=== PATIENT | female | born 1935 | race Caucasian/White ===

== ENCOUNTER 2020-05-03 09:20 | Inpatient (IN) | payer MEDICARE, OTHER, SELFPAY ==
[2020-05-03] VITALS (61 sets, daily range): BP systolic 127–224; BP diastolic 47–115; PULSE 60–87; RESP 9–27; TEMP 36.4–36.6; O2SAT 94–100; BMI 30.7
--- NOTE | 2020-05-03 09:24 | ED_ITS ---
HPI - Overdose General: Chief Complaint: Overdose Stated Complaint: ACCIDENTAL OD Time Seen by Provider: 05/03/20 09:22 History of Present Illness: HPI Narrative: 84-year-old female brought in by EMS with concerns of overdose on clonidine. I think the patient took 15.1 mg tablets of clonidine. She had no intent of harming herself she says she took some instead mistakingly thinking that the tablets in the bottle were all of her regular morning medicines as set of her stock supply of clonidine. She took them around 730 this morning. She is awake, patient answers questions but is mildly confused. She cannot tell me specifically what happened this morning she needs redirection on several points when discussing her history. Seen patient blood pressure is stable. Review of Systems Const: Denies: fever(s), chills, body aches, change in appetite, fatigue or malaise ENMT: Denies: throat pain, ear or mastoid pain, nasal discharge or nasal congestion Card: Denies: chest pain, edema, dyspnea on exertion or orthopnea Resp: Denies: dyspnea, productive cough or non-productive cough GI: Denies: abdominal pain, nausea, vomiting, hematemesis, coffee ground emesis, diarrhea, constipation, bloating, hematochezia or melena : Denies: flank pain, difficulty voiding, dysuria, urinary frequency or urinary urgency Skin/Breast: Denies: rash or pruritus PFSH ED PFSH: Medical History CKD (chronic kidney disease) Hypertension Parkinson disease Social History Smoking and tobacco status: never smoked Physical Exam Const: COMMON NORMALS: no acute distress GENERAL APPEARANCE: cooperative and comfortable HENMT: COMMON NORMALS: normocephalic, atraumatic, hearing grossly normal bilaterally, external ears normal, EAC's normal, TM's normal bilaterally, Normal nasal mucous membranes and turbinates present, moist oral mucous membranes and oropharynx normal HEAD & SCALP: normocephalic and atraumatic NOSE: Normal nasal mucous membranes and turbinates present EXTERNAL EAR: Yes external ears normal EXTERNAL AUDITORY CANAL: EAC's normal TYMPANIC MEMBRANE: TM's normal bilaterally Eye: COMMON NORMALS: Equal, round and reactive pupils present, EOMs intact bilaterally, conjunctivae normal and no scleral icterus CONJUNCTIVA: Yes conjunctivae normal PUPIL: Yes Equal, round and reactive pupils present Neck/C-Spine: COMMON NORMALS: full ROM, no lymphadenopathy, supple and no JVD Lymph: LYMPHATIC: no lymphadenopathy noted and no lymphedema noted Resp: COMMON NORMALS: normal respiratory effort, No retractions, No use of accessory muscles and clear to auscultation bilaterally AUSCULTATION: clear to auscultation bilaterally Cardio: COMMON NORMALS: no JVD, regular rate, regular rhythm and No murmurs present (Cardio) RATE: regular rate RHYTHM: regular rhythm GI: COMMON NORMALS: Soft to palpation and No hepatosplenomegaly present AUSCULTATION: Yes normoactive bowel sounds PALPATION: Yes Soft to palpation, No Tenderness to palpation present (GI), No Guarding due to palpation present (GI) and Yes No hepatosplenomegaly present Extremity: COMMON NORMALS: normal to inspection, capillary refill normal, no clubbing, cyanosis or edema, no calf tenderness and no pedal edema Skin: COMMON NORMALS: no rashes or lesions noted GENERAL SKIN EXAM: no rashes or lesions noted Course Vital Signs: Vital signs: Vital Signs Temperature 98.4 F 05/07/20 22:00 Pulse Rate 99 05/08/20 06:00 Respiratory Rate 24 H 05/08/20 06:00 Blood Pressure 201/103 05/08/20 06:00 Pulse Oximetry 93 05/08/20 06:00 MDM - Overdose MDM Narrative: Medical decision making narrative: Admit the patient to the ICU for overdose of clonidine to monitor. Lab Data: Labs: Lab Results 05/03/20 05/03/20 05/03/20 Range/Units 10:27 10:27 10:27 WBC 7.0 (4.0-10.0) 10^3/ uL RBC 4.30 (4.1-5.3) 10^6/u L Hgb 12.5 (11.5-15.3) g/dL Hct 39.6 (37.0-47.0) % MCV 92.1 (81-99) fL MCH 29.1 (28.0-34.0) pg MCHC 31.6 (30.0-36.0) g/dL RDW 15.4 H (12.1-15.1) % Plt Count 249 (130-400) 10^3/c mm MPV 9.9 (7.4-10.4) fL Neut % (Auto) 58.0 % Lymph % (Auto) 25.3 % [place] % (Auto) 10.1 % Eos % (Auto) 5.4 % Baso % (Auto) 0.9 % Neut # (Auto) 4.09 (1.8-7.7) 10^3/u L Lymph # (Auto) 1.8 (0.8-4.8) 10^3/u L [place] # (Auto) 0.7 (0.2-0.9) 10^3/u L Eos # (Auto) 0.4 (0.0-0.8) 10^3/u L Baso # (Auto) 0.1 (0.0-0.1) 10^3/u L Nucleated RBC % (a uto) 0 % Nucleated RBCs # 0.0 /100WBC PT 12.60 (12.1-14.9) SECO NDS INR 0.92 (0.8-1.2) Sodium 135 L (136-145) mmol/L Potassium 5.6 H (3.5-5.1) mmol/L Chloride 107 (98-107) mmol/L Carbon Dioxide 18 L (22-29) mmol/L Anion Gap 15.6 (5-19) BUN 64 H (8-23) mg/dL Creatinine 4.5 H (0.5-0.9) mg/dL GFR Calculation Not Reportable Glucose 147 H (65-115) mg/dL Calculated Osmolal ity 282 L (285-295) mOsm/k g Calcium 8.6 (8.5-10.5) mg/dL Total Bilirubin 0.2 (0.15-1.2) mg/dL AST 13 (0-32) U/L ALT < 5 (0-33) U/L Alkaline Phosphata se 55 (35-105) IU/L Troponin T Baselin e (0-10) ng/L Troponin T [address] [place] (0-10) ng/L Delta Troponin T (0-10) ABS# Troponin T Hi Sens 6Hr (0-10) ng/L Troponin T Hi Sens 6Hr Delta (0-12) ng/L Total Protein 5.5 L (6.6-8.7) g/dL Albumin 3.1 L (3.5-5.2) g/dL Globulin 2.4 (1.3-4.6) g/dL TSH (0.27-4.20) uIU/ mL Urine Color (Yellow) Urine Appearance (CLEAR) Urine pH (5-7) Ur Specific Gravit y (1.005-1.030) Urine Protein (Negative) Urine Glucose (UA) (Normal) Urine Ketones (Negative) Urine Blood (Negative) Urine Nitrate (Negative) Urine Bilirubin (NEGATIVE) Urine Urobilinogen (Negative) mg/dL Ur Leukocyte Felipa ase (Negative) Urine RBC (0-2) /hpf Urine WBC (0-5) /hpf Ur Squamous Epith Cells (0-5) Amorphous Sediment Urine Bacteria (NONE) Ur Random Sodium mmol/L Ur Random Potassiu m mmol/L Ur Random Chloride mmol/L Urine Creatinine (28-217) mg/dL Salicylates < 0.3 L (3-10) mg/dL Urine Opiates Scre en (Negative) ng/mL Acetaminophen < 5.0 L (10-30) ug/mL Ur Barbiturates Sc reen (Negative) ng/mL Ur Phencyclidine S crn (Negative) ng/mL Ur Amphetamines Sc reen (Negative) ng/mL U Benzodiazepines Scrn (Negative) ng/mL Urine Cocaine Scre en (Negative) ng/mL U Marijuana (THC) Screen (Negative) ng/mL Ethyl Alcohol < 10 (0-10) mg/dL 05/03/20 05/03/20 05/03/20 Range/Units 10:27 10:48 10:48 WBC (4.0-10.0) 10^3/ uL RBC (4.1-5.3) 10^6/u L Hgb (11.5-15.3) g/dL Hct (37.0-47.0) % MCV (81-99) fL MCH (28.0-34.0) pg MCHC (30.0-36.0) g/dL RDW (12.1-15.1) % Plt Count (130-400) 10^3/c mm MPV (7.4-10.4) fL Neut % (Auto) % Lymph % (Auto) % [place] % (Auto) % Eos % (Auto) % Baso % (Auto) % Neut # (Auto) (1.8-7.7) 10^3/u L Lymph # (Auto) (0.8-4.8) 10^3/u L [place] # (Auto) (0.2-0.9) 10^3/u L Eos # (Auto) (0.0-0.8) 10^3/u L Baso # (Auto) (0.0-0.1) 10^3/u L Nucleated RBC % (a uto) % Nucleated RBCs # /100WBC PT (12.1-14.9) SECO NDS INR (0.8-1.2) Sodium (136-145) mmol/L Potassium (3.5-5.1) mmol/L Chloride (98-107) mmol/L Carbon Dioxide (22-29) mmol/L Anion Gap (5-19) BUN (8-23) mg/dL Creatinine (0.5-0.9) mg/dL GFR Calculation Glucose (65-115) mg/dL Calculated Osmolal ity (285-295) mOsm/k g Calcium (8.5-10.5) mg/dL Total Bilirubin (0.15-1.2) mg/dL AST (0-32) U/L ALT (0-33) U/L Alkaline Phosphata se (35-105) IU/L Troponin T Baselin e 51 H (0-10) ng/L Troponin T [address] [place] (0-10) ng/L Delta Troponin T (0-10) ABS# Troponin T Hi Sens 6Hr (0-10) ng/L Troponin T Hi Sens 6Hr Delta (0-12) ng/L Total Protein (6.6-8.7) g/dL Albumin (3.5-5.2) g/dL Globulin (1.3-4.6) g/dL TSH (0.27-4.20) uIU/ mL Urine Color Yellow (Yellow) Urine Appearance Clear (CLEAR) Urine pH 6.0 (5-7) Ur Specific Gravit y 1.015 (1.005-1.030) Urine Protein 3+ H (Negative) Urine Glucose (UA) Trace H (Normal) Urine Ketones Negative (Negative) Urine Blood Neg (Negative) Urine Nitrate Negative (Negative) Urine Bilirubin Neg (NEGATIVE) Urine Urobilinogen Norm (Negative) mg/dL Ur Leukocyte Felipa ase Negative (Negative) Urine RBC 0-4 H (0-2) /hpf Urine WBC 0-4 H (0-5) /hpf Ur Squamous Epith Cells 0-4 H (0-5) Amorphous Sediment Not Reportable Urine Bacteria Trace (NONE) Ur Random Sodium mmol/L Ur Random Potassiu m mmol/L Ur Random Chloride mmol/L Urine Creatinine (28-217) mg/dL Salicylates (3-10) mg/dL Urine Opiates Scre en Negative (Negative) ng/mL Acetaminophen (10-30) ug/mL Ur Barbiturates Sc reen Negative (Negative) ng/mL Ur Phencyclidine S crn Negative (Negative) ng/mL Ur Amphetamines Sc reen Negative (Negative) ng/mL U Benzodiazepines Scrn Negative (Negative) ng/mL Urine Cocaine Scre en Negative (Negative) ng/mL U Marijuana (THC) Screen Negative (Negative) ng/mL Ethyl Alcohol (0-10) mg/dL 05/03/20 05/03/20 05/03/20 Range/Units 10:48 12:45 17:05 WBC (4.0-10.0) 10^3/ uL RBC (4.1-5.3) 10^6/u L Hgb (11.5-15.3) g/dL Hct (37.0-47.0) % MCV (81-99) fL MCH (28.0-34.0) pg MCHC (30.0-36.0) g/dL RDW (12.1-15.1) % Plt Count (130-400) 10^3/c mm MPV (7.4-10.4) fL Neut % (Auto) % Lymph % (Auto) % [place] % (Auto) % Eos % (Auto) % Baso % (Auto) % Neut # (Auto) (1.8-7.7) 10^3/u L Lymph # (Auto) (0.8-4.8) 10^3/u L [place] # (Auto) (0.2-0.9) 10^3/u L Eos # (Auto) (0.0-0.8) 10^3/u L Baso # (Auto) (0.0-0.1) 10^3/u L Nucleated RBC % (a uto) % Nucleated RBCs # /100WBC PT (12.1-14.9) SECO NDS INR (0.8-1.2) Sodium (136-145) mmol/L Potassium (3.5-5.1) mmol/L Chloride (98-107) mmol/L Carbon Dioxide (22-29) mmol/L Anion Gap (5-19) BUN (8-23) mg/dL Creatinine (0.5-0.9) mg/dL GFR Calculation Glucose (65-115) mg/dL Calculated Osmolal ity (285-295) mOsm/k g Calcium (8.5-10.5) mg/dL Total Bilirubin (0.15-1.2) mg/dL AST (0-32) U/L ALT (0-33) U/L Alkaline Phosphata se (35-105) IU/L Troponin T Baselin e (0-10) ng/L Troponin T [address] [place] 47.98 H (0-10) ng/L Delta Troponin T -3.02 L (0-10) ABS# Troponin T Hi Sens 6Hr 46.27 H (0-10) ng/L Troponin T Hi Sens 6Hr Delta -4.73 L (0-12) ng/L Total Protein (6.6-8.7) g/dL Albumin (3.5-5.2) g/dL Globulin (1.3-4.6) g/dL TSH (0.27-4.20) uIU/ mL Urine Color (Yellow) Urine Appearance (CLEAR) Urine pH (5-7) Ur Specific Gravit y (1.005-1.030) Urine Protein (Negative) Urine Glucose (UA) (Normal) Urine Ketones (Negative) Urine Blood (Negative) Urine Nitrate (Negative) Urine Bilirubin (NEGATIVE) Urine Urobilinogen (Negative) mg/dL Ur Leukocyte Felipa ase (Negative) Urine RBC (0-2) /hpf Urine WBC (0-5) /hpf Ur Squamous Epith Cells (0-5) Amorphous Sediment Urine Bacteria (NONE) Ur Random Sodium 88 mmol/L Ur Random Potassiu m 21 mmol/L Ur Random Chloride 81 mmol/L Urine Creatinine 52 (28-217) mg/dL Salicylates (3-10) mg/dL Urine Opiates Scre en (Negative) ng/mL Acetaminophen (10-30) ug/mL Ur Barbiturates Sc reen (Negative) ng/mL Ur Phencyclidine S crn (Negative) ng/mL Ur Amphetamines Sc reen (Negative) ng/mL U Benzodiazepines Scrn (Negative) ng/mL Urine Cocaine Scre en (Negative) ng/mL U Marijuana (THC) Screen (Negative) ng/mL Ethyl Alcohol (0-10) mg/dL 05/03/20 05/04/20 05/04/20 Range/Units 17:05 04:07 04:07 WBC 8.7 (4.0-10.0) 10^3/ uL RBC 3.73 L (4.1-5.3) 10^6/u L Hgb 11.0 L (11.5-15.3) g/dL Hct 35.7 L (37.0-47.0) % MCV 95.7 (81-99) fL MCH 29.5 (28.0-34.0) pg MCHC 30.8 (30.0-36.0) g/dL RDW 15.5 H (12.1-15.1) % Plt Count 199 (130-400) 10^3/c mm MPV 9.8 (7.4-10.4) fL Neut % (Auto) 56.4 % Lymph % (Auto) 28.2 % [place] % (Auto) 10.6 % Eos % (Auto) 3.7 % Baso % (Auto) 0.8 % Neut # (Auto) 4.90 (1.8-7.7) 10^3/u L Lymph # (Auto) 2.5 (0.8-4.8) 10^3/u L [place] # (Auto) 0.9 (0.2-0.9) 10^3/u L Eos # (Auto) 0.3 (0.0-0.8) 10^3/u L Baso # (Auto) 0.1 (0.0-0.1) 10^3/u L Nucleated RBC % (a uto) 0 % Nucleated RBCs # 0.0 /100WBC PT (12.1-14.9) SECO NDS INR (0.8-1.2) Sodium 136 (136-145) mmol/L Potassium 4.5 5.0 (3.5-5.1) mmol/L Chloride 110 H (98-107) mmol/L Carbon Dioxide 13 L (22-29) mmol/L Anion Gap 18.0 (5-19) BUN 60 H (8-23) mg/dL Creatinine 4.6 H (0.5-0.9) mg/dL GFR Calculation Not Reportable Glucose 97 (65-115) mg/dL Calculated Osmolal ity 281 L (285-295) mOsm/k g Calcium 8.5 (8.5-10.5) mg/dL Total Bilirubin 0.3 (0.15-1.2) mg/dL AST 21 (0-32) U/L ALT < 5 (0-33) U/L Alkaline Phosphata se 54 (35-105) IU/L Troponin T Baselin e (0-10) ng/L Troponin T [address] [place] (0-10) ng/L Delta Troponin T (0-10) ABS# Troponin T Hi Sens 6Hr (0-10) ng/L Troponin T Hi Sens 6Hr Delta (0-12) ng/L Total Protein 4.9 L (6.6-8.7) g/dL Albumin 2.5 L (3.5-5.2) g/dL Globulin 2.4 (1.3-4.6) g/dL TSH 7.15 H (0.27-4.20) uIU/ mL Urine Color (Yellow) Urine Appearance (CLEAR) Urine pH (5-7) Ur Specific Gravit y (1.005-1.030) Urine Protein (Negative) Urine Glucose (UA) (Normal) Urine Ketones (Negative) Urine Blood (Negative) Urine Nitrate (Negative) Urine Bilirubin (NEGATIVE) Urine Urobilinogen (Negative) mg/dL Ur Leukocyte Felipa ase (Negative) Urine RBC (0-2) /hpf Urine WBC (0-5) /hpf Ur Squamous Epith Cells (0-5) Amorphous Sediment Urine Bacteria (NONE) Ur Random Sodium mmol/L Ur Random Potassiu m mmol/L Ur Random Chloride mmol/L Urine Creatinine (28-217) mg/dL Salicylates (3-10) mg/dL Urine Opiates Scre en (Negative) ng/mL Acetaminophen (10-30) ug/mL Ur Barbiturates Sc reen (Negative) ng/mL Ur Phencyclidine S crn (Negative) ng/mL Ur Amphetamines Sc reen (Negative) ng/mL U Benzodiazepines Scrn (Negative) ng/mL Urine Cocaine Scre en (Negative) ng/mL U Marijuana (THC) Screen (Negative) ng/mL Ethyl Alcohol (0-10) mg/dL Discharge Plan Discharge Patient Disposition: Admitted As Inpatient Admit Provider: Teodora Singleton Clinical Impression: Accidental overdose, CKD (chronic kidney disease), Parkinson disease, Hypertension, Anemia Condition: Stable Interventions: ED Discharge Assessment Last Done: 05/03/20 14:12 ED Charges Last Done: 05/03/20 14:12 Discharge Date/Time: 05/03/20 14:15 Coding Level of Care Code ED Stand Grinder for Alex Ramos
--- NOTE | 2020-05-03 09:57 | ECG_ITS ---
[facility] Test Date: 2020-05-03 Pat Name: RUBI CURRIE Department: Room: Gender: Female Managing Member: : 1935 Requested By: Alex Laurent Order Number: [id number] Moses MD: Maryann Rubi M.D. Measurements Intervals [place] Rate: 64 P: 139 WV: 265 QRS: 41 QRSD: 86 T: 81 QT: 395 QTc: 408 Interpretive Statements ELECTRONIC ATRIAL PACEMAKER ABNORMAL RHYTHM ECG No previous ECG available for comparison Electronically Signed On 05-03-2020 20:19:57 CDT by Maryann Rubi M.D. [email or web address] memorial community [id number]
[2020-05-03 10:35] LABS: Basophils # 0.1 10^3/uL (0.0-0.1); Basophils % 0.9 %; Eosinophils # 0.4 10^3/uL (0.0-0.8); Eosinophils % 5.4 %; Hematocrit 39.6 % (37.0-47.0); Hemoglobin 12.5 g/dL (11.5-15.3); Lymphocytes # 1.8 10^3/uL (0.8-4.8); Lymphocytes % 25.3 %; Mean Corpuscular HGB Conc 31.6 g/dL (30.0-36.0); Mean Corpuscular Hemoglobin 29.1 pg (28.0-34.0); Mean Corpuscular Volume 92.1 fL (81-99); Mean Platelet Volume 9.9 fL (7.4-10.4); Monocytes # 0.7 10^3/uL (0.2-0.9); Monocytes % 10.1 %; Neutrophils # 4.09 10^3/uL (1.8-7.7); Nucleated Red Blood Cells % 0 %; Platelet Count 249 10^3/cmm (130-400); Red Cell Distribution Width 15.4 % (12.1-15.1)
[2020-05-03 10:52] LABS: INR 0.92 (0.8-1.2)
[2020-05-03 10:58] LABS: Troponin(5th) Baseline 51 ng/L (0-10)
[2020-05-03 10:59] LABS: Add Urine Microscopic? YES; Bilirubin Urine Neg (NEGATIVE); Blood Urine Neg (Negative); Glucose Urine UA Trace (Normal); Ketones Urine Negative (Negative); Leukocyte Esterase Urine Negative (Negative); Nitrate Urine Negative (Negative); Protein Urine 3+ (Negative); Specific Gravity, Urine 1.015 (1.005-1.030); Urine Appearance Clear (CLEAR); Urine Color Yellow (Yellow); Urobilinogen Urine Norm (Negative)
[2020-05-03 10:59] LABS: Alanine Aminotransferase < 5 U/L (0-33); Albumin Level 3.1 g/dL (3.5-5.2); Alkaline Phosphatase 55 IU/L (35-105); Anion Gap 15.6 (5-19); Aspartate Amino Transferase 13 U/L (0-32); Blood Urea Nitrogen 64 mg/dL (8-23); Calcium 8.6 mg/dL (8.5-10.5); Carbon Dioxide 18 mmol/L (22-29); Chloride 107 mmol/L (98-107); Globulin 2.4 g/dL (1.3-4.6); Glucose 147 mg/dL (65-115); Osmolality Calculated 282 mOsm/kg (285-295); Potassium 5.6 mmol/L (3.5-5.1); Sodium 135 mmol/L (136-145); Total Bilirubin 0.2 mg/dL (0.15-1.2); Total Protein 5.5 g/dL (6.6-8.7)
[2020-05-03 11:00] LABS: Acetaminophen < 5.0 ug/mL (10-30); Alcohol Level < 10 mg/dL (0-10); Salicylate < 0.3 mg/dL (3-10)
[2020-05-03 11:08] LABS: Amphetamines Screen Urine Negative (Negative); Barbiturates Screen Urine Negative (Negative); Benzodiazepines Screen Urine Negative (Negative); Cocaine Screen Urine Negative (Negative); Opiate Screen Urine Negative (Negative); PCP Screen Urine Negative (Negative); THC Screen Urine Negative (Negative)
[2020-05-03 11:15] LABS: Add Urine Culture? No; Bacteria Urine TRACE; RBC Urine 0-4 /hpf (0-2); Squamous Epithelial Cell Urine 0-4 (0-5); WBC Urine 0-4 /hpf (0-5)
--- NOTE | 2020-05-03 11:20 | PC.NURSE ---
Poison control called at this time. Physician notified of the information obtained.
[2020-05-03] MEDS: calcium gluconate 0.1 gm/mL 10% SDV 10mL 1 GM IVP (11:56)
[2020-05-03] MEDS: sodium chloride 0.9% 1,000 ML 999 ML IV (11:56)
--- NOTE | 2020-05-03 11:59 | ECG_ITS ---
[facility] Test Date: 2020-05-03 Pat Name: Cindi Melissa Department: Room: Gender: Female Tip Out Worker: : 1935 Requested By: Alex Laurent Order Number: [id number] Moses MD: Maryann Rubi M.D. Measurements Intervals [place] Rate: 60 P: 137 DC: 254 QRS: 48 QRSD: 89 T: 92 QT: 411 QTc: 411 Interpretive Statements ELECTRONIC ATRIAL PACEMAKER ABNORMAL RHYTHM ECG Compared to ECG 05/03/2020 10:54:40 No significant changes Electronically Signed On 05-03-2020 20:26:40 CDT by Maryann Rubi M.D. [id number]
--- NOTE | 2020-05-03 12:11 | PC.NURSE ---
EKG done at 1207 and shown to ER doctor
[2020-05-03 13:16] LABS: Troponin 5 2HR 47.98 ng/L (0-10)
[2020-05-03 13:22] LABS: Troponin 5 2HR Delta -3.02 ABS# (0-10)
--- NOTE | 2020-05-03 15:15 | CT_ITS ---
WS: [id number] EXAM: CT head wo con* [id number] DATE OF EXAMINATION: 05/03/2020, 1626 hours COMPARISON: None. HISTORY: 84 years old with new onset of confusion. TECHNIQUE: Thin slice imaging obtained through the brain. Viewed in brain, subdural and bone window with reconst ructions. DLP: 818.[address] scans at [facility] use at least one of these dose optimization techniques: automat ed exposure control; mA and/or kV adjustment per patient size (includes targeted exams where dose is matched to clinical indication); or iterative reconstruction. FINDINGS: There are generalized changes of age-related atrophy. Plummer-white differentiation is normal. There are slight changes of decreased attenuation within the white matter felt to represent sequelae from synchronizer hima small vessel white matter microangiopathic change. 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 Old infarct in the left head of the caudate , left subinsular ribbon region. Slight basal ganglia calcifications. Cerebellar atrophy. Arterial ca lcified plaque changes. No findings of hemorrhage, hydrocephalus, mass, mass effect or abnormal extra -axial fluid collection is seen. Overall bone density is decreased. No acute skull abnormality is dem onstrated. Extracalvarial soft tissues are unremarkable. Slight chronic sinusitis changes in the ethm oid sinuses. Findings of prior bilateral cataract surgery. CT/CT head wo con* [id number] IMPRESSION: Atrophy and slight chronic white matter changes. No acute intracranial process. 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
--- NOTE | 2020-05-03 15:17 | P.HP_ITS ---
Providers/Chief Complaint Admitting Physician: Teodora Singleton MD Chief Complaint: ACCIDENTAL OD History of Present Illness Cnidi Melissa is a 84 year old female with PMH Parkinson's , HTN, lives alone, presented to ER today c/o increased weakness and subjective confusion. She states that usually she takes clonidine in addition to her BID amlodipine for BP control on a prn basis. Last night she states that she beleives she may have accidentally taken ~15 pills of clonidine, mistaking it to be her otherwise sorted pills (which she sorts daily in a similar looking container). Overnight she beelived she had some vivid dreams, hallucinations and this morning felt weak. She panicked when she realized she mayhave taken excess medication and presnted to ER. She is otherwise alert and awake, however veers off the conversation at hand often and needs to be redirected. I am uncertain if this is her baseline. Intermittently her words are slurred. She is able to correctly tell me her comorbidities, however does not recall name of all of her medications. No focal deficits otherwise. SBP >200 at this time. Review of Systems General: Reports: 10 or more systems reviewed and unremarkable except in HPI and below Const: Denies: fever(s), chills or body aches Eyes: Denies: change in vision, blurry vision or photophobia ENMT: Reports: hoarseness; Denies: throat pain, enlarged tonsils, odynophagia or nasal congestion Card: Denies: chest pain, palpitations, irregular heart rhythm, edema, swelling of feet/ankles, lightheadedness, pre-syncope, dyspnea on exertion or orthopnea Resp: Denies: dyspnea, productive cough, non-productive cough, wheezing, stridor, pain on inspiration, change in phlegm color, hemoptysis or chest conge stion GI: Denies: abdominal pain, nausea, vomiting, hematemesis, coffee ground emesis, dysphagia, heartburn, diarrhea, constipation, GI cramping, change in stool character, hematochezia or melena : Denies: flank pain, difficulty voiding, dysuria, urinary frequency, urinary urgency, urinary hesitancy or hematuria Musc: Denies: neck pain, back pain, extremity pain, joint swelling, joint warmth or deformity Neuro: Denies: headache(s), numbness in extremities, weakness in extremities, sensory changes, difficulty walking, frequent falls, dizziness, vertigo, behavioral changes, Slurred speech present or seizure-like activity Psych: Denies: anxiety, depression, suicidal ideation or homicidal ideation Endo: Denies: polyuria, polydipsia, tired all the time, cold intolerance or hot flashes Hao/Lymph: Denies: easy bruising or easy bleeding Medications/Allergies Home Medications Medication Instructions Recorded Confirmed Last Taken Type Fish Oil 1 cap PO DAILY 05/03/20 05/03/20 Unknown History Probiotic 1 cap PO DAILY 05/03/20 05/03/20 Unknown History acetaminophen [Tylenol Extra 500 mg PO TID 05/03/20 05/03/20 Unknown History Strength] amlodipine 5 mg PO BID 05/03/20 05/03/20 Unknown History aspirin [Aspir-81] See Rx Instructions .ROUTE .COMPLEX 05/03/20 05/03/20 Unknown History carbidopa-levodopa 1 tab PO TID 05/03/20 05/03/20 Unknown History citalopram 10 mg PO BEDTIME 05/03/20 05/03/20 Unknown History clonidine HCl 0.1 mg PO BID 05/03/20 05/03/20 Unknown History cranberry 500 mg PO DAILY 05/03/20 05/03/20 Unknown History ferrous sulfate [iron] 325 mg PO BID 05/03/20 05/03/20 Unknown History hydralazine 10 mg PO TID 05/03/20 05/03/20 Unknown History levothyroxine 150 mcg PO DAILY 05/03/20 05/03/20 Unknown History multivitamin [Multiple Vitamins] 1 tab PO DAILY 05/03/20 05/03/20 Unknown Histo ry omeprazole 40 mg PO DAILY 05/03/20 05/03/20 Unknown History oxybutynin chloride 5 mg PO BID 05/03/20 05/03/20 Unknown History quetiapine 25 mg PO BEDTIME PRN 05/03/20 05/03/20 Unknown History quetiapine 200 mg PO BEDTIME 05/03/20 05/03/20 Unknown History rasagiline 1 mg PO DAILY 05/03/20 05/03/20 Unknown History sennosides-docusate sodium See Rx Instructions .ROUTE .COMPLEX 05/03/20 05/03/20 Unknown History [Senna-S] Allergies Allergy/AdvReac Type Severity Reaction Status Date / Time promethazine [From Phenergan] Allergy Unknown Verified 05/03/20 09:29 Sulfa (Sulfonamide Allergy Unknown Verified 05/03/20 09:29 Antibiotics) PFSH Acute PFSH: Medical History Hypertension Parkinson disease Social History (Updated 05/03/20 @ 16:51 by Teodora Singleton MD) Smoking and tobacco status: never smoked Vitals/I&O/Wt Last Vital Signs Temp 97.8 F 05/03/20 14:50 Pulse 68 05/03/20 15:00 Resp 20 H 05/03/20 15:00 BP 204/88 05/03/20 15:00 Pulse Ox 98 05/03/20 15:00 Weight last 48 hrs Weight 86.183 kg Physical Exam Narrative: EXAM NARRATIVE: GEN: Awake, alert and oriented, no acute distress CVS: S1S2 N RS: CTA B/L Abd: Soft, nt/nd , bs+ BEAN DUMPER: no focal neuro deficits Data : 05/03/20 10:27 05/03/20 10:27 A&P Assessment and plan (1) CKD (chronic kidney disease): Status: Acute (2) Hyperkalemia: Status: Acute (3) Parkinson disease: Status: Acute (4) Hypertension: Status: Acute (5) Accidental overdose: Status: Acute Additional A&P Information Admit to ICU in observation # Accidental clonidine overdose no acute change son EKG, Sinus bardycardia at 60 HTN with SBP >200 at this time hallucinations and vivid dreams may be art of accidental overdose neuro status monitoring CT head to r/o acute CVA # hyperkaelmia insulin/dextrose, given ca gluconate in ER, recheck level at 5pm # CKD, unknown baseline, pt states this has been ongoing at least 6 years, follows with PMD, never recomemnded dialysis in the past. Hold off on HD for now , pt otherwise stable # HTN: hydralazine prn for now for SBP >[address] head to r/o acute CVA AND DVT ppx: heparin Attestations Medical Necessity Statement*: clonidine overdose, anticipate <2MN admission Coding Level of Care Code Acute Clinical Research Tech for Chg Fwd Diagnoses CKD (chronic kidney disease) N18.9 Hyperkalemia E87.5 Parkinson disease G20 Hypertension I10 Accidental overdose T50.901A
[2020-05-03] MEDS: hyDRALAzine 20 mg/mL INJ 1 mL 10 MG IVP (15:53)
[2020-05-03] MEDS: dextrose 50% syringe 50 mL IVP (16:05)
[2020-05-03] MEDS: insulin regular-human 10 UNIT in SYRINGE 1 EACH 999 UNIT IVP (16:05)
[2020-05-03 17:53] LABS: Troponin 5 6HR 46.27 ng/L (0-10)
[2020-05-03 18:01] LABS: Potassium 4.5 mmol/L (3.5-5.1); Thyroid Stimulating Hormone 7.15 uIU/mL (0.27-4.20)
[2020-05-03 18:03] LABS: Troponin 5 6HR Delta -4.73 ng/L (0-12)
[2020-05-03] MEDS: amlodipine 10 mg Tablet PO (18:27)
[2020-05-03] MEDS: heparin 5,000 unit/mL INJ 1 mL 5000 UNIT SUBCUT (18:30)
--- NOTE | 2020-05-03 18:45 | PC.NURSE ---
Pt hypertensive upon admission to ICU. Dr. Singleton aware, and placed orders. See MAR. BP still very high after hydralazine administration; attempted to reach Dr. Singleton via Voalte at 17:06. No response. Spoke with her via telephone; she stated she will enter orders. No orders received to treat hypertension after ~30 minutes, so Dr. Singleton was called once again. No answer; left voice message. Tammie MCCORMICK, charge nurse notified, who sent her a text. She then called back and gave instructions to give amlodipine 10mg PO now and if the pt is still hypertensive after 45 minutes, give the PO Imdur dose that is also ordered. There was a delay in retrieving the amlodipine from the [facility] due to it not appearing in the patient's medication profile and not showing up in the override feature. Pharmacy notified; they re-entered the order from their end. Amlodipine given at approximately 18:30. Updated oncoming nurseYamile, of physician's instructions for Imdur administration.
[2020-05-03] MEDS: isosorbide mononitrate ER 30 mg Tablet PO (20:00)
[2020-05-04] VITALS (61 sets, daily range): BP systolic 83–221; BP diastolic 37–97; PULSE 60–88; RESP 10–25; TEMP 36.7–37.1; O2SAT 90–98
[2020-05-04] MEDS: acetaminophen 325 mg Tablet 650 MG PO ×2 (01:24→13:10)
[2020-05-04 04:25] LABS: Basophils # 0.1 10^3/uL (0.0-0.1); Basophils % 0.8 %; Eosinophils # 0.3 10^3/uL (0.0-0.8); Eosinophils % 3.7 %; Hematocrit 35.7 % (37.0-47.0); Lymphocytes # 2.5 10^3/uL (0.8-4.8); Lymphocytes % 28.2 %; Mean Corpuscular HGB Conc 30.8 g/dL (30.0-36.0); Mean Corpuscular Hemoglobin 29.5 pg (28.0-34.0); Mean Corpuscular Volume 95.7 fL (81-99); Mean Platelet Volume 9.8 fL (7.4-10.4); Monocytes # 0.9 10^3/uL (0.2-0.9); Monocytes % 10.6 %; Neutrophils % 56.4 %; Nucleated Red Blood Cells % 0 %; Platelet Count 199 10^3/cmm (130-400); Red Blood Count 3.73 10^6/uL (4.1-5.3); Red Cell Distribution Width 15.5 % (12.1-15.1); White Blood Count 8.7 10^3/uL (4.0-10.0)
[2020-05-04 04:59] LABS: Alanine Aminotransferase < 5 U/L (0-33); Albumin Level 2.5 g/dL (3.5-5.2); Alkaline Phosphatase 54 IU/L (35-105); Aspartate Amino Transferase 21 U/L (0-32); Blood Urea Nitrogen 60 mg/dL (8-23); Calcium 8.5 mg/dL (8.5-10.5); Carbon Dioxide 13 mmol/L (22-29); Chloride 110 mmol/L (98-107); Globulin 2.4 g/dL (1.3-4.6); Glucose 97 mg/dL (65-115); Osmolality Calculated 281 mOsm/kg (285-295); Sodium 136 mmol/L (136-145); Total Bilirubin 0.3 mg/dL (0.15-1.2); Total Protein 4.9 g/dL (6.6-8.7)
[2020-05-04] MEDS: heparin 5,000 unit/mL INJ 1 mL 5000 UNIT SUBCUT ×2 (05:29→17:25)
[2020-05-04] MEDS: hyDRALAzine 20 mg/mL INJ 1 mL 10 MG IVP (06:28)
[2020-05-04] MEDS: ondansetron 2 mg/ML SDV 2 mL 4 MG IVP ×2 (07:32→17:32)
--- NOTE | 2020-05-04 08:06 | CT_ITS ---
WS: [id number] EXAM: CT OF THE ABDOMEN AND PELVIS WITHOUT CONTRAST DATE OF EXAMINATION: 05/04/2020, 1421 hours COMPARISON: None. HISTORY: 84 years old with accidental drug overdose. Creatinine of 4.6. History of chronic kidney disease. TECHNIQUE: Transaxial computed tomography images obtained through the abdomen and pelvis without utilization of contrast viewed in multiple windows with reconstructions. DLP: 1313.[address] scans at [facility] use at least one of these dose optimization techniques: automat ed exposure control; mA and/or kV adjustment per patient size (includes targeted exams where dose is matched to clinical indication); or iterative reconstruction. FINDINGS: There are minimal findings of infiltrate/atelectasis in both lung bases with small effusions. Most li ramya dependent atelectasis. Pacing wires end in the heart. Extensive mitral valve annular calcificati ons noted. Heart size is considered within normal limits. The aorta is normal in caliber. Without IV contrast evaluation of the lumen is considered inadequate. Liver attenuation is normal. Clips in the gallbladder fossa correlate with cholecystectomy changes. No biliary dilatation is noted. The spleen is normal in appearance. The pancreas is normal appearance. Adrenal glands are normal appearance. Both kidneys are normal in size and attenuation. There is a small hyperdense lesion dorsal superior l eft kidney most likely a tiny hemorrhagic cyst. Several lesions are also seen involving the right kid radhika. At least 2 of these are dense suggesting hemorrhagic cysts. Follow-up renal sonogram recommended to confirm no solid mass lesion. The largest is superiorly 2.5 cm in size. No obstructive uropathy. No ureteral stones. Small retrocardiac hiatal hernia. Stomach otherwise normal in appearance. Small bowel is normal in ca liber. Colon is normal in caliber. Slight thickening of the colonic wall is seen. Fairly nonspecific. Could be related to the decompressed state. No pericolonic inflammatory change. Please correlate for symptoms of colitis. There appears to be ingested dense material within an otherwise normal appendix . No intraperitoneal or retroperitoneal adenopathy or masses seen. Bladder is normally distended. Minute in size umbilical hernia. No groin hernia appear Uterus is atretic. No adnexal mass. Scattered degenerative changes are seen in the spine. Most prominent collapse of the disc space L5-S1 level. Overall bone density is decreased. CT/CT abdomen pelvis wo con [id number] IMPRESSION: Findings of small bilateral pleural effusions with bibasilar infiltrates most l ikely representing dependent atelectasis. Multiple lesions involving the kidneys most likely hemorrhagic cysts. Renal son ogram recommended to exclude a solid mass lesion. No obstructive uropathy. Slight prominence of the colonic wall presumably related to the decompressed st ate. Please correlate for clinical symptomatology to suggest colitis which is c onsidered unlikely unless the clinical symptoms of this entity. Normal appendix . Other nonemergent findings as described in the body of the report.
[2020-05-04] MEDS: amlodipine 10 mg Tablet PO (08:51)
[2020-05-04] MEDS: isosorbide mononitrate ER 30 mg Tablet PO (08:51)
--- NOTE | 2020-05-04 10:15 | P.PN_ITS ---
Subjective Subjective: Interval history: Patient hypotensive this morning. Blood pressure continuously above 1 90-200 systolic. Started on a Cardene drip. Also very nauseous this morning. Creatinine at 4.6. Per additional history obtained from the patient this morning, states she was admitted 1 week ago at [facility] in [place] at which time she was transfused 4 units of blood. She does not remember why she needed the blood transfusion. Reportedly creatinine was 2.0 at that time. Records have been requested from her primary Dr. Sheehan in [facility] and also from the hospital she was admitted at. She has previously not been interested in dialysis. Medications: Reviewed: Yes Vitals/I&O/Wt Last Vital Signs Temp 98.4 F 05/04/20 07:00 Pulse 66 05/04/20 10:00 Resp 20 H 05/04/20 10:00 BP 194/77 05/04/20 10:00 Pulse Ox 94 05/04/20 10:00 05/03/20 05/04/20 05/04/20 22:59 06:59 14:59 Output Total 1000 / 1000 650 / 1650 Balance -1000 / -1000 -650 / -1650 Weight last 48 hrs Weight 86.183 kg Physical Exam Narrative: EXAM NARRATIVE: GEN: Awake, alert and oriented, no acute distress CVS: S1S2 N RS: CTA B/L Abd: Soft, nt/nd , bs+ NANOTECHNOLOGY TECHNICIAN: no focal neuro deficits Data : 05/04/20 04:07 05/04/20 04:07 A&P Assessment and plan (1) Hyperkalemia: Status: Acute (2) CKD (chronic kidney disease): Status: Acute (3) Parkinson disease: Status: Acute (4) Hypertension: Status: Acute (5) Accidental overdose: Status: Acute (6) Hypertensive urgency: Status: Acute Additional A&P Information Change to inpatient admission # Accidental clonidine overdose, suspected by patient # hypertensive urgency HTN with SBP >200 at this time, overnight she had improved BP control after being given amlodipine and imdur, however this morning she is again at SBP >200. Also c/o increased nausea at this time with heaving. Not controlled with po imdur and hydralazine pushes Start nicardipine drip for BP control Overlap with 10mg po amlodipine, hydralazine changed to 25mg po TID hallucinations and vivid dreams may be part of accidental overdose, however pat shahid is not certain if she did take medications, now states she took something that was 15 pills but is unsure. CT head with chronic white matter changes. No acute intracranial process.Resum ASA neuro status monitoring SBP goal topday to be at ~150 # hyperkaelmia insulin/dextrose, given ca gluconate in ER, thia am level at 5.0 Likely related to underlying CKD # CKD, unknown baseline,today patient states that she was admitted one week ago at [facility] and received 4 units of transfusion, however does not know indication. States that her cr was probably 2.0 at that time. records requested from PMD and OSH. CT abd/pelvis to evalute for obstructive uropathy given acutely worsened cr urine output at 1.6L Noted bicarb at 13 today Incraesing lower extremity swelling,lasix 20mg iv x 1 today LE duplex, reports tenderness to palpation over RLE # hypothyroidism: elevated TSH at 7. FT4 and FT3 in am AND DVT ppx: heparin Attestations Medical Necessity Statement*: change to inpatient admission for hypertensive urgency, likely GERDA on CKD, records requested Coding Level of Care Code Acute Shrink Pit Operator for Chg Fwd Diagnoses Hyperkalemia E87.5 CKD (chronic kidney disease) N18.9 Parkinson disease G20 Hypertension I10 Accidental overdose T50.901A Hypertensive urgency I16.0
[2020-05-04] MEDS: nicardipine 20 MG/200 ML PREMIX 50 MG IV ×2 (10:16→14:05)
--- NOTE | 2020-05-04 10:29 | ECG_ITS ---
[facility] Test Date: 2020-05-04 Pat Name: Cindi Melissa Department: Room: [facility] Gender: Female Single End Sewer: : 1935 Requested By: Teodora Singleton Order Number: [id number] Moses MD: Isabel Arizmendi M.D. Measurements Intervals [place] Rate: 67 P: 66 VT: 170 QRS: 44 QRSD: 84 T: 71 QT: 414 QTc: 439 Interpretive Statements SINUS RHYTHM WITH SINUS ARRHYTHMIA Compared to ECG 05/03/2020 12:09:07 Atrial-paced complex(es) or rhythm no longer present Electronically Signed On 05-04-2020 23:07:21 CDT by Isabel Arizmendi M.D. [id number]
--- NOTE | 2020-05-04 10:31 | USCV_ITS ---
Cindi Melissa Age: 84 Gender: F : 1935 Exam Date: 05/04/2020 11:39 Ordering Phys: Teodora Singleton MD Technologist: Shai Moise [place] [facility] [place]: BED STASIS ? DVT HISTORY: Lower extremity swelling. PROCEDURES: The venous duplex Doppler examination of both lower extremities was performed in the standard fashion. The following venous structures were evaluated: common femoral vein, profunda vein, proximal portion of the greater saphenous vein, superficial femoral vein, and the popliteal vein. In addition, the posterior tibial and peroneal trunk were evaluated. FINDINGS: Normal 2-D Doppler and augmentation and compressibility throughout the lower extremity venous structures. Additional imaging through the proximal calf veins also reveals no thrombus. Limited evaluation of the greater saphenous vein is patent with no thrombus.. CONCLUSIONS No evidence of DVT in the above-mentioned identifiable veins. Dr Isabel Arizmendi MD [facility] (Electronically Signed) Final Date: 05 May 2020 17:12 S
[2020-05-04 11:13] LABS: Potassium, Radom Urine 21 mmol/L; Urine Creatinine 52 mg/dL (28-217); Urine Random Chloride 81 mmol/L; Urine Random Sodium 88 mmol/L
[2020-05-04] MEDS: FUROsemide 10 mg/mL SDV 2mL 20 MG IVP (13:11)
[2020-05-04] MEDS: hyDRALAzine 25 mg Tablet PO ×2 (14:43→20:59)
[2020-05-04] MEDS: carbidopa-levodopa 25-100mg Tablet 1 EACH PO ×2 (14:43→20:59)
[2020-05-04] MEDS: nicardipine 20 MG/200 ML PREMIX 125 MG IV (16:44)
[2020-05-04] MEDS: oxybutynin 5 mg Tablet PO (17:26)
[2020-05-04] MEDS: nicardipine 20 MG/200 ML PREMIX 100 MG IV ×3 (18:21→22:17)
--- NOTE | 2020-05-04 18:39 | PC.NURSE ---
Dr. Singleton notified at 07:30 of persistent hypertension despite recent hydralazine administration. See orders.
[2020-05-04] MEDS: citalopram 20 mg Tablet 10 MG PO (20:59)
[2020-05-04] MEDS: quetiapine 100 mg Tablet 200 MG PO (20:59)
[2020-05-05] VITALS (27 sets, daily range): BP systolic 90–172; BP diastolic 36–64; PULSE 60–89; RESP 13–21; TEMP 36.9; O2SAT 89–96
[2020-05-05 04:10] LABS: Basophils # 0.1 10^3/uL (0.0-0.1); Basophils % 0.8 %; Eosinophils # 0.2 10^3/uL (0.0-0.8); Eosinophils % 2.1 %; Hematocrit 36.3 % (37.0-47.0); Hemoglobin 11.1 g/dL (11.5-15.3); Lymphocytes # 2.8 10^3/uL (0.8-4.8); Lymphocytes % 29.9 %; Mean Corpuscular HGB Conc 30.6 g/dL (30.0-36.0); Mean Corpuscular Hemoglobin 29.3 pg (28.0-34.0); Mean Corpuscular Volume 95.8 fL (81-99); Mean Platelet Volume 10.3 fL (7.4-10.4); Monocytes # 1.2 10^3/uL (0.2-0.9); Monocytes % 13.5 %; Neutrophils # 4.92 10^3/uL (1.8-7.7); Neutrophils % 53.4 %; Nucleated Red Blood Cells % 0 %; Platelet Count 249 10^3/cmm (130-400); Red Blood Count 3.79 10^6/uL (4.1-5.3); Red Cell Distribution Width 15.8 % (12.1-15.1); White Blood Count 9.2 10^3/uL (4.0-10.0)
[2020-05-05] MEDS: heparin 5,000 unit/mL INJ 1 mL 5000 UNIT SUBCUT ×2 (04:34→17:30)
[2020-05-05 04:35] LABS: Alanine Aminotransferase < 5 U/L (0-33); Albumin Level 2.7 g/dL (3.5-5.2); Alkaline Phosphatase 57 IU/L (35-105); Anion Gap 17.7 (5-19); Aspartate Amino Transferase 24 U/L (0-32); Blood Urea Nitrogen 60 mg/dL (8-23); Calcium 8.1 mg/dL (8.5-10.5); Carbon Dioxide 14 mmol/L (22-29); Chloride 112 mmol/L (98-107); Globulin 2.5 g/dL (1.3-4.6); Glucose 99 mg/dL (65-115); Osmolality Calculated 287 mOsm/kg (285-295); Potassium 4.7 mmol/L (3.5-5.1); Sodium 139 mmol/L (136-145); Total Bilirubin 0.3 mg/dL (0.15-1.2); Total Protein 5.2 g/dL (6.6-8.7)
[2020-05-05 04:45] LABS: T3 Free 1.1 PG/ML (2.0-4.4)
[2020-05-05] MEDS: aspirin 81 mg EC Tablet PO (08:17)
[2020-05-05] MEDS: pantoprazole DR 40 mg Tablet PO (08:17)
[2020-05-05] MEDS: isosorbide mononitrate ER 30 mg Tablet PO (08:17)
[2020-05-05] MEDS: hyDRALAzine 25 mg Tablet PO ×3 (08:18→20:59)
[2020-05-05] MEDS: oxybutynin 5 mg Tablet PO ×2 (08:18→17:35)
[2020-05-05] MEDS: levothyroxine 150 mcg Tablet PO (08:18)
[2020-05-05] MEDS: amlodipine 10 mg Tablet PO (08:18)
[2020-05-05] MEDS: carbidopa-levodopa 25-100mg Tablet 1 EACH PO ×3 (08:18→20:59)
--- NOTE | 2020-05-05 11:48 | PM.CONSULT ---
Providers/Reason For Consult Consulting Physican/Specialty*: Cherise Valentine DO, telenephrology Reason for Consult*: CKD, hypertension, hyperkalemia Requesting Physcian: Teodora Singleton MD Attending Physician: Teodora Singleton MD History of Present Illness History of Present Illness Cindi Melissa is a 84 year old female presented to hospital for evaluation of altered mental status. She states she took 15 amlodipine tablets at once the night before by mistake. In past she has declined dialysis, but now would like to try it and see if she feels better. Review of Systems Const: Reports: fatigue Card: Denies: chest pain Resp: Reports: dyspnea GI: Denies: abdominal pain Neuro: Reports: other (tremor) Meds/Allergies Home Medications and Allergies Home Medications Medication Instructions Recorded Confirmed Last Taken Type Fish Oil 1 cap PO DAILY 05/03/20 05/03/20 Unknown History Probiotic 1 cap PO DAILY 05/03/20 05/03/20 Unknown History acetaminophen [Tylenol Extra 500 mg PO TID 05/03/20 05/03/20 Unknown History Strength] amlodipine 5 mg PO BID 05/03/20 05/03/20 Unknown History aspirin [Aspir-81] See Rx Instructions .ROUTE .COMPLEX 05/03/20 05/03/20 Unknown History carbidopa-levodopa 1 tab PO TID 05/03/20 05/03/20 Unknown History citalopram 10 mg PO BEDTIME 05/03/20 05/03/20 Unknown History clonidine HCl 0.1 mg PO BID 05/03/20 05/03/20 Unknown History cranberry 500 mg PO DAILY 05/03/20 05/03/20 Unknown History ferrous sulfate [iron] 325 mg PO BID 05/03/20 05/03/20 Unknown History hydralazine 10 mg PO TID 05/03/20 05/03/20 Unknown History levothyroxine 150 mcg PO DAILY 05/03/20 05/03/20 Unknown History multivitamin [Multiple Vitamins] 1 tab PO DAILY 05/03/20 05/03/20 Unknown History omeprazole 40 mg PO DAILY 05/03/20 05/03/20 Unknown History oxybutynin chloride 5 mg PO BID 05/03/20 05/03/20 Unknown History quetiapine 25 mg PO BEDTIME PRN 05/03/20 05/03/20 Unknown History quetiapine 200 mg PO BEDTIME 05/03/20 05/03/20 Unknown History rasagiline 1 mg PO DAILY 05/03/20 05/03/20 Unknown History sennosides-docusate sodium See Rx Instructions .ROUTE .COMPLEX 05/03/20 05/03/20 Unknown History [Senna-S] Allergies Allergy/AdvReac Type Severity Reaction Status Date / Time promethazine [From Phenergan] Allergy Unknown Verified 05/03/20 09:29 Sulfa (Sulfonamide Allergy Unknown Verified 05/03/20 09:29 Antibiotics) Current Medications Current Medications Generic Name Dose Route Start Last Admin Trade Name Freq PRN Reason Stop Dose Admin Acetaminophen 650 mg 05/03/20 16:32 05/04/20 13:10 Tylenol PO 650 mg Q6H PRN Administration Mild/Mod Pain Or Temp >/= 101 Amlodipine Besylate 10 mg 05/04/20 09:00 05/05/20 08:18 Norvasc PO 10 mg DAILY LAMONT Administration Aspirin 81 mg 05/05/20 09:00 05/05/20 08:17 Aspirin Ec PO 81 mg DAILY LAMONT Administration Carbidopa/Levodopa 1 each 05/04/20 15:00 05/05/20 08:18 Sinemet PO 1 each TID LAMONT Administration Citalopram Hydrobromide 10 mg 05/04/20 21:00 05/04/20 20:59 Celexa PO 10 mg BEDTIME LAMONT Administration Heparin Sodium (Beef Lung) 5,000 unit 05/03/20 16:45 05/05/20 04:34 Heparin SUBCUT 5,000 unit Q12H LAMONT Administration Hydralazine HCl 25 mg 05/04/20 15:00 05/05/20 08:18 Apresoline PO 25 mg TID LAMONT Administration Nicardipine/Sodium Chloride 20 mg in 200 mls @ 0 mls/hr 05/04/20 07:45 05/05/20 01:06 Cardene IV 0 mg/hr .Q0M LAMONT 0 mls/hr Titration Protocol Per Protocol Isosorbide Mononitrate 30 mg 05/03/20 18:00 05/05/20 08:17 Imdur PO 30 mg DAILY LAMONT Administration Levothyroxine Sodium 150 mcg 05/05/20 09:00 05/05/20 08:18 Synthroid PO 150 mcg DAILY LAMONT Administration Non-Formulary Medication 500 mg 05/05/20 09:00 05/05/20 08:20 Cranberry PO Not Given DAILY LAMONT Non-Formulary Medication 1 mg 05/05/20 09:00 05/05/20 08:20 Rasagiline PO Not Given DAILY LAMONT Ondansetron HCl 4 mg 05/04/20 07:28 05/04/20 17:32 Zofran IVP 4 mg Q6H PRN Administration NAUSEA AND VOMITING Oxybutynin Chloride 5 mg 05/04/20 18:00 05/05/20 08:18 Ditropan PO 5 mg BID LAMONT Administration Pantoprazole Sodium 40 mg 05/05/20 09:00 05/05/20 08:17 Protonix PO 40 mg DAILY LAMONT Administration Quetiapine Fumarate 200 mg 05/04/20 21:00 05/04/20 20:59 Seroquel PO 200 mg BEDTIME LAMONT Administration PFSH Acute PFSH: Medical History CKD (chronic kidney disease) Hypertension Parkinson disease Social History Smoking and tobacco status: never smoked Vitals/I&O/Wt Last Vital Signs Temp 98.4 F 05/04/20 07:00 Pulse 72 05/05/20 11:00 Resp 21 H 05/05/20 08:00 BP 137/51 05/05/20 11:00 Pulse Ox 94 05/05/20 11:00 05/04/20 05/05/20 05/05/20 22:59 06:59 14:59 Intake Total 988.126 / 1178.959 181.250 / 1360.209 300 / 300 Output Total 300 / 500 400 / 400 Balance 688.126 / 678.959 181.250 / 860.209 -100 / -100 Physical Exam Const: COMMON NORMALS: no acute distress GENERAL APPEARANCE: cooperative ORIENTATION/CONSCIOUSNESS: Yes awake Resp: COMMON NORMALS: normal respiratory effort and clear to auscultation bilaterally AUSCULTATION: clear to auscultation bilaterally Cardio: COMMON NORMALS: regular rate RATE: regular rate HEART SOUNDS: Murmur heart sound present Extremity: GENERAL: Yes edema Data Labs: Other Labs: urinalysis 3+ albumin, serum albumin 2.7, calcium 8.1 Other Data: Other data: CT ABD: Adrenal glands are normal appearance. Both kidneys are normal in size and attenuation. There is a small hyperdense lesion dorsal superior left kidney most likely a tiny hemorrhagic cyst. Several lesions are also seen involving the right kidney. At least 2 of these are dense suggesting hemorrhagic cysts. Follow-up renal sonogram recommended to confirm no solid mass lesion. The largest is superiorly 2.5 cm in size. No obstructive uropathy. No ureteral stones. A&P Additional A&P Information Impression: 1. Stage 5 CKD, possibly with uremic symptoms 2. Proteinuria, possibly nephrotic 3. Metabolic acidosis 4. Hyperkalemia, resolved 5. Hypertension Recommend: I discussed with Cindi potential benefits and risks of dialyisis, HD v PD, types of access. She would like to try hemodialysis. Consult surgery for permcath placement. Begin oral sodium bicarbonate. Begin protein supplement. Check labs including PTH, 26(OH)D, phos, Hepatitis serologies. Once dialysis started, add ARB. Coding Level of Care Code Acute Supervisor Spring Up for Alex Ramos
--- NOTE | 2020-05-05 12:52 | USCV_ITS ---
Cindi Melissa Age: 84 Gender: F : 1935 Exam Date: 05/05/2020 15:47 Ordering Phys: Teodora Singleton MD Technologist: Sera Rosas [place] [facility] [place]ication: HYPERTENSIVE crisis BP: 157 / 59 HR: 73 Rhythm: Sinus Technical Quality: Technically difficult study MEASUREMENTS (Male / Female) Normal Values 2D ECHO LV Diastolic Diameter PLAX 3.1 cm 4.2 - 5.9 / 3.9 - 5.3 cm LV Systolic Diameter PLAX 1.3 cm IVS Diastolic Thickness 1.1 cm 0.6 - 1.0 / 0.6 - 0.9 cm IVS Systolic Thickness 1.6 cm LVPW Diastolic Thickness 1.4 cm 0.6 - 1.0 / 0.6 - 0.9 cm LVPW Systolic Thickness 1.7 cm LV Ejection Fraction 2D Teich 88.4 % LV Ejection Fraction MOD 2C 79.6 % LV Ejection Fraction 2C AL 81.7 % LA Diameter 2.4 cm LA Width 3.8 cm LA Height 6.4 cm RA Width 3.9 cm RA Height 5.0 cm M-MODE Aortic Annulus Diameter 2.8 cm LA Ao Ratio MM 0.9 MV E Point Septal Separation 1.4 cm DOPPLER AV Peak Velocity 228.0 cm/s LVOT Peak Velocity 171.0 cm/s MV Peak Velocity 198.0 cm/s MV Area PHT 2.1 cm squared Mitral E to A Ratio 1.1 MV E' Velocity 9.0 cm/s Mitral E to MV E' Ratio 18.1 Mitral E to LV E' Lateral Ratio 20.2 Mitral E to LV E' Septal Ratio 16.4 TR Peak Velocity 332.0 cm/s TR Peak Gradient 44.2 mmHg Right Atrial Pressure 3.0 mmHg Pulmonary Artery Systolic Pressu 47.1 mmHg PV Peak Velocity 167.0 cm/s RV Acceleration Time 0.1 s FINDINGS Left Ventricle Normal left ventricular size. Because of limited visualization regional wall motion abnormalities cannot be assessed. Diastolic function is indeterminate Right Ventricle The right ventricle is normal in size and function. Right Atrium The right atrium is normal in size. Left Atrium The left atrium is normal in size. Mitral Valve Mild mitral annular calcification is noted. There is no mitral regurgitation. Aortic Valve Aortic sclerosis is noted. There is mild aortic stenosis with a mean gradient across the aortic valve of 10.8 mmHg. There is trace aortic regurgitation. Tricuspid Valve Structurally normal tricuspid valve without significant stenosis. There is trace TR. Pulmonic Valve Not well visualized Pericardium Normal pericardium without effusion. Aorta Normal ascending aorta dimension. CONCLUSIONS Technically limited study. LV systolic function is grossly normal. Diastolic function is indeterminate Mild aortic stenosis is noted. Freddie Marrero MD (Electronically Signed) Final Date: 05 May 2020 17:30 S
[2020-05-05 12:59] LABS: 25 Hydroxy Vitamin D 12 ng/mL (30-100)
--- NOTE | 2020-05-05 13:10 | PC.CHAP ---
Pastoral Care Encounter/Spiritual Assessment Type of Contact [] Declined petroleum refining firer visit [] Patient/Family/Request visit [] Outpatient visit [] Follow-up visit [] Physician referral [] Code/Alert [x] Routine visit [] Staff referral [] Actively dying [] Patient sleeping [] Family support [] [] Out of room [] Palliative care [] [x] Receiving care in room [] Pre-surgical visit [] Trauma [] Long length of stay [x] ICU visit [] Other: Relational/Emotional Strength [] Patient feels connected with others/family/visitors/staff [] Distress [] Loneliness/isolation [] Abandonment Spirituality of Patient [] Person of Annalise [] Attends Religious of their Annalise [] Believes in Prayer [] Reads Bible or Hinduism materials [] There are Spiritual issues to be addressed Manager Transit Interventions [] Prayer [] Active listening [] Non-anxious presence [] Spiritual/emotional support [] Crisis/trauma care [] Spiritual counseling [] Bereavement support [] Provided bereavement packet [] Provided Bible/devotional materials [] Provided toy/stuffed animal, coloring book to patient or family member [] Provided Communion [] Anointing/[place] [] Salvation [] Completed spiritual assessment [] Other: Impact on Illness or Injury [] Angry [] Fearful [] Anxious [] Often cries [] Exhaustion [] Unable to work [] Unable to attend presybeterian [] Unable to walk/stand [] Unable to read [] Unable to drive [] Unable to eat/drink [] Unable to sleep [] Unable to be with family [] Patient intubated [] Other: Summary Patient was receiving care from the nursing staff at the time of petroleum refining firer visit. Manager Transit referred patient for follow up visit with oncoming petroleum refining firer. Time spent with patient 3 minutes
--- NOTE | 2020-05-05 13:27 | P.CONIM_ITS ---
Providers/Reason For Consult Consulting Physican/Specialty*: Paco Middleton MD Reason for Consult*: Need for hemodialysis tunneled catheter Attending Physician: Teodora Singleton MD History of Present Illness History of Present Illness Chief Complaint: Kidney problem History of present illness: Ms Cindi Melissa is a 84 year old female entered the to the hospital with history of altered mental status as the patient does have a baseline of chronic kidney disease was further evaluated by nephrology service for dialysis and it has been discussed options with her by Dr. Chandler cap sewer for hemodialysis versus peritoneal dialysis and patient elected to proceed with the hemodialysis. Dr. Singleton did consult me for placement of tunneled hemodialysis catheter CT scan of the abdomen and pelvis FINDINGS: There are minimal findings of infiltrate/atelectasis in both lung bases with small effusions. Most likely dependent atelectasis. Pacing wires end in the heart. Extensive mitral valve annular calcifications noted. Heart size is considered within normal limits. The aorta is normal in caliber. Without IV contrast evaluation of the lumen is considered inadequate. Liver attenuation is normal. Clips in the gallbladder fossa correlate with cholecystectomy changes. No biliary dilatation is noted. The spleen is normal in appearance. The pancreas is normal appearance. Adrenal glands are normal appearance. Both kidneys are normal in size and attenuation. There is a small hyperdense lesion dorsal superior left kidney most likely a tiny hemorrhagic cyst. Several lesions are also seen involving the right kidney. At least 2 of these are dense suggesting hemorrhagic cysts. Follow-up renal sonogram recommended to confirm no solid mass lesion. The largest is superiorly 2.5 cm in size. No obstructive uropathy. No ureteral stones. Small retrocardiac hiatal hernia. Stomach otherwise normal in appearance. Small bowel is normal in caliber. Colon is normal in caliber. Slight thickening of the colonic wall is seen. Fairly nonspecific. Could be related to the decompressed state. No pericolonic inflammatory change. Please correlate for symptoms of colitis. There appears to be ingested dense material within an otherwise normal appendix. No intraperitoneal or retroperitoneal adenopathy or masses seen. Bladder is normally distended. Minute in size umbilical hernia. No groin hernia appear Uterus is atretic. No adnexal mass. Scattered degenerative changes are seen in the spine. Most prominent collapse of the disc space L5-S1 level. Overall bone density is decreased. CT/CT abdomen pelvis wo con [id number] IMPRESSION: Findings of small bilateral pleural effusions with bibasilar infiltrates most likely representing dependent atelectasis. Multiple lesions involving the kidneys most likely hemorrhagic cysts. Renal sonogram recommended to exclude a solid mass lesion. No obstructive uropathy. Slight prominence of the colonic wall presumably related to the decompressed state. Please correlate for clinical symptomatology to suggest colitis which is considered unlikely unless the clinical symptoms of this entity. Normal appendix. Other nonemergent findings as described in the body of the report. Review of Systems General: Reports: 10 or more systems reviewed and unremarkable except in HPI and below Meds/Allergies Home Medications and Allergies Home Medications Medication Instructions Recorded Confirmed Last Taken Type Fish Oil 1 cap PO DAILY 05/03/20 05/03/20 Unknown History Probiotic 1 cap PO DAILY 05/03/20 05/03/20 Unknown History acetaminophen [Tylenol Extra 500 mg PO TID 05/03/20 05/03/20 Unknown History Strength] amlodipine 5 mg PO BID 05/03/20 05/03/20 Unknown History aspirin [Aspir-81] See Rx Instructions .ROUTE .COMPLEX 05/03/20 05/03/20 Unknown History carbidopa-levodopa 1 tab PO TID 05/03/20 05/03/20 Unknown History citalopram 10 mg PO BEDTIME 05/03/20 05/03/20 Unknown History clonidine HCl 0.1 mg PO BID 05/03/20 05/03/20 Unknown History cranberry 500 mg PO DAILY 05/03/20 05/03/20 Unknown History ferrous sulfate [iron] 325 mg PO BID 05/03/20 05/03/20 Unknown History hydralazine 10 mg PO TID 05/03/20 05/03/20 Unknown History levothyroxine 150 mcg PO DAILY 05/03/20 05/03/20 Unknown History multivitamin [Multiple Vitamins] 1 tab PO DAILY 05/03/20 05/03/20 Unknown History omeprazole 40 mg PO DAILY 05/03/20 05/03/20 Unknown History oxybutynin chloride 5 mg PO BID 05/03/20 05/03/20 Unknown History quetiapine 25 mg PO BEDTIME PRN 05/03/20 05/03/20 Unknown History quetiapine 200 mg PO BEDTIME 08/19/20 08/19/20 Unknown History rasagiline 1 mg PO DAILY 05/03/20 05/03/20 Unknown History sennosides-docusate sodium See Rx Instructions .ROUTE .COMPLEX 05/03/20 05/03/20 Unknown History [Senna-S] Allergies Allergy/AdvReac Type Severity Reaction Status Date / Time promethazine [From Phenergan] Allergy Unknown Verified 05/05/20 14:45 Sulfa (Sulfonamide Allergy Unknown Verified 05/05/20 14:45 Antibiotics) Current Medications Current Medications Generic Name Dose Route Start Last Admin Trade Name Freq PRN Reason Stop Dose Admin Acetaminophen 650 mg 05/03/20 16:32 05/04/20 13:10 Tylenol PO 650 mg Q6H PRN Administration Mild/Mod Pain Or Temp >/= 101 Amlodipine Besylate 10 mg 05/04/20 09:00 05/05/20 08:18 Norvasc PO 10 mg DAILY LAMONT Administration Aspirin 81 mg 05/05/20 09:00 05/05/20 08:17 Aspirin Ec PO 81 mg DAILY LAMONT Administration Carbidopa/Levodopa 1 each 05/04/20 15:00 05/05/20 08:18 Sinemet PO 1 each TID LAMONT Administration Citalopram Hydrobromide 10 mg 05/04/20 21:00 05/04/20 20:59 Celexa PO 10 mg BEDTIME LAMONT Administration Heparin Sodium (Beef Lung) 5,000 unit 05/03/20 16:45 05/05/20 04:34 Heparin SUBCUT 5,000 unit Q12H LAMONT Administration Hydralazine HCl 25 mg 05/04/20 15:00 05/05/20 08:18 Apresoline PO 25 mg TID LAMONT Administration Nicardipine/Sodium Chloride 20 mg in 200 mls @ 0 mls/hr 05/04/20 07:45 05/05/20 01:06 Cardene IV 0 mg/hr .Q0M LAMONT 0 mls/hr Titration Protocol Per Protocol Isosorbide Mononitrate 30 mg 05/03/20 18:00 05/05/20 08:17 Imdur PO 30 mg DAILY LAMONT Administration Levothyroxine Sodium 150 mcg 05/05/20 09:00 05/05/20 08:18 Synthroid PO 150 mcg DAILY LAMONT Administration Non-Formulary Medication 500 mg 05/05/20 09:00 05/05/20 08:20 Cranberry PO Not Given DAILY LAMONT Non-Formulary Medication 1 mg 05/05/20 09:00 05/05/20 08:20 Rasagiline PO Not Given DAILY LAMONT Ondansetron HCl 4 mg 05/04/20 07:28 05/04/20 17:32 Zofran IVP 4 mg Q6H PRN Administration NAUSEA AND VOMITING Oxybutynin Chloride 5 mg 05/04/20 18:00 05/05/20 08:18 Ditropan PO 5 mg BID LAMONT Administration Pantoprazole Sodium 40 mg 05/05/20 09:00 05/05/20 08:17 Protonix PO 40 mg DAILY LAMONT Administration Quetiapine Fumarate 200 mg 05/04/20 21:00 05/04/20 20:59 Seroquel PO 200 mg BEDTIME LAMONT Administration PFSH Acute PFSH: Medical History CKD (chronic kidney disease) Hypertension Parkinson disease Social History Smoking and tobacco status: never smoked Vitals/I&O/Wt Last Vital Signs Temp 98.4 F 05/04/20 07:00 Pulse 64 05/05/20 13:00 Resp 21 H 05/05/20 08:00 BP 141/49 05/05/20 13:00 Pulse Ox 95 05/05/20 13:00 05/04/20 05/05/20 05/05/20 22:59 06:59 14:59 Intake Total 988.126 / 1178.959 181.250 / 1360.209 300 / 300 Output Total 300 / 500 400 / 400 Balance 688.126 / 678.959 181.250 / 860.209 -100 / -100 Physical Exam Narrative: EXAM NARRATIVE: Patient is conscious alert oriented X3 BMI 31 Head and neck examination PERRLA no masses no cervical lymphadenopathy no jaundice Cardiac examination audible S1-S2 no murmurs no gallops no arrhythmias Chest is clear bilateral,abscence of Rhonchi or wheezes,no surgical emphysema Left upper chest pacemaker in place Abdomen nontender nondistended soft no organomegaly guarding or rigidity/no signs of peritonitis A&P Assessment and plan (1) CKD (chronic kidney disease): Plan of care; After thorough history physical examination and reviewing the chart, I counseled the patient for a tunneled hemodialysis catheter placement tomorrow, indications, risks including pneumothorax and injury of major vascular structures, benefits,indications and alternatives were all discussed with the patient, patient understands and is interested to proceed after she did discuss with her family. Rationale was carefully and clearly discussed with the patient.Appropriate informed consent have been reviewed and signed. Informed consent per chart Status: Acute Consult Attestations Medical Necessity Statement: Per hospitalist service Time Spent in Patient Care: (>than 50% of time spent in counselling and/or direct pt care on unit) . Coding Level of Care Code Acute [facility] Professional for g Fwd Diagnoses CKD (chronic kidney disease) N18.9
[2020-05-05 14:22] LABS: Hepatitis B Surface AB 3.5 (0-8.5); Hepatitis B Surface Antigen Non-Reactive (Nonreactive)
[2020-05-05 14:46] LABS: Parathyroid Hormone 84.2 pg/mL (15-65)
[2020-05-05 14:47] LABS: Hepatitis B Core AB, Total Non-Reactive (Nonreactive); Hepatitis C Virus Antibody Non-Reactive (Nonreactive)
--- NOTE | 2020-05-05 14:48 | PM.PN ---
Subjective Subjective: Interval history: Off cardene drip, nausea improving, no acute overnight events, cr trended up to 5.5 Medications: Reviewed: Yes Vitals/I&O/Wt Last Vital Signs Temp 98.4 F 05/04/20 07:00 Pulse 64 05/05/20 13:00 Resp 21 H 05/05/20 08:00 BP 141/49 05/05/20 13:00 Pulse Ox 95 05/05/20 13:00 05/04/20 05/05/20 05/05/20 22:59 06:59 14:59 Intake Total 988.126 / 1178.959 181.250 / 1360.209 300 / 300 Output Total 300 / 500 700 / 700 Balance 688.126 / 678.959 181.250 / 860.209 -400 / -400 Physical Exam Narrative: EXAM NARRATIVE: GEN: Awake, alert and oriented, no acute distress CVS: S1S2 N RS: CTA B/L Abd: Soft, nt/nd , bs+ FACILITIES FLIGHT CHECK PILOT: no focal neuro deficits Data : 05/05/20 03:42 05/05/20 03:42 A&P Assessment and plan (1) Hyperkalemia: Status: Acute (2) CKD (chronic kidney disease): Status: Acute Qualifiers: Chronic kidney disease stage: stage 5, not on chronic dialysis Qualified Code(s): N18.5 - Chronic kidney disease, stage 5 (3) Parkinson disease: Status: Acute (4) Hypertension: Status: Acute Qualifiers: Hypertension type: essential hypertension Qualified Code(s): I10 - Essential (primary) hypertension (5) Accidental overdose: Status: Acute Qualifiers: Encounter type: initial encounter Qualified Code(s): T50.901A - Poisoning by unspecified drugs, medicaments and biological substances, accidental (unintentional), initial encounter (6) Hypertensive urgency: Status: Acute (7) Acute kidney injury superimposed on CKD: Status: Acute Additional A&P Information # hypertensive urgency HTN with SBP >220 at this time, improved with cardene drip,now titrated off Overlap with PO Amlodipine, amlodipine 10 mg daily, hydralazine 25 p.o. 3 times daily, Imdur 30 mg p.o. daily Bp controlled with SBP 160s now CT head with chronic white matter changes. No acute intracranial process.Resume ASA echocardiogram to ascertain baseline function # hyperkaelmia insulin/dextrose, given ca gluconate in ER,now resolved Likely related to underlying CKD # CKD, prior records reviewed from [facility], cr on 04/24 was at 4.4, appears to be recent baseline Worsened cr to 5.[address] abd/pelvis without obstructive uropathy, note made of multiple lesions involving the kidneys most likely hemorrhagic cysts Refused dialysis in the past, however this is more related to her social situation and her being overwhelemed by this decision. I had an extensive discussion with her and she is agreeable to starting dialysis at this time. She lives alone in [place] in [place], has no access to dialysis facilities nearby. She has been considering moving into an assisted living close to her son in [facility] for better medical facilities for a while now. Currently she has been visiting her sister in [place] when she fell ill and was brought into the ER. We will consult nephrology, given worsening creatinine, anasarca, hyperkalemia on admission, I suspect that she may need to initiate dialysis this current admission. Once she starts dialysis, upon discharge plan is to discharge her to a intermediate facility for rehab. I have discussed the above plan with her son. He is agreeable to proceed with dialysis as well and in fact has been encouraging his mother to consider it. While patient is at the halfway after being discharged this current admission, he will continue to work on getting her placed at an assisted living facility close to his home for the retirement. Nephrology consult Surgery consult for placement of tunneled catheter # hypothyroidism: elevated TSH at 7. reduce FT3, FT4 pending. 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
[2020-05-05] MEDS: sodium bicarbonate 650 mg Tablet PO ×2 (15:35→20:59)
[2020-05-05 16:43] LABS: Urine Creatinine 127 mg/dL (28-217)
[2020-05-05 19:03] LABS: Urine Protein Random 1552 mg/dL
[2020-05-05] MEDS: citalopram 20 mg Tablet 10 MG PO (20:58)
[2020-05-05] MEDS: quetiapine 100 mg Tablet 200 MG PO (21:00)
[2020-05-06] VITALS (62 sets, daily range): BP systolic 132–217; BP diastolic 45–119; PULSE 60–93; RESP 14–42; TEMP 36.2–37.3; O2SAT 90–99
--- NOTE | 2020-05-06 | SCC_ITS ---
Procedure Done: Placement of 16 Israeli 28 cm split Jey hemodialysis tunneled catheter through the right subclavian vein under fluoroscopic guidance with interpretation was done by me through the whole entire procedure. 21.8 seconds of fluoroscopic guidance, for a cumulative dose of 1.18 mGy, was provided to Dr. Middleton by the radiology department. C-arm images of the chest were saved for the patient's permanent record. HERIBERTO
[2020-05-06 04:04] LABS: Basophils # 0.1 10^3/uL (0.0-0.1); Eosinophils # 0.5 10^3/uL (0.0-0.8); Eosinophils % 5.6 %; Hematocrit 33.3 % (37.0-47.0); Hemoglobin 10.3 g/dL (11.5-15.3); Lymphocytes # 3.3 10^3/uL (0.8-4.8); Lymphocytes % 37.3 %; Mean Corpuscular HGB Conc 30.9 g/dL (30.0-36.0); Mean Corpuscular Hemoglobin 29.3 pg (28.0-34.0); Mean Corpuscular Volume 94.9 fL (81-99); Mean Platelet Volume 11.2 fL (7.4-10.4); Monocytes # 1.2 10^3/uL (0.2-0.9); Neutrophils # 3.65 10^3/uL (1.8-7.7); Neutrophils % 41.9 %; Nucleated Red Blood Cells % 0 %; Platelet Count 218 10^3/cmm (130-400); Red Blood Count 3.51 10^6/uL (4.1-5.3); White Blood Count 8.7 10^3/uL (4.0-10.0)
[2020-05-06] MEDS: heparin 5,000 unit/mL INJ 1 mL 5000 UNIT SUBCUT ×2 (05:19→17:35)
--- NOTE | 2020-05-06 07:21 | SC_ITS ---
NOTE: Report was unsigned for reason: Order was edited. Original Signature date and time was: 05/06/20 @938 WS: [id number] EXAM: C-arm Fluoroscopy [id number] DATE OF EXAMINATION: 05/06/2020, 0847 hours COMPARISON: None HISTORY: 85 years old with renal failure. Dialysis catheter placement FLUOROSCOPY TIME: 21.8 seconds. 2 spot images obtained. FINDINGS: Fluoroscopy provided to the clinical service for visualization during right subclavian dialysis catheter placement. Final spot images shows the dialysis catheter ending near the right atrium and distal SVC region with the patient in supine position. Please see operative report for further details. MTDD SC/C-arm Fluoroscopy [id number] IMPRESSION: Fluoroscopy provided to the General surgery service for visualization during di alysis catheter placement. Dedicated post procedure imaging recommended.
--- NOTE | 2020-05-06 07:44 | PC.NURSE ---
Attempted to do pre timeout checklist. Would not allow me to complete only pre-checklist. Procedure verified with patient with full name, date of , and procedure. Anesthesia at bedside obtaining consent with patient.
[2020-05-06] MEDS: sodium chloride 0.9% (100 ml) 100 ML 25 ML (07:49)
--- NOTE | 2020-05-06 07:50 | ANES.PREANE2 ---
Pre-Anesthetic Assessment Pre-Anesthetic Assessment: Height/Weight: Height 1.68 m Weight 86.183 kg Temp Pulse Resp BP Pulse Ox 97.8 F 84 19 H 167/63 95 05/06/20 07:00 05/06/20 07:37 05/06/20 07:37 05/06/20 07:37 05/06/20 07:37 Preop Diagnosis: Chronic kidney disease Proposed Procedure: Operation Date: 05/06/20 08:20 Proposed Procedures p Dialysis Catheter Insertion(Not Applicable) - Paco Middleton MD Was Beta Patricio taken within 24 hours: N/A Social: Social History: No alcohol and No tobacco Exam: Pre-Anes Outpt Exam: alert, oriented x 3, clear to auscultation bilaterally and regular rate & rhythm Additional Exam Findings (including area of procedure): Clear but reduced breath sounds, +murmur Airway: Submandibular: WNL Cervical ROM: WNL MP: 2 Dentition: False Pulmonary: Pulmonary: COPD CV/HEM: CV/HEM: Anemia, HTN and Murmur Comments: Pacemaker : : Chronic renal failure Hepatic: Hepatic: None reported GI: GI: GERD Metabolic: Metabolic: None reported Musc/skel: Musc/skel: None reported Neuropsych: Comments: Parkinson's Anesthetic Plan: ASA status: 3 Anesthesia: MAC Risk of > 500 ml blood loss (7ml/kg in children): No Meds/Allergies Current Medications: Current Medications Generic Name Dose Route Start Last Admin Trade Name Freq PRN Reason Stop Dose Admin Acetaminophen 650 mg 05/03/20 16:32 05/04/20 13:10 Tylenol PO 650 mg Q6H PRN Administration Mild/Mod Pain Or Temp >/= 101 Amlodipine Besylat e 10 mg 05/04/20 09:00 05/05/20 08:18 Norvasc PO 10 mg DAILY LAMONT Administration Aspirin 81 mg 05/05/20 09:00 05/05/20 08:17 Aspirin Ec PO 81 mg DAILY LAMONT Administration Carbidopa/Levodopa 1 each 05/04/20 15:00 05/05/20 20:59 Sinemet PO 1 each TID LAMONT Administration Citalopram Hydrobr omide 10 mg 05/04/20 21:00 05/05/20 20:58 Celexa PO 10 mg BEDTIME LAMONT Administration Heparin Sodium (Be ef Lung) 5,000 unit 05/03/20 16:45 05/06/20 05:19 Heparin SUBCUT 5,000 unit Q12H LAMONT Administration Hydralazine HCl 25 mg 05/04/20 15:00 05/05/20 20:59 Apresoline PO 25 mg TID LAMONT Administration Nicardipine/Sodium Chloride 20 mg in 200 mls @ 0 mls/hr 05/04/20 07:45 05/05/20 01:06 Cardene IV 0 mg/hr .Q0M LAMONT 0 mls/hr Titration Protocol Per Protocol Isosorbide Mononit rate 30 mg 05/03/20 18:00 05/05/20 08:17 Imdur PO 30 mg DAILY LAMONT Administration Levothyroxine Sodi um 150 mcg 05/05/20 09:00 05/05/20 08:18 Synthroid PO 150 mcg DAILY LAMONT Administration Non-Formulary Medi cation 500 mg 05/05/20 09:00 05/05/20 08:20 Cranberry PO Not Given DAILY LAMONT Non-Formulary Medi cation 1 mg 05/05/20 09:00 05/05/20 08:20 Rasagiline PO Not Given DAILY LAMONT Ondansetron HCl 4 mg 05/04/20 07:28 05/04/20 17:32 Zofran IVP 4 mg Q6H PRN Administration NAUSEA AND VOMITI NG Oxybutynin Chlorid e 5 mg 05/04/20 18:00 05/05/20 17:35 Ditropan PO 5 mg BID LAMONT Administration Pantoprazole Sodiu m 40 mg 05/05/20 09:00 05/05/20 08:17 Protonix PO 40 mg DAILY LAMONT Administration Quetiapine Fumarat e 200 mg 05/04/20 21:00 05/05/20 21:00 Seroquel PO 200 mg BEDTIME LAMONT Administration Sodium Bicarbonate 650 mg 05/05/20 15:00 05/05/20 20:59 Sodium Bicarbona te PO 650 mg TID LAMONT Administration PFSH Anesthesia PFSH: Medical History CKD (chronic kidney disease) Hypertension Parkinson disease Social History Smoking and tobacco status: never smoked Data Anesthesia CBC & Chem 7: 05/06/20 03:26 05/05/20 03:42 Other Labs: Laboratory Results - last 48 hr 05/03/20 05/05/20 05/05/20 10:48 03:42 03:42 WBC 9.2 RBC 3.79 L Hgb 11.1 L Hct 36.3 L MCV 95.8 MCH 29.3 MCHC 30.6 RDW 15.8 H Plt Count 249 MPV 10.3 Neut % (Auto) 53.4 Lymph % (Auto) 29.9 [place] % (Auto) 13.5 Eos % (Auto) 2.1 Baso % (Auto) 0.8 Neut # (Auto) 4.92 Lymph # (Auto) 2.8 [place] # (Auto) 1.2 H Eos # (Auto) 0.2 Baso # (Auto) 0.1 Nucleated RBC % (auto) 0 Nucleated RBCs # 0.0 Sodium Potassium Chloride Carbon Dioxide Anion Gap BUN Creatinine GFR Calculation Glucose Calculated Osmolality Calcium Total Bilirubin AST ALT Alkaline Phosphatase Total Protein Albumin Globulin 25-OH Vitamin D Total Free T3 1.1 L PTH Intact Calcium (PTH Intact) U Random Total Protein Ur Random Sodium 88 Ur Random Potassium 21 Ur Random Chloride 81 Urine Creatinine 52 Hep Bs Antigen Hep Bs Antibody Hep B Core Total Ab Hepatitis C Antibody 05/05/20 05/05/20 05/05/20 03:42 03:42 13:30 WBC RBC Hgb Hct MCV MCH MCHC RDW Plt Count MPV Neut % (Auto) Lymph % (Auto) [place] % (Auto) Eos % (Auto) Baso % (Auto) Neut # (Auto) Lymph # (Auto) [place] # (Auto) Eos # (Auto) Baso # (Auto) Nucleated RBC % (auto) Nucleated RBCs # Sodium 139 Potassium 4.7 Chloride 112 H Carbon Dioxide 14 L Anion Gap 17.7 BUN 60 H Creatinine 5.5 H GFR Calculation Not Reportable Glucose 99 Calculated Osmolality 287 Calcium 8.1 L Total Bilirubin 0.3 AST 24 ALT < 5 Alkaline Phosphatase 57 Total Protein 5.2 L Albumin 2.7 L Globulin 2.5 25-OH Vitamin D Total 12 L Free T3 PTH Intact 84.2 H Calcium (PTH Intact) 8.0 L U Random Total Protein Ur Random Sodium Ur Random Potassium Ur Random Chloride Urine Creatinine Hep Bs Antigen Non-reactive Hep Bs Antibody 3.5 Hep B Core Total Ab Non-reactive Hepatitis C Antibody Non-reactive 05/05/20 05/06/20 15:15 03:26 WBC 8.7 RBC 3.51 L Hgb 10.3 L Hct 33.3 L MCV 94.9 MCH 29.3 MCHC 30.9 RDW 16.0 H Plt Count 218 MPV 11.2 H Neut % (Auto) 41.9 Lymph % (Auto) 37.3 [place] % (Auto) 14.0 Eos % (Auto) 5.6 Baso % (Auto) 1.0 Neut # (Auto) 3.65 Lymph # (Auto) 3.3 [place] # (Auto) 1.2 H Eos # (Auto) 0.5 Baso # (Auto) 0.1 Nucleated RBC % (auto) 0 Nucleated RBCs # 0.0 Sodium Potassium Chloride Carbon Dioxide Anion Gap BUN Creatinine GFR Calculation Glucose Calculated Osmolality Calcium Total Bilirubin AST ALT Alkaline Phosphatase Total Protein Albumin Globulin 25-OH Vitamin D Total Free T3 PTH Intact Calcium (PTH Intact) U Random Total Protein 1552 Ur Random Sodium Ur Random Potassium Ur Random Chloride Urine Creatinine 127 Hep Bs Antigen Hep Bs Antibody Hep B Core Total Ab Hepatitis C Antibody Cardiac Studies: No Data to Display
--- NOTE | 2020-05-06 08:04 | PC.NURSE ---
Pt transported off unit for HD catheter placement. Pt is alert and oriented. Consent obtained and signed. Fluids at [facility]. VSS. Will continue to monitor the pt when she returns from surgery.
[2020-05-06 08:25] LABS: T4 Total 3.7 mcg/dL (5.1-11.9)
[2020-05-06] MEDS: heparin, porcine 1,000 unit/mL INJ 10 mL 10000 UNIT IRRIGATION (08:38)
[2020-05-06] MEDS: lidocaine 2% INJ 20 mL INJECTION (08:38)
--- NOTE | 2020-05-06 09:06 | P.OP_ITS ---
Operative Report Date of procedure: May 06, 2020 Pre-op Diagnosis: Chronic kidney disease Post-op diagnosis: same Procedure Done: Placement of 16 Portuguese 28 cm split Jey hemodialysis tunneled catheter through the right subclavian vein under fluoroscopic guidance with interpretation was done by me through the whole entire procedure. Implants: Placement of 16 Portuguese 28 cm split Jey hemodialysis tunneled catheter through the right subclavian vein Surgeon: Paco Middleton Development Officer: cable splicing technician Emmett Circulating nurse Roxane Anesthesia: MAC (Burt Shen and Dr. Andrew) Estimated blood loss (mL): 15 Condition: stable Disposition: ICU Brief History: This is a pleasant 85 years old female patient with history of chronic kidney disease requiring hemodialysis catheter Plan of care; After thorough history physical examination and reviewing the chart, I counseled the patient for temporary tunneled hemodialysis cath placement, indications, risks including pneumothorax and injury of major vascular structures, benefits,indications and alternatives were all discussed with the patient, patient understands and is interested to proceed. Rationale was carefully and clearly discussed with the patient.Appropriate informed consent have been reviewed and signed. Procedure: Patient was identified in the ICU and taken to the operative room and placed in supine position ,patient was already intubated in the ICU,both arms were tucked,Time-out was done verifying the patient's name/date of /planned procedure and destination after the procedure, all were in agreement.SCDs confirmed to be functioning, patient was already on therapeutic antibiotics administered per protocol, and beta cherelle protocol was confirmed, appropriate positioning of the patient was done by me. Medications were reviewed to assess for anticoagulant usage. Risks and benefits and prevention of central line associated blood stream infection (CLABSI) were discussed with the patient/CPOA, and a consent was obtained. Monitors were in place and monitored throughout the procedure. All necessary supplies were available prior to start. Hand hygiene was completed prior to starting. Maximum barrier technique was utilized including a sterile gown, sterile gloves with a hat and mask. Site was was prepped with [chlorhexidine] and a full body drape was placed. 5 mL of 2% lidocaine was injected into the skin with a 25 gauge needle. Prep& drape was done under the usual sterile technique of upper chest right and left as well as the neck both sides, lidocaine 2% was injected at the site of the stick, started by right subclavian stick that retrieved venous blood was obtained from the first stick, a guidewire was then threaded and under the g uidance of fluoroscopy position was confirmed to be in the IVC, there was no PVC changes, at that point the guidewire was secured to the drapes with a hemostat and the needle was taken out, attention was then deviated towards creation of an insert for the HD catheter at the right upper chest were lidocaine 2% was injected using an 15 blade knife skin incision was created dissection using a hemostat to create an entrance and for the HD catheter to be inserted were it was connected to a tunneler, and the tunneler was used to accommodate the catheter of the HD catheter to be delivered through the incision first created at the site of the stick, a small pierre was created with 11 blade knife to allow delivery of the cathetr, at that point under fluoroscopy,serial dilators were done that come in the in the KIT, followed by that a dilator with the sheath introduced onto the guidewire ,the dilator and the wire were retrieved and the catheter of the port was introduced via the sheath where it was peeled off and the catheter maintained to be in the proximal SVC/azygos vein as I did pull on the catheter proximal and introduced a guidewire 1 more time and reintroduced the catheter towards the designated position as being premarked. The entire procedure was done under fluoroscopic guidance by my personal interpretation and also discussing the case with interventional radiologist Dr. Bermeo. The whole procedure was done under fluoroscopy , the position maintained to be in the rt atrium that was confirmed with fluoroscopy, and the fluoroscopy interpretation was done by me throughout the entire procedure. The stick site was closed by 3-0 Vicryl deep subdermal interrupted sutures, followed surgical glue was used followed by dry dressing was applied 3/0 nylon was used to secure the hemodialysis catheter onto the anterior chest wall Patient tolerated the procedure well was taken to the recovery area Count was correct at the end of the procedure I was present for the whole entire procedure Position of the catheter was checked with a postoperative chest x-ray and it was in good position without evidence of pneumothorax
--- NOTE | 2020-05-06 09:16 | XR_ITS ---
WS: [id number] EXAM: AP CHEST: PORTABLE UPRIGHT DATE OF EXAM: 05/06/2020, 0922 hours COMPARISON: Intraoperative spot images from the same date. HISTORY: Patient is 85 years old with follow-up dialysis catheter placement. FINDINGS: The cardiac silhouette is normal in size. The mediastinal contours show a double lead left subclav pat pacer in place. There are findings of a right subclavian dialysis catheter ending in the proximal to SVC region. Slight calcified plaque in the aorta. The pulmonary vascularity is normal. Chronic lung changes are demonstrated. Coarse markings suggesting some degree of fibrosis. No area of consol idation. There is no effusion or pneumothorax. XR/XR chest 1V portable [id number] IMPRESSION: Right subclavian dialysis catheter ends in the SVC region. No pneumothorax. Chr onic lung changes. No acute pulmonary disease.
--- NOTE | 2020-05-06 09:28 | PC.NURSE ---
Pt transported back from surgery. VVS. Pt drowsy but alert and oriented. Will resume care of the patient at this time.
--- NOTE | 2020-05-06 09:58 | PM.PACU ---
PACU note PACU note: VSS, good pain control. Post-Anesthesia Exam: somnolent, arousable Disposition: back to floor
--- NOTE | 2020-05-06 10:25 | P.PN_ITS ---
Subjective Subjective: Interval history: Patient underwent placement of reforming cath this morning her left subclavian. Tolerated the procedures well. Backslash ACL after the procedure and currently doing well. CMP is pending from this morning.Started on Lasix p.o. daily and bicarb yesterday by renal. Appreciate recommendations. Blood pressure ranging between 1 30-1 7 0 systolic Medications: Reviewed: Yes Vitals/I&O/Wt Last Vital Signs Temp 97.2 F L 05/06/20 09:30 Pulse 62 05/06/20 10:00 Resp 21 H 05/06/20 10:00 BP 176/73 05/06/20 10:00 Pulse Ox 95 05/06/20 10:00 05/05/20 05/06/20 05/06/20 22:59 06:59 14:59 Intake Total 300 / 600 97.083 / 97.083 Output Total 250 / 950 Balance 50 / -350 97.083 / 97.083 Physical Exam Narrative: EXAM NARRATIVE: GEN: Awake, alert and oriented, no acute distress CVS: S1S2 N CHEST: left subclavian line this am, no bleeding or cellulitic surrounding changes RS: CTA B/L Abd: Soft, nt/nd , bs+ VERMIN EXTERMINATOR: no focal neuro deficits Data : 05/06/20 03:26 05/05/20 03:42 A&P Assessment and plan (1) Hyperkalemia: Status: Acute (2) CKD (chronic kidney disease): Status: Acute Qualifiers: Chronic kidney disease stage: stage 5, not on chronic dialysis Qualified Code(s): N18.5 - Chronic kidney disease, stage 5 (3) Parkinson disease: Status: Acute (4) Hypertension: Status: Acute Qualifiers: Hypertension type: essential hypertension Qualified Code(s): I10 - Essential (primary) hypertension (5) Accidental overdose: Status: Acute Qualifiers: Encounter type: initial encounter Qualified Code(s): T50.901A - Poisoning by unspecified drugs, medicaments and biological substances, accidental (unintentional), initial encounter (6) Hypertensive urgency: Status: Acute (7) Acute kidney injury superimposed on CKD: Status: Acute Additional A&P Information # Hypertensive urgency HTN with SBP >220 at this time, improved with cardene drip,now titrated off Continue amlodipine 10 mg daily, hydralazine 25 p.o. 3 times daily, Imdur 30 mg p.o. daily, hydralazine prn added fr SBP >170 BP better controlled now CT head with chronic white matter changes. No acute intracranial process.Resume ASA Echocardiogram LV systolic function is grossly normal. Diastolic function is indeterminate. Mild aortic stenosis is noted. 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 After counselling and discussion and carefully discussing pros/cons, reversibility of permacath if needed, she has agreed to proceed with HD after discussion with her family. Nephrology consult appreciated. Permacath placed today. Likely to start HD over the weekend, wishes to hold off today as its her birthday. worsening creatinine, anasarca, hyperkalemia, intermittent confusion likely related to uremia in part. Discharge plan is to discharge her to a [facility] for rehab. I have discussed the above plan with her son. [facility], he will continue to work on getting her placed at an assisted living facility close to his home for the long wall mining machine tender. # Hypothyroidism: Elevated TSH at 7. reduced FT3, FT4 , increase levothyroxine 150 to 175 mcg daily # Accidental clonidine overdose, suspected by patient, no overt signs of clonidine toxocity, resolved as an acute issue now # venous duplex without DVT AND DVT ppx: heparin Attestations Medical Necessity Statement*: initiate dialysis this admission, s/p permacath placement today Coding Level of Care Code Acute Safety Engineer Pressure Vessels for Sarahg Fwsukhjinder Diagnoses Hyperkalemia E87.5 CKD (chronic kidney disease) N18.5 Chronic kidney disease stage: stage 5, not on chronic dialysis Parkinson disease G20 Hypertension I10 Hypertension type: essential hypertension Accidental overdose T50.901A Encounter type: initial encounter Hypertensive urgency I16.0 Acute kidney injury superimposed on CKD N17.9; N18.9
[2020-05-06 10:36] LABS: Alanine Aminotransferase < 5 U/L (0-33); Albumin Level 3.2 g/dL (3.5-5.2); Alkaline Phosphatase 64 IU/L (35-105); Anion Gap 15.3 (5-19); Aspartate Amino Transferase 17 U/L (0-32); Blood Urea Nitrogen 58 mg/dL (8-23); Calcium 8.5 mg/dL (8.5-10.5); Carbon Dioxide 17 mmol/L (22-29); Chloride 109 mmol/L (98-107); Globulin 2.5 g/dL (1.3-4.6); Glucose 136 mg/dL (65-115); Osmolality Calculated 283 mOsm/kg (285-295); Potassium 5.3 mmol/L (3.5-5.1); Sodium 136 mmol/L (136-145); Total Bilirubin 0.2 mg/dL (0.15-1.2); Total Protein 5.7 g/dL (6.6-8.7)
[2020-05-06] MEDS: hyDRALAzine 20 mg/mL INJ 1 mL 10 MG IVP ×2 (10:49→18:07)
[2020-05-06] MEDS: acetaminophen 325 mg Tablet 650 MG PO (10:49)
[2020-05-06] MEDS: ondansetron 2 mg/ML SDV 2 mL 4 MG IVP ×2 (12:11→17:38)
[2020-05-06] MEDS: sodium bicarbonate 650 mg Tablet PO ×2 (14:10→21:22)
[2020-05-06] MEDS: carbidopa-levodopa 25-100mg Tablet 1 EACH PO ×2 (14:10→21:22)
[2020-05-06] MEDS: hyDRALAzine 25 mg Tablet PO (14:10)
--- NOTE | 2020-05-06 17:23 | PM.PN ---
Subjective Subjective: Interval history: I am seeing her in follow up for her renal failure. Had dialysis catheter placed this morning. She is nauseated, feels weak & tired Medications: Reviewed: Yes Vitals/I&O/Wt Last Vital Signs Temp 99.2 F 05/06/20 16:00 Pulse 70 05/06/20 16:32 Resp 21 H 05/06/20 16:32 BP 183/60 05/06/20 16:15 Pulse Ox 95 05/06/20 16:32 05/06/20 05/06/20 05/06/20 06:59 14:59 22:59 Intake Total 257.083 / 257.083 Output Total 150 / 170 Balance 237.083 / 237.083 -150 / 87.083 Physical Exam Const: COMMON NORMALS: no acute distress, patient oriented x3 and alert GENERAL APPEARANCE: cooperative Resp: AUSCULTATION: crackles Cardio: COMMON NORMALS: S1 normal heart sound present and S2 normal heart sound present HEART SOUNDS: S1 normal heart sound present and S2 normal heart sound present OTHER: Dialysis cath present GI: AUSCULTATION: Yes normoactive bowel sounds Extremity: GENERAL: Yes edema Neuro: COMMON NORMALS: patient oriented x3 SENSORIUM/ORIENTATION: Yes alert Skin: COMMON NORMALS: no rashes or lesions noted GENERAL SKIN EXAM: no rashes or lesions noted Data : 05/06/20 03:26 05/06/20 10:11 A&P Assessment and plan (1) ESRD (end stage renal disease): Will start hemodialysis tommorrow as she does not want to do it today as its her birthday today. Status: Acute (2) Anemia: Hb within goal Status: Acute (3) Metabolic acidosis: Will correct with dialysis Status: Acute (4) Hypertension: Monitor BP closely Status: Acute Qualifiers: Hypertension type: essential hypertension Qualified Code(s): I10 - Essential (primary) hypertension (5) Hyperkalemia: Will correct with dialysis Status: Acute Attestations Medical Necessity Statement*: Renal failure Coding Level of Care Code Acute Auto Design Checker for g Fwd Diagnoses ESRD (end stage renal disease) N18.6 Anemia D64.9 Metabolic acidosis E87.2 Hypertension I10 Hypertension type: essential hypertension Hyperkalemia E87.5
[2020-05-06] MEDS: oxybutynin 5 mg Tablet PO (17:35)
[2020-05-06] MEDS: hyDRALAzine 50 mg Tablet PO ×2 (17:35→21:22)
[2020-05-06] MEDS: HYDROmorphone 1 mg/mL INJ 1 mL 2 MG IVP (19:29)
[2020-05-06] MEDS: hyDRALAzine 20 mg/mL INJ 1 mL 5 MG IVP (19:29)
[2020-05-06] MEDS: quetiapine 100 mg Tablet 200 MG PO (21:22)
[2020-05-06] MEDS: citalopram 20 mg Tablet 10 MG PO (21:22)
[2020-05-07] VITALS (45 sets, daily range): BP systolic 128–217; BP diastolic 36–143; PULSE 66–106; RESP 14–31; TEMP 36.9–37.5; O2SAT 89–99
[2020-05-07] MEDS: HYDROmorphone 1 mg/mL INJ 1 mL IVP ×2 (02:59→19:41)
[2020-05-07 03:32] LABS: Basophils # 0.1 10^3/uL (0.0-0.1); Basophils % 0.5 %; Eosinophils # 0.3 10^3/uL (0.0-0.8); Eosinophils % 2.7 %; Hematocrit 35.1 % (37.0-47.0); Hemoglobin 11.1 g/dL (11.5-15.3); Lymphocytes # 2.4 10^3/uL (0.8-4.8); Lymphocytes % 25.6 %; Mean Corpuscular HGB Conc 31.6 g/dL (30.0-36.0); Mean Corpuscular Hemoglobin 29.9 pg (28.0-34.0); Mean Corpuscular Volume 94.6 fL (81-99); Mean Platelet Volume 10.5 fL (7.4-10.4); Monocytes # 1.3 10^3/uL (0.2-0.9); Monocytes % 14.5 %; Neutrophils # 5.22 10^3/uL (1.8-7.7); Neutrophils % 56.3 %; Nucleated Red Blood Cells % 0 %; Platelet Count 241 10^3/cmm (130-400); Red Blood Count 3.71 10^6/uL (4.1-5.3); Red Cell Distribution Width 15.9 % (12.1-15.1); White Blood Count 9.3 10^3/uL (4.0-10.0)
[2020-05-07 03:59] LABS: Alanine Aminotransferase < 5 U/L (0-33); Albumin Level 2.8 g/dL (3.5-5.2); Alkaline Phosphatase 62 IU/L (35-105); Anion Gap 15.9 (5-19); Aspartate Amino Transferase 16 U/L (0-32); Blood Urea Nitrogen 60 mg/dL (8-23); Calcium 8.6 mg/dL (8.5-10.5); Carbon Dioxide 17 mmol/L (22-29); Chloride 113 mmol/L (98-107); Globulin 2.5 g/dL (1.3-4.6); Glucose 108 mg/dL (65-115); Osmolality Calculated 291 mOsm/kg (285-295); Potassium 4.9 mmol/L (3.5-5.1); Sodium 141 mmol/L (136-145); Total Bilirubin 0.2 mg/dL (0.15-1.2); Total Protein 5.3 g/dL (6.6-8.7)
[2020-05-07] MEDS: heparin 5,000 unit/mL INJ 1 mL 5000 UNIT SUBCUT ×2 (04:03→16:39)
[2020-05-07] MEDS: hyDRALAzine 20 mg/mL INJ 1 mL 10 MG IVP ×2 (04:03→17:36)
[2020-05-07] MEDS: pantoprazole DR 40 mg Tablet PO (08:51)
[2020-05-07] MEDS: amlodipine 10 mg Tablet PO (08:51)
[2020-05-07] MEDS: FUROsemide 40 mg Tablet PO (08:51)
[2020-05-07] MEDS: sodium bicarbonate 650 mg Tablet PO ×3 (08:52→20:37)
[2020-05-07] MEDS: aspirin 81 mg EC Tablet PO (08:52)
[2020-05-07] MEDS: carbidopa-levodopa 25-100mg Tablet 1 EACH PO ×3 (08:52→20:38)
[2020-05-07] MEDS: cholecalciferol (vitamin D3) 1,000 unit Tablet 1000 UNIT PO (08:52)
[2020-05-07] MEDS: hyDRALAzine 50 mg Tablet PO ×4 (08:52→20:38)
[2020-05-07] MEDS: isosorbide mononitrate ER 30 mg Tablet PO (08:52)
[2020-05-07] MEDS: levothyroxine 25 mcg Tablet PO (08:52)
[2020-05-07] MEDS: oxybutynin 5 mg Tablet PO ×2 (08:52→17:17)
[2020-05-07] MEDS: levothyroxine 150 mcg Tablet PO (08:52)
--- NOTE | 2020-05-07 09:44 | P.PN_ITS ---
Subjective Subjective: Interval history: Patient overall feels well and no acute events overnight status post right subclavian vein temporary tunneled hemodialysis catheter placement yesterday by me. Chest x-ray done yesterday after procedure showed; FINDINGS: The cardiac silhouette is normal in size. The mediastinal contours show a double lead left subclavian pacer in place. There are findings of a right subclavian dialysis catheter ending in the proximal to SVC region. Slight calcified plaque in the aorta. The pulmonary vascularity is normal. Chronic lung changes are demonstrated. Coarse markings suggesting some degree of fibrosis. No area of consolidation. There is no effusion or pneumothorax. XR/XR chest 1V portable [id number] IMPRESSION: Right subclavian dialysis catheter ends in the SVC region. No pneumothorax. Chronic lung changes. No acute pulmonary disease. Vitals/I&O/Wt Last Vital Signs Temp 98.7 F 05/07/20 08:00 Pulse 76 05/07/20 08:30 Resp 22 H 05/07/20 08:30 BP 194/51 05/07/20 08:30 Pulse Ox 98 05/07/20 08:30 05/06/20 05/07/20 05/07/20 22:59 06:59 14:59 Intake Total 112.917 / 370.000 610 / 610 Output Total 350 / 370 500 / 870 50 / 50 Balance -237.083 / 0 -500 / -500.000 560 / 560 Physical Exam Narrative: EXAM NARRATIVE: Patient is conscious alert oriented X3 BMI 31 Head and neck examination PERRLA no masses no cervical lymphadenopathy no jaundice Right upper chest hemodialysis catheter in place without complication Extremities no cyanosis no clubbing no edema Data : 05/07/20 03:25 05/07/20 03:25 A&P Assessment and plan (1) Acute kidney injury superimposed on CKD: Hemodialysis per nephrology service Continue hemodialysis catheter care Assurance and education All questions have been answered and all concerns have been addressed to patient's satisfaction. Status: Acute Attestations Medical Necessity Statement*: Per hospitalist service Time Spent in Patient Care: (>than 50% of time spent in counselling and/or direct pt care on unit) . Coding Level of Care Code Acute Manager Process Improvement for Alex Ramos Diagnoses Acute kidney injury superimposed on CKD N17.9; N18.9
[2020-05-07 11:14] LABS: Hepatitis B Surface AB 3.5 (0-8.5); Hepatitis B Surface Antigen Non-Reactive (Nonreactive); Hepatitis C Virus Antibody Non-Reactive (Nonreactive)
--- NOTE | 2020-05-07 11:46 | PM.PN ---
Subjective Subjective: Interval history: No acute overnight events. Started dialysis this morning. Patient seen in the ICU while on dialysis. Tolerating this well. Creatinine up to 5.7 BUN 60. Potassium at 4.9 Medications: Reviewed: Yes Vitals/I&O/Wt Last Vital Signs Temp 98.7 F 05/07/20 08:00 Pulse 83 05/07/20 10:30 Resp 16 05/07/20 10:30 BP 198/81 05/07/20 10:30 Pulse Ox 94 05/07/20 10:30 05/06/20 05/07/20 05/07/20 22:59 06:59 14:59 Intake Total 112.917 / 370.000 610 / 610 Output Total 350 / 370 500 / 870 50 / 50 Balance -237.083 / 0 -500 / -500.000 560 / 560 Physical Exam Narrative: EXAM NARRATIVE: GEN: Awake, alert and oriented, no acute distress CVS: S1S2 N RS: CTA B/L Abd: Soft, nt/nd , bs+ BRUSH SANDER: no focal neuro deficits ext: 1+ pitting edema B/L Data : 05/07/20 03:25 05/07/20 03:25 A&P Assessment and plan (1) Hyperkalemia: Status: Acute (2) CKD (chronic kidney disease): Status: Acute Qualifiers: Chronic kidney disease stage: stage 5, not on chronic dialysis Qualified Code(s): N18.5 - Chronic kidney disease, stage 5 (3) Parkinson disease: Status: Acute (4) Hypertension: Status: Acute Qualifiers: Hypertension type: essential hypertension Qualified Code(s): I10 - Essential (primary) hypertension (5) Accidental overdose: Status: Acute Qualifiers: Encounter type: initial encounter Qualified Code(s): T50.901A - Poisoning by unspecified drugs, medicaments and biological substances, accidental (unintentional), initial encounter (6) Hypertensive urgency: Status: Acute (7) Acute kidney injury superimposed on CKD: Status: Acute Additional A&P Information # Hypertensive urgency Remains off cardene drip Continue amlodipine 10 mg daily, hydralazine incrased to 50 QID, Imdur 30 mg p.o. daily BP better controlled now, starting HD now, hold off on adding new meds this morning CT head with chronic white matter changes. No acute intracranial process.Continue ASA Echocardiogram LV systolic function is grossly normal. Diastolic function is indeterminate. Mild aortic stenosis is noted. 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 After counselling and discussion and carefully discussing pros/cons, reversibility of permacath if needed, she has agreed to proceed with HD after discussion with her family. Nephrology consult appreciated.Worsening creatinine, anasarca, hyperkalemia, intermittent confusion likely related to uremia in part. Discharge plan is to discharge her to a retirement facility for rehab. I have discussed the above plan with her son. While patient is at the care home after being discharged this current admission, he will continue to work on getting her placed at an assisted living facility close to his home for the terminal carman. # Hypothyroidism: Elevated TSH at 7. reduced FT3, FT4 , increased levothyroxine 150 to 175 mcg daily # Accidental clonidine overdose, suspected by patient, no overt signs of clonidine toxocity, resolved as an acute issue now # venous duplex without DVT AND DVT ppx: heparin Dispo: care home Attestations Medical Necessity Statement*: starting Hemodialysis today Coding Level of Care Code Acute Physical Optics Teacher for Alex Ramos Diagnoses Hyperkalemia E87.5 CKD (chronic kidney disease) N18.5 Chronic kidney disease stage: stage 5, not on chronic dialysis Parkinson disease G20 Hypertension I10 Hypertension type: essential hypertension Accidental overdose T50.901A Encounter type: initial encounter Hypertensive urgency I16.0 Acute kidney injury superimposed on CKD N17.9; N18.9
--- NOTE | 2020-05-07 15:58 | PM.PN ---
Subjective Subjective: Interval history: I am seeing her in follow up for her renal failure. She was initiated on dialysis today, tolerated first treatment well. No chest pain or shortness of breath Medications: Reviewed: Yes Vitals/I&O/Wt Last Vital Signs Temp 99.5 F 05/07/20 12:00 Pulse 90 05/07/20 15:00 Resp 18 05/07/20 15:00 BP 169/86 05/07/20 15:00 Pulse Ox 95 05/07/20 15:00 05/07/20 05/07/20 05/07/20 06:59 14:59 22:59 Intake Total 970 / 970 Output Total 500 / 870 200 / 200 Balance -500 / -500.000 770 / 770 Physical Exam Const: COMMON NORMALS: no acute distress, patient oriented x3 and alert GENERAL APPEARANCE: cooperative ORIENTATION/CONSCIOUSNESS: Yes awake Resp: AUSCULTATION: crackles Cardio: COMMON NORMALS: S1 normal heart sound present and S2 normal heart sound present HEART SOUNDS: S1 normal heart sound present and S2 normal heart sound present OTHER: Dialysis catheter present GI: AUSCULTATION: Yes normoactive bowel sounds Extremity: GENERAL: Yes edema Neuro: COMMON NORMALS: patient oriented x3 SENSORIUM/ORIENTATION: Yes alert Skin: COMMON NORMALS: no rashes or lesions noted GENERAL SKIN EXAM: no rashes or lesions noted Data : 05/07/20 03:25 05/07/20 03:25 A&P Assessment and plan (1) ESRD (end stage renal disease): We did hemodialysis today for 2hrs, tolerated it well. Will plan dialysis again on friday, 2.5hrs, 2k, 2.5 Ca bath Status: Acute (2) Hyperkalemia: Will correct with dialysis Status: Acute (3) Hypertension: Expect it to improve as we remove fluid with dialysis Status: Acute Qualifiers: Hypertension type: essential hypertension Qualified Code(s): I10 - Essential (primary) hypertension (4) Anemia: Hb within goal Status: Acute (5) Metabolic acidosis: Will correct with dialysis Status: Acute Attestations Medical Necessity Statement*: Renal failure requiring dialysis Coding Level of Care Code Acute Paver Layer for [facility] Fwd Diagnoses ESRD (end stage renal disease) N18.6 Hyperkalemia E87.5 Hypertension I10 Hypertension type: essential hypertension Anemia D64.9 Metabolic acidosis E87.2
[2020-05-07] MEDS: ondansetron 2 mg/ML SDV 2 mL 4 MG IVP (19:46)
[2020-05-07] MEDS: citalopram 20 mg Tablet 10 MG PO (20:38)
[2020-05-07] MEDS: quetiapine 100 mg Tablet 200 MG PO (20:38)
[2020-05-08] VITALS (32 sets, daily range): BP systolic 121–216; BP diastolic 50–118; PULSE 83–105; RESP 12–29; TEMP 36.7–37.2; O2SAT 90–97
[2020-05-08] MEDS: HYDROmorphone 1 mg/mL INJ 1 mL IVP ×2 (01:16→10:17)
[2020-05-08] MEDS: ondansetron 2 mg/ML SDV 2 mL 4 MG IVP ×5 (01:16→20:07)
[2020-05-08] MEDS: fluticasone nasal spray 16gm Btl 1 SPRAY NASAL (03:52)
[2020-05-08] MEDS: heparin 5,000 unit/mL INJ 1 mL 5000 UNIT SUBCUT ×2 (04:37→16:10)
[2020-05-08] MEDS: hyDRALAzine 20 mg/mL INJ 1 mL 10 MG IVP ×2 (05:40→09:14)
[2020-05-08] MEDS: amlodipine 10 mg Tablet PO (08:09)
[2020-05-08] MEDS: hyDRALAzine 50 mg Tablet PO ×4 (08:09→20:07)
[2020-05-08] MEDS: sodium bicarbonate 650 mg Tablet PO ×2 (08:09→14:23)
[2020-05-08] MEDS: levothyroxine 25 mcg Tablet PO (08:10)
[2020-05-08] MEDS: carbidopa-levodopa 25-100mg Tablet 1 EACH PO ×3 (08:10→20:07)
[2020-05-08] MEDS: oxybutynin 5 mg Tablet PO ×2 (08:10→17:10)
[2020-05-08] MEDS: isosorbide mononitrate ER 30 mg Tablet PO (08:10)
[2020-05-08] MEDS: FUROsemide 40 mg Tablet PO (08:10)
[2020-05-08] MEDS: aspirin 81 mg EC Tablet PO (08:10)
[2020-05-08] MEDS: cholecalciferol (vitamin D3) 1,000 unit Tablet 1000 UNIT PO (08:10)
[2020-05-08] MEDS: levothyroxine 150 mcg Tablet PO (08:10)
[2020-05-08] MEDS: pantoprazole DR 40 mg Tablet PO (08:10)
[2020-05-08 08:37] LABS: Basophils # 0.1 10^3/uL (0.0-0.1); Basophils % 0.7 %; Eosinophils # 0.5 10^3/uL (0.0-0.8); Eosinophils % 3.8 %; Hematocrit 40.3 % (37.0-47.0); Hemoglobin 12.8 g/dL (11.5-15.3); Lymphocytes # 2.5 10^3/uL (0.8-4.8); Lymphocytes % 19.3 %; Mean Corpuscular HGB Conc 31.8 g/dL (30.0-36.0); Mean Corpuscular Hemoglobin 29.2 pg (28.0-34.0); Monocytes # 1.3 10^3/uL (0.2-0.9); Monocytes % 10.3 %; Neutrophils # 8.34 10^3/uL (1.8-7.7); Neutrophils % 65.4 %; Nucleated Red Blood Cells % 0 %; Platelet Count 264 10^3/cmm (130-400); Red Blood Count 4.38 10^6/uL (4.1-5.3); Red Cell Distribution Width 15.5 % (12.1-15.1); White Blood Count 12.8 10^3/uL (4.0-10.0)
[2020-05-08 08:52] LABS: Alanine Aminotransferase < 5 U/L (0-33); Albumin Level 3.2 g/dL (3.5-5.2); Alkaline Phosphatase 76 IU/L (35-105); Anion Gap 16.4 (5-19); Aspartate Amino Transferase 19 U/L (0-32); Blood Urea Nitrogen 38 mg/dL (8-23); Calcium 8.7 mg/dL (8.5-10.5); Carbon Dioxide 24 mmol/L (22-29); Chloride 102 mmol/L (98-107); Glucose 169 mg/dL (65-115); Magnesium 1.6 mg/dL (1.7-2.3); Osmolality Calculated 287 mOsm/kg (285-295); Phosphorus 3.8 mg/dL (2.5-4.5); Potassium 4.4 mmol/L (3.5-5.1); Sodium 138 mmol/L (136-145); Total Bilirubin 0.3 mg/dL (0.15-1.2); Total Protein 6.2 g/dL (6.6-8.7)
--- NOTE | 2020-05-08 09:07 | PC.NURSE ---
Report called and given to CSU. Jair, pt's son and POA, has been called and notified of her transfer to room 112. Pt to be transported to dialysis and then CSU.
--- NOTE | 2020-05-08 10:15 | PC.NURSE ---
Received call from dialysis nurse stating patient is nauseated and has a headache with abd pain. Pulled zofran, dilaudid and tylenol from [facility] and delivered to dialysis nurse. Dialysis nurse administered dilaudid to patient in my presence.
[2020-05-08] MEDS: acetaminophen 325 mg Tablet 650 MG PO (10:16)
--- NOTE | 2020-05-08 11:25 | PM.PN ---
Subjective Subjective: Interval history: This morning patient was examined in the ICU, she is sitting up in a chair, enjoying breakfast, she states that her blood pressure was high overnight, the nurses were concerned, but overall she is doing better, she does feel weak and fatigued, has been ambulating with physical therapy, no chest pain, no shortness of breath, no headache, no blurry vision Medications: Reviewed: Yes Vitals/I&O/Wt Last Vital Signs Temp 99 F 05/08/20 08:00 Pulse 97 05/08/20 09:00 Resp 24 H 05/08/20 10:17 BP 204/72 05/08/20 09:00 Pulse Ox 93 05/08/20 09:00 05/07/20 05/08/20 05/08/20 22:59 06:59 14:59 Intake Total 120 / 1090 200 / 1290 600 / 600 Output Total 400 / 600 450 / 1050 300 / 300 Balance -280 / 490 -250 / 240 300 / 300 Physical Exam Narrative: EXAM NARRATIVE: Right permacath in place, with dressing on top, clean and dry Const: COMMON NORMALS: no acute distress and patient oriented x3 HENMT: COMMON NORMALS: normocephalic HEAD & SCALP: normocephalic Neck/C-Spine: COMMON NORMALS: no JVD Resp: COMMON NORMALS: normal respiratory effort, No retractions, No use of accessory muscles and clear to auscultation bilaterally AUSCULTATION: clear to auscultation bilaterally Cardio: COMMON NORMALS: no JVD, regular rate, regular rhythm, S1 normal heart sound present and S2 normal heart sound present RATE: regular rate RHYTHM: regular rhythm HEART SOUNDS: S1 normal heart sound present and S2 normal heart sound present GI: COMMON NORMALS: Normal to inspection, nondistended, normoactive bowel sounds present, Soft to palpation, non-tender, No hepatosplenomegaly present, no masses and no bruits PALPATION: Yes Soft to palpation and Yes No hepatosplenomegaly present Extremity: COMMON NORMALS: capillary refill normal, no clubbing, cyanosis or edema, no calf tenderness and no pedal edema Neuro: COMMON NORMALS: patient oriented x3 Psych: COMMON NORMALS: mental status grossly normal Data : 05/08/20 08:03 05/08/20 08:03 A&P Assessment and plan (1) Hyperkalemia: Status: Acute (2) CKD (chronic kidney disease): Status: Acute (3) Parkinson disease: Status: Acute (4) Hypertension: Status: Acute (5) Accidental overdose: Status: Acute (6) Hypertensive urgency: Status: Acute (7) Acute kidney injury superimposed on CKD: Status: Acute Additional A&P Information # Hypertensive urgency Remains off cardene drip Did have hypertensive episodes overnight, dose of hydralazine increased, plan to move to [facility] this morning, just in case patient requires a drip for hypertensive urgency Continue amlodipine 10 mg daily, hydralazine incrased to 50 QID, Imdur 30 mg p.o. daily BP better controlled now, status post hemodialysis yesterday, will get another round today, hold off on adding new meds this morning will monitor CT head with chronic white matter changes. No acute intracranial process.Continue ASA Echocardiogram LV systolic function is grossly normal. Diastolic function is indeterminate. Mild aortic stenosis is noted. 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 After counselling and discussion and carefully discussing pros/cons, reversibility of permacath if needed, she has agreed to proceed with HD after discussion with her family. Nephrology consult appreciated.Worsening creatinine, anasarca, hyperkalemia, intermittent confusion likely related to uremia in part. Discharge plan is to discharge her to a retirement facility for rehab. I have discussed the above plan with her son. While patient is at the intermediate after being discharged this current admission, he will continue to work on getting her placed at an assisted living facility close to his home for the calibrator barometers. # Hypothyroidism: Elevated TSH at 7. reduced FT3, FT4 , increased levothyroxine 150 to 175 mcg daily # Accidental clonidine overdose, suspected by patient, no overt signs of clonidine toxocity, resolved as an acute issue now # venous duplex without DVT AND DVT ppx: heparin Dispo: intermediate Likely discharge in the next 24 hours Attestations Medical Necessity Statement*: Patient requires hospitalization, for hypertensive urgency, requiring dialysis for worsening kidney function Coding Level of Care Code Acute Dry Wall Nailer for Chg Fwd Diagnoses Hyperkalemia E87.5 CKD (chronic kidney disease) N18.9 Parkinson disease G20 Hypertension I10 Accidental overdose T50.901A Hypertensive urgency I16.0 Acute kidney injury superimposed on CKD N17.9; N18.9
--- NOTE | 2020-05-08 12:45 | PC.NURSE ---
Patient arrived from dialysis. Patient is awake and oriented to person, place and current situation.
--- NOTE | 2020-05-08 14:53 | P.PN_ITS ---
Subjective Subjective: Interval history: Second dialysis session today. Reports pain around catheter and nausea during treatment. Symptoms are not present at this time. Medications: Reviewed: Yes Vitals/I&O/Wt Last Vital Signs Temp 99 F 05/08/20 08:00 Pulse 105 H 05/08/20 13:00 Resp 18 05/08/20 13:00 BP 152/75 05/08/20 13:00 Pulse Ox 93 05/08/20 13:00 05/07/20 05/08/20 05/08/20 22:59 06:59 14:59 Intake Total 120 / 1090 200 / 1290 800 / 800 Output Total 400 / 600 450 / 1050 300 / 300 Balance -280 / 490 -250 / 240 500 / 500 Physical Exam 2 Const: COMMON NORMALS: no acute distress GENERAL APPEARANCE: cooperative and comfortable HENMT: COMMON NORMALS: normocephalic HEAD & SCALP: normocephalic Neck/C-Spine: OTHER: tunneled right IJ dialysis catheter - clear dressing, no drainage, minimally tender when RN touches Resp: COMMON NORMALS: normal respiratory effort and clear to auscultation bilaterally AUSCULTATION: clear to auscultation bilaterally Cardio: COMMON NORMALS: regular rate and regular rhythm RATE: regular rate RHYTHM: regular rhythm Extremity: GENERAL: Yes edema Data : 05/08/20 08:03 05/08/20 08:03 Other data: CXR 05/06 IMPRESSION: Right subclavian dialysis catheter ends in the SVC region. No pneumothorax. Chronic lung changes. No acute pulmonary disease. A&P Additional A&P Information (1) ESRD (end stage renal disease):next hemodialysis Friday05/10/2020 (2) Metabolic acidosis: resolved, discontinue sodium bicarbonate (3) Hypertension: BP was elevated earlier, but did not tolerate fluid removal at dialysis today. Will increase furosemide. I favor changing hydralazine to ARB (4) Hyperkalemia: resolved Awaiting NH placement. Attestations Medical Necessity Statement*: per primary service Coding Level of Care Code Acute Hand Bindery Assembly Worker for Alex Ramos
--- NOTE | 2020-05-08 17:38 | PC.NURSE ---
patient got up to use the restroom upon returning to bed she reports some mild nausea, reports she want to try to eat. However after trying to eat began dry heaving. PRN shubhamfran given patient now resting in bed with company at bedside.
[2020-05-08] MEDS: cloNIDine 0.1 mg Tablet PO (18:16)
--- NOTE | 2020-05-08 18:20 | PC.NURSE ---
spoke with Dr Paul with concerns of patient elevated bp and patient reports of increased swelling in upper extremities and feeling that her ABD is mor swollen Orders placed for PRN medications with instructions as well as instructions to continue to monitor swelling.
--- NOTE | 2020-05-08 19:39 | PC.NURSE ---
PATIENT COMPLAINS OF NAUSEA. DR. CAMPOS GAVE ORDER TO CHANGE PRN ZOFRAN FROM Q6 HR TO Q4 HR.
[2020-05-08] MEDS: quetiapine 100 mg Tablet 200 MG PO (20:07)
[2020-05-08] MEDS: citalopram 20 mg Tablet 10 MG PO (20:07)
--- NOTE | 2020-05-09 00:30 | PC.NURSE ---
Patient is currently resting with eyes closed. Will monitor.
[2020-05-09] MEDS: heparin 5,000 unit/mL INJ 1 mL 5000 UNIT SUBCUT (03:45)
[2020-05-09 03:50] VITALS: BP 177/96; PULSE 89; RESP 16; TEMP 36.9; O2SAT 91
[2020-05-09] MEDS: hyDRALAzine 20 mg/mL INJ 1 mL 10 MG IVP (03:54)
--- NOTE | 2020-05-09 03:59 | PC.NURSE ---
During my neuro assessment at 1908, patient was able to answer correctly to person, place, time, and situation. My neuro assessment at 2230, patient was able to answer to person and time, but not place or situation. My neuro assessment at 0345, patient was able to answer correctly to person, place, time, and situation. Will continue to monitor.
--- NOTE | 2020-05-09 04:20 | PC.NURSE ---
Patient's blood pressure was 177/96 at 0352. PRN Hydralazine given per order at 0354. Blood pressure at 0416 was 154/75. Will monitor.
[2020-05-09 04:22] VITALS: BP 154/75; PULSE 86
[2020-05-09] MEDS: fluticasone nasal spray 16gm Btl 1 SPRAY NASAL (06:05)
[2020-05-09 07:08] LABS: Basophils # 0.1 10^3/uL (0.0-0.1); Basophils % 0.9 %; Eosinophils # 0.6 10^3/uL (0.0-0.8); Eosinophils % 4.8 %; Hematocrit 38.2 % (37.0-47.0); Lymphocytes # 2.9 10^3/uL (0.8-4.8); Lymphocytes % 25.2 %; Mean Corpuscular HGB Conc 31.4 g/dL (30.0-36.0); Mean Corpuscular Volume 92.3 fL (81-99); Mean Platelet Volume 10.6 fL (7.4-10.4); Monocytes # 1.3 10^3/uL (0.2-0.9); Monocytes % 11.3 %; Neutrophils # 6.52 10^3/uL (1.8-7.7); Neutrophils % 57.3 %; Nucleated Red Blood Cells % 0 %; Platelet Count 254 10^3/cmm (130-400); Red Blood Count 4.14 10^6/uL (4.1-5.3); Red Cell Distribution Width 15.4 % (12.1-15.1); White Blood Count 11.4 10^3/uL (4.0-10.0)
[2020-05-09 07:27] VITALS: BP 157/79; PULSE 104; RESP 18; TEMP 37.2; O2SAT 93
[2020-05-09 07:27] LABS: Alanine Aminotransferase < 5 U/L (0-33); Albumin Level 2.8 g/dL (3.5-5.2); Alkaline Phosphatase 71 IU/L (35-105); Anion Gap 15.5 (5-19); Aspartate Amino Transferase 16 U/L (0-32); Blood Urea Nitrogen 26 mg/dL (8-23); Calcium 8.8 mg/dL (8.5-10.5); Carbon Dioxide 27 mmol/L (22-29); Chloride 101 mmol/L (98-107); Globulin 2.8 g/dL (1.3-4.6); Glucose 126 mg/dL (65-115); Magnesium 1.6 mg/dL (1.7-2.3); Osmolality Calculated 286 mOsm/kg (285-295); Phosphorus 3.8 mg/dL (2.5-4.5); Potassium 4.5 mmol/L (3.5-5.1); Sodium 139 mmol/L (136-145); Total Bilirubin 0.3 mg/dL (0.15-1.2); Total Protein 5.6 g/dL (6.6-8.7)
[2020-05-09] MEDS: carbidopa-levodopa 25-100mg Tablet 1 EACH PO (08:10)
[2020-05-09] MEDS: amlodipine 10 mg Tablet PO (08:10)
[2020-05-09] MEDS: FUROsemide 40 mg Tablet 80 MG PO (08:10)
[2020-05-09] MEDS: aspirin 81 mg EC Tablet PO (08:10)
[2020-05-09] MEDS: levothyroxine 25 mcg Tablet PO (08:11)
[2020-05-09] MEDS: levothyroxine 150 mcg Tablet PO (08:11)
[2020-05-09] MEDS: isosorbide mononitrate ER 30 mg Tablet PO (08:12)
[2020-05-09] MEDS: cloNIDine 0.1 mg Tablet PO (08:12)
[2020-05-09] MEDS: multivitamin therapeutic Tablet 1 TAB PO (08:12)
[2020-05-09] MEDS: oxybutynin 5 mg Tablet PO (08:12)
[2020-05-09] MEDS: hyDRALAzine 50 mg Tablet PO ×2 (08:12→12:58)
[2020-05-09] MEDS: pantoprazole DR 40 mg Tablet PO (08:12)
[2020-05-09] MEDS: cholecalciferol (vitamin D3) 1,000 unit Tablet 1000 UNIT PO (09:00)
--- NOTE | 2020-05-09 10:35 | P.DS_ITS ---
Discharge Providers Date of Admission: 05/04/20 07:44 Date of Discharge: May 09, 2020 Attending Provider at Admission: Teodora Singleton MD Attending Provider at Discharge: Young Paul MD Diagnoses at Discharge Discharge Diagnosis (1) Hyperkalemia: Status: Acute (2) CKD (chronic kidney disease): Status: Acute (3) Parkinson disease: Status: Acute (4) Hypertension: Status: Acute (5) Accidental overdose: Status: Acute (6) Hypertensive urgency: Status: Acute (7) Acute kidney injury superimposed on CKD: Status: Acute Reason for Visit Reason for Visit: ACCIDENTAL OD Hospital Course Discharge Summary: This is a 85-year-old female with a past medical history of Parkinson's disease, hypertension, end-stage renal disease, who lives alone in [place], who presents [facility] due to concerns for accidental overdose of clonidine, and hypertensive urgency. On admission, patient was found to have systolic blood pressure greater than 200, hyperkalemia, worsening renal function, was admitted to the intensive care unit. 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 On discharge she will go home on Norvasc 10 mg daily, clonidine 0.1 twice daily, hydralazine 50 4 times daily, chlorthalidone 25 mg daily, Imdur 30 mg daily, Lasix 40 mg twice daily. half-way was advised to monitor blood pressures carefully, as patient does tend to have hypertensive episodes in the evenings. For patient's CKD, she has a history of end-stage renal disease, she has been delaying dialysis, however given her worsening kidney function, creatinine up to 5.5, and her hyperkalemia patient agreed for permacath placement and dialysis. Patient received 2 cycles of inpatient dialysis, she tolerated this well; patient will be discharged with dialysis days Friday, follow with Dr. Orozco in 2 weeks. For her hypothyroidism, her levothyroxine dose was increased 275 mcg once daily. For concerns for accidental clonidine overdose, no overt signs of clonidine toxicity Her hyperkalemia resolved with insulin/dextrose, calcium gluconate, dialysis. Patient will be discharged to [facility] for short-term rehab, Physical Exam Narrative: EXAM NARRATIVE: Right permacath, dressing on top, clean and dry Const: COMMON NORMALS: no acute distress and patient oriented x3 HENMT: COMMON NORMALS: normocephalic HEAD & SCALP: normocephalic Neck/C-Spine: COMMON NORMALS: no JVD Resp: COMMON NORMALS: normal respiratory effort, No retractions, No use of accessory muscles and clear to auscultation bilaterally AUSCULTATION: clear to auscultation bilaterally Cardio: COMMON NORMALS: no JVD, regular rate, regular rhythm, S1 normal heart sound present and S2 normal heart sound present RATE: regular rate RHYTHM: regular rhythm HEART SOUNDS: S1 normal heart sound present and S2 normal heart sound present GI: COMMON NORMALS: Normal to inspection, nondistended, normoactive bowel sounds present, Soft to palpation, non-tender, No hepatosplenomegaly present, no masses and no bruits PALPATION: Yes Soft to palpation and Yes No hepatosplenomegaly present Extremity: COMMON NORMALS: capillary refill normal, no clubbing, cyanosis or edema, no calf tenderness and no pedal edema Neuro: COMMON NORMALS: patient oriented x3 Psych: COMMON NORMALS: mental status grossly normal Discharge Data Data Completed and Pending: Completed Studies During Hospitalization Category Date Time Status CT abdomen pelvis wo con [id number] Rout ine Cat Scan 05/04/20 08:[address] head wo con* 7 0450 Stat Cat Scan 05/03/20 15:15 Completed XR chest 1V donta ble [id number] Urgent Exams 05/06/20 09:16 Completed CV echo complete* [id number] Routine Ultrasound 05/05/20 12:52 [place] [id number] Routin e Ultrasound 05/04/20 10:31 Completed Pending at discharge Category Date Time Status Complete Blood Co unt w/Auto AM LABS Lab 05/10/20 04:00 Ordered Complete Blood Co unt w/Auto AM LABS Lab 05/11/20 04:00 Ordered Comprehensive Met abolic Panel AM LA BS Lab 05/10/20 04:00 Ordered Comprehensive Met abolic Panel AM LA BS Lab 05/11/20 04:00 Ordered Magnesium AM LABS Lab 05/10/20 04:00 Ordered Magnesium AM LABS Lab 05/11/20 04:00 Ordered Phosphorus AM LAB S Lab 05/10/20 04:00 Ordered Phosphorus AM LAB S Lab 05/11/20 04:00 Ordered Labs from last 24 hours 05/09/20 05/09/20 05/09/20 06:53 06:53 05:15 WBC 11.4 H Corrected WBC RBC 4.14 Hgb 12.0 Hct 38.2 MCV 92.3 MCH 29.0 MCHC 31.4 RDW 15.4 H Plt Count 254 MPV 10.6 H Gran % Neut % (Auto) 57.3 Lymph % (Auto) 25.2 Forest % (Auto) 11.3 Eos % (Auto) 4.8 Baso % (Auto) 0.9 Neut # (Auto) 6.52 Lymph # (Auto) 2.9 Forest # (Auto) 1.3 H Eos # (Auto) 0.6 Baso # (Auto) 0.1 Absolute Gran (aut o) Nucleated RBC % (a uto) 0 Nucleated RBCs # 0.0 Sodium 139 Cancelled Potassium 4.5 Cancelled Chloride 101 Cancelled Carbon Dioxide 27 Cancelled Anion Gap 15.5 Cancelled BUN 26 H Cancelled Creatinine 3.8 H Cancelled GFR Calculation Not Reportable Cancelled Glucose 126 H Cancelled Calculated Osmolal ity 286 Cancelled Calcium 8.8 Cancelled Phosphorus 3.8 Cancelled Magnesium 1.6 L Cancelled Total Bilirubin 0.3 Cancelled AST 16 Cancelled ALT < 5 Cancelled Alkaline Phosphata se 71 Cancelled Total Protein 5.6 L Cancelled Albumin 2.8 L Cancelled Globulin 2.8 Cancelled 05/09/20 05:15 WBC Cancelled Corrected WBC Cancelled RBC Cancelled Hgb Cancelled Hct Cancelled MCV Cancelled MCH Cancelled MCHC Cancelled RDW Cancelled Plt Count Cancelled MPV Cancelled Gran % Cancelled Neut % (Auto) Cancelled Lymph % (Auto) Cancelled Forest % (Auto) Cancelled Eos % (Auto) Cancelled Baso % (Auto) Cancelled Neut # (Auto) Cancelled Lymph # (Auto) Cancelled Forest # (Auto) Cancelled Eos # (Auto) Cancelled Baso # (Auto) Cancelled Absolute Gran (aut o) Cancelled Nucleated RBC % (a uto) Cancelled Nucleated RBCs # Cancelled Sodium Potassium Chloride Carbon Dioxide Anion Gap BUN Creatinine GFR Calculation Glucose Calculated Osmolal ity Calcium Phosphorus Magnesium Total Bilirubin AST ALT Alkaline Phosphata se Total Protein Albumin Globulin Vitals: Last Vital Signs Temp 99.0 F 05/09/20 07:27 Pulse 104 H 05/09/20 07:27 Resp 18 05/09/20 07:27 BP 157/79 05/09/20 07:27 Pulse Ox 93 05/09/20 07:27 Discharge Plan Discharge Patient Disposition: Xfer SNF Condition: Stable Prescriptions: New clonidine HCl 0.1 mg Tablet 0.1 mg PO BID 30 Days Qty: 60 RF: 0 amlodipine 10 mg Tablet 10 mg PO DAILY 30 Days Qty: 30 RF: 0 cholecalciferol (vitamin D3) 25 mcg (1,000 unit) Tablet 1,000 unit PO DAILY 30 Days Qty: 30 RF: 0 chlorthalidone 25 mg Tablet 25 mg PO DAILY 30 Days Qty: 30 RF: 0 fluticasone propionate 50 mcg/actuation [place],Suspension 1 spray nasal DAILY PRN (Reason: congestion) Qty: 16 RF: 0 isosorbide mononitrate 30 mg Tablet Extended Release 24 Hr 30 mg PO DAILY 30 Days Qty: 30 RF: 0 hydralazine 50 mg Tablet 50 mg PO QID 30 Days Qty: 120 RF: 0 furosemide 40 mg Tablet 80 mg PO DAILY@0800 30 Days Qty: 30 RF: 0 Continued multivitamin [Multiple Vitamins] Tablet 1 tab PO DAILY RF: 0 citalopram 10 mg tablet 10 mg PO BEDTIME RF: 0 Senna-S 8.6-50 mg Tablet See Rx Instructions .ROUTE .COMPLEX RF: 0 quetiapine 200 mg tablet 200 mg PO BEDTIME RF: 0 omeprazole 40 mg capsule,delayed release(DR/EC) 40 mg PO DAILY RF: 0 aspirin [Aspir-81] 81 mg Tablet,Delayed Release (Dr/Ec) See Rx Instructions .ROUTE .COMPLEX RF: 0 acetaminophen [Tylenol Extra Strength] 500 mg Tablet 500 mg PO TID RF: 0 ferrous sulfate [iron] 325 mg (65 mg iron) Tablet 325 mg PO BID RF: 0 carbidopa-levodopa 25-100 mg tablet 1 tab PO TID RF: 0 oxybutynin chloride 5 mg tablet 5 mg PO BID RF: 0 cranberry 500 mg Capsule 500 mg PO DAILY RF: 0 rasagiline 1 mg tablet 1 mg PO DAILY RF: 0 Fish Oil 1 cap PO DAILY RF: 0 Probiotic 1 cap PO DAILY RF: 0 Changed levothyroxine 150 mcg tablet 175 mcg PO DAILY Qty: 0 RF: 0 Discontinued quetiapine 25 mg tablet 25 mg PO BEDTIME PRN (Reason: unknown) RF: 0 hydralazine 10 mg tablet 10 mg PO TID RF: 0 clonidine HCl 0.1 mg tablet 0.1 mg PO BID RF: 0 amlodipine 5 mg tablet 5 mg PO BID RF: 0 Discharge Orders: Discharge Order (Routine); Ordered 05/09/20 Ordered By: Young Paul Other Ambulatory Orders: Complete Blood Count w/Auto (Routine) Timeframe: 1 Week Location: Determined by Patient Ordered By: Young Paul Comprehensive Metabolic Panel (Routine) Timeframe: 1 Week Facility: [facility] - Location: Lab - Main Lab Ordered By: Young Paul Magnesium (Routine) Timeframe: 1 Week Facility: [facility] - Location: Lab - Main Lab Ordered By: Young Paul Phosphorus (Routine) Timeframe: 1 Week Facility: [facility] - Location: Lab - Main Lab Ordered By: Young Paul Referrals: Jose Orozco MD [Referring] - 2 weeks Discharge Diet: Cardiac Discharge Activity: Resume usual activity Patient Instructions: Hemodialysis (DC), Dialysis Diet (GEN), End-Stage Kidney Disease (GEN) Activity Restrictions/Additional Instructions: -Monitor blood pressures, for hypertensive episodes please titrate blood pressure medications Discharge Attestations Time Spent in Discharge Care*: less than 30 min Quality Metrics Clinical Quality Measures During this hospital stay, did patient experience: None Coding Level of Care Code Acute Cork Slabs Sawyer for Chg Fwd Diagnoses Hyperkalemia E87.5 CKD (chronic kidney disease) N18.9 Parkinson disease G20 Hypertension I10 Accidental overdose T50.901A Hypertensive urgency I16.0 Acute kidney injury superimposed on CKD N17.9; N18.9
[2020-05-09 10:58] VITALS: BP 144/70; PULSE 87; RESP 18; TEMP 36.6; O2SAT 93
[2020-05-09] MEDS: chlorthalidone 25 mg Tablet PO (11:03)
--- NOTE | 2020-05-09 11:07 | PC.CHAP ---
Pastoral Care Encounter/Spiritual Assessment Type of Contact [] Declined nuclear medicine physician visit [] Patient/Family/Request visit [] Outpatient visit [] Follow-up visit [] Physician referral [] Code/Alert [x] Routine visit [] Staff referral [] Actively dying [] Patient sleeping [] Family support [] [] Out of room [] Palliative care [] [x] Receiving care in room [] Pre-surgical visit [] Trauma [] Long length of stay [] ICU visit [] Other: Relational/Emotional Strength [x] Patient feels connected with others/family/visitors/staff [] Distress [] Loneliness/isolation [] Abandonment Spirituality of Patient [x] Person of Nanalise [] Attends [employer] of their Annalise [x] Believes in Prayer [] Reads Bible or Jew materials [] There are Spiritual issues to be addressed Rock Loader Interventions [x] Prayer [x] Active listening [x] Non-anxious presence [x] Spiritual/emotional support [] Crisis/trauma care [x] Spiritual counseling [] Bereavement support [] Provided bereavement packet [] Provided Bible/devotional materials [] Provided toy/stuffed animal, coloring book to patient or family member [] Provided Communion [] Anointing/[place] [] Salvation [x] Completed spiritual assessment [] Other: Impact on Illness or Injury [] Angry [] Fearful [] Anxious [] Often cries [] Exhaustion [] Unable to work [] Unable to attend taoist [] Unable to walk/stand [] Unable to read [] Unable to drive [] Unable to eat/drink [] Unable to sleep [] Unable to be with family [] Patient intubated [] Other: Summary Accidental OD took wrong meds, has a good attitude, feels good, going [place] [facility] for rehab and the back home Time spent with patient 10 mins
--- NOTE | 2020-05-09 12:06 | PC.SOCIAL ---
IMM Updated Updated pt on Pg 2 IMM. Provided pt a copy. No questions voiced. Signed, dated, & timed copy in chart.
--- NOTE | 2020-05-09 12:59 | PC.NURSE ---
[facility] set up by [facility]. Family to see patient upon discharge.
[2020-05-09 13:47] VITALS: BP 144/70; PULSE 87; RESP 18; TEMP 36.6; O2SAT 93
--- NOTE | 2020-05-09 14:01 | PC.NURSE ---
Patient discharged to SNF and left CSU 1345 via w/c to ED exit and SNF provided transportation. Patient's IV removed and tolerated well. All personal belongings and discharge instructions sent with patient and provided to SNF, patient verbalized understandings of discharge instructions.
== END 2020-05-09 13:48 | disposition skilled nursing facility (03) | DRG 917 ==
LOC: ER 12:55 → ICU 14:13 → CSU 05-08 09:35
PROVIDERS: Family Medicine; Internal Medicine; Surgery; Admitting Provider Student in an Organized Health Care Education/Training Program; Visit Provider Family Medicine
PROC: 0JH63XZ Insertion of Tunneled Vascular Access Device into Chest Subcutaneous Tissue and Fascia, Percutaneous Approach (ICD-10-PCS; principal; 2020-05-06 08:00)
DX: T46.5X1A Poisoning by other antihypertensive drugs, accidental (unintentional), initial encounter (principal); N18.6 End stage renal disease; I12.0 Hypertensive chronic kidney disease with stage 5 chronic kidney disease or end stage renal disease; N17.9 Acute kidney failure, unspecified; E87.2 Acidosis; G20 Parkinson's disease; E87.5 Hyperkalemia; I16.0 Hypertensive urgency; E03.9 Hypothyroidism, unspecified; K42.9 Umbilical hernia without obstruction or gangrene; D63.1 Anemia in chronic kidney disease; Z79.82 Long term (current) use of aspirin
CPT/HCPCS: 12345; 36415; 70450; 71045; 74176; 76000; 77001; 80053; 80306; 80307; 81001; 82306; 82310; 82436; 82570; 83735; 83970; 84100; 84132; 84133; 84156; 84300; 84436; 84443; 84481; 84484; 85025; 85610; 86705; 86706; 86803; 87340; 90935; 93005; 93306; 93970; 96372; 96375; 97110; 97162; 97530; 99283; C1750; G0378; J0360; J0610; J0690; J1170; J1644; J1815; J1940; J2405; J2704; J3010; J7030; Q3014

== ENCOUNTER 2020-05-18 15:47 | Observation (INO) | payer MEDICARE, BC, OTHER, SELFPAY ==
[2020-05-18 16:32] VITALS: BP 130/65; PULSE 92; RESP 16; TEMP 37.1; O2SAT 97; BMI 29.8
--- NOTE | 2020-05-18 16:44 | XR_ITS ---
WS: [id number] Acute abdomen series, portable upright chest and abdomen, portable supine chest and abdomen. 05/18/2020 Clinical Data: constipation Comparison: None. Findings: In the chest there are no nodules, masses or effusions. The heart is normal. The pulmonary vascularity is not increased. There is a dialysis catheter entering from the right subclavian vein an d ending in the superior vena cava. There is a 2-lead pacemaker with the generator in the left axilla . There are small calcifications in the soft tissues overlying the next of the right and left scapula . There is bilateral apical pleural calcification. No free air is seen beneath the diaphragms. No abnormal intra-abdominal masses are seen. There are cl ips in the right upper quadrant from a cholecystectomy. There are coarse calcifications to the right of the L4 and L5 vertebral bodies which may represent mesenteric calcifications. There is a large dinorah unt of fecal material throughout the colon. No obstruction is seen. No bowel dilatation is present. XR/XR acute abdomen series [id number] Impression: 1. Negative for acute cardiopulmonary disease. 2. Large amount of fecal material throughout the colon.
--- NOTE | 2020-05-18 18:04 | ED_ITS ---
HPI - General Adult General: Chief complaint: General Medical Stated complaint: constipation *13 days, Needs port replaced Time Seen by Provider: 05/18/20 17:34 History of Present Illness: HPI narrative: This patient is an 85-year-old female who presents today for 2 complaints. One is that she has a dialysis port in her right chest which is nonfunctioning. She was post have dialysis yesterday but could not get it because the port was not working. She was sent to here for the port to be replaced. Dr. Middleton put the port in a couple of weeks ago. She was in the hospital with renal failure and started on dialysis at that time. Her second complaint is that she has been constipated for 13 days. She feels like she is impacted. She has been having abdominal cramping. She has not been vomiting. She has tried various laxatives but no enema. She is a resident in [place] currently. She also is having some difficulty urinating. She is noticed decreased urine output since the start of dialysis. She says that in the past several days though she feels like she has to go and has difficulty going. Location: abdomen Associated symptoms: Deny chest pain, dyspnea, headache(s), malaise, nausea, rash or vomiting Review of Systems General: Reports: 10 or more systems reviewed and unremarkable except in HPI and below Const: Denies: fever(s), chills, fatigue or malaise Eyes: Denies: change in vision ENMT: Denies: odynophagia Card: Denies: chest pain or swelling of feet/ankles Resp: Denies: dyspnea, productive cough or non-productive cough GI: Reports: abdominal pain and constipation; Denies: nausea or vomiting : Reports: urinary frequency and urinary hesitancy; Denies: flank pain or difficulty voiding Musc: Denies: neck pain or back pain Skin/Breast: Denies: rash Neuro: Denies: headache(s), numbness in extremities or weakness in extremities Hao/Lymph: Denies: easy bruising or easy bleeding PFS ED PFSH: Medical History (Updated 05/18/20 @ 21:44 by Mary Grace Hernandez MD) CKD (chronic kidney disease) ESRD (end stage renal disease) History of cardiac arrhythmia Hypertension Parkinson disease Surgical History (Updated 05/18/20 @ 21:33 by Abdirahman Perez MD) History of pacemaker Social History Smoking and tobacco status: light tobacco smoker Alcohol intake: never Substance/Drug Use: never Physical Exam Const: COMMON NORMALS: no acute distress, patient oriented x3, no limitations and alert GENERAL APPEARANCE: cooperative and comfortable HENMT: HEAD & SCALP: normal to inspection FACE & SINUS: normal facial exam Eye: GENERAL EYE: appearance normal, both eyes and all related structures Neck/C-Spine: COMMON NORMALS: supple, no meningeal signs and no JVD Chest: COMMONS NORMALS: normal inspection of the chest (Port in the right upper chest with no sign of local infection) Resp: COMMON NORMALS: normal respiratory effort, No use of accessory muscles and clear to auscultation bilaterally AUSCULTATION: clear to auscultation bilaterally Cardio: COMMON NORMALS: no JVD, regular rate, regular rhythm and No murmurs present (Cardio) RATE: regular rate RHYTHM: regular rhythm GI: INSPECTION: Yes normal to inspection AUSCULTATION: Yes normoactive bowel sounds PALPATION: Yes Firmness to palpation present (GI) and Yes Tenderness to palpation present (GI) (Diffusely) Back/Pelvis: COMMON NORMALS: thoracic and lumbar spine normal to inspection Extremity: COMMON NORMALS: normal to inspection Neuro: COMMON NORMALS: patient oriented x3, moves all extremities, no focal motor deficits and no sensory deficits noted SENSORIUM/ORIENTATION: Yes alert MENINGEAL SIGNS: Yes no meningeal signs Psych: COMMON NORMALS: mental status grossly normal, cooperative and normal affect Skin: COMMON NORMALS: no rashes or lesions noted and turgor normal GENERAL SKIN EXAM: no rashes or lesions noted and turgor normal Course ED course: Patient with abdominal pain, constipation and a markedly elevated white count. CT was done but did not show any infectious process in the abdomen. Her pain also resolved while she was in the ED. She has been on dialysis for about 2 weeks. She missed dialysis yesterday due to a nonfunctioning catheter. She will be admitted as an observation patient overnight with plan for new access to be placed tomorrow and then dialysis. Discussed with Dr. Perez and Dr. Nails. Vital Signs: Vital signs: Vital Signs Temperature 98.1 F 05/18/20 22:07 Pulse Rate 87 05/18/20 22:07 Respiratory Rate 20 H 05/18/20 22:07 Blood Pressure 172/70 05/18/20 22:07 Pulse Oximetry 94 05/18/20 22:07 [facility] - General Adult Lab Data: Labs: Lab Results 05/18/20 05/18/20 05/18/20 Range/Units 17:47 17:47 18:26 WBC Cancelled 18.5 H Corrected WBC Cancelled RBC Cancelled 3.59 L Hgb Cancelled 10.7 L Hct Cancelled 34.7 L MCV Cancelled 96.7 MCH Cancelled 29.8 MCHC Cancelled 30.8 RDW Cancelled 15.5 H Plt Count Cancelled 246 MPV Cancelled 10.4 Gran % Cancelled Neut % (Auto) Cancelled 66.6 Lymph % (Auto) Cancelled 16.8 [place] % (Auto) Cancelled 13.2 Eos % (Auto) Cancelled 2.4 Baso % (Auto) Cancelled 0.6 Neut # (Auto) Cancelled 12.30 H Lymph # (Auto) Cancelled 3.1 [place] # (Auto) Cancelled 2.4 H Eos # (Auto) Cancelled 0.5 Baso # (Auto) Cancelled 0.1 Absolute Gran (aut o) Cancelled Nucleated RBC % (a uto) Cancelled 0 Nucleated RBCs # Cancelled 0.0 Sodium 134 L (136-145) mmol/L Potassium 4.8 (3.5-5.1) mmol/L Chloride 97 L (98-107) mmol/L Carbon Dioxide 21 L (22-29) mmol/L Anion Gap 20.8 H (5-19) BUN 50 H (8-23) mg/dL Creatinine 5.5 H (0.5-0.9) mg/dL GFR Calculation Not Reportable Glucose 133 H (65-115) mg/dL Calculated Osmolal ity 278 L (285-295) mOsm/k g Calcium 8.6 (8.5-10.5) mg/dL Total Bilirubin 0.2 (0.15-1.2) mg/dL AST 17 (0-32) U/L ALT < 5 (0-33) U/L Alkaline Phosphata se 84 (35-105) IU/L Total Protein 6.4 L (6.6-8.7) g/dL Albumin 3.1 L (3.5-5.2) g/dL Globulin 3.3 (1.3-4.6) g/dL Urine Color (Yellow) Urine Appearance (CLEAR) Urine pH (5-7) Ur Specific Gravit y (1.005-1.030) Urine Protein (Negative) Urine Glucose (UA) (Normal) Urine Ketones (Negative) Urine Blood (Negative) Urine Nitrate (Negative) Urine Bilirubin (NEGATIVE) Urine Urobilinogen (Negative) mg/dL Ur Leukocyte Felipa ase (Negative) Urine RBC (0-2) /hpf Urine WBC (0-5) /hpf Ur Squamous Epith Cells (0-5) Amorphous Sediment Urine Bacteria (NONE) 05/18/20 Range/Units 20:45 WBC Corrected WBC RBC Hgb Hct MCV MCH MCHC RDW Plt Count MPV Gran % Neut % (Auto) Lymph % (Auto) [place] % (Auto) Eos % (Auto) Baso % (Auto) Neut # (Auto) Lymph # (Auto) [place] # (Auto) Eos # (Auto) Baso # (Auto) Absolute Gran (aut o) Nucleated RBC % (a uto) Nucleated RBCs # Sodium (136-145) mmol/L Potassium (3.5-5.1) mmol/L Chloride (98-107) mmol/L Carbon Dioxide (22-29) mmol/L Anion Gap (5-19) BUN (8-23) mg/dL Creatinine (0.5-0.9) mg/dL GFR Calculation Glucose (65-115) mg/dL Calculated Osmolal ity (285-295) mOsm/k g Calcium (8.5-10.5) mg/dL Total Bilirubin (0.15-1.2) mg/dL AST (0-32) U/L ALT (0-33) U/L Alkaline Phosphata se (35-105) IU/L Total Protein (6.6-8.7) g/dL Albumin (3.5-5.2) g/dL Globulin (1.3-4.6) g/dL Urine Color Yellow (Yellow) Urine Appearance Cloudy (CLEAR) Urine pH 6 (5-7) Ur Specific Gravit y 1.015 (1.005-1.030) Urine Protein 3+ H (Negative) Urine Glucose (UA) Norm (Normal) Urine Ketones Negative (Negative) Urine Blood 3+ H (Negative) Urine Nitrate Negative (Negative) Urine Bilirubin Neg (NEGATIVE) Urine Urobilinogen Norm (Negative) mg/dL Ur Leukocyte Felipa ase 2+ H (Negative) Urine RBC 15-25 H (0-2) /hpf Urine WBC 0-4 H (0-5) /hpf Ur Squamous Epith Cells 0-4 H (0-5) Amorphous Sediment Not Reportable Urine Bacteria 2+ H (NONE) Discharge Plan Discharge Patient Disposition: Placed in Observation Admit Provider: Abdirahman Perez Clinical Impression: ESRD (end stage renal disease), Obstipation Abdominal pain Qualifiers: Abdominal location: generalized Qualified Code(s): R10.84 - Generalized abdominal pain Condition: Stable Discharge Date/Time: 05/18/20 22:05 Coding Level of Care Code ED Technical Publications Manager for Sarahg Fwd Exam Comprehensive
[2020-05-18 18:13] LABS: Alanine Aminotransferase < 5 U/L (0-33); Albumin Level 3.1 g/dL (3.5-5.2); Alkaline Phosphatase 84 IU/L (35-105); Blood Urea Nitrogen 50 mg/dL (8-23); Calcium 8.6 mg/dL (8.5-10.5); Carbon Dioxide 21 mmol/L (22-29); Chloride 97 mmol/L (98-107); Globulin 3.3 g/dL (1.3-4.6); Glucose 133 mg/dL (65-115); Osmolality Calculated 278 mOsm/kg (285-295); Sodium 134 mmol/L (136-145); Total Bilirubin 0.2 mg/dL (0.15-1.2); Total Protein 6.4 g/dL (6.6-8.7)
[2020-05-18 18:19] LABS: Anion Gap 20.8 (5-19); Aspartate Amino Transferase 17 U/L (0-32)
[2020-05-18 18:20] LABS: Potassium 4.8 mmol/L (3.5-5.1)
[2020-05-18 18:33] LABS: Basophils # 0.1 10^3/uL (0.0-0.1); Basophils % 0.6 %; Eosinophils # 0.5 10^3/uL (0.0-0.8); Eosinophils % 2.4 %; Hematocrit 34.7 % (37.0-47.0); Hemoglobin 10.7 g/dL (11.5-15.3); Lymphocytes # 3.1 10^3/uL (0.8-4.8); Lymphocytes % 16.8 %; Mean Corpuscular HGB Conc 30.8 g/dL (30.0-36.0); Mean Corpuscular Hemoglobin 29.8 pg (28.0-34.0); Mean Corpuscular Volume 96.7 fL (81-99); Mean Platelet Volume 10.4 fL (7.4-10.4); Monocytes # 2.4 10^3/uL (0.2-0.9); Monocytes % 13.2 %; Neutrophils % 66.6 %; Nucleated Red Blood Cells % 0 %; Platelet Count 246 10^3/cmm (130-400); Red Blood Count 3.59 10^6/uL (4.1-5.3); Red Cell Distribution Width 15.5 % (12.1-15.1); White Blood Count 18.5 10^3/uL (4.0-10.0)
--- NOTE | 2020-05-18 18:44 | CTR_ITS ---
PROCEDURE INFORMATION: Exam: CT Abdomen And Pelvis Without Contrast Exam date and time: 05/18/2020 7:04 PM Age: 85 years old Clinical indication: Bloating and constipation; Abdominal pain; Prior surgery; Surgery type: Gb; Additional info: Abd pain, elevated wbc TECHNIQUE: Imaging protocol: Computed tomography of the abdomen and pelvis without contrast. Radiation optimization: All CT scans at this facility use at least one of these dose optimization techniques: automated exposure control; mA and/or kV adjustment per patient size (includes targeted exams where dose is matched to clinical indication); or iterative reconstruction. COMPARISON: CT abdomen pelvis con [id number] 05/04/2020 2:19 PM RADIATION DOSE METRICS: Total DLP (mGy-cm): 1097.48 FINDINGS: Lungs: Limited assessment lung bases without visible evidence of active cardiopulmonary process. Liver: Unremarkable. No mass. Gallbladder and bile ducts: Status post cholecystectomy. Pancreas: Unremarkable for age. No ductal dilation. Spleen: Normal. No splenomegaly. Adrenals: Normal. No mass. Kidneys and ureters: Stable simple bilateral renal cortical cysts. No follow-up recommended. No hydronephrosis or perinephric fluid bilaterally. No visible nephrolithiasis. Stomach and bowel: Very heavy fecal residue consistent with marked constipation/obstipation. Nonobstructive bowel pattern. No evidence for diverticulitis or diverticulosis coli. No visible adynamic or reactive ileus. Small hiatal hernia. Appendix: The appendix is visualized and appears noninflamed. Tiny appendicolith. Again no evidence for appendicitis. Intraperitoneal space: No visible free intraperitoneal ascites. Vasculature: The abdominal aorta is nonaneurysmal. Moderately advanced arterial sclerotic disease. Lymph nodes: No visible active mesenteric or retroperitoneal lymphadenopathy. Calcified mesenteric lymph nodes most likely secondary to antecedent granulomatous disease. Bladder: Bladder unremarkable. Reproductive: Unremarkable as visualized. Bones/joints: No visible active or acute osseous abnormality. Advanced degenerative disc disease L5/S1. Soft tissues: Heavy body habitus. CT/CT abdomen con [id number] IMPRESSION: 1. Currently no visible evidence of acute abdominal or pelvic pathologic process. 2. Constipation/obstipation. Radiation Dose CTDIVOL = (mGy): DLP = 1097.48 (mGy-cm)
--- NOTE | 2020-05-18 21:08 | PM.HP ---
Providers/Chief Complaint Chief Complaint: said they would call over History of Present Illness Cindi Melissa is a 85 year old female recently hospitalized May 03 through the who presents today with history of some abdominal pain, and a nonfunctioning dialysis catheter right chest. She was to see the surgeon today, this afternoon for consideration for placement. Patient cannot relate exactly what happened but she was directed to the emergency department. She states she has not been able to have a bowel movement in the last 7 days, despite multiple medications given by mouth. She states she has crampy abdominal pain occurring intermittently. She denies any fevers. She states she is still is able to urinate some despite having kidney failure. She typically will have dialysis on Friday and Friday. She was not able to have dialysis Friday as port was not functioning. No history of COVID, exposure to COVID, cough. No vomiting. No blood in stool or black or tarry stool. Upset currently that she cannot watch [employer] play in the [place] open as [employer] is not available in the ER channels. Review of Systems General: Reports: 10 or more systems reviewed and unremarkable except in HPI and below Const: Denies: fever(s) Eyes: Denies: change in vision ENMT: Denies: throat pain Card: Denies: chest pain Resp: Denies: dyspnea GI: Reports: abdominal pain : Denies: flank pain Musc: Denies: neck pain Skin/Breast: Denies: rash Neuro: Denies: headache(s) Psych: Denies: anxiety Endo: Reports: other (Decreased urination); Denies: polyuria Hao/Lymph: Denies: easy bruising All/Imm: Denies: urticaria Medications/Allergies Home Medications Medication Instructions Recorded Confirmed Last Taken Type Fish Oil 1 cap PO BEDTIME 05/03/20 05/18/20 05/17/20 History Probiotic 1 cap PO DAILY 05/03/20 05/18/20 05/18/20 History acetaminophen [Tylenol Extra 500 mg PO TID 05/03/20 05/18/20 05/18/20 History Strength] aspirin 81 mg PO DAILY 05/03/20 05/18/20 05/18/20 History carbidopa-levodopa 1 tab PO TID 05/03/20 05/18/20 05/18/20 History citalopram 10 mg PO BEDTIME 05/03/20 05/18/20 05/17/20 History cranberry 500 mg PO DAILY 05/03/20 05/18/20 05/18/20 History ferrous sulfate [iron] 325 mg PO BID 05/03/20 05/18/20 05/18/20 History multivitamin [Multiple Vitamins] 1 tab PO DAILY 05/03/20 05/18/20 05/18/20 History omeprazole 40 mg PO DAILY 05/03/20 05/18/20 05/18/20 History oxybutynin chloride 5 mg PO BID 05/03/20 05/18/20 05/18/20 History rasagiline 1 mg PO DAILY 05/03/20 05/18/20 05/17/20 History sennosides-docusate sodium See Rx Instructions .ROUTE 05/03/20 05/18/20 Unknown History [Senna-S] .COMPLEX PRN amlodipine 10 mg PO DAILY 30 Days #30 tab 05/09/20 05/18/20 05/18/20 Rx chlorthalidone 25 mg PO DAILY 30 Days #30 tab 05/09/20 05/18/20 05/18/20 Rx cholecalciferol (vitamin D3) 1,000 unit PO DAILY 30 Days #30 tab 05/09/20 05/18/20 05/18/20 Rx clonidine HCl 0.1 mg PO BID 30 Days #60 tab 05/09/20 05/18/20 05/18/20 Rx hydralazine 50 mg PO QID 30 Days #120 tab 05/09/20 05/18/20 05/18/20 Rx isosorbide mononitrate 30 mg PO DAILY 30 Days #30 tab 05/09/20 05/18/20 05/18/20 Rx levothyroxine 175 mcg PO DAILY #0 tab 05/09/20 05/18/20 05/18/20 Rx bisacodyl [Dulcolax (bisacodyl)] 5 mg PO DAILY 05/18/20 05/18/20 05/18/20 History bisacodyl [Dulcolax (bisacodyl)] 10 mg [place] DAILY PRN 05/18/20 05/18/20 05/16/20 History fluticasone propionate [Flonase 1 spray NASAL BEDTIME 05/18/20 05/18/2005/17/20 History Allergy Relief] furosemide 80 mg PO BID 05/18/20 05/18/20 05/18/20 History melatonin 10 mg PO BEDTIME 05/18/20 05/18/20 05/17/20 History nicotine 1 patch TRANSDERMAL DAILY 05/18/20 05/18/20 05/18/20 History ondansetron HCl [Zofran] 8 mg PO Q8H PRN 05/18/20 05/18/20 Unknown History polyethylene glycol 3350 [Miralax] 17 g PO DAILY 05/18/20 05/18/20 05/18/20 History quetiapine 25 mg PO BEDTIME PRN 05/18/20 05/18/20 05/17/20 History sodium phosphates [Fleet Enema] 118 ml [place] DAILY PRN 05/18/20 05/18/20 Unknown History Allergies Allergy/AdvReac Type Severity Reaction Status Date / Time promethazine [From Phenergan] Allergy Unknown Verified 05/05/20 14:45 Sulfa (Sulfonamide Allergy Unknown Verified 05/05/20 14:45 Antibiotics) PFSH Acute PFSH: Medical History (Updated 05/18/20 @ 21:35 by Abdirahman Perez MD) CKD (chronic kidney disease) ESRD (end stage renal disease) History of cardiac arrhythmia Hypertension Parkinson disease Surgical History (Updated 05/18/20 @ 21:33 by Abdirahman Perez MD) History of pacemaker Social History Smoking and tobacco status: light tobacco smoker Alcohol intake: never Substance/Drug Use: never Supplemental PFSH Information: No significant pertinent family history. Surgical history includes history of dialysis catheter placement right chest Vitals/I&O/Wt Last Vital Signs Temp 98.8 F 05/18/20 16:32 Pulse 92 05/18/20 16:32 Resp 16 05/18/20 16:32 BP 130/65 05/18/20 16:32 Pulse Ox 97 05/18/20 16:32 Weight last 48 hrs Weight 83.915 kg Physical Exam Narrative: EXAM NARRATIVE: General exam is an elderly white female, no apparent distress HEENT: Pupils equally round. Oropharynx clear. Neck is supple no lymphadenopathy or thyromegaly Cardiovascular regular rate and rhythm with a 2/6 systolic murmur. Dialysis catheter noted right chest. Pacemaker left chest Lungs clear no wheezing or crackles Abdomen slight tenderness, infraumbilical bilateral. Positive bowel sounds. No rebound. No obvious organomegaly was deferred Extremities 1+ edema bilaterally, cap refill brisk, no cyanosis or clubbing. Skin no rash Neuro no focal deficits Data : 05/18/20 18:26 05/18/20 17:47 Micro: Microbiology 05/18/20 19:39 Blood Culture - Preliminary Blood SPECIMEN COLLECTED 05/18/20 19:37 Blood Culture - Preliminary Blood SPECIMEN COLLECTED Other data: Urinalysis with 15-25 reds 2+ leukocytes 2+ bacteria 0-4 whites LFTs normal Chest x-ray dialysis catheter right chest, pacemaker left chest dual-chamber. No acute infiltrate. This is by my read. CT abdomen negative with the exception of obstipation. Pelvis not obtained. A&P Assessment and plan (1) ESRD (end stage renal disease): Currently on hemodialysis Friday Has nonfunctioning dialysis catheter right chest. Missed dialysis on Friday. We will consult surgery for dialysis catheter, consideration of dialysis tomorrow Nephrology consultation No need for acute dialysis tonight. Status: Acute (2) Anemia: Monitor. No evidence of active blood loss Status: Acute (3) Abdominal pain: Secondary to constipation Continue bowel regimen Enema ordered Status: Acute (4) UTI (urinary tract infection): Urine culture Initiate Rocephin Status: Acute (5) Leukocytosis: Likely secondary to UTI Status: Acute Additional A&P Information History of pacemaker placement Hypertension, continue home medications Hypothyroidism. Continue home medications History of Parkinson's disease GERD, continue proton pump inhibitor Multiple other medical problems as outlined in past medical history. Allow natural . Discussed with patient As procedure anticipated only SCDs for DVT prophylaxis currently. Attestations Medical Necessity Statement*: Will need less than 2 midnight stay for evaluation and treatment of nonfunctioning dialysis catheter, constipation Time Spent in Patient Care: Greater than 35 minutes Coding Level of Care Code Acute Finisher Card Tender for Chg Fwd Diagnoses ESRD (end stage renal disease) N18.6 Anemia D64.9 Abdominal pain R10.9 UTI (urinary tract infection) N39.0 Leukocytosis D72.829
[2020-05-18 21:21] LABS: Add Urine Culture? Yes; Add Urine Microscopic? YES; Bacteria Urine 2+; Bilirubin Urine Neg (NEGATIVE); Blood Urine 3+ (Negative); Glucose Urine UA Norm (Normal); Ketones Urine Negative (Negative); Leukocyte Esterase Urine 2+ (Negative); Nitrate Urine Negative (Negative); Protein Urine 3+ (Negative); RBC Urine 15-25 /hpf (0-2); Specific Gravity, Urine 1.015 (1.005-1.030); Squamous Epithelial Cell Urine 0-4 (0-5); Urine Appearance Cloudy (CLEAR); Urine Color Yellow (Yellow); Urobilinogen Urine Norm (Negative); WBC Urine 0-4 /hpf (0-5); pH Urine 6 (5-7)
[2020-05-18 22:00] VITALS: BP 135/74; PULSE 82; RESP 18; O2SAT 98
--- NOTE | 2020-05-18 22:05 | PM.CONSULT ---
Providers/Reason For Consult Consulting Physican/Specialty*: amelie hernandez md/ telenephrology Reason for Consult*: ESRD care Attending Physician: Abdirahman Perez MD History of Present Illness History of Present Illness Cindi Melissa is a 85 year old female recent start on HD approx 05/06/20. has been feeling better since then. her dialysis catheter clotted and she has not had dialysis since then. her surgeon sent her to ER. she states she feels okay. no n/v/f/c/bautista/d/sob Review of Systems General: Reports: 10 or more systems reviewed and unremarkable except in HPI and below Narrative: c/o constipation. she states she is feeling better w/ dialysis. no n/v/f/c/bautista/sob/d. states her BP has improved w/ hd Meds/Allergies Home Medications and Allergies Home Medications Medication Instructions Recorded Confirmed Last Taken Type Fish Oil 1 cap PO BEDTIME 05/03/20 05/18/20 05/17/20 History Probiotic 1 cap PO DAILY 05/03/20 05/18/20 05/18/20 History acetaminophen [Tylenol Extra 500 mg PO TID 05/03/20 05/18/20 05/18/20 History Strength] aspirin 81 mg PO DAILY 05/03/20 05/18/20 05/18/20 History carbidopa-levodopa 1 tab PO TID 05/03/20 05/18/20 05/18/20 History citalopram 10 mg PO BEDTIME 05/03/20 05/18/20 05/17/20 History cranberry 500 mg PO DAILY 05/03/20 05/18/20 05/18/20 History ferrous sulfate [iron] 325 mg PO BID 05/03/20 05/18/20 05/18/20 History multivitamin [Multiple Vitamins] 1 tab PO DAILY 05/03/20 05/18/20 05/18/20 History omeprazole 40 mg PO DAILY 05/03/20 05/18/20 05/18/20 History oxybutynin chloride 5 mg PO BID 05/03/20 05/18/20 05/18/20 History rasagiline 1 mg PO DAILY 05/03/20 05/18/20 05/17/20 History sennosides-docusate sodium See Rx Instructions .ROUTE 05/03/20 05/18/20 Unknown History [Senna-S] .COMPLEX PRN amlodipine 10 mg PO DAILY 30 Days #30 tab 05/09/20 05/18/20 05/18/20 Rx chlorthalidone 25 mg PO DAILY 30 Days #30 tab 05/09/20 05/18/20 05/18/20 Rx cholecalciferol (vitamin D3) 1,000 unit PO DAILY 30 Days #30 tab 05/09/20 05/18/20 05/18/20 Rx clonidine HCl 0.1 mg PO BID 30 Days #60 tab 05/09/20 05/18/20 05/18/20 Rx hydralazine 50 mg PO QID 30 Days #120 tab 05/09/20 05/18/20 05/18/20 Rx isosorbide mononitrate 30 mg PO DAILY 30 Days #30 tab 05/09/20 05/18/20 05/18/20 Rx levothyroxine 175 mcg PO DAILY #0 tab 05/09/20 05/18/20 05/18/20 Rx bisacodyl [Dulcolax (bisacodyl)] 5 mg PO DAILY 05/18/20 05/18/20 05/18/20 History bisacodyl [Dulcolax (bisacodyl)] 10 mg [place] DAILY PRN 05/18/20 05/18/20 05/16/20 History fluticasone propionate [Flonase 1 spray NASAL BEDTIME 05/18/20 05/18/20 05/17/20 History Allergy Relief] furosemide 80 mg PO BID 05/18/20 05/18/20 05/18/20 History melatonin 10 mg PO BEDTIME 05/18/20 05/18/20 05/17/20 History nicotine 1 patch TRANSDERMAL DAILY 05/18/20 05/18/20 05/18/20 History ondansetron HCl [Zofran] 8 mg PO Q8H PRN 05/18/20 05/18/20 Unknown History polyethylene glycol 3350 [Miralax] 17 g PO DAILY 05/18/20 05/18/20 05/18/20 History quetiapine 25 mg PO BEDTIME PRN 05/18/20 05/18/20 05/17/20 History sodium phosphates [Fleet Enema] 118 ml [place] DAILY PRN 05/18/20 05/18/20 Unknown History Allergies Allergy/AdvReac Type Severity Reaction Status Date / Time promethazine [From Phenergan] Allergy Unknown Verified 05/05/20 14:45 Sulfa (Sulfonamide Allergy Unknown Verified 05/05/20 14:45 Antibiotics) PFSH Acute PFSH: Medical History (Updated 05/18/20 @ 21:44 by Mary Grace Hernandez MD) CKD (chronic kidney disease) ESRD (end stage renal disease) History of cardiac arrhythmia Hypertension Parkinson disease Surgical History (Updated 05/18/20 @ 21:33 by Abdirahman Perez MD) History of pacemaker Social History Smoking and tobacco status: light tobacco smoker Alcohol intake: never Substance/Drug Use: never Vitals/I&O/Wt Last Vital Signs Temp 98.8 F 05/18/20 16:32 Pulse 82 05/18/20 22:00 Resp 18 05/18/20 22:00 BP 135/74 05/18/20 22:00 Pulse Ox 98 05/18/20 22:00 Weight last 48 hrs Weight 83.915 kg Physical Exam Narrative: EXAM NARRATIVE: comfortable, nard vss heent- nc/at, eomi, anicteric neck supple rt ant chest wall permacth lungs clear heart reg, no rub abd soft, nt, nd, +BS ext no edema neuro- a,a, o x 3 Data Micro: Micro: Microbiology 05/18/20 19:39 Blood Culture - Pr eliminary Blood SPECIMEN [facility] 05/18/20 19:37 Blood Culture - Pr eliminary Blood SPECIMEN [facility] A&P Additional A&P Information 85 yr old female w/ ESRD and non-functioning permacath 1. please call surgeon in am for access- she is known to DR. Middleton 2. ESRD- hd in am when access is placed 3. leukocytosis- monitor for infection q uti- but no significant leukocytosis in urine 4.anemia- monitor iron studies 5. hyponatremia- from esrd- monitor w/ hd. ensure tsh is normal Consult Attestations Medical Necessity Statement: esrd and urvashi=eds dialysis access Time Spent in Patient Care: Greater than 35 minutes Coding Level of Care Code Acute Underground [employer] Section Foreman for Chg Rachel
[2020-05-18 22:07] VITALS: BP 172/70; PULSE 87; RESP 20; TEMP 36.7; O2SAT 94
[2020-05-19] VITALS (11 sets, daily range): BP systolic 126–204; BP diastolic 60–110; PULSE 85–100; RESP 16–20; TEMP 36.3–37.2; O2SAT 92–96
--- NOTE | 2020-05-19 | SCC_ITS ---
Procedure Done: Exchange of tunneled 16 [place] 27 cm AshSplit hemodialysis catheter Fluoroscopic guidance and interpretation for placement of catheter in the superior vena cava atrial junction 59.2 seconds of fluoroscopic guidance, for a cumulative dose of 5.50 mGy, was provided to Dr. Nails by the radiology department. C-arm images of the chest were saved for the patient's permanent record. [facility]
--- NOTE | 2020-05-19 01:27 | PC.NURSE ---
Patient stated I need a Flonase for stuffed up nose. Patient's nurse been notified.
[2020-05-19] MEDS: cefTRIAXone 1,000 MG in sodium chloride 0.9% (plus) 50 ML 100 MG IV ×2 (01:49→23:31)
[2020-05-19] MEDS: fluticasone nasal spray 16gm Btl 1 SPRAY NASAL ×2 (01:54→23:27)
[2020-05-19 04:43] LABS: SARS Covid-2 Antigen Negative (Negative)
--- NOTE | 2020-05-19 05:42 | PC.NURSE ---
Patient's blood pressure elevated this morning 192/60 checked with manual cuff. Patient states didn't got her blood pressure medicine last night. That is why it is high. Patient's nurse been notified.
[2020-05-19 05:53] LABS: Basophils # 0.1 10^3/uL (0.0-0.1); Basophils % 0.7 %; Eosinophils # 0.6 10^3/uL (0.0-0.8); Eosinophils % 3.7 %; Hemoglobin 11.2 g/dL (11.5-15.3); Lymphocytes # 2.8 10^3/uL (0.8-4.8); Lymphocytes % 19.1 %; Mean Corpuscular Hemoglobin 29.2 pg (28.0-34.0); Mean Corpuscular Volume 91.4 fL (81-99); Mean Platelet Volume 10.5 fL (7.4-10.4); Monocytes # 1.6 10^3/uL (0.2-0.9); Monocytes % 10.6 %; Neutrophils # 9.66 10^3/uL (1.8-7.7); Neutrophils % 65.2 %; Nucleated Red Blood Cells % 0 %; Platelet Count 241 10^3/cmm (130-400); Red Blood Count 3.83 10^6/uL (4.1-5.3); Red Cell Distribution Width 15.1 % (12.1-15.1); White Blood Count 14.8 10^3/uL (4.0-10.0)
[2020-05-19 06:09] LABS: Alanine Aminotransferase < 5 U/L (0-33); Albumin Level 3.3 g/dL (3.5-5.2); Alkaline Phosphatase 84 IU/L (35-105); Anion Gap 20.9 (5-19); Aspartate Amino Transferase 15 U/L (0-32); Blood Urea Nitrogen 54 mg/dL (8-23); Carbon Dioxide 21 mmol/L (22-29); Chloride 101 mmol/L (98-107); Globulin 2.2 g/dL (1.3-4.6); Glucose 128 mg/dL (65-115); Osmolality Calculated 286 mOsm/kg (285-295); Potassium 4.9 mmol/L (3.5-5.1); Sodium 138 mmol/L (136-145); Total Bilirubin 0.3 mg/dL (0.15-1.2); Total Protein 5.5 g/dL (6.6-8.7)
--- NOTE | 2020-05-19 06:38 | PM.HP ---
Providers/Chief Complaint Admitting Physician: Abdirahman Perez MD Chief Complaint: dr said they would call over History of Present Illness Cindi Melissa is a 85 year old female who had undergone placement of a 16 Bulgarian 27 cm AshSplit hemodialysis tunneled catheter by Dr. Middleton on May 06, 2020. Patient has been receiving hemodialysis but is now no longer functioning. She was sent to the ER yesterday for nonfunctioning hemodialysis catheter by the dialysis clinic. Patient denies any significant pain, fevers chills or drainage from that site. Review of Systems General: Reports: 10 or more systems reviewed and unremarkable except in HPI and below Medications/Allergies Home Medications Medication Instructions Recorded Confirmed Last Taken Type Fish Oil 1 cap PO BEDTIME 05/03/20 05/18/20 05/17/20 History Probiotic 1 cap PO DAILY 05/03/20 05/18/20 05/18/20 History acetaminophen [Tylenol Extra 500 mg PO TID 05/03/20 05/18/20 05/18/20 History Strength] aspirin 81 mg PO DAILY 05/03/20 05/18/20 05/18/20 History carbidopa-levodopa 1 tab PO TID 05/03/20 05/18/20 05/18/20 History citalopram 10 mg PO BEDTIME 05/03/20 05/18/20 05/17/20 History cranberry 500 mg PO DAILY 05/03/20 05/18/20 05/18/20 History ferrous sulfate [iron] 325 mg PO BID 05/03/20 05/18/20 05/18/20 History multivitamin [Multiple Vitamins] 1 tab PO DAILY 05/03/20 05/18/20 05/18/20 History omeprazole 40 mg PO DAILY 05/03/20 05/18/20 05/18/20 History oxybutynin chloride 5 mg PO BID 05/03/20 05/18/20 05/18/20 History rasagiline 1 mg PO DAILY 05/03/20 05/18/20 05/17/20 History sennosides-docusate sodium See Rx Instructions .ROUTE 05/03/20 05/18/20 Unknown History [Senna-S] .COMPLEX PRN amlodipine 10 mg PO DAILY 30 Days #30 tab 05/09/20 05/18/20 05/18/20 Rx chlorthalidone 25 mg PO DAILY 30 Days #30 tab 05/09/20 05/18/20 05/18/20 Rx cholecalciferol (vitamin D3) 1,000 unit PO DAILY 30 Days #30 tab 05/09/20 05/18/20 05/18/20 Rx clonidine HCl 0.1 mg PO BID 30 Days #60 tab 05/09/20 05/18/20 05/18/20 Rx hydralazine 50 mg PO QID 30 Days #120 tab 05/09/20 05/18/20 05/18/20 Rx isosorbide mononitrate 30 mg PO DAILY 30 Days #30 tab 05/09/20 05/18/20 05/18/20 Rx levothyroxine 175 mcg PO DAILY #0 tab 05/09/20 05/18/20 05/18/20 Rx bisacodyl [Dulcolax (bisacodyl)] 5 mg PO DAILY 05/18/20 05/18/20 05/18/20 History bisacodyl [Dulcolax (bisacodyl)] 10 mg DE DAILY PRN 05/18/20 05/18/20 05/16/20 History fluticasone propionate [Flonase 1 spray NASAL BEDTIME 05/18/20 05/18/20 05/17/20 History Allergy Relief] furosemide 80 mg PO BID 05/18/20 05/18/20 05/18/20 History melatonin 10 mg PO BEDTIME 05/18/20 05/18/20 05/17/20 History nicotine 1 patch TRANSDERMAL DAILY 05/18/20 05/18/20 05/18/20 History ondansetron HCl [Zofran] 8 mg PO Q8H PRN 05/18/20 05/18/20 Unknown History polyethylene glycol 3350 [Miralax] 17 g PO DAILY 05/18/20 05/18/20 05/18/20 History quetiapine 25 mg PO BEDTIME PRN 05/18/20 05/18/20 05/17/20 History sodium phosphates [Fleet Enema] 118 ml DE DAILY PRN 05/18/20 05/18/20 Unknown History Allergies Allergy/AdvReac Type Severity Reaction Status Date / Time promethazine [From Phenergan] Allergy Unknown Verified 05/05/20 14:45 Sulfa (Sulfonamide Allergy Unknown Verified 05/05/20 14:45 Antibiotics) PFSH Acute PFSH: Medical History CKD (chronic kidney disease) ESRD (end stage renal disease) History of cardiac arrhythmia Hypertension Parkinson disease Surgical History History of pacemaker Social History Smoking and tobacco status: light tobacco smoker Alcohol intake: never Substance/Drug Use: never Vitals/I&O/Wt Last Vital Signs Temp 98.7 F 05/19/20 04:00 Pulse 94 05/19/20 04:00 Resp 20 H 05/19/20 04:00 BP 192/60 05/19/20 04:00 Pulse Ox 94 05/19/20 04:00 05/18/20 05/18/20 05/19/20 14:59 22:59 06:59 Output Total 420 / 420 Balance -420 / -420 Weight last 48 hrs Weight 185 lb Physical Exam Narrative: EXAM NARRATIVE: HEENT: Normocephalic Eye: Sclera /conjunctiva normal Respiratory and chest: Bilateral clear breath sounds on auscultation, tunneled right subclavian hemodialysis catheter in place Cardiovascular: Normal S1 and S2 heart sounds Abdomen: Soft to palpation Neurological: Oriented to place person and time Skin: Intact, no lesions appreciated on gross exam Data : 05/19/20 05:24 05/19/20 05:24 Micro: Microbiology 05/18/20 19:39 Blood Culture - Preliminary Blood SPECIMEN COLLECTED 05/18/20 19:37 Blood Culture - Preliminary Blood SPECIMEN COLLECTED A&P Assessment and plan (1) Hemodialysis catheter malfunction: 84-year-old female with chronic kidney disease currently on dialysis who has a nonfunctioning hemodialysis catheter. We will therefore exchange the tunneled hemodialysis catheter in the right subclavian vein under MAC today Procedure, risks, benefits and alternatives have been discussed with the patient who wishes to proceed with surgery. Status: Acute Attestations Medical Necessity Statement*: Nonfunctioning hemodialysis catheter Coding Level of Care Code Acute Senior Quality Control Inspector for Chg Fwd Diagnoses Hemodialysis catheter malfunction T82.41XA
--- NOTE | 2020-05-19 06:40 | P.ANESASSM_ITS ---
Pre-Anesthetic Assessment Pre-Anesthetic Assessment: Height/Weight: Height 1.68 m Weight 83.915 kg Temp Pulse Resp BP Pulse Ox 98.7 F 94 20 H 192/60 94 05/19/20 04:00 05/19/20 04:00 05/19/20 04:00 05/19/20 04:00 05/19/20 04:00 Preop Diagnosis: Chronic kidney disease Proposed Procedure: Operation Date: 05/19/20 07:00 Proposed Procedures p Dialysis Catheter Insertion(Not Applicable) - Reinaldo Nails MD Familial anesthetic complications: None Was Beta Patricio taken within 24 hours: N/A Last intake: Intake NPO since morning (to the best of patient's recall) Last Liquid Date 04/17/20 Last Liquid Time 23:59 Last Solid Date 04/17/20 Social: Social History: Tobacco and No alcohol Exam: Pre-Anes Outpt Exam: alert, oriented x 3, clear to auscultation bilaterally and regular rate & rhythm Airway: Cervical ROM: WNL MP: 3 Dentition: False Pulmonary: Pulmonary: Asthma CV/HEM: CV/HEM: HTN and Murmur Comments: I have couple of leaky valves and a pacemaker - ? for bradycardia : : Chronic renal Insufficiency GI: GI: GERD Comments: Patient hasn't had bowel movement in 2 weeks, episode of vomiting a few days ago. 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, but my head tilted right) Comments: parkinsons Anesthetic Plan: ASA status: 4 Anesthesia: General Risk of > 500 ml blood loss (7ml/kg in children): No Meds/Allergies Current Medications: Current Medications Generic Name Dose Route Start Last Admin Trade Name Freq PRN Reason Stop Dose Admin Fluticasone Propio annetta 1 spray 05/19/20 01:33 05/19/20 01:54 Flonase NASAL 05/25/20 23:59 1 spray BEDTIME [facility] Administration Ceftriaxone Sodium 1,000 mg/ 50 mls @ 100 mls/ hr 05/18/20 23:45 05/19/20 01:49 Sodium Chloride IV 100 mls/hr Q24H [facility] Administration Protocol PFS Anesthesia PFSH: Medical History (Updated 05/19/20 @ 06:45 by Reinaldo Nails MD) CKD (chronic kidney disease) ESRD (end stage renal disease) History of cardiac arrhythmia Hypertension Parkinson disease Surgical History (Updated 05/19/20 @ 06:44 by Reinaldo Nails MD) History of pacemaker S/P hemodialysis catheter insertion (~04/2020) Social History Smoking and tobacco status: light tobacco smoker Alcohol intake: never Substance/Drug Use: never Supplemental [facility] Information: No significant pertinent family history. Surgical history includes history of dialysis catheter placement right chest Data Anesthesia CBC & Chem 7: 05/19/20 05:24 05/19/20 05:24 Other Labs: Laboratory Results - last 48 hr 05/18/20 05/18/20 05/18/20 17:47 17:47 18:26 WBC Cancelled 18.5 H Corrected WBC Cancelled RBC Cancelled 3.59 L Hgb Cancelled 10.7 L Hct Cancelled 34.7 L MCV Cancelled 96.7 MCH Cancelled 29.8 MCHC Cancelled 30.8 RDW Cancelled 15.5 H Plt Count Cancelled 246 MPV Cancelled 10.4 Gran % Cancelled Neut % (Auto) Cancelled 66.6 Lymph % (Auto) Cancelled 16.8 [place] % (Auto) Cancelled 13.2 Eos % (Auto) Cancelled 2.4 Baso % (Auto) Cancelled 0.6 Neut # (Auto) Cancelled 12.30 H Lymph # (Auto) Cancelled 3.1 [place] # (Auto) Cancelled 2.4 H Eos # (Auto) Cancelled 0.5 Baso # (Auto) Cancelled 0.1 Absolute Gran (auto) Cancelled Nucleated RBC % (auto) Cancelled 0 Nucleated RBCs # Cancelled 0.0 Sodium 134 L Potassium 4.8 Chloride 97 L Carbon Dioxide 21 L Anion Gap 20.8 H BUN 50 H Creatinine 5.5 H GFR Calculation Not Reportable Glucose 133 H Calculated Osmolality 278 L Calcium 8.6 Total Bilirubin 0.2 AST 17 ALT < 5 Alkaline Phosphatase 84 Total Protein 6.4 L Albumin 3.1 L Globulin 3.3 Urine Color Urine Appearance Urine pH Ur Specific [place] Urine Protein Urine Glucose (UA) Urine Ketones Urine Blood Urine Nitrate Urine Bilirubin Urine Urobilinogen Ur Leukocyte Esterase Urine RBC Urine WBC Ur Squamous Epith Cells Amorphous Sediment Urine Bacteria SARS-CoV-2 Ag (Rapid) 05/18/20 05/19/20 05/19/20 20:45 03:35 05:24 WBC 14.8 H Corrected WBC RBC 3.83 L Hgb 11.2 L Hct 35.0 L MCV 91.4 D MCH 29.2 MCHC 32.0 RDW 15.1 Plt Count 241 MPV 10.5 H Gran % Neut % (Auto) 65.2 Lymph % (Auto) 19.1 [place] % (Auto) 10.6 Eos % (Auto) 3.7 Baso % (Auto) 0.7 Neut # (Auto) 9.66 H Lymph # (Auto) 2.8 [place] # (Auto) 1.6 H Eos # (Auto) 0.6 Baso # (Auto) 0.1 Absolute Gran (auto) Nucleated RBC % (auto) 0 Nucleated RBCs # 0.0 Sodium Potassium Chloride Carbon Dioxide Anion Gap BUN Creatinine GFR Calculation Glucose Calculated Osmolality Calcium Total Bilirubin AST ALT Alkaline Phosphatase Total Protein Albumin Globulin Urine Color Yellow Urine Appearance Cloudy Urine pH 6 Ur Specific [place] 1.015 Urine Protein 3+ H Urine Glucose (UA) Norm Urine Ketones Negative Urine Blood 3+ H Urine Nitrate Negative Urine Bilirubin Neg Urine Urobilinogen Norm Ur Leukocyte Esterase 2+ H Urine RBC 15-25 H Urine WBC 0-4 H Ur Squamous Epith Cells 0-4 H Amorphous Sediment Not Reportable Urine Bacteria 2+ H SARS-CoV-2 Ag (Rapid) Negative 05/19/20 05:24 WBC Corrected WBC RBC Hgb Hct MCV MCH MCHC RDW Plt Count MPV Gran % Neut % (Auto) Lymph % (Auto) [place] % (Auto) Eos % (Auto) Baso % (Auto) Neut # (Auto) Lymph # (Auto) [place] # (Auto) Eos # (Auto) Baso # (Auto) Absolute Gran (auto) Nucleated RBC % (auto) Nucleated RBCs # Sodium 138 Potassium 4.9 Chloride 101 Carbon Dioxide 21 L Anion Gap 20.9 H BUN 54 H Creatinine 5.9 H* GFR Calculation Not Reportable Glucose 128 H Calculated Osmolality 286 Calcium 9.0 Total Bilirubin 0.3 AST 15 ALT < 5 Alkaline Phosphatase 84 Total Protein 5.5 L Albumin 3.3 L Globulin 2.2 Urine Color Urine Appearance Urine pH Ur Specific [place] Urine Protein Urine Glucose (UA) Urine Ketones Urine Blood Urine Nitrate Urine Bilirubin Urine Urobilinogen Ur Leukocyte Esterase Urine RBC Urine WBC Ur Squamous Epith Cells Amorphous Sediment Urine Bacteria SARS-CoV-2 Ag (Rapid) Micro: Microbiology 05/18/20 19:39 Blood Culture - Preliminary Blood SPECIMEN COLLECTED 05/18/20 19:37 Blood Culture - Preliminary Blood SPECIMEN COLLECTED Cardiac Studies: No Data to Display
[2020-05-19] MEDS: sodium chloride 0.9% 1,000 ML 30 ML IV (06:59)
--- NOTE | 2020-05-19 07:15 | PC.NURSE ---
Report from Arlin MCCORMICK. Patient is in surgery at this time.
--- NOTE | 2020-05-19 07:33 | SC_ITS ---
WS: [id number] C-ARM RADIOGRAPHS CHEST; 2 IMAGES HISTORY: dialysis cath COMPARISON: None available. Intraoperative imaging during dialysis catheter placement. SC/C-arm FL for CVA [id number] IMPRESSION: Intraoperative imaging during dialysis catheter placement.
[2020-05-19] MEDS: lidocaine 1% INJ 20 mL SUBCUT (07:35)
[2020-05-19] MEDS: heparin, porcine 1,000 unit/mL INJ 10 mL 10000 UNIT HE (07:35)
--- NOTE | 2020-05-19 07:56 | PM.OP ---
Operative Report Date of procedure: May 19, 2020 Pre-op Diagnosis: Chronic kidney disease, nonfunctioning hemodialysis catheter Post-op Diagnosis: Catheter tip in the right subclavian vein Procedure Done: Exchange of tunneled 16 Telugu 27 cm AshSplit hemodialysis catheter Fluoroscopic guidance and interpretation for placement of catheter in the superior vena cava atrial junction Pathology: none sent Surgeon: Reinaldo Nails Anesthesia: MAC Condition: stable Disposition: PACU Procedure: The patient was taken to the operating room and placed under MAC and the right chest was prepped and draped in a sterile manner. Fluoroscopy showed that the existing catheter was in the right subclavian vein. Previously placed incision on the right chest was opened with 11 blade, the catheter was dissected free from the surrounding subcutaneous tissue, clamped with hemostats and cut. The proximal portion of the catheter was then removed. A 16 Telugu 27 cm AshSplit hemodialysis catheter was selected and passed subcutaneously through the previously created skin incisions. A guidewire was passed through the catheter and the distal portion of the catheter was removed. Serial dilators were passed over the guidewire and the dilator sheath was then finally passed over the guidewire and the inner dilator with the guidewire was removed. The distal portion of the new AshSplit catheter was introduced as the peel-away sheath was removed. Fluoroscopy confirmed good position of the catheter without any kinking. Both ports withdrew blood and flushed easily. 5 cc of 1: 10,000 of heparin was flushed between both ports. The skin incision was closed using 4-0 Monocryl suture and Dermabond. The catheter was sutured to the skin using 3-0 Prolene suture. Patient was transferred to recovery room in stable condition.
--- NOTE | 2020-05-19 08:05 | ANE.PACU2 ---
Inpatient post-anesthesia follow up: Airway intact: Yes Vital signs: Temperature 97.9 F Pulse Rate [Left R adial] 92 Pulse Rate 93 Respiratory Rate 16 Blood Pressure [Le ft Arm] 130/65 Blood Pressure 181/89 Pulse Oximetry 94 Oxygen Delivery Me thod Nasal Cannula Oxygen Flow Rate 2 Fraction of Inspir ed Oxygen Hydration adequate: Yes Nausea and vomiting: No Pain level: 1 Mental status: Baseline
--- NOTE | 2020-05-19 08:23 | P.PN_ITS ---
Subjective Subjective: Interval history: feels well. s/p or for ashcath- exchange Medications: Reviewed: Yes Medication Review Details: Current Medications Acetaminophen (Tylenol) 650 mg PO Q6H PRN PRN Reason: Mild/Mod Pain Or Temp >/= 101 Albuterol Sulfate (Albuterol) 2.5 mg INHALATION ONCE PRN PRN Reason: WHEEZING Amlodipine Besylate (Norvasc) 10 mg PO DAILY [facility] Aspirin (Aspirin Ec) 81 mg PO DAILY [facility] Carbidopa/Levodopa (Sinemet) 1 each PO TID [facility] Citalopram Hydrobromide (Celexa) 10 mg PO BEDTIME [facility] Clonidine HCl (Catapres) 0.1 mg PO BID [facility] Dexamethasone (Decadron) 4 mg IVP Q5M PRN PRN Reason: Nausea unrelieved by Reglan Stop: 05/20/20 07:55 Famotidine (Pepcid Inj) 20 mg IVP ONCE PRN PRN Reason: HEARTBURN Fentanyl (Sublimaze) 50 mcg IVP Q10M PRN PRN Reason: Preop Pain Fentanyl (Sublimaze) 100 mcg IVP ONCE PRN PRN Reason: Per anesthesia for block Fentanyl (Sublimaze) 50 mcg IVP Q5M PRN PRN Reason: Pain level 6-10 PACU Phase I Stop: 05/20/20 07:55 Fluticasone Propionate (Flonase) 1 spray NASAL BEDTIME [facility] Stop: 05/25/20 23:59 Last Admin: 05/19/20 01:54 Dose: 1 spray Documented by: Furosemide (Lasix) 80 mg PO BID [facility] Hydralazine HCl (Apresoline) 50 mg PO QID [facility] Hydromorphone HCl (Dilaudid Inj) 0.25 mg IVP Q10M PRN PRN Reason: Pain level 4-6 PACU Phase I Stop: 05/20/20 07:55 Hydromorphone HCl (Dilaudid Inj) 0.5 mg IVP Q10M PRN PRN Reason: Pain level 7-10 PACU Phase I Stop: 05/20/20 07:55 Ceftriaxone Sodium 1,000 mg/ (Sodium Chloride) 50 mls @ 100 mls/hr IV Q24H [facility]; Protocol Last Admin: 05/19/20 01:49 Dose: 100 mls/hr Documented by: Sodium Chloride (Sodium Chloride 0.9%) 1,000 mls @ 30 mls/hr IV .Q24H [facility] Stop: 05/20/20 06:59 Last Admin: 05/19/20 06:59 Dose: 30 mls/hr Documented by: Sodium Chloride (Sodium Chloride 0.9%) 500 mls @ 999 mls/hr IV .Q31M PRN PRN Reason: HYPOTENSION Ipratropium [place] (Atrovent Neb) 0.5 mg INHALATION ONCE PRN PRN Reason: WHEEZING Isosorbide Mononitrate (Imdur) 30 mg PO DAILY [facility] Levothyroxine Sodium (Synthroid) 150 mcg PO DAILY [facility] Levothyroxine Sodium (Synthroid) 25 mcg PO DAILY [facility] Lidocaine HCl (Lidocaine 2% Viscous) 1 ml TOPICAL PRN PRN PRN Reason: Anesthetic prior to IV start Lidocaine HCl (Lidocaine 1%) 0.1 ml INTRADERMA PRN PRN PRN Reason: anesthetic prior to IV start Stop: 05/20/20 06:46 Meperidine HCl (Demerol) 12.5 mg IVP Q5M PRN PRN Reason: Shivering PACU Phase I Stop: 05/20/20 07:55 Metoclopramide HCl (Reglan) 10 mg IVP ONCE PRN PRN Reason: N/V if zofran ineffective Metoclopramide HCl (Reglan) 10 mg IVP Q5M PRN PRN Reason: Nausea unrelieved by Zofran Stop: 05/20/20 07:55 Midazolam HCl (Versed) 2 mg IVP Q5M PRN PRN Reason: Preop Anxiety Midazolam HCl (Versed) 5 mg IVP ONCE PRN PRN Reason: Per anesthesia for block Morphine Sulfate (Morphine) 2 mg IVP Q2M PRN PRN Reason: Pain level 6-10 PACU Phase I Stop: 05/20/20 07:55 Morphine Sulfate (Morphine) 0 mg IVP Q5M PRN PRN Reason: Breakthrough Pain PACU PhaseII Morphine Sulfate (Morphine) 2 mg IVP Q5M PRN PRN Reason: Pain level 2-5 PACU Phase I Stop: 05/20/20 07:55 Ondansetron HCl (Zofran) 4 mg IVP Q6H PRN PRN Reason: vomiting, or N/V if npo Ondansetron HCl (Zofran) 4 mg IVP Q5M PRN PRN Reason: NAUSEA AND VOMITING Ondansetron HCl (Zofran) 4 mg IVP Q5M PRN PRN Reason: Nausea PACU Phase I Stop: 05/20/20 07:55 Ondansetron HCl (Zofran) 4 mg IVP Q15M PRN PRN Reason: Nausea/Vomiting PACU PHASE II Pantoprazole Sodium (Protonix) 40 mg PO DAILY [facility] Polyethylene Glycol (Miralax) 17 gm PO DAILY [facility] Scopolamine (Transderm-Scop) 1 patch TRANSDERMA ONCE PRN PRN Reason: Nausea/ Vomiting Prophylaxis Vitals/I&O/Wt Last Vital Signs Temp 97.9 F 05/19/20 08:04 Pulse 93 05/19/20 08:04 Resp 16 05/19/20 08:04 BP 181/89 05/19/20 08:04 Pulse Ox 94 05/19/20 08:04 05/18/20 05/19/20 05/19/20 22:59 06:59 14:59 Intake Total 0 / 0 Output Total 420 / 420 10 Balance -420 / -420 -10 / -10 Weight last 48 hrs Weight 83.915 kg Physical Exam Narrative: EXAM NARRATIVE: comfortable, nard vss heent- nc/at, eomi, anicteric neck supple rt ant chest wall ashcath catheter lungs clear heart reg, no rub abd soft, nt, nd, +BS ext 1+ edema neuro- a,a, o x 3 Data : 05/19/20 05:24 05/19/20 05:24 Micro: Microbiology 05/18/20 19:39 Blood Culture - Preliminary Blood SPECIMEN COLLECTED 05/18/20 19:37 Blood Culture - Preliminary Blood SPECIMEN COLLECTED A&P Additional A&P Information 85 yr old female w/ ESRD and non-functioning permacath 1. s/p new ashcath by 2. ESRD- hd now- 3.5 hrs, 2k, remove 2.5 l as tolerated 3. leukocytosis- monitor for infection q uti- but no significant leukocytosis in urine -repet wbc down to 14 4.anemia- monitor iron studies 5. hypomgnesemia- monitor normal phos Attestations Medical Necessity Statement*: for hd now- further plans as per hospitalist Time Spent in Patient Care: 16 - 35 minutes Coding Level of Care Code Acute Coal Mill Operator for Alex Ramos
[2020-05-19 09:10] LABS: Hepatitis B Surface AB 3.5 (0-8.5); Hepatitis C Virus Antibody Non-Reactive (Nonreactive)
[2020-05-19] MEDS: amlodipine 10 mg Tablet PO (10:45)
[2020-05-19] MEDS: cloNIDine 0.1 mg Tablet PO ×2 (10:45→23:27)
[2020-05-19] MEDS: isosorbide mononitrate ER 30 mg Tablet PO (10:46)
[2020-05-19] MEDS: hyDRALAzine 50 mg Tablet 25 MG PO ×3 (10:46→23:30)
[2020-05-19] MEDS: carbidopa-levodopa 25-100mg Tablet 1 EACH PO ×3 (10:47→23:30)
--- NOTE | 2020-05-19 12:38 | PC.NURSE ---
Patient arrived from Dialysis at this time. Patient ambulated from cot to bed. Patient A&Ox3. Respirations even and non-labored on room air. Patient is sitting on the side of the bed eating her lunch.
--- NOTE | 2020-05-19 13:55 | PC.RESP ---
SMOKING CESSATION INFORMATION SENT TO PATIENT.
--- NOTE | 2020-05-19 14:05 | PC.CHAP ---
Pastoral Care Encounter/Spiritual Assessment Type of Contact [] Declined astrophysics professor visit [] Patient/Family/Request visit [] Outpatient visit [] Follow-up visit [] Physician referral [] Code/Alert [] Routine visit [] Staff referral [] Actively dying [] Patient sleeping [] Family support [] [x] Out of room [] Palliative care [] [] Receiving care in room [] Pre-surgical visit [] Trauma [] Long length of stay [] ICU visit [] Other: Relational/Emotional Strength [] Patient feels connected with others/family/visitors/staff [] Distress [] Loneliness/isolation [] Abandonment Spirituality of Patient [] Person of Annalise [] Attends Holiness of their Annalise [] Believes in Prayer [] Reads Bible or Taoist materials [] There are Spiritual issues to be addressed Veterinary Livestock Inspector Interventions [] Prayer [] Active listening [] Non-anxious presence [] Spiritual/emotional support [] Crisis/trauma care [] Spiritual counseling [] Bereavement support [] Provided bereavement packet [] Provided Bible/devotional materials [] Provided toy/stuffed animal, coloring book to patient or family member [] Provided Communion [] Anointing/[place] [] Salvation [] Completed spiritual assessment [] Other: Impact on Illness or Injury [] Angry [] Fearful [] Anxious [] Often cries [] Exhaustion [] Unable to work [] Unable to attend religion [] Unable to walk/stand [] Unable to read [] Unable to drive [] Unable to eat/drink [] Unable to sleep [] Unable to be with family [] Patient intubated [] Other: Summary Nursing staff indicated the patient was at dialysis at the time of the astrophysics professor visit. Veterinary Livestock Inspector referred the patient to the on-coming astrophysics professor for a follow -up visit. Patient visit was attempted by Veterinary Livestock Inspector Yahir Leos. Time spent with patient 3 minutes
--- NOTE | 2020-05-19 15:48 | PC.NURSE ---
Patient states, I had a bowel movement after lunch it was the first time in two weeks. Dr. Herbert notified.
--- NOTE | 2020-05-19 16:12 | PM.PN ---
Subjective Subjective: Interval history: Chart reviewed, taken to the OR earlier today for hemodialysis catheter exchange and had a dialysis thereafter. Reports feeling better following dialysis. Noted to be quite hypertensive overnight, blood pressure improved following HD. Continues to report abdominal discomfort and distention, so far has had 2 small bowel movements, enema given in the ER, will repeat this. Medications: Reviewed: Yes Medication Review Details: Active Medications Generic Name Dose Route Start Last Admin Trade Name Freq PRN Reason Stop Dose Admin Acetaminophen 650 mg 05/18/20 23:16 Tylenol PO Q6H PRN Mild/Mod Pain Or Temp >/= 101 Amlodipine Besylat e 10 mg 05/19/20 09:00 05/19/20 10:45 Norvasc PO 10 mg DAILY LAMONT Administration Aspirin 81 mg 05/19/20 09:00 05/19/20 10:47 Aspirin Ec PO Not Given DAILY LAMONT Carbidopa/Levodopa 1 each 05/19/20 09:00 05/19/20 10:47 Sinemet PO 1 each TID LAMONT Administration Citalopram Hydrobr omide 10 mg 05/19/20 21:00 Celexa PO BEDTIME LAMONT Clonidine HCl 0.1 mg 05/19/20 09:00 05/19/20 10:45 Catapres PO 0.1 mg BID LAMONT Administration Dexamethasone 4 mg 05/19/20 07:55 Decadron IVP 05/20/20 07:55 Q5M PRN Nausea unrelieved by Reglan Fluticasone Propio annetta 1 spray 05/19/20 01:33 05/19/20 01:54 Flonase NASAL 05/25/20 23:59 1 spray BEDTIME LAMONT Administration Furosemide 80 mg 05/19/20 09:00 05/19/20 15:03 Lasix PO Not Given BID LAMONT Hydralazine HCl 25 mg 05/19/20 09:00 05/19/20 10:46 Apresoline PO 25 mg TID LAMONT Administration Ceftriaxone Sodium 1,000 mg/ 50 mls @ 100 mls/ hr 05/18/20 23:45 05/19/20 01:49 Sodium Chloride IV 100 mls/hr Q24H LAMONT Administration Protocol Isosorbide Mononit rate 30 mg 05/19/20 09:00 05/19/20 10:46 Imdur PO 30 mg DAILY LAMONT Administration Levothyroxine Sodi um 150 mcg 05/19/20 09:00 05/19/20 10:38 Synthroid PO Not Given DAILY LAMONT Levothyroxine Sodi um 25 mcg 05/19/20 09:00 05/19/20 10:48 Synthroid PO Not Given DAILY LAMONT Metoclopramide HCl 10 mg 05/19/20 07:55 Reglan IVP 05/20/20 07:55 Q5M PRN Nausea unrelieved by Zofran Ondansetron HCl 4 mg 05/18/20 23:16 Zofran IVP Q6H PRN vomiting, or N/V if npo Pantoprazole Sodiu m 40 mg 05/19/20 09:00 05/19/20 12:45 Protonix PO Not Given DAILY [facility] Polyethylene Glyco l 17 gm 05/19/20 09:00 05/19/20 10:37 Miralax PO Not Given DAILY [facility] promethazine [From Phenergan] Allergy (Verified 05/05/20 14:45) Unknown Sulfa (Sulfonamide Antibiotics) Allergy (Verified 05/05/20 14:45) Unknown Vitals/I&O/Wt Last Vital Signs Temp 98.7 F 05/19/20 14:00 Pulse 85 05/19/20 14:00 Resp 16 05/19/20 14:00 BP 132/78 05/19/20 14:00 Pulse Ox 96 05/19/20 14:00 05/19/20 05/19/20 05/19/20 06:59 14:59 22:59 Intake Total 0 / 0 Output Total 420 / 420 10 / 10 Balance -420 / -420 -10 / -10 Weight last 48 hrs Weight 83.915 kg Physical Exam Const: COMMON NORMALS: no acute distress, patient oriented x3 and alert GENERAL APPEARANCE: cooperative and comfortable ORIENTATION/CONSCIOUSNESS: Yes awake OTHER: -Looks younger than stated age HENMT: COMMON NORMALS: normocephalic, atraumatic, hearing grossly normal bilaterally and moist oral mucous membranes HEAD & SCALP: normocephalic and atraumatic Eye: COMMON NORMALS: Equal, round and reactive pupils present, EOMs intact bilaterally and conjunctivae normal CONJUNCTIVA: Yes conjunctivae normal PUPIL: Yes Equal, round and reactive pupils present Neck/C-Spine: COMMON NORMALS: full ROM GENERAL: Yes normal visual inspection and Yes trachea midline Chest: CHEST: Yes Vascular access present Resp: COMMON NORMALS: normal respiratory effort, No retractions, No use of accessory muscles and clear to auscultation bilaterally EFFORT & INSPECTION: Yes able to speak in complete sentences, Yes symmetric chest movement and No tachypneic AUSCULTATION: clear to auscultation bilaterally Cardio: COMMON NORMALS: regular rate, regular rhythm, S1 normal heart sound present, S2 normal heart sound present and No murmurs present (Cardio) RATE: regular rate RHYTHM: regular rhythm HEART SOUNDS: S1 normal heart sound present and S2 normal heart sound present GI: COMMON NORMALS: Soft to palpation and non-tender INSPECTION: Yes abdominal distension PALPATION: Yes Soft to palpation, Yes Tenderness to palpation present (GI) (Generalized), No Guarding due to palpation present (GI) and No Rigid due to palpation Extremity: COMMON NORMALS: normal to inspection, full ROM and no clubbing, cyanosis or edema; negative for no pedal edema Neuro: COMMON NORMALS: patient oriented x3, moves all extremities, no focal motor deficits and no sensory deficits noted SENSORIUM/ORIENTATION: Yes alert Psych: COMMON NORMALS: mental status grossly normal, Normal thought process present, cooperative, normal affect and speech normal SPEECH: Yes normal speech THOUGHT PROCESS: Normal thought process present Skin: COMMON NORMALS: no rashes or lesions noted, no jaundice, no petechiae and no mottling GENERAL SKIN EXAM: no rashes or lesions noted Data : 05/19/20 05:24 05/19/20 05:24 Micro: Microbiology 05/18/20 19:39 Blood Culture - Preliminary Blood SPECIMEN COLLECTED 05/18/20 19:37 Blood Culture - Preliminary Blood SPECIMEN COLLECTED A&P Assessment and plan (1) Hemodialysis catheter malfunction: -Found to have non-functional tunneled dialysis catheter, missed dialysis on Friday for this reason. -OR today, s/p exchange of HD catheter by Dr. Nails, consult appreciated -dialysis earlier today, Nephrology consult appreciated -resume prior M,W, schedule -does have some urine output at baseline -repeat labs in AM -previously quite hypertensive, now normotensive; continue to monitor vital signs Status: Acute Qualifiers: Encounter type: initial encounter Qualified Code(s): T82.41XA - Breakdown (mechanical) of vascular dialysis catheter, initial encounter (2) Obstipation: -has had 2 small BMs so far, had enema given in ED, repeat now -noted fecal retention on imaging -bowel regimen -symptomatic: abdominal pain, distention Status: Acute (3) UTI (urinary tract infection): -UA indicative of infection -f/u urine cx -continue Ceftriaxone -noted decreasing leukocytosis, continue to trend WBC Status: Acute Qualifiers: Urinary tract infection type: acute cystitis Hematuria presence: without hematuria Qualified Code(s): N30.00 - Acute cystitis without hematuria (4) ESRD (end stage renal disease): -recently started on HD Status: Chronic (5) Parkinson disease: -continue meds Status: Chronic (6) Hypertension: -BP improved after HD, continue to monitor vital signs -continue antihypertensives Status: Acute Qualifiers: Hypertension type: essential hypertension Qualified Code(s): I10 - Essential (primary) hypertension Additional A&P Information -Advanced age though quite independent -Hypothyroidism: on levothyroxine -Anemia of chronic disease; baseline Hg is around 11 -screened for COVID-19; negative -fall precautions -GI ppx with PPI -DVT ppx with SCDs, AC held for procedure -Dispo: return to [facility] -Code status: DNR/DNI Attestations Medical Necessity Statement*: Patient requires hospitalization for continued management of obstipation given continued abdominal distention and pain, status post dialysis catheter exchange. Time Spent in Patient Care: 16 - 35 minutes (>than 50% of time spent in counselling and/or direct pt care on unit). Coding Level of Care Code Acute Principal Statistical Scientist for Chg Fwd Diagnoses Hemodialysis catheter malfunction T82.41XA Encounter type: initial encounter Obstipation K59.00 UTI (urinary tract infection) N30.00 Urinary tract infection type: acute cystitis Hematuria presence: without hematuria ESRD (end stage renal disease) N18.6 Parkinson disease G20 Hypertension I10 Hypertension type: essential hypertension
--- NOTE | 2020-05-19 16:30 | PC.NURSE ---
Patient's sister is at bedside at this time. Informed patient that the doctor would like me to give her a Milk and Molasses enema at this time to help her have more bowel movements before she leaves back to the senior living. Patient states, I have had two bowel movements already. I think I will just wait and see if I can keep going on my own and if I can't I will have the senior living give me one. Patient is A&Ox3. Respirations even and non-labored on room air.
[2020-05-19] MEDS: sennosides-docusate Tablet 2 TAB PO (18:34)
[2020-05-19] MEDS: FUROsemide 40 mg Tablet 80 MG PO (18:34)
--- NOTE | 2020-05-19 19:00 | PC.NURSE ---
Report to Arlin MCCORMICK at this time.
[2020-05-19] MEDS: ondansetron 2 mg/ML SDV 2 mL 4 MG IVP (23:08)
[2020-05-19] MEDS: citalopram 20 mg Tablet 10 MG PO (23:27)
[2020-05-20] VITALS: BP 131/72; PULSE 99; RESP 17; TEMP 36.8; O2SAT 91
[2020-05-20 04:00] VITALS: BP 144/80; PULSE 114; RESP 19; TEMP 36.7; O2SAT 95
[2020-05-20 05:39] LABS: Basophils # 0.1 10^3/uL (0.0-0.1); Basophils % 0.5 %; Eosinophils # 0.1 10^3/uL (0.0-0.8); Eosinophils % 0.5 %; Hematocrit 34.6 % (37.0-47.0); Lymphocytes # 1.6 10^3/uL (0.8-4.8); Lymphocytes % 12.9 %; Mean Corpuscular HGB Conc 31.8 g/dL (30.0-36.0); Mean Corpuscular Hemoglobin 29.5 pg (28.0-34.0); Mean Corpuscular Volume 92.8 fL (81-99); Mean Platelet Volume 10.4 fL (7.4-10.4); Monocytes # 1.3 10^3/uL (0.2-0.9); Neutrophils # 9.51 10^3/uL (1.8-7.7); Neutrophils % 75.4 %; Nucleated Red Blood Cells % 0 %; Platelet Count 261 10^3/cmm (130-400); Red Blood Count 3.73 10^6/uL (4.1-5.3); White Blood Count 12.6 10^3/uL (4.0-10.0)
[2020-05-20 05:57] LABS: Anion Gap 14.9 (5-19); Blood Urea Nitrogen 28 mg/dL (8-23); Calcium 8.8 mg/dL (8.5-10.5); Carbon Dioxide 27 mmol/L (22-29); Chloride 96 mmol/L (98-107); Glucose 145 mg/dL (65-115); Osmolality Calculated 278 mOsm/kg (285-295); Potassium 3.9 mmol/L (3.5-5.1); Sodium 134 mmol/L (136-145)
[2020-05-20 07:00] VITALS: BP 133/81; PULSE 100; RESP 18; TEMP 36.2; O2SAT 92
[2020-05-20 08:00] VITALS: BP 133/81; PULSE 100; RESP 18; TEMP 36.2; O2SAT 92
[2020-05-20] MEDS: FUROsemide 40 mg Tablet 80 MG PO (09:39)
[2020-05-20] MEDS: aspirin 81 mg EC Tablet PO (09:39)
[2020-05-20] MEDS: hyDRALAzine 50 mg Tablet 25 MG PO (09:39)
[2020-05-20] MEDS: isosorbide mononitrate ER 30 mg Tablet PO (09:40)
[2020-05-20] MEDS: sennosides-docusate Tablet 2 TAB PO (09:40)
[2020-05-20] MEDS: pantoprazole DR 40 mg Tablet PO (09:41)
[2020-05-20] MEDS: levothyroxine 150 mcg Tablet PO (09:41)
[2020-05-20] MEDS: levothyroxine 25 mcg Tablet PO (09:42)
[2020-05-20] MEDS: cloNIDine 0.1 mg Tablet PO (09:42)
[2020-05-20] MEDS: amlodipine 10 mg Tablet PO (09:43)
[2020-05-20] MEDS: carbidopa-levodopa 25-100mg Tablet 1 EACH PO (09:43)
[2020-05-20 11:33] VITALS: BP 142/76; PULSE 64; RESP 20; TEMP 36.4; O2SAT 96
--- NOTE | 2020-05-20 12:05 | PM.DCS ---
Discharge Providers Date of Admission: 05/18/20 21:08 Date of Discharge: May 20, 2020 Attending Provider at Admission: Abdirahman Perez MD Attending Provider at Discharge: Justine Herbert MD Consults: Nephrology, Surgery Primary Care Provider: Dr. Montgomery Diagnoses at Discharge Discharge Diagnosis (1) Hemodialysis catheter malfunction: Status: Acute Problem details: -Found to have non-functional tunneled dialysis catheter, missed dialysis on Friday for this reason. -s/p exchange of HD catheter by Dr. Nails, consult appreciated -dialysis earlier today, Nephrology consult appreciated -resume prior M,W,F schedule -does have some urine output at baseline -repeat labs in AM -previously quite hypertensive, now normotensive; continue to monitor vital signs Qualifiers: Encounter type: initial encounter Qualified Code(s): T82.41XA - Breakdown (mechanical) of vascular dialysis catheter, initial encounter (2) Obstipation: Status: Resolved Problem details: -has had multiple BMs with escalation of bowel regimen -noted fecal retention on imaging (3) UTI (urinary tract infection): Status: Acute Problem details: -UA indicative of infection -urine cx: contaminants -on Ceftriaxone; d/c on cefuroxime -noted decreasing leukocytosis Qualifiers: Hematuria presence: without hematuria Urinary tract infection type: acute cystitis Qualified Code(s): N30.00 - Acute cystitis without hematuria (4) ESRD (end stage renal disease): Status: Chronic Problem details: -recently started on HD (5) Parkinson disease: Status: Chronic Problem details: -continue meds (6) Hypertension: Status: Acute Problem details: -BP improved after HD, continue to monitor vital signs -continue antihypertensives Qualifiers: Hypertension type: essential hypertension Qualified Code(s): I10 - Essential (primary) hypertension Other Information Additional DC diagnoses/information: -Advanced age though quite independent -Hypothyroidism: on levothyroxine -Anemia of chronic disease; baseline Hg is around 11 -screened for COVID-19; negative Reason for Visit Reason for Visit: said they would call over Hospital Course Hospital Course: Patient was admitted to the medical surgical floor after which had a nonfunctioning dialysis catheter was replaced by Dr. Nails in the OR and she had dialysis thereafter which he tolerated well. Noted improvement in renal function today. She was noted to be quite hypertensive but blood pressure has improved since dialysis and resumption of her oral antihypertensive regimen. She was noted to have a urinalysis indicative of infection though urine culture has grown contaminants. While here she has been covered with ceftriaxone and will be discharged on continued cephalosporin treatment to complete her course. She was noted to have some leukocytosis which has improved. Has consistently been afebrile and on room air. She was noted to have fecal retention on imaging and symptomatically had abdominal distention and discomfort. She has had enemas and bowel regimen with noted multiple bowel movements particularly overnight and symptomatic improvement thereafter. She will be discharged back to [facility] to continue her therapy and is to resume her previous dialysis schedule of Friday, Friday, Friday. She will need to continue to follow-up with her primary care provider per SNF. Plan is for her to live with her sister once she is discharged from [facility]. Discharge Summary: -Patient to follow-up with primary care provider per SNF -Patient to continue scheduled dialysis on Friday, Friday, Friday Physical Exam Const: COMMON NORMALS: no acute distress, patient oriented x3 and alert GENERAL APPEARANCE: cooperative and comfortable ORIENTATION/CONSCIOUSNESS: Yes awake OTHER: -Looks younger than stated age HENMT: COMMON NORMALS: normocephalic, atraumatic, hearing grossly normal bilaterally and moist oral mucous membranes HEAD & SCALP: normocephalic and atraumatic Eye: COMMON NORMALS: Equal, round and reactive pupils present, EOMs intact bilaterally and conjunctivae normal CONJUNCTIVA: Yes conjunctivae normal PUPIL: Yes Equal, round and reactive pupils present Neck/C-Spine: COMMON NORMALS: full ROM GENERAL: Yes normal visual inspection and Yes trachea midline Chest: CHEST: Yes Vascular access present Resp: COMMON NORMALS: normal respiratory effort, No retractions, No use of accessory muscles and clear to auscultation bilaterally EFFORT & INSPECTION: Yes able to speak in complete sentences, Yes symmetric chest movement and No tachypneic AUSCULTATION: clear to auscultation bilaterally Cardio: COMMON NORMALS: regular rate, regular rhythm, S1 normal heart sound present, S2 normal heart sound present and No murmurs present (Cardio) RATE: regular rate RHYTHM: regular rhythm HEART SOUNDS: S1 normal heart sound present and S2 normal heart sound present GI: COMMON NORMALS: Soft to palpation and non-tender INSPECTION: Yes abdominal distension PALPATION: Yes Soft to palpation, Yes Tenderness to palpation present (GI) (Generalized), No Guarding due to palpation present (GI) and No Rigid due to palpation Extremity: COMMON NORMALS: normal to inspection, full ROM and no clubbing, cyanosis or edema; negative for no pedal edema Neuro: COMMON NORMALS: patient oriented x3, moves all extremities, no focal motor deficits and no sensory deficits noted SENSORIUM/ORIENTATION: Yes alert Psych: COMMON NORMALS: mental status grossly normal, Normal thought process present, cooperative, normal affect and speech normal SPEECH: Yes normal speech THOUGHT PROCESS: Normal thought process present Skin: COMMON NORMALS: no rashes or lesions noted, no jaundice, no petechiae and no mottling GENERAL SKIN EXAM: no rashes or lesions noted Discharge Data Data Completed and Pending: Completed Studies During Hospitalization Category Date Time Status CT abdomen wo con 19861 Urgent Cat Scan 05/18/20 18:44 Completed XR acute abdomen series [id number] Urgen t Exams 05/18/20 16:44 Completed Pending at discharge Category Date Time Status Blood Culture Sta t Lab 05/18/20 19:39 Results Miscellaneous Diana t Routine Lab 05/18/20 17:47 Received Urine Culture Rou loren Lab 05/18/20 23:16 Ordered Urine Culture Sta t Lab 05/18/20 20:45 Results Labs from last 24 hours 05/20/20 05/20/20 05/18/20 05:12 05:12 17:47 WBC 12.6 H RBC 3.73 L Hgb 11.0 L Hct 34.6 L MCV 92.8 MCH 29.5 MCHC 31.8 RDW 15.0 Plt Count 261 MPV 10.4 Neut % (Auto) 75.4 Lymph % (Auto) 12.9 Tucker % (Auto) 10.0 Eos % (Auto) 0.5 Baso % (Auto) 0.5 Neut # (Auto) 9.51 H Lymph # (Auto) 1.6 Tucker # (Auto) 1.3 H Eos # (Auto) 0.1 Baso # (Auto) 0.1 Nucleated RBC % (a uto) 0 Nucleated RBCs # 0.0 Sodium 134 L Potassium 3.9 Chloride 96 L Carbon Dioxide 27 Anion Gap 14.9 BUN 28 H Creatinine 4.1 H GFR Calculation Not Reportable Glucose 145 H Calculated Osmolal ity 278 L Calcium 8.8 Hep Bs Antigen Misc Test Referenc e Pending 05/18/20 17:47 WBC RBC Hgb Hct MCV MCH MCHC RDW Plt Count MPV Neut % (Auto) Lymph % (Auto) Tucker % (Auto) Eos % (Auto) Baso % (Auto) Neut # (Auto) Lymph # (Auto) Tucker # (Auto) Eos # (Auto) Baso # (Auto) Nucleated RBC % (a uto) Nucleated RBCs # Sodium Potassium Chloride Carbon Dioxide Anion Gap BUN Creatinine GFR Calculation Glucose Calculated Osmolal ity Calcium Hep Bs Antigen Misc Test Referenc e Vitals: Last Vital Signs Temp 97.6 F 05/20/20 11:33 Pulse 64 05/20/20 11:33 Resp 20 H 05/20/20 11:33 BP 142/76 05/20/20 11:33 Pulse Ox 96 05/20/20 11:33 Discharge Plan Discharge Patient Disposition: Xfer [facility] Condition: Stable Prescriptions: New cefuroxime axetil 250 mg tablet 250 mg PO BID 10 Days Qty: 20 RF: 0 Continued multivitamin [Multiple Vitamins] Tablet 1 tab PO DAILY RF: 0 citalopram 10 mg tablet 10 mg PO BEDTIME RF: 0 sennosides-docusate sodium [Senna-S] 8.6-50 mg Tablet See Rx Instructions .ROUTE .COMPLEX PRN (Reason: Constipation) RF: 0 omeprazole 40 mg capsule,delayed release(DR/EC) 40 mg PO DAILY RF: 0 aspirin 81 mg Tablet,Delayed Release (Dr/Ec) 81 mg PO DAILY RF: 0 acetaminophen [Tylenol Extra Strength] 500 mg Tablet 500 mg PO TID RF: 0 ferrous sulfate [iron] 325 mg (65 mg iron) Tablet 325 mg PO BID RF: 0 carbidopa-levodopa 25-100 mg tablet 1 tab PO TID RF: 0 oxybutynin chloride 5 mg tablet 5 mg PO BID RF: 0 cranberry 500 mg Capsule 500 mg PO DAILY RF: 0 rasagiline 1 mg tablet 1 mg PO DAILY RF: 0 Fish Oil 1 cap PO BEDTIME RF: 0 Probiotic 1 cap PO DAILY RF: 0 clonidine HCl 0.1 mg Tablet 0.1 mg PO BID 30 Days Qty: 60 RF: 0 amlodipine 10 mg Tablet 10 mg PO DAILY 30 Days Qty: 30 RF: 0 cholecalciferol (vitamin D3) 25 mcg (1,000 unit) Tablet 1,000 unit PO DAILY 30 Days Qty: 30 RF: 0 isosorbide mononitrate 30 mg Tablet Extended Release 24 Hr 30 mg PO DAILY 30 Days Qty: 30 RF: 0 hydralazine 50 mg Tablet 50 mg PO QID 30 Days Qty: 120 RF: 0 levothyroxine 150 mcg tablet 175 mcg PO DAILY Qty: 0 RF: 0 chlorthalidone 25 mg Tablet 25 mg PO DAILY 30 Days Qty: 30 RF: 0 quetiapine 25 mg tablet 25 mg PO BEDTIME PRN (Reason: Sleep) RF: 0 nicotine 14 mg/24 hr Patch 24 Hour 1 patch TRANSDERMAL DAILY RF: 0 Zofran 8 mg Tablet 8 mg PO Q8H PRN (Reason: N/V) RF: 0 Dulcolax (bisacodyl) 10 mg Suppository 10 mg [place] DAILY PRN (Reason: Constipation) RF: 0 Dulcolax (bisacodyl) 5 mg Tablet,Delayed Release (Dr/Ec) 5 mg PO DAILY RF: 0 Miralax 17 gram/dose Powder 17 g PO DAILY RF: 0 melatonin 10 mg Tablet 10 mg PO BEDTIME RF: 0 furosemide 40 mg tablet 80 mg PO BID RF: 0 Flonase Allergy Relief 50 mcg/actuation spray,suspension 1 spray nasal BEDTIME RF: 0 Fleet Enema 19-7 gram/118 mL Enema 118 ml [place] DAILY PRN (Reason: Constipation) RF: 0 Discharge Orders: Discharge Order (Routine); Ordered 05/20/20 Ordered By: Justine Herbert Referrals: [facility] [Outside] Ziggy Montgomery DO [Physician] - 4-7 days (Post hospital discharge follow up) Discharge Diet: As Directed Discharge Activity: Increase activity as tolerated Activity Restrictions/Additional Instructions: -Please advance diet as tolerated. -Continue supplemental oxygen support as needed to maintain saturation at or above 92% -Please continue dialysis on Friday, Friday, Friday Discharge Attestations Time Spent in Discharge Care*: less than 30 min Specific Discharge Activities: Specific discharge activities: educating patient, discussing with protective services case worker/social workers/dc planners, documenting/other paperwork and evaluating patient/reviewing data Status at Discharge: Cognitive status at discharge: cognitively intact, Behavioral status at discharge: cooperative, Overall status at discharge: patient is progressing back to baseline Quality Metrics Clinical Quality Measures During this hospital stay, did patient experience: None Coding Level of Care Code Acute [employer] Solutions Consultant for Chg Fwd Exam Comprehensive Diagnoses Hemodialysis catheter malfunction T82.41XA Encounter type: initial encounter Obstipation K59.00 UTI (urinary tract infection) N30.00 Hematuria presence: without hematuria Urinary tract infection type: acute cystitis ESRD (end stage renal disease) N18.6 Parkinson disease G20 Hypertension I10 Hypertension type: essential hypertension
[2020-05-20 12:17] VITALS: BP 142/76; PULSE 64; RESP 20; TEMP 36.4; O2SAT 96
--- NOTE | 2020-05-20 13:03 | PC.NURSE ---
Report called to Tiffanie MCCORMICK at [facility] at this time.
--- NOTE | 2020-05-20 13:05 | PC.NURSE ---
Patient's son was called at this time and notified that his mother would return to [facility] today.
== END 2020-05-20 14:51 | disposition skilled nursing facility (03) ==
LOC: ER 17:34 → MEDSURG 21:39
PROVIDERS: Emergency Medicine; Internal Medicine Nephrology; Physician Assistant; Surgery; Admitting Provider Internal Medicine; Visit Provider Family Medicine
DX: T82.41XA Breakdown (mechanical) of vascular dialysis catheter, initial encounter (principal); I12.0 Hypertensive chronic kidney disease with stage 5 chronic kidney disease or end stage renal disease; N18.6 End stage renal disease; K59.00 Constipation, unspecified; I10 Essential (primary) hypertension; G20 Parkinson's disease; Z95.0 Presence of cardiac pacemaker; F17.200 Nicotine dependence, unspecified, uncomplicated; Z99.2 Dependence on renal dialysis; Z88.2 Allergy status to sulfonamides; D64.9 Anemia, unspecified; E03.9 Hypothyroidism, unspecified; K21.9 Gastro-esophageal reflux disease without esophagitis; N39.0 Urinary tract infection, site not specified; D72.829 Elevated white blood cell count, unspecified; E87.1 Hypo-osmolality and hyponatremia; Y83.8 Other surgical procedures as the cause of abnormal reaction of the patient, or of later complication, without mention of misadventure at the time of the procedure; J45.909 Unspecified asthma, uncomplicated
CPT/HCPCS: 36581; 12345; 36415; 74022; 74150; 77001; 80048; 80053; 81001; 85025; 86706; 86803; 87040; 87086; 87340; 87426; 96365; 96375; 99281; 99285; G0378; J0696; J1644; J2250; J2405; J2704; J3010; J3490; J7030; Q3014

== ENCOUNTER 2020-10-22 19:14 | Emergency (ER) | payer MEDICARE, BC, SELFPAY ==
[2020-10-22 19:31] VITALS: BP 154/62; PULSE 107; RESP 14; TEMP 36.6; O2SAT 98
[2020-10-22 19:54] VITALS: PULSE 106
[2020-10-22 19:58] VITALS: BP 155/70; PULSE 107; RESP 18; O2SAT 97
--- NOTE | 2020-10-22 20:10 | ED_ITS ---
HPI - Extremity Problem General: Chief complaint: Extremity Problem,Nontraumatic Stated complaint: swelling in left arm Time Seen by Provider: 10/22/20 19:39 Source: patient Mode of arrival: ambulatory Limitations: no limitations History of Present Illness: HPI Narrative: 85-year-old female patient presents to the emergency department with left upper extremity problem. She reports AV graft dialysis port placed on October 17, [address] Zhang at [facility] in [place]. She reports tonight, noticed swelling to the dorsal side of the hand with bluish discoloration of her fingernails. She reports attempted to wash her hand to ensure was not nothing she had came in contact with to cause discoloration. She denies fever chills, denies left arm pain. She reports Tessio to the lower right chest wall dialysis currently used for dialysis. She reports keeping her left upper extremity elevated as recommended. Denies trauma or injury to the extremity. MD Complaint: extremity swelling Onset (ago): hour(s) (2-3) Location: left and upper extremity Associated symptoms: Reports no associated symptoms; Deny chest pain, fever(s) or rash Review of Systems General: Reports: 10 or more systems reviewed and unremarkable except in HPI and below Const: Denies: fever(s), chills or diaphoresis Eyes: Denies: blurry vision or eye redness ENMT: Denies: throat pain, dental pain or disequilibrium Card: Denies: chest pain, palpitations or irregular heart rhythm Resp: Denies: dyspnea, productive cough, non-productive cough or wheezing GI: Denies: abdominal pain, nausea or vomiting : Denies: difficulty voiding or dysuria Musc: Reports: extremity swelling; Denies: neck pain or back pain Skin/Breast: Reports: erythema and skin tenderness; Denies: rash or pruritus Neuro: Denies: headache(s), weakness in extremities or behavioral changes Hao/Lymph: Denies: easy bruising PFSH ED PFSH: Medical History Anemia Benign essential HTN CKD (chronic kidney disease) Dyslipidemia (high LDL; low HDL) ESRD (end stage renal disease) -recently started on HD History of cardiac arrhythmia Hypertension -BP improved after HD, continue to monitor vital signs -continue antihypertensives Parkinson disease -continue meds Type 2 diabetes mellitus Surgical History History of pacemaker History of permanent cardiac pacemaker placement S/P hemodialysis catheter insertion (~04/2020) Family History Father CAD (coronary artery disease) Sister Cancer Anesthesia complication CAD (coronary artery disease) Dementia Diabetes Mother Stroke Brother CAD (coronary artery disease) Cancer Diabetes Lung disease Family/Other Suicide Denies family history of Clotting disorder Chronic kidney disease (CKD) Bleeding disorder Social History Smoking and tobacco status: current every day smoker Alcohol intake: never Physical Exam Const: COMMON NORMALS: no acute distress, patient oriented x3, healthy appearing and alert GENERAL APPEARANCE: cooperative, comfortable and well hydrated HENMT: COMMON NORMALS: normocephalic, Normal external nose present and moist oral mucous membranes HEAD & SCALP: normocephalic NOSE: Normal external nose present Eye: COMMON NORMALS: Equal, round and reactive pupils present and EOMs intact bilaterally GENERAL EYE: appearance normal, both eyes and all related structures PUPIL: Yes Equal, round and reactive pupils present Neck/C-Spine: COMMON NORMALS: full ROM and no lymphadenopathy GENERAL: Yes normal visual inspection and Yes trachea midline CERVICAL SPINE: Yes cervical ROM normal Lymph: LYMPHATIC: no lymphadenopathy noted Chest: COMMONS NORMALS: normal inspection of the chest Resp: COMMON NORMALS: normal respiratory effort and clear to auscultation bilaterally AUSCULTATION: clear to auscultation bilaterally Cardio: COMMON NORMALS: regular rhythm, S1 normal heart sound present and S2 normal heart sound present RHYTHM: regular rhythm HEART SOUNDS: S1 normal heart sound present and S2 normal heart sound present PERIPHERAL PULSES: radial pulses present positive right 2+ and positive left 1+ and diminished GI: COMMON NORMALS: Soft to palpation and non-tender INSPECTION: Yes normal to inspection PALPATION: Yes Soft to palpation : COMMON NORMALS: Yes no CVA tenderness BLADDER/KIDNEY EXAM: Yes no CVA tenderness Back/Pelvis: COMMON NORMALS: no CVA tenderness and thoracic and lumbar spine normal to inspection Extremity: COMMON NORMALS: normal to inspection, full ROM, capillary refill normal and no pedal edema GENERAL: Yes normal exam except as noted LEFT UPPER EXTREMITY: Yes hand & digits (dorsal swelling, full ROM of the left hand/digits of the left hand) Neuro: COMMON NORMALS: patient oriented x3 and no focal motor deficits SENSORIUM/ORIENTATION: Yes alert Psych: COMMON NORMALS: mental status grossly normal, Normal thought process present and cooperative ACTIVITY/MOTOR BEHAVIOR: Yes appropriate eye contact THOUGHT PROCESS: Normal thought process present Skin: COMMON NORMALS: no rashes or lesions noted, turgor normal, no petechiae and no mottling GENERAL SKIN EXAM: no rashes or lesions noted and turgor normal RASHES: no rashes WOUNDS: Yes surgical site (Lt upper arm, medial , sutures intact) Details: drainage (none), margins Details: well approximated, well defined and with surrounding erythema and no odor and Yes fistulous tract (AV graft site with ) drainage other (none), margins well approximated, well defined and with surrounding erythema and other (normal pulsation by auscultation, left medial arm distal to incision) NAILS: discolored (slight darkening, cap refill < 3 sec) Course Reevaluation(s): Reevaluation #1: Dr Medina, ED physician at [facility] - accepted transfer for Dr Garcia, vascular surgeon for evaluation -I discussed my clinical findings and concern of decreased pulse appreciated to the left upper extremity, radial side. Discussed arterial Doppler did indicate good blood flow to the right hand, advised inability to fully evaluate AV graft via ultrasound, did discussed my concern of increased e rythema and girth to the graft site. I discussed as long as patient keeps her hand elevated, swelling reduces and discoloration of the nails improved. Cap refill remains less than 3 seconds distally. Time: 21:20 Vital Signs: Vital signs: Vital Signs Temperature 97.9 F 10/22/20 19:31 Pulse Rate 89 10/22/20 21:44 Respiratory Rate 17 10/22/20 21:44 Blood Pressure 172/65 10/22/20 21:44 Pulse Oximetry 97 10/22/20 21:44 MDM - Extremity (Nontraumatic) MDM Narrative: Medical decision making narrative: Pleasant 85-year-old female patient presents to the emergency department with left upper extremity concern. Recent AV graft placement by Dr. Herr at [facility] for hemodialysis treatment due to renal failure. She presents with onset of left upper extremity swelling and discoloration of the left hand, reports increased pain and swelling to the surgical site. Hemoglobin 9.3 which is down from 11.0, creatinine remains at baseline. White blood count did not reveal leukocytosis. Arterial ultrasound completed with good blood flow to the left hand despite decreased radial pulse upon exam and dusky discoloration to the nailbeds. [facility] vascular surgery was contacted with concern and advised to transfer patient to the emergency department for evaluation. I discussed my findings with the emergency room physician, Dr. Medina. Serology labs were not discussed. I then received phone call from Dr. Garcia, vascular surgeon with clinical findings discussed along with serology and ultrasound findings. Rowan key was medicated with Tylenol for pain here in the ED, she did declined stronger medication. Left upper extremity remained elevated to help with swelling, improvement of discoloration was noted. Lab Data: Labs: Lab Results 10/22/20 10/22/20 Range/Units 20:22 20:22 WBC 10.9 H (4.0-10.0) 10^3/ uL RBC 2.82 L (4.1-5.3) 10^6/u L Hgb 9.3 L (11.5-15.3) g/dL Hct 28.5 L (37.0-47.0) % MCV 101.1 H (81-99) fL MCH 33.0 (28.0-34.0) pg MCHC 32.6 (30.0-36.0) g/dL RDW 14.7 (12.1-15.1) % Plt Count 271 (130-400) 10^3/c mm MPV 9.7 (7.4-10.4) fL Neut % (Auto) 66.4 % Lymph % (Auto) 19.5 % Gilchrist % (Auto) 11.1 % Eos % (Auto) 1.8 % Baso % (Auto) 0.6 % Neut # (Auto) 7.22 (1.8-7.7) 10^3/u L Lymph # (Auto) 2.1 (0.8-4.8) 10^3/u L Gilchrist # (Auto) 1.2 H (0.2-0.9) 10^3/u L Eos # (Auto) 0.2 (0.0-0.8) 10^3/u L Baso # (Auto) 0.1 (0.0-0.1) 10^3/u L Nucleated RBC % (a uto) 0 % Nucleated RBCs # 0.0 /100WBC Sodium 135 L (136-145) mmol/L Potassium 3.9 (3.5-5.1) mmol/L Chloride 94 L (98-107) mmol/L Carbon Dioxide 28 (22-29) mmol/L Anion Gap 16.9 (5-19) BUN 46 H (8-23) mg/dL Creatinine 5.5 H (0.5-0.9) mg/dL GFR Calculation Not Reportable Glucose 145 H (65-115) mg/dL Calculated Osmolal ity 294 (285-295) mOsm/k g Calcium 10.6 H (8.5-10.5) mg/dL Total Bilirubin 0.4 (0.15-1.2) mg/dL AST 14 (0-32) U/L ALT < 5 (0-33) U/L Alkaline Phosphata se 64 (35-105) IU/L Total Protein 7.4 (6.6-8.7) g/dL Albumin 4.3 (3.5-5.2) g/dL Globulin 3.1 (1.3-4.6) g/dL Imaging Data^: US Vascular: Radiologist's impression: [address] [address] Ultrasound Report Signed Patient: Cindi Melissa AUnantonino #: [id number] : 5Acct#:[id number] Age/Sex: 85 / FADM Date: 10/22/20 Loc: ERRoom/Bed: Attending Dr: Ordering Provider/Ordering MD: Caroline Stanley Date of Service: 10/22/20 Procedure(s): CV arterial duplex [facility] [address] Accession Number(s): [id number] Report Number: [id number] PROCEDURE INFORMATION: Exam: US Duplex Left Upper Extremity Arteries Exam date and time: 10/22/2020 8:43 PM Age: 85 years old Clinical indication: Pain; Arm, lower; Left; Prior surgery; Surgery date: 3-7 days post-operative; Surgery type: Dialysis graft; Additional info: Pulse decreased left radial, S/P av fistula placement. dialysis graft placed October 17, 2020. TECHNIQUE: Imaging protocol: Left Real-time ultrasound scan of the arteries of the left upper extremity with 2-D jenkins scale, color Doppler flow and spectral waveform analysis. COMPARISON: No relevant prior studies available. FINDINGS: Left subclavian artery: No occlusion or significant stenosis. Normal waveform. Left axillary artery: No occlusion or significant stenosis. Normal waveform. Left brachial artery: No occlusion or significant stenosis. Normal waveform. Left radial artery: Patent left radial artery with 64.1 cm/s velocity. Left ulnar artery: Patent left ulnar artery with 42.7 cm/s velocity. Soft tissues: Swelling and redness near the incision. Other findings: The patient would not allow imaging near the fistula site. Abnormally high velocity arterial flow in the arm proximal to the radial and ulnar arteries, consistent with patent AV fistula. US/[place] [address] IMPRESSION: 1. The patient would not allow imaging near the fistula site. 2. Swelling and redness near the incision. 3. Abnormally high velocity arterial flow in the arm proximal to the radial and ulnar arteries, consistent with patent AV fistula. 4. Patent left radial artery with 64.1 cm/s velocity. 5. Patent left ulnar artery with 42.7 cm/s velocity. Dictated By:Serge Lindsay MD Signed By:Serge Lindsay MDSigned Date/Time:10/22/202126 DD/ 24 Discharge Plan Discharge Patient Disposition: Transfer to ED Clinical Impression: Renal dialysis device, implant, or graft complication Qualifiers: Encounter type: initial encounter Qualified Code(s): T82.9XXA - Unspecified complication of cardiac and vascular prosthetic device, implant and graft, initial encounter Condition: Stable Prescriptions: No Action hydralazine 50 mg tablet 50 mg PO TID RF: 0 amlodipine 10 mg tablet 10 mg PO DAILY RF: 0 clonidine HCl 0.1 mg tablet 0.1 mg PO BID RF: 0 chlorthalidone 25 mg tablet 25 mg PO DAILY RF: 0 isosorbide mononitrate 30 mg tablet extended release 24 hr 30 mg PO DAILY RF: 0 docusate sodium [Colace] 100 mg capsule 100 mg PO DAILY RF: 0 garlic 500 mg capsule 500 mg PO DAILY RF: 0 ascorbate calcium (vitamin C) 500 mg tablet 1,000 mg PO DAILY RF: 0 mecobalamin (vitamin B12) 1,000 mcg tablet,chewable 1,000 mcg PO DAILY RF: 0 multivitamin [Multiple Vitamins] Tablet 1 tab PO DAILY RF: 0 citalopram 10 mg tablet 10 mg PO BEDTIME RF: 0 sennosides-docusate sodium [Senna-S] 8.6-50 mg Tablet See Rx Instructions .ROUTE .COMPLEX PRN (Reason: Constipation) RF: 0 omeprazole 40 mg capsule,delayed release(DR/EC) 40 mg PO DAILY RF: 0 aspirin 81 mg Tablet,Delayed Release (Dr/Ec) 81 mg PO DAILY RF: 0 acetaminophen [Tylenol Extra Strength] 500 mg Tablet 500 mg PO TID RF: 0 ferrous sulfate [iron] 325 mg (65 mg iron) Tablet 325 mg PO BID RF: 0 carbidopa-levodopa 25-100 mg tablet 1 tab PO TID RF: 0 oxybutynin chloride 5 mg tablet 5 mg PO BID RF: 0 cranberry 500 mg Capsule 500 mg PO DAILY RF: 0 rasagiline 1 mg tablet 1 mg PO DAILY RF: 0 Fish Oil 1 cap PO BEDTIME RF: 0 Probiotic 1 cap PO DAILY RF: 0 levothyroxine 150 mcg tablet 175 mcg PO DAILY Qty: 0 RF: 0 nicotine 14 mg/24 hr Patch 24 Hour 1 patch TRANSDERMAL DAILY RF: 0 Zofran 8 mg Tablet 8 mg PO Q8H PRN (Reason: N/V) RF: 0 Dulcolax (bisacodyl) 10 mg Suppository 10 mg ND DAILY PRN (Reason: Constipation) RF: 0 Dulcolax (bisacodyl) 5 mg Tablet,Delayed Release (Dr/Ec) 5 mg PO DAILY RF: 0 Miralax 17 gram/dose Powder 17 g PO DAILY RF: 0 melatonin 10 mg Tablet 10 mg PO BEDTIME RF: 0 Flonase Allergy Relief 50 mcg/actuation spray,suspension 1 spray nasal BEDTIME RF: 0 Fleet Enema 19-7 gram/118 mL Enema 118 ml ND DAILY PRN (Reason: Constipation) RF: 0 quetiapine 25 mg tablet 200 mg PO BEDTIME PRN (Reason: Sleep) RF: 0 furosemide 40 mg tablet 80 mg PO DAILY RF: 0 Referrals: Cindy Chavarria PA [Primary Care Provider] - Coding Level of Care Code ED Graphite Pan Drier Tender for Chg Fwd Exam Comprehensive
[2020-10-22 20:29] LABS: Basophils # 0.1 10^3/uL (0.0-0.1); Basophils % 0.6 %; Eosinophils # 0.2 10^3/uL (0.0-0.8); Eosinophils % 1.8 %; Hematocrit 28.5 % (37.0-47.0); Hemoglobin 9.3 g/dL (11.5-15.3); Lymphocytes # 2.1 10^3/uL (0.8-4.8); Lymphocytes % 19.5 %; Mean Corpuscular HGB Conc 32.6 g/dL (30.0-36.0); Mean Corpuscular Volume 101.1 fL (81-99); Mean Platelet Volume 9.7 fL (7.4-10.4); Monocytes # 1.2 10^3/uL (0.2-0.9); Monocytes % 11.1 %; Neutrophils # 7.22 10^3/uL (1.8-7.7); Neutrophils % 66.4 %; Nucleated Red Blood Cells % 0 %; Platelet Count 271 10^3/cmm (130-400); Red Blood Count 2.82 10^6/uL (4.1-5.3); Red Cell Distribution Width 14.7 % (12.1-15.1); White Blood Count 10.9 10^3/uL (4.0-10.0)
--- NOTE | 2020-10-22 20:41 | USR_ITS ---
PROCEDURE INFORMATION: Exam: US Duplex Left Upper Extremity Arteries Exam date and time: 10/22/2020 8:43 PM Age: 85 years old Clinical indication: Pain; Arm, lower; Left; Prior surgery; Surgery date: 3-7 days post-operative; Surgery type: Dialysis graft; Additional info: Pulse decreased left radial, S/P av fistula placement. dialysis graft placed October 17, 2020. TECHNIQUE: Imaging protocol: Left Real-time ultrasound scan of the arteries of the left upper extremity with 2-D jenkins scale, color Doppler flow and spectral waveform analysis. COMPARISON: No relevant prior studies available. FINDINGS: Left subclavian artery: No occlusion or significant stenosis. Normal waveform. Left axillary artery: No occlusion or significant stenosis. Normal waveform. Left brachial artery: No occlusion or significant stenosis. Normal waveform. Left radial artery: Patent left radial artery with 64.1 cm/s velocity. Left ulnar artery: Patent left ulnar artery with 42.7 cm/s velocity. Soft tissues: Swelling and redness near the incision. Other findings: The patient would not allow imaging near the fistula site. Abnormally high velocity arterial flow in the arm proximal to the radial and ulnar arteries, consistent with patent AV fistula. US/[place] [id number] IMPRESSION: 1. The patient would not allow imaging near the fistula site. 2. Swelling and redness near the incision. 3. Abnormally high velocity arterial flow in the arm proximal to the radial and ulnar arteries, consistent with patent AV fistula. 4. Patent left radial artery with 64.1 cm/s velocity. 5. Patent left ulnar artery with 42.7 cm/s velocity.
[2020-10-22 20:45] LABS: Alanine Aminotransferase < 5 U/L (0-33); Albumin Level 4.3 g/dL (3.5-5.2); Alkaline Phosphatase 64 IU/L (35-105); Anion Gap 16.9 (5-19); Aspartate Amino Transferase 14 U/L (0-32); Blood Urea Nitrogen 46 mg/dL (8-23); Calcium 10.6 mg/dL (8.5-10.5); Carbon Dioxide 28 mmol/L (22-29); Chloride 94 mmol/L (98-107); Globulin 3.1 g/dL (1.3-4.6); Glucose 145 mg/dL (65-115); Osmolality Calculated 294 mOsm/kg (285-295); Potassium 3.9 mmol/L (3.5-5.1); Sodium 135 mmol/L (136-145); Total Bilirubin 0.4 mg/dL (0.15-1.2); Total Protein 7.4 g/dL (6.6-8.7)
--- NOTE | 2020-10-22 20:49 | PC.NURSE ---
ultrasound in room
[2020-10-22 21:10] VITALS: BP 156/57; PULSE 92; RESP 17; O2SAT 96
[2020-10-22 21:44] VITALS: BP 172/65; PULSE 89; RESP 17; O2SAT 97
[2020-10-22] MEDS: acetaminophen 500 mg Tablet 1000 MG PO (22:17)
== END 2020-10-22 22:15 ==
PROVIDERS: Emergency Provider Nurse Practitioner Family; PCP Physician Assistant
DX: T82.9XXA Unspecified complication of cardiac and vascular prosthetic device, implant and graft, initial encounter (principal); Z79.82 Long term (current) use of aspirin; E78.5 Hyperlipidemia, unspecified; I12.0 Hypertensive chronic kidney disease with stage 5 chronic kidney disease or end stage renal disease; E11.22 Type 2 diabetes mellitus with diabetic chronic kidney disease; N18.6 End stage renal disease; Z99.2 Dependence on renal dialysis; G20 Parkinson's disease; Z95.0 Presence of cardiac pacemaker; F17.210 Nicotine dependence, cigarettes, uncomplicated; M79.602 Pain in left arm
CPT/HCPCS: 12345; 80053; 85025; 93931; 99283

== ENCOUNTER 2021-05-10 10:48 | Outpatient (RCR) | payer MEDICARE, BC, SELFPAY | END 2021-05-15 23:59 | disposition home or self-care (01) | LOC: SPT 10:48 | PROVIDERS: PCP Physician Assistant; Visit Provider Physician Assistant | DX: M54.9 Dorsalgia, unspecified (principal) | CPT/HCPCS: 97110; 97161 ==

== ENCOUNTER 2021-05-16 06:00 | Outpatient (RCR) | payer MEDICARE, BC, SELFPAY | END 2021-06-14 23:59 | disposition home or self-care (01) | LOC: SPT 06:00 | PROVIDERS: PCP Physician Assistant; Visit Provider Physician Assistant | DX: M54.9 Dorsalgia, unspecified (principal) | CPT/HCPCS: 97110 ==

== ENCOUNTER 2021-06-29 15:50 | Outpatient (RCR) | payer MEDICARE, BC, SELFPAY | END 2021-07-15 23:59 | disposition home or self-care (01) | LOC: SPT 15:50 | PROVIDERS: PCP Physician Assistant; Visit Provider Physician Assistant | DX: M54.6 Pain in thoracic spine (principal) | CPT/HCPCS: 97110 ==

== ENCOUNTER 2021-11-02 17:52 | Emergency (ER) | payer MEDICARE, BC, SELFPAY ==
[2021-11-02 17:54] VITALS: BP 222/77; PULSE 90; RESP 18; TEMP 36.6; O2SAT 95; BMI 29.3
--- NOTE | 2021-11-02 17:55 | XRR_ITS ---
PROCEDURE INFORMATION: Exam: XR Left Knee Exam date and time: 11/02/2021 5:55 PM Age: 86 years old Clinical indication: Pain; Knee; Bilateral; Additional info: Knee pain TECHNIQUE: Imaging protocol: XR Left knee. Views: 1 or 2 views. COMPARISON: No relevant prior studies available. FINDINGS: Bones/joints: There is diffuse osseous demineralization. The alignment of the joints is anatomic. The joint spaces are maintained. There is no evidence of acute fracture. There is a moderate joint effusion. Soft tissues: No radiopaque foreign body. XR/XR knee LT 1-2V [id number] IMPRESSION: 1. Left knee moderate joint effusion. 2. Diffuse osseous demineralization. 3. No acute fracture.
--- NOTE | 2021-11-02 17:55 | XRR_ITS ---
PROCEDURE INFORMATION: Exam: XR Right Knee Exam date and time: 11/02/2021 5:55 PM Age: 86 years old Clinical indication: Pain; Knee; Bilateral; Additional info: Knee pain TECHNIQUE: Imaging protocol: XR Right knee. Views: 1 or 2 views. COMPARISON: No relevant prior studies available. FINDINGS: Bones/joints: Diffuse osseous demineralization. The alignment of the joints is anatomic. The joint spaces are maintained. There is no evidence of acute fracture. There is no evidence of a joint effusion. Soft tissues: No radiopaque foreign body. There is an enthesophyte on the upper pole of the patella. XR/XR knee RT 1-2V 38005 IMPRESSION: 1. Diffuse osseous demineralization. 2. No acute fracture. 3. Enthesophyte at the upper pole of the patella.
--- NOTE | 2021-11-02 18:00 | W.ED.GENADLT ---
HPI - General Adult General: Chief complaint: Fall Stated complaint: FALL/ KNEE PAIN Time Seen by Provider: 11/02/21 17:56 History of Present Illness: Patient is an 86-year-old female on DM, ESD on dialysis Friday/Friday/Friday, anemia, hyperlipidemia, CAD on aspirin presented to the emergency room after an episode of fall. Patient tells me that this was a mechanical fall when she was walking on concrete and tripped and fell. Patient has no associated chest pain, shortness breath, palpitation, lightheadedness, nausea/vomiting, diarrhea, melena menses. Patient fell onto her bilateral knees and left forearm and elbow. Patient also hit her head. Patient denies any LOC. Patient has been unable to get up and had to be assisted. EMS was called patient was transferred to the emergency room after the fall. Onset:5 hrs ago Duration:once Location:streets Severity:moderate Associated symptoms: Reports rash (+frontal bruises); Deny chest pain, dyspnea, nausea, palpitations or vomiting Review of Systems Const: Denies: fever(s) or chills Eyes: Denies: change in vision ENMT: Denies: mouth pain Card: Denies: chest pain or palpitations Resp: Denies: dyspnea or non-productive cough GI: Denies: abdominal pain, nausea, vomiting or diarrhea : Denies: dysuria Musc: Reports: extremity pain (+b/l knee pain, +L elbow pain, +L forearm pain) Skin/Breast: Reports: rash (+frontal bruises) Neuro: Denies: weakness in extremities Psych: Reports: other (Normal mood) Hao/Lymph: Denies: easy bruising [facility] ED PFSH: Medical History (Updated 11/02/21 @ 20:19 by Laine Valadez MD) Acute dyspnea Anemia Benign essential HTN CKD (chronic kidney disease) Dyslipidemia (high LDL; low HDL) ESRD (end stage renal disease) -recently started on HD History of cardiac arrhythmia Hypertension -BP improved after HD, continue to monitor vital signs -continue antihypertensives Parkinson disease -continue meds Type 2 diabetes mellitus Surgical History History of colonoscopy with polypectomy History of pacemaker History of permanent cardiac pacemaker placement History of tonsillectomy and adenoidectomy Hx laparoscopic cholecystectomy S/P hemodialysis catheter insertion (~04/2020) Removed on 12/04/2020 Status post left breast lumpectomy Status post right breast lumpectomy Family History Father CAD (coronary artery disease) Sister Cancer Anesthesia complication CAD (coronary artery disease) Dementia Diabetes Mother Stroke Brother CAD (coronary artery disease) Cancer Diabetes Lung disease Family/Other Suicide Denies family history of Clotting disorder Chronic kidney disease (CKD) Bleeding disorder Social History Smoking and tobacco status: current every day smoker Alcohol intake: never Physical Exam Const: COMMON NORMALS: alert HENMT: COMMON NORMALS: atraumatic HEAD & SCALP: atraumatic MOUTH: moist mucous membranes not abnormal Eye: COMMON NORMALS: EOMs intact bilaterally and conjunctivae normal CONJUNCTIVA: Yes conjunctivae normal Neck/C-Spine: COMMON NORMALS: full ROM and supple Resp: COMMON NORMALS: normal respiratory effort and clear to auscultation bilaterally AUSCULTATION: clear to auscultation bilaterally Cardio: COMMON NORMALS: regular rate RATE: regular rate GI: COMMON NORMALS: Soft to palpation and non-tender PALPATION: Yes Soft to palpation Extremity: COMMON NORMALS: full ROM NARRATIVE EXTREMITY EXAM: + Moderate tenderness to palpation over the left elbow, left midshaft forearm, neurovascular exam intact in the left upper extremity, bilateral knee tenderness to palpation. Neuro: SENSORIUM/ORIENTATION: Yes alert MOTOR EXAM: No Abnormal motor strength present and Other motor observations present (no focal motor deficits) Psych: COMMON NORMALS: speech normal SPEECH: Yes normal speech MOOD & AFFECT: Yes euthymic mood Skin: OTHER: + Frontal facial bruise Course Vital Signs: Vital signs: Vital Signs Temperature 98.4 F 11/02/21 22:11 Pulse Rate 87 11/02/21 22:11 Respiratory Rate 20 H 11/02/21 22:11 Blood Pressure 184/82 11/02/21 22:11 Pulse Oximetry 91 11/02/21 22:11 [facility] - General Adult Medical Decision Making 86-year-old female with history of CAD, ESRD, diabetes, anemia presents emergency with an episode of mechanical fall. On exam, patient has mild bruises over the forehead. Patient has tenderness palpation of the left elbow, left forearm and bilateral knee. Range of motion of the left elbow bilateral knee intact. Neurovascular exam of the left upper extremity intact. Imaging studies showed no acute injuries fractures. She is encouraged to follow-up with primary care provider in 1 week for repeat x-ray should she have any further symptoms of pain as this can still be a fracture. L knee effusion noted likely traumatic. Observed in the emergency room, patient was found to have satting at 9190% on room air. X-ray chest not show any signs of focal findings. Patient required 2 L of oxygen at baseline. Patient will be going home with oxygen. Because patient has new oxygen requirement with no respiratory complaints, I will give patient close follow-up with primary care provider for further evaluation. At present time, do not suspect a PE given the fact the story is more consistent iwth a had a mechanical fall. Unclear the source of new oxygen requirement. I have given patient follow up with our piano case maker to be seen by a PCP for new oxygen requirement. Patient aware of a call from our piano case maker to schedule for appointment(s) and verbalizes understanding of the importance of following up. I have given patient strict return precaution for any drops in the pulse ox to less than 88% while on oxygen. Rx: Tylenol, lidocaine patch, and menthol PRN pain, oxygen to go home with Disposition: Discharge. Patient counseled regarding diagnostic impression, treatment plan. Patient given ED strict return precautions to return for continuation, worsening, or development of new symptoms. Instructed to f/u w/ PCP regarding symptoms today. Patient verbalized understanding. Lab Data Radiology Impressions Knee X-Ray 11/02/21 17:55 IMPRESSION: 1. Diffuse osseous demineralization. 2. No acute fracture. 3. Enthesophyte at the upper pole of the patella. Elbow X-Ray 11/02/21 17:59 IMPRESSION: 1. Left elbow diffuse osseous demineralization. 2. No acute fracture. Forearm X-Ray 11/02/21 17:59 IMPRESSION: 1. No acute fracture or dislocation. 2. Diffuse osseous demineralization, more prominent at the wrist. This may be due to scarcity of surrounding soft tissues at the level of the wrist; however, early rheumatoid arthritis may present a similar picture. Head CT 11/02/21 17:59 IMPRESSION: 1. Age-appropriate involutional changes of the brain. 2. Moderate cerebral small-vessel disease. 3. No acute intracranial abnormality. No significant interval change from the comparison examination. 4. Left sphenoid sinus disease as above. Chest X-Ray 11/02/21 20:04 IMPRESSION: 1. Mild pulmonary hyperinflation suggesting COPD. 2. Pleural calcification at the lung apices that may be sequela of remote infection such as granulomatous disease. 3. No acute findings. Imaging Data Other Imaging: Radiologist's impression: [facility] [address] [place] [address] CT Scan Report Signed Patient: Cindi Melissa Unit #: [id number] : 1935 Age/Sex: 86 / F ADM Date: 11/02/21 Loc: ER Room/Bed: Attending Dr: Ordering Provider/Ordering MD: Laine Valadez MD Date of Service: 11/02/21 Procedure(s): CT head wo con* [id number] Accession Number(s): [id number] Report Number: [id number] PROCEDURE INFORMATION: Exam: CT Head Without Contrast Exam date and time: 11/02/2021 5:59 PM Age: 86 years old Clinical indication: Injury or trauma; Fall; Blunt trauma (contusions or hematomas); Without loss of consciousness TECHNIQUE: Imaging protocol: Computed tomography of the head without contrast. Radiation optimization: All CT scans at this facility use at least one of these dose optimization techniques: automated exposure control; mA and/or kV adjustment per patient size (includes targeted exams where dose is matched to clinical indication); or iterative reconstruction. COMPARISON: CT head wo con* [id number] 05/03/2020 4:24 PM RADIATION DOSE METRICS: Total DLP (mGy-cm): 808.24 FINDINGS: Brain: There are moderate confluent periventricular hypodensities consistent with chronic microischemic changes of white matter. There is no evidence of acute intracranial hemorrhage or mass effect on the ventricular system. There are no extra-axial fluid collections or midline shift. The posterior fossa shows mild cerebellar atrophy. Cerebral ventricles: There are prominent sulci and mild ventriculomegaly. Paranasal sinuses: There is an air-fluid level in the left sphenoid sinus. Mastoid air cells: The visualized mastoid air cells are well aerated. Vasculature: There is atherosclerotic calcification of intracranial internal carotid and vertebral arteries. Bones/joints: There is hyperostosis frontalis interna. Soft tissues: Unremarkable. CT/CT head wo con* [id number] IMPRESSION: 1. Age-appropriate involutional changes of the brain. 2. Moderate cerebral small-vessel disease. 3. No acute intracranial abnormality.? No significant interval change from the comparison examination. 4. Left sphenoid sinus disease as above. ? Dictated By: Quincy Loya MD Signed By: Quincy Loya MD Signed Date/Time: 11/02/211920 DD/ [address] [address] XRay Report Signed Patient: Cindi Melissa Unit #: [id number] : 1935 Age/Sex: 86 / F ADM Date: 11/02/21 Loc: ER Room/Bed: Attending Dr: Ordering Provider/Ordering MD: Laine Valadez MD Date of Service: 11/02/21 Procedure(s): XR forearm LT 2V 39565 Accession Number(s): [id number] Report Number: [id number] The PROCEDURE INFORMATION: Exam: XR Left Forearm Exam date and time: 11/02/2021 5:59 PM Age: 86 years old Clinical indication: Pain; Lower or forearm; Left TECHNIQUE: Imaging protocol: XR Left forearm. Views: 2 views. COMPARISON: CR (UP EX, ) 11/02/2021 6:15 PM FINDINGS: Bones/joints: The left radius and ulna maintain anatomic alignment at the wrist and elbow joints. No acute fracture is identified. There are no blastic or osseous destructive lesions. There is diffuse osseous demineralization, most prominent at the wrist. Soft tissues: There are no radiopaque foreign bodies. XR/XR forearm LT 2V 81221 IMPRESSION: 1. No acute fracture or dislocation. 2. Diffuse osseous demineralization, more prominent at the wrist. This may be due to scarcity of surrounding soft tissues at the level of the wrist; however, early rheumatoid arthritis may present a similar picture. ? Dictated By: Quincy Loya MD Signed By: Quincy Loya MD Signed Date/Time: 11/02/211945 DD/ [address] [place] [address] XRay Report Signed Patient: Cindi Melissa Unit #: [id number] : 1935 Age/Sex: 86 / F ADM Date: 11/02/21 Loc: ER Room/Bed: Attending Dr: Ordering Provider/Ordering MD: Laine Valadez MD Date of Service: 11/02/21 Procedure(s): XR elbow LT 2V 38527 Accession Number(s): [id number] Report Number: [id number] PROCEDURE INFORMATION: Exam: XR Left Elbow Exam date and time: 11/02/2021 5:59 PM Age: 86 years old Clinical indication: Pain; Elbow; Left TECHNIQUE: Imaging protocol: XR Left elbow. Views: 1 or 2 views. COMPARISON: No relevant prior studies available. FINDINGS: Bones/joints: The alignment of the joints is anatomic and the joint spaces are maintained. There is diffuse osseous demineralization. There is no evidence of acute fracture. There are no abnormal fat pads to suggest a joint effusion. Soft tissues: No soft tissue swelling is identified. There are surgical clips in the soft tissues of the antecubital fossa. XR/XR elbow LT 2V 90445 IMPRESSION: 1. Left elbow diffuse osseous demineralization. 2. No acute fracture. ? Dictated By: Quincy Loya MD Signed By: Quincy Loya MD Signed Date/Time: 11/02/211935 DD/ [address] [place] [id number] XRay Report Signed Patient: Cindi Melissa Unit #: [id number] : 1935 Age/Sex: 86 / F ADM Date: 11/02/21 Loc: ER Room/Bed: Attending Dr: Ordering Provider/Ordering MD: Laine Valadez MD Date of Service: 11/02/21 Procedure(s): XR knee RT 1-2V 00900 Accession Number(s): [id number] Report Number: [id number] PROCEDURE INFORMATION: Exam: XR Right Knee Exam date and time: 11/02/2021 5:55 PM Age: 86 years old Clinical indication: Pain; Knee; Bilateral; Additional info: Knee pain TECHNIQUE: Imaging protocol: XR Right knee. Views: 1 or 2 views. COMPARISON: No relevant prior studies available. FINDINGS: Bones/joints: Diffuse osseous demineralization. The alignment of the joints is anatomic. The joint spaces are maintained. There is no evidence of acute fracture. There is no evidence of a joint effusion. Soft tissues: No radiopaque foreign body. There is an enthesophyte on the upper pole of the patella. XR/XR knee RT 1-2V 13671 IMPRESSION: 1. Diffuse osseous demineralization. 2. No acute fracture. 3. Enthesophyte at the upper pole of the patella. ? Dictated By: Quincy Loya MD Signed By: Quincy Loya MD Signed Date/Time: 11/02/211929 DD/ [address] [address] XRay Report Signed Patient: Cindi Melissa Unit #: [id number] : 1935 Age/Sex: 86 / F ADM Date: 11/02/21 Loc: ER Room/Bed: Attending Dr: Ordering Provider/Ordering MD: Laine Valadez MD Date of Service: 11/02/21 Procedure(s): XR knee LT -2V 26141 Accession Number(s): [id number] Report Number: [id number] PROCEDURE INFORMATION: Exam: XR Left Knee Exam date and time: 11/02/2021 5:55 PM Age: 86 years old Clinical indication: Pain; Knee; Bilateral; Additional info: Knee pain TECHNIQUE: Imaging protocol: XR Left knee. Views: 1 or 2 views. COMPARISON: No relevant prior studies available. FINDINGS: Bones/joints: There is diffuse osseous demineralization. The alignment of the joints is anatomic. The joint spaces are maintained. There is no evidence of acute fracture. There is a moderate joint effusion. Soft tissues: No radiopaque foreign body. XR/XR knee LT 1-2V 98033 IMPRESSION: 1. Left knee moderate joint effusion. 2. Diffuse osseous demineralization. 3. No acute fracture. ? Dictated By: Quincy Loya MD Signed By: Quincy Loya MD Signed Date/Time: 11/02/211924 DD/ 54 Discharge Plan Discharge Patient Disposition: Home Clinical Impression: Fall, Elbow pain, Bilateral knee pain, Arm pain Condition: Stable Prescriptions: New lidocaine 5 % adhesive patch,medicated 1 patch topical DAILY PRN (Reason: pain) 30 Days Qty: 30 0RF Rx Instructions: leave on most painful area for up to 12 hrs aloe vera Gel 1 applic topical DAILY PRN (Reason: pain) 10 Days Qty: 170 0RF Biofreeze (menthol) 5 % gel 1 ea topical BID PRN (Reason: pain) 10 Days Qty: 1 0RF No Action hydralazine 50 mg tablet 50 mg PO TID 0RF amlodipine 10 mg tablet 10 mg PO DAILY 0RF clonidine HCl 0.1 mg tablet 0.1 mg PO BID 0RF chlorthalidone 25 mg tablet 25 mg PO DAILY 0RF isosorbide mononitrate 30 mg tablet extended release 24 hr 30 mg PO DAILY 0RF garlic 500 mg capsule 500 mg PO DAILY 0RF ascorbate calcium (vitamin C) 500 mg tablet 1,000 mg PO DAILY 0RF docusate sodium 250 mg capsule 250 mg PO DAILY 0RF calcium acetate 667 mg tablet 667 mg PO TID 0RF sevelamer carbonate [Renvela] 800 mg tablet 800 mg PO TID 0RF Rx Instructions: must administer with a meal/food cholecalciferol (vitamin D3) [Dialyvite Vitamin D] 125 mcg (5,000 unit) capsule 125 mcg PO DAILY 0RF mecobalamin (vitamin B12) 1,000 mcg tablet,chewable 500 mcg PO DAILY 0RF cetirizine 10 mg tablet 10 mg PO DAILY PRN0RF citalopram 10 mg tablet 10 mg PO BEDTIME 0RF Rx Instructions: PT UNABLE TO VERIFY MEDICATIONS. GOING BY MAR SENT FROM [facility]. omeprazole 40 mg capsule,delayed release(DR/EC) 40 mg PO DAILY 0RF Rx Instructions: PT UNABLE TO VERIFY MEDICATIONS. GOING BY MAR SENT FROM [facility]. aspirin 81 mg Tablet,Delayed Release (Dr/Ec) 81 mg PO DAILY 0RF Rx Instructions: PT UNABLE TO VERIFY MEDICATIONS. GOING BY NOV SENT FROM [facility]. acetaminophen [Tylenol Extra Strength] 500 mg Tablet 500 mg PO TID 0RF Rx Instructions: PT UNABLE TO VERIFY MEDICATIONS. GOING BY MAR SENT FROM [facility]. ferrous sulfate [iron] 325 mg (65 mg iron) Tablet 325 mg PO BID 0RF Rx Instructions: PT UNABLE TO VERIFY MEDICATIONS. GOING BY NOV SENT FROM [facility]. carbidopa-levodopa 25-100 mg tablet 1 tab PO TID 0RF Rx Instructions: PT UNABLE TO VERIFY MEDICATIONS. GOING BY NOV SENT FROM [facility]. cranberry 500 mg Capsule 500 mg PO DAILY 0RF Rx Instructions: PT UNABLE TO VERIFY MEDICATIONS. GOING BY NOV SENT FROM [facility]. rasagiline 1 mg tablet 1 mg PO DAILY 0RF Rx Instructions: PT UNABLE TO VERIFY MEDICATIONS. GOING BY NOV SENT FROM [facility]. Fish Oil 1 cap PO BEDTIME 0RF Rx Instructions: PT UNABLE TO VERIFY MEDICATIONS. GOING BY NOV SENT FROM [facility]. Probiotic 1 cap PO DAILY 0RF Rx Instructions: PT UNABLE TO VERIFY MEDICATIONS. GOING BY NOV SENT FROM [facility]. levothyroxine 150 mcg tablet 175 mcg PO DAILY Qty: 0 0RF Rx Instructions: PT UNABLE TO VERIFY MEDICATIONS. GOING BY NOV SENT FROM [facility]. oxybutynin chloride 5 mg tablet 5 mg PO DAILY 0RF Dulcolax (bisacodyl) 10 mg Suppository 10 mg [place] DAILY PRN (Reason: Constipation) 0RF Rx Instructions: PT UNABLE TO VERIFY MEDICATIONS. GOING BY NOV SENT FROM [facility]. Dulcolax (bisacodyl) 5 mg Tablet,Delayed Release (Dr/Ec) 5 mg PO DAILY 0RF Rx Instructions: PT UNABLE TO VERIFY MEDICATIONS. GOING BY NOV SENT FROM [facility]. melatonin 10 mg Tablet 10 mg PO BEDTIME 0RF Rx Instructions: PT UNABLE TO VERIFY MEDICATIONS. GOING BY NOV SENT FROM [facility]. Flonase Allergy Relief 50 mcg/actuation spray,suspension 1 spray nasal BEDTIME 0RF Rx Instructions: PT UNABLE TO VERIFY MEDICATIONS. GOING BY NOV SENT FROM [facility]. quetiapine 25 mg tablet 200 mg PO BEDTIME PRN (Reason: Sleep) 0RF Rx Instructions: PT UNABLE TO VERIFY MEDICATIONS. GOING BY NOV SENT FROM [facility]. furosemide 40 mg tablet 80 mg PO DAILY 0RF Discharge Orders: Discharge ED (Routine); Ordered 11/02/21 Ordered By: Laine Valadez Other Ambulatory Orders: DME: Oxygen (Order) Location: None Selected Ordered By: Laine Valadez Referrals: Cindy Chavarria PA [Primary Care Provider] - Discharge Diet: Advance as tolerated Discharge Activity: Increase activity as tolerated Patient Instructions: Concussion (ED), Knee Pain (ED), Arm Pain (ED) Activity Restrictions/Additional Instructions: Come back to the emergency room have any more pain, if any fever or chills, difficulty ranging the arm or leg, or any new or concerning complaints. Our piano case maker will have you follow-up with your primary care provider in the next few days for new oxygen requirement. You would be expected to have a phone call with our piano case maker who will put you on the schedule. You can expect a call from us in the next 2-3 days. Please return the emergency room if your pulse ox reads less than 88% on 2 Liters of oxygen at home. Coding Level of Care Code ED Still Cleaner for Alex Fwd Exam Comprehensive
--- NOTE | 2021-11-02 18:29 | PC.NURSE ---
patient transported to ct via stretcher with no issues.
[2021-11-02] MEDS: acetaminophen 500 mg Tablet PO (18:53)
[2021-11-02 19:58] VITALS: BP 170/65; PULSE 91; RESP 18; TEMP 36.9; O2SAT 95
--- NOTE | 2021-11-02 20:04 | XRR_ITS ---
PROCEDURE INFORMATION: Exam: XR Chest Exam date and time: 11/02/2021 8:04 PM Age: 86 years old Clinical indication: Dyspnea TECHNIQUE: Imaging protocol: XR of the chest. Views: 1 view. COMPARISON: CR XR chest 1V portable [id number] 05/06/2020 9:21 AM FINDINGS: Tubes, catheters and devices: A left pacemaker device is present and its leads are in stable position. The previously seen right tunneled hemodialysis catheter has been removed. Lungs: There is no evidence of focal pulmonary consolidation. Pleural spaces: The bilateral apical pleural calcification, stable. No pneumothorax or pleural effusion. Heart/Mediastinum: Normal in size. Bones/joints: No acute fracture is identified. XR/XR chest 1V portable [id number] IMPRESSION: 1. Mild pulmonary hyperinflation suggesting COPD. 2. Pleural calcification at the lung apices that may be sequela of remote infection such as granulomatous disease. 3. No acute findings.
--- NOTE | 2021-11-02 20:21 | PC.NURSE ---
1999- patient found to have spo2 88-89% on ROom air. patient placed on 2 l NC. Provider notified.
[2021-11-02 20:27] VITALS: O2SAT 93; O2SAT 95
--- NOTE | 2021-11-02 21:22 | PC.NURSE ---
Home oxygen at bedside .
[2021-11-02 22:10] VITALS: BP 184/82; PULSE 87; RESP 20; TEMP 36.9; O2SAT 91
[2021-11-02 22:11] VITALS: BP 184/82; PULSE 87; RESP 20; TEMP 36.9; O2SAT 91
--- NOTE | 2021-11-05 14:39 | DCPLANNER ---
clinical safety manager had message to speak with patient about getting established with a primary care physician. clinical safety manager spoke with patient, she stated that she has an appointment scheduled with her primary care physician.
== END 2021-11-02 22:13 | disposition home or self-care (01) ==
PROVIDERS: Emergency Provider Emergency Medicine; PCP Physician Assistant
DX: M25.562 Pain in left knee (principal); M25.561 Pain in right knee; M25.522 Pain in left elbow; M79.632 Pain in left forearm; Z79.82 Long term (current) use of aspirin; E78.5 Hyperlipidemia, unspecified; I12.0 Hypertensive chronic kidney disease with stage 5 chronic kidney disease or end stage renal disease; E11.22 Type 2 diabetes mellitus with diabetic chronic kidney disease; N18.6 End stage renal disease; G20 Parkinson's disease; Z95.0 Presence of cardiac pacemaker; F17.210 Nicotine dependence, cigarettes, uncomplicated; I25.10 Atherosclerotic heart disease of native coronary artery without angina pectoris; Z99.2 Dependence on renal dialysis; W01.0XXA Fall on same level from slipping, tripping and stumbling without subsequent striking against object, initial encounter
CPT/HCPCS: 70450; 71045; 73070; 73090; 73560; 99283

== ENCOUNTER 2021-11-11 15:52 | Observation (INO) | payer MEDICARE, BC, SELFPAY ==
[2021-11-11 16:03] VITALS: BP 216/86; PULSE 89; RESP 18; TEMP 36.4; O2SAT 94; BMI 30.4
--- NOTE | 2021-11-11 16:12 | XRR_ITS ---
PROCEDURE INFORMATION: Exam: XR Left Knee Exam date and time: 11/11/2021 4:12 PM Age: 86 years old Clinical indication: Pain; Knee; Left; Additional info: L patella pain, pa/lat with sunrise view TECHNIQUE: Imaging protocol: XR Left knee. Views: 4 or more views. COMPARISON: CR (LOW EXM, ) 11/02/2021 6:06 PM FINDINGS: Bones/joints: There is generalized osteopenia seen. No acute bony abnormalities are noted. There is tricompartmental narrowing noted of the knee consistent with osteoarthritis. Soft tissues: Unremarkable XR/XR knee LT 4V [id number] IMPRESSION: 1. No acute bony abnormality. 2. Osteopenia and osteoarthritis.
--- NOTE | 2021-11-11 16:14 | CTR_ITS ---
PROCEDURE INFORMATION: Exam: CT Head Without Contrast Exam date and time: 11/11/2021 4:14 PM Age: 86 years old Clinical indication: Injury or trauma; Blunt trauma (contusions or hematomas); Consciousness not specified; Patient HX: C/O LOWRY after fall 2 days ago; Additional info: Headache; Anterior head injury 2 days ago, dialysis patient TECHNIQUE: Imaging protocol: Computed tomography of the head without contrast. Radiation optimization: All CT scans at this facility use at least one of these dose optimization techniques: automated exposure control; mA and/or kV adjustment per patient size (includes targeted exams where dose is matched to clinical indication); or iterative reconstruction. COMPARISON: CT head wo con* [id number] 11/02/2021 6:31 PM RADIATION DOSE METRICS: Total DLP (mGy-cm): 950.69 FINDINGS: Brain: Normal. No hemorrhage. Unremarkable white matter. No mass effect. Cerebral ventricles: No ventriculomegaly. Paranasal sinuses: Visualized sinuses are unremarkable. No fluid levels. Mastoid air cells: Visualized mastoid air cells are well aerated. Bones/joints: Unremarkable. No acute fracture. Soft tissues: Unremarkable. CT/CT head wo con* [id number] IMPRESSION: No acute intracranial abnormality.
--- NOTE | 2021-11-11 16:14 | XRR_ITS ---
PROCEDURE INFORMATION: Exam: XR Abdomen Exam date and time: 11/11/2021 4:14 PM Age: 86 years old Clinical indication: Nausea and vomiting; Additional info: N/v, port TECHNIQUE: Imaging protocol: XR of the abdomen. Views: Frontal supine view of the abdomen. 1 View. COMPARISON: CT abdomen [facility] [id number] 05/18/2020 7:21 PM FINDINGS: Gastrointestinal tract: Normal. No bowel dilation. Metallic surgical clips right upper quadrant consistent with cholecystectomy. Vasculature: There are phleboliths seen in the central pelvis Bones/joints: Unremarkable. XR/XR abdomen 1V* [id number] IMPRESSION: 1. No acute findings. 2. Status post cholecystectomy.
--- NOTE | 2021-11-11 16:17 | ED_ITS ---
Documented by User: Luis Oneal MD 11/11/21 18:09 HPI - Nausea/Vomiting/Diarrhea General: Chief complaint: Nausea/Vomiting/Diarrhea Stated complaint: WEAKNESS; NAUSEA Time Seen by Provider: 11/11/21 16:00 Source: patient and EMS Mode of arrival: EMS Limitations: no limitations History of Present Illness: Patient with complaints of onset of nausea vomiting, headache this morning. She states she missed her scheduled dialysis on Friday due to the weather. She states she tripped and fell outside her home on the concrete on Friday and struck her left anterior knee and forehead on concrete. She denies any loss conscious. She denies any neurological changes. She denies any change in vision or speech. She states she felt a little warm earlier. Denies any specific fever. She states she is still produces urine. She still smokes. Possible history includes coronary disease, type 2 diabetes mellitus, hypertension, hypercholesterolemia, chronic renal failure on hemodialysis, pulmonary hypertension, aortic valve regurgitation. Patient states that her nausea has resolved since getting oral Zofran by paramedics. She is allergic to Phenergan, doxycycline, sulfa, statins. Past surgical history includes AV fistula, pacemaker, cholecystectomy, heart cath in 2018 showing 40% stenosis of the right coronary artery. MD elicited complaint: nausea, vomiting and other (Anterior headache, left knee pain) Associated nausea: Yes Severity: moderate Relieving factors: other (Zofran) Associated symtoms: Reports malaise and nausea; Denies altered mental status, anxiety, bloating, change in vision, chest pain, cough, diaphoresis, dizziness, dysuria, fevers/chills, myalgias, palpitations, rash, short of breath, syncope or weakness Review of Systems Const: Reports: malaise; Denies: fever(s), chills, body aches or diaphoresis Eyes: Denies: change in vision or blurry vision ENMT: Denies: throat pain Card: Denies: chest pain, palpitations, edema, lightheadedness or syncope Resp: Denies: dyspnea, productive cough, non-productive cough or wheezing GI: Reports: nausea and vomiting; Denies: abdominal pain, diarrhea or bloating : Denies: flank pain or dysuria Musc: Reports: joint pain; Denies: neck pain or back pain Skin/Breast: Reports: other (Healing abrasion to mid upper forehead.); Denies: rash or pruritus Neuro: Denies: dizziness Psych: Denies: anxiety Hao/Lymph: Denies: enlarged lymph nodes PFSH ED PFSH: Medical History Acute dyspnea Anemia Benign essential HTN CKD (chronic kidney disease) Dyslipidemia (high LDL; low HDL) ESRD (end stage renal disease) -recently started on HD History of cardiac arrhythmia Hypertension -BP improved after HD, continue to monitor vital signs -continue antihypertensives Parkinson disease -continue meds Type 2 diabetes mellitus Surgical History History of colonoscopy with polypectomy History of pacemaker History of permanent cardiac pacemaker placement History of tonsillectomy and adenoidectomy Hx laparoscopic cholecystectomy S/P hemodialysis catheter insertion (~04/2020) Removed on 12/04/2020 Status post left breast lumpectomy Status post right breast lumpectomy Family History Father CAD (coronary artery disease) Sister Cancer Anesthesia complication CAD (coronary artery disease) Dementia Diabetes Mother Stroke Brother CAD (coronary artery disease) Cancer Diabetes Lung disease Family/Other Suicide Denies family history of Clotting disorder Chronic kidney disease (CKD) Bleeding disorder Social History Smoking and tobacco status: current every day smoker Alcohol intake: never Physical Exam Const: COMMON NORMALS: no acute distress, patient oriented x3, no limitations and well nourished EXAM LIMITATIONS: no altered mental status GENERAL APPEARANCE: cooperative HENMT: COMMON NORMALS: normocephalic HEAD & SCALP: normocephalic FACE & SINUS: normal facial exam OTHER: Normal except healing abrasion to mid upper forehead. No step-off. No soft tissue swelling. Eye: COMMON NORMALS: EOMs intact bilaterally Neck/C-Spine: COMMON NORMALS: full ROM, no lymphadenopathy, supple and no meningeal signs GENERAL: Yes normal visual inspection Lymph: LYMPHATIC: no lymphadenopathy noted Chest: COMMONS NORMALS: normal inspection of the chest and normal palpation of entire chest wall CHEST: No Ecchymosis present and No rash Resp: COMMON NORMALS: normal respiratory effort, No retractions and clear to auscultation bilaterally EFFORT & INSPECTION: No respiratory distress AUSCULTATION: clear to auscultation bilaterally Cardio: COMMON NORMALS: regular rate, regular rhythm and Peripheral pulses 2+ throughout JUGULAR VENOUS DISTENTION: no JVD RATE: regular rate RHYTHM: regular rhythm PERIPHERAL PULSES: Peripheral pulses 2+ throughout GI: COMMON NORMALS: Normal to inspection, nondistended, normoactive bowel sounds present and non-tender : COMMON NORMALS: Yes no CVA tenderness BLADDER/KIDNEY EXAM: Yes no CVA tenderness Back/Pelvis: COMMON NORMALS: no CVA tenderness Extremity: COMMON NORMALS: full ROM and capillary refill normal OTHER: Moderate pain to the left patella. Normal range of motion of left knee and left lower extremity. Remainder of extremity exam is normal. No pain to the right knee. No pain to either hip. Patient has AV fistula to left upper arm. Neuro: COMMON NORMALS: patient oriented x3, CN's II-XII intact bilaterally, no focal motor deficits and no sensory deficits noted MENINGEAL SIGNS: Yes no meningeal signs Psych: COMMON NORMALS: mental status grossly normal and Normal thought process present THOUGHT PROCESS: Normal thought process present Skin: COMMON NORMALS: no rashes or lesions noted GENERAL SKIN EXAM: no rashes or lesions noted OTHER: Patient has a very superficial healing abrasion to the mid upper forehead. No hematoma or step-off fracture. Course Vital Signs: Vital signs: Vital Signs Temperature 97.6 F 11/11/21 16:03 Pulse Rate 89 11/11/21 16:03 Respiratory Rate 18 11/11/21 16:03 Blood Pressure 202/84 11/11/21 18:45 Pulse Oximetry 94 11/11/21 18:45 MDM - Nausea/Vomiting/Diarrhea Medical Decision Making Fall with recent head injury 2 days ago. Hypertension. Nausea vomiting. Chronic renal failure with missed dialysis yesterday. Potassium is 5.9 today. Will give insulin, bicarb, IV glucose to help lower potassium. Lab Data I reviewed the patient's lab results. : 11/11/21 16:30 11/11/21 16:30 Radiology Impressions Knee X-Ray 11/11/21 16:12 IMPRESSION: 1. No acute bony abnormality. 2. Osteopenia and osteoarthritis. Abdomen X-Ray 11/11/21 16:14 IMPRESSION: 1. No acute findings. 2. Status post cholecystectomy. Head CT 11/11/21 16:14 IMPRESSION: No acute intracranial abnormality. Cervical Spine CT 11/11/21 16:32 IMPRESSION: No acute findings. Laboratory Results WBC 12.5 10^3/uL (4.0-10.0) H 11/11/21 16:30 RBC 3.69 10^6/uL (4.1-5.3) L 11/11/21 16:30 Hgb 12.2 g/dL (11.5-15.3) 11/11/21 16:30 Hct 36.8 % (37.0-47.0) L 11/11/21 16:30 MCV 99.7 fl (81-99) H 11/11/21 16:30 MCH 33.1 pg (28.0-34.0) 11/11/21 16:30 MCHC 33.2 g/dL (30.0-36.0) 11/11/21 16:30 RDW 14.6 % (12.1-15.1) 11/11/21 16:30 Plt Count 344 10^3/cmm (130-400) 11/11/21 16:30 MPV 9.5 fL (7.4-10.4) 11/11/21 16:30 Neut % (Auto) 78.1 % 11/11/21 16:30 Lymph % (Auto) 10.7 % 11/11/21 16:30 Howell % (Auto) 10.0 % 11/11/21 16:30 Eos % (Auto) 0.3 % 11/11/21 16:30 Baso % (Auto) 0.4 % 11/11/21 16:30 Neut # (Auto) 9.74 10^3/uL (1.8-7.7) H 11/11/21 16:30 Lymph # (Auto) 1.3 10^3/uL (0.8-4.8) 11/11/21 16:30 Howell # (Auto) 1.3 10^3/uL (0.2-0.9) H 11/11/21 16:30 Eos # (Auto) 0.0 10^3/uL (0.0-0.8) 11/11/21 16:30 Baso # (Auto) 0.1 10^3/uL (0.0-0.1) 11/11/21 16:30 Nucleated RBC % (auto) 0 % 11/11/21 16:30 Nucleated RBCs # 0.0 /100WBC 11/11/21 16:30 Sodium 138 mmol/L (136-145) 11/11/21 16:30 Potassium 5.9 mmol/L (3.5-5.1) H 11/11/21 16:30 Chloride 100 mmol/L (98-107) 11/11/21 16:30 Carbon Dioxide 21 mmol/L (22-29) L 11/11/21 16:30 Anion Gap 22.9 (5-19) H 11/11/21 16:30 BUN 71 mg/dL (8-23) H 11/11/21 16:30 Creatinine 7.2 mg/dL (0.5-0.9) H* 11/11/21 16:30 GFR Calculation Not Reportable 11/11/21 16:30 Glucose 160 mg/dL (65-115) H 11/11/21 16:30 POC Glucose 138 mg/dL (70-110) H 11/11/21 17:17 Calculated Osmolality 310 mOsm/kg (285-295) H 11/11/21 16:30 Calcium 10.2 mg/dL (8.5-10.5) 11/11/21 16:30 Total Bilirubin 0.7 mg/dL (0.15-1.2) 11/11/21 16:30 AST 37 U/L (0-32) H 11/11/21 16:30 ALT < 5 U/L (0-33) 11/11/21 16:30 Alkaline Phosphatase 84 IU/L (35-105) 11/11/21 16:30 Total Protein 7.2 g/dL (6.6-8.7) 11/11/21 16:30 Albumin 4.5 g/dL (3.5-5.2) 11/11/21 16:30 Globulin 2.7 g/dL (1.3-4.6) 11/11/21 16:30 SARS-CoV-2 Ag (Rapid) Negative (Negative) 11/11/21 17:11 Imaging Data KUB: I personally reviewed and interpreted this imaging study as follows: My impression: Surgical clips in the right upper quadrant consistent previous cholecystectomy. No obstruction seen. No air-fluid level seen. Patient has round calcifications in her suprapubic area possibly consistent with calcified uterine fibroids Radiologist's impression: PROCEDURE INFORMATION: Exam: XR Abdomen Exam date and time: 11/11/2021 4:14 PM Age: 86 years old Clinical indication: Nausea and vomiting; Additional info: N/v, port TECHNIQUE: Imaging protocol: XR of the abdomen. Views: Frontal supine view of the abdomen. 1 View. COMPARISON: CT abdomen wo con [id number] 05/18/2020 7:21 PM FINDINGS: Gastrointestinal tract: Normal. No bowel dilation. Metallic surgical clips right upper quadrant consistent with cholecystectomy. Vasculature: There are phleboliths seen in the central pelvis Bones/joints: Unremarkable. XR/XR abdomen 1V* [id number] IMPRESSION: 1. No acute findings. 2. Status post cholecystectomy. ? Dictated By: Paulino Martinez Signed By: Paulino Martinez Signed Date/Time: 11/11/21 1706 Xray Ortho: I personally reviewed and interpreted this imaging study as follows: My impression: Mild osteoarthritic changes. Nothing acute. No fracture seen. Patella appears normal Radiologist's impression: PROCEDURE INFORMATION: Exam: XR Left Knee Exam date and time: 11/11/2021 4:12 PM Age: 86 years old Clinical indication: Pain; Knee; Left; Additional info: L patella pain, pa/lat with sunrise view TECHNIQUE: Imaging protocol: XR Left knee. Views: 4 or more views. COMPARISON: CR (LOW EXM, ) 11/02/2021 6:06 PM FINDINGS: Bones/joints: There is generalized osteopenia seen. No acute bony abnormalities are noted. There is tricompartmental narrowing noted of the knee consistent with osteoarthritis. Soft tissues: Unremarkable XR/XR knee LT 4V [id number] IMPRESSION: 1. No acute bony abnormality. 2. Osteopenia and osteoarthritis. ? Dictated By: Paulino Martinez Signed By: Paulino Martinez Signed Date/Time: 11/11/211711 CT Head: Radiologist's impression: PROCEDURE INFORMATION: Exam: CT Head Without Contrast Exam date and time: 11/11/2021 4:14 PM Age: 86 years old Clinical indication: Injury or trauma; Blunt trauma (contusions or hematomas); Consciousness not specified; Patient HX: C/O LOWRY after fall 2 days ago; Additional info: Headache; Anterior head injury 2 days ago, dialysis patient TECHNIQUE: Imaging protocol: Computed tomography of the head without contrast. Radiation optimization: All CT scans at this facility use at least one of these dose optimization techniques: automated exposure control; mA and/or kV adjustment per patient size (includes targeted exams where dose is matched to clinical indication); or iterative reconstruction. COMPARISON: CT head wo con* [id number] 11/02/2021 6:31 PM RADIATION DOSE METRICS: Total DLP (mGy-cm): 950.69 FINDINGS: Brain: Normal. No hemorrhage. Unremarkable white matter. No mass effect. Cerebral ventricles: No ventriculomegaly. Paranasal sinuses: Visualized sinuses are unremarkable. No fluid levels. Mastoid air cells: Visualized mastoid air cells are well aerated. Bones/joints: Unremarkable. No acute fracture. Soft tissues: Unremarkable. CT/CT head wo con* [id number] IMPRESSION: No acute intracranial abnormality. ? Dictated By: Paulino Martinez Signed By: Paulino Martinez Signed Date/Time: 11/11/[address]: Radiologist's impression: PROCEDURE INFORMATION: Exam: CT Cervical Spine Without Contrast Exam date and time: 11/11/2021 4:32 PM Age: 86 years old Clinical indication: Injury or trauma; Blunt trauma; Patient HX: C/O neck pain after fall 2 days ago; Additional info: Pain; Injury; Dialysis patient, upper forehead contusion, headache, hypertension TECHNIQUE: Imaging protocol: Computed tomography images of the cervical spine without contrast. Radiation optimization: All CT scans at this facility use at least one of these dose optimization techniques: automated exposure control; mA and/or kV adjustment per patient size (includes targeted exams where dose is matched to clinical indication); or iterative reconstruction. COMPARISON: CT head wo con* [id number] 11/11/2021 5:07 PM RADIATION DOSE METRICS: Total DLP (mGy-cm): 587.12 FINDINGS: Bones/joints: No acute fracture. Normal alignment.? There is moderate osteoarthritis. Discs/Spinal canal/Neural foramina: No significant disc protrusion. No severe spinal canal stenosis. No significant neural foraminal narrowing. Lungs: Lung apices are normal. Soft tissues: Unremarkable. CT/CT cervical spin wo con* [id number] IMPRESSION: No acute findings. ? Dictated By: Paulino Martinez Signed By: Paulino Martinez Signed Date/Time: 11/11/21 1723 EKG Data EKG 1: I personally reviewed and interpreted this EKG as follows: EKG interpretation date: 11/11/21 EKG interpretation time: 17:30 Prior EKG tracings: not available for review Interpretation: EKG shows normal sinus rhythm with heart rate 89. LVH. Normal ST segment. Normal MN interval, normal QT interval, normal QRS except for LVH, normal P wave, normal T wave. Other Data 1800: Care was transitioned to Dr. Goetz at shift change Critical Care Time Critical Care Time: Critical Care Time: Yes Total Critical Care Time: 45 Attestation: IV medications. See orders. Hyperkalemia. Discharge Plan Discharge Patient Disposition: Placed in Observation Clinical Impression: ESRD (end stage renal disease) on dialysis, Hypertensive urgency, Hyperkalemia, diminished renal excretion Nausea & vomiting Qualifiers: Vomiting type: unspecified Qualified Code(s): R11.2 - Nausea with vomiting, unspecified Type 2 diabetes mellitus Qualifiers: Diabetes mellitus fdc insulin use: without studio operations engineer in charge use Diabetes mellitus complication status: with hyperglycemia Qualified Code(s): E11.65 - Type 2 diabetes mellitus with hyperglycemia Closed head injury Qualifiers: Encounter type: initial encounter Qualified Code(s): S09.90XA - Unspecified inj ury of head, initial encounter Forehead contusion Qualifiers: Encounter type: initial encounter Qualified Code(s): S00.83XA - Contusion of other part of head, initial encounter Contusion of knee, left Qualifiers: Encounter type: initial encounter Qualified Code(s): S80.02XA - Contusion of left knee, initial encounter Coding Level of Care Code ED Gang Knife Fish Chopper for Chg Fwd Exam Comprehensive Documented by User: Benito Goetz DO 11/11/21 19:38 HPI - Nausea/Vomiting/Diarrhea General: Chief complaint: Nausea/Vomiting/Diarrhea Stated complaint: WEAKNESS; NAUSEA Time Seen by Provider: 11/11/21 16:00 [facility] PFSH: Medical History Acute dyspnea Anemia Benign essential HTN CKD (chronic kidney disease) Dyslipidemia (high LDL; low HDL) ESRD (end stage renal disease) -recently started on HD History of cardiac arrhythmia Hypertension -BP improved after HD, continue to monitor vital signs -continue antihypertensives Parkinson disease -continue meds Type 2 diabetes mellitus Surgical History History of colonoscopy with polypectomy History of pacemaker History of permanent cardiac pacemaker placement History of tonsillectomy and adenoidectomy Hx laparoscopic cholecystectomy S/P hemodialysis catheter insertion (~04/2020) Removed on 12/04/2020 Status post left breast lumpectomy Status post right breast lumpectomy Family History Father CAD (coronary artery disease) Sister Cancer Anesthesia complication CAD (coronary artery disease) Dementia Diabetes Mother Stroke Brother CAD (coronary artery disease) Cancer Diabetes Lung disease Family/Other Suicide Denies family history of Clotting disorder Chronic kidney disease (CKD) Bleeding disorder Social History Smoking and tobacco status: current every day smoker Alcohol intake: never Course Vital Signs: Vital signs: Vital Signs Temperature 97.6 F 11/11/21 16:03 Pulse Rate 89 11/11/21 16:03 Respiratory Rate 18 11/11/21 16:03 Blood Pressure 202/84 11/11/21 18:45 Pulse Oximetry 94 11/11/21 18:45 MDM - Nausea/Vomiting/Diarrhea Medical Decision Making Fall with recent head injury 2 days ago. Hypertension. Nausea vomiting. Ch ronic renal failure with missed dialysis yesterday. Potassium is 5.9 today. Will give insulin, bicarb, IV glucose to help lower potassium. Blood pressure improved with hydralazine, but has had some rebound hypertension, had to be given again. Patient is confused over baseline. She lives at home with a sister, and drives herself to dialysis. She has ice still in her driveway, and cannot get to her car. She has not had dialysis since Friday. She does not believe she can make it to dialysis tomorrow as an outpatient. She will be observed, have dialysis in the morning, hopefully discharge thereafter. Lab Data : 11/11/21 16:30 11/11/21 16:30 Radiology Impressions Knee X-Ray 11/11/21 16:12 IMPRESSION: 1. No acute bony abnormality. 2. Osteopenia and osteoarthritis. Abdomen X-Ray 11/11/21 16:14 IMPRESSION: 1. No acute findings. 2. Status post cholecystectomy. Head CT 11/11/21 16:14 IMPRESSION: No acute intracranial abnormality. Cervical Spine CT 11/11/21 16:32 IMPRESSION: No acute findings. Laboratory Results WBC 12.5 10^3/uL (4.0-10.0) H 11/11/21 16:30 RBC 3.69 10^6/uL (4.1-5.3) L 11/11/21 16:30 Hgb 12.2 g/dL (11.5-15.3) 11/11/21 16:30 Hct 36.8 % (37.0-47.0) L 11/11/21 16:30 MCV 99.7 fl (81-99) H 11/11/21 16:30 MCH 33.1 pg (28.0-34.0) 11/11/21 16:30 MCHC 33.2 g/dL (30.0-36.0) 11/11/21 16:30 RDW 14.6 % (12.1-15.1) 11/11/21 16:30 Plt Count 344 10^3/cmm (130-400) 11/11/21 16:30 MPV 9.5 fL (7.4-10.4) 11/11/21 16:30 Neut % (Auto) 78.1 % 11/11/21 16: Lymph % (Auto) 10.7 % 11/11/21 16:30 Howell % (Auto) 10.0 % 11/11/21 16:30 Eos % (Auto) 0.3 % 11/11/21 16:30 Baso % (Auto) 0.4 % 11/11/21 16:30 Neut # (Auto) 9.74 10^3/uL (1.8-7.7) H 11/11/21 16:30 Lymph # (Auto) 1.3 10^3/uL (0.8-4.8) 11/11/21 16:30 Howell # (Auto) 1.3 10^3/uL (0.2-0.9) H 11/11/21 16:30 Eos # (Auto) 0.0 10^3/uL (0.0-0.8) 11/11/21 16:30 Baso # (Auto) 0.1 10^3/uL (0.0-0.1) 11/11/21 16:30 Nucleated RBC % (auto) 0 % 11/11/21 16:30 Nucleated RBCs # 0.0 /100WBC 11/11/21 16:30 Sodium 138 mmol/L (136-145) 11/11/21 16:30 Potassium 5.9 mmol/L (3.5-5.1) H 11/11/21 16:30 Chloride 100 mmol/L (98-107) 11/11/21 16:30 Carbon Dioxide 21 mmol/L (22-29) L 11/11/21 16:30 Anion Gap 22.9 (5-19) H 11/11/21 16:30 BUN 71 mg/dL (8-23) H 11/11/21 16:30 Creatinine 7.2 mg/dL (0.5-0.9) H* 11/11/21 16:30 GFR Calculation Not Reportable 11/11/21 16:30 Glucose 160 mg/dL (65-115) H 11/11/21 16:30 POC Glucose 138 mg/dL (70-110) H 11/11/21 17:17 Calculated Osmolality 310 mOsm/kg (285-295) H 11/11/21 16:30 Calcium 10.2 mg/dL (8.5-10.5) 11/11/21 16:30 Total Bilirubin 0.7 mg/dL (0.15-1.2) 11/11/21 16:30 AST 37 U/L (0-32) H 11/11/21 16:30 ALT < 5 U/L (0-33) 11/11/21 16:30 Alkaline Phosphatase 84 IU/L (35-105) 11/11/21 16:30 Total Protein 7.2 g/dL (6.6-8.7) 11/11/21 16:30 Albumin 4.5 g/dL (3.5-5.2) 11/11/21 16:30 Globulin 2.7 g/dL (1.3-4.6) 11/11/21 16:30 SARS-CoV-2 Ag (Rapid) Negative (Negative) 11/11/21 17:11 Discharge Plan Discharge Patient Disposition: Placed in Observation Clinical Impression: ESRD (end stage renal disease) on dialysis, Hypertensive urgency, Hyperkalemia, diminished renal excretion Nausea & vomiting Qualifiers: Vomiting type: unspecified Qualified Code(s): R11.2 - Nausea with vomiting, unspecified Type 2 diabetes mellitus Qualifiers: Diabetes mellitus fdc insulin use: without fdc use Diabetes mellitus complication status: with hyperglycemia Qualified Code(s): E11.65 - Type 2 diabetes mellitus with hyperglycemia Closed head injury Qualifiers: Encounter type: initial encounter Qualified Code(s): S09.90XA - Unspecified injury of head, initial encounter Forehead contusion Qualifiers: Encounter type: initial encounter Qualified Code(s): S00.83XA - Contusion of other part of head, initial encounter Contusion of knee, left Qualifiers: Encounter type: initial encounter Qualified Code(s): S80.02XA - Contusion of left knee, initial encounter Coding Level of Care Code ED Gang Knife Fish Chopper for Alex Fwsukhjinder Exam Comprehensive
--- NOTE | 2021-11-11 16:32 | CTR_ITS ---
PROCEDURE INFORMATION: Exam: CT Cervical Spine Without Contrast Exam date and time: 11/11/2021 4:32 PM Age: 86 years old Clinical indication: Injury or trauma; Blunt trauma; Patient HX: C/O neck pain after fall 2 days ago; Additional info: Pain; Injury; Dialysis patient, upper forehead contusion, headache, hypertension TECHNIQUE: Imaging protocol: Computed tomography images of the cervical spine without contrast. Radiation optimization: All CT scans at this facility use at least one of these dose optimization techniques: automated exposure control; mA and/or kV adjustment per patient size (includes targeted exams where dose is matched to clinical indication); or iterative reconstruction. COMPARISON: CT head wo con* [id number] 11/11/2021 5:07 PM RADIATION DOSE METRICS: Total DLP (mGy-cm): 587.12 FINDINGS: Bones/joints: No acute fracture. Normal alignment. There is moderate osteoarthritis. Discs/Spinal canal/Neural foramina: No significant disc protrusion. No severe spinal canal stenosis. No significant neural foraminal narrowing. Lungs: Lung apices are normal. Soft tissues: Unremarkable. CT/CT cervical spin wo con* [id number] IMPRESSION: No acute findings.
[2021-11-11] MEDS: hyDRALAzine 20 mg/mL INJ 1 mL 10 MG IVP ×2 (16:38→18:42)
[2021-11-11 16:42] LABS: Basophils # 0.1 10^3/uL (0.0-0.1); Basophils % 0.4 %; Eosinophils % 0.3 %; Hematocrit 36.8 % (37.0-47.0); Hemoglobin 12.2 g/dL (11.5-15.3); Lymphocytes # 1.3 10^3/uL (0.8-4.8); Lymphocytes % 10.7 %; Mean Corpuscular HGB Conc 33.2 g/dL (30.0-36.0); Mean Corpuscular Hemoglobin 33.1 pg (28.0-34.0); Mean Corpuscular Volume 99.7 fl (81-99); Mean Platelet Volume 9.5 fL (7.4-10.4); Monocytes # 1.3 10^3/uL (0.2-0.9); Neutrophils # 9.74 10^3/uL (1.8-7.7); Neutrophils % 78.1 %; Nucleated Red Blood Cells % 0 %; Platelet Count 344 10^3/cmm (130-400); Red Blood Count 3.69 10^6/uL (4.1-5.3); Red Cell Distribution Width 14.6 % (12.1-15.1); White Blood Count 12.5 10^3/uL (4.0-10.0)
[2021-11-11 17:07] LABS: Alanine Aminotransferase < 5 U/L (0-33); Albumin Level 4.5 g/dL (3.5-5.2); Alkaline Phosphatase 84 IU/L (35-105); Anion Gap 22.9 (5-19); Aspartate Amino Transferase 37 U/L (0-32); Blood Urea Nitrogen 71 mg/dL (8-23); Calcium 10.2 mg/dL (8.5-10.5); Carbon Dioxide 21 mmol/L (22-29); Chloride 100 mmol/L (98-107); Globulin 2.7 g/dL (1.3-4.6); Glucose 160 mg/dL (65-115); Osmolality Calculated 310 mOsm/kg (285-295); Potassium 5.9 mmol/L (3.5-5.1); Sodium 138 mmol/L (136-145); Total Bilirubin 0.7 mg/dL (0.15-1.2); Total Protein 7.2 g/dL (6.6-8.7)
[2021-11-11 17:21] LABS: Glucose Point of Care 138 mg/dL (70-110)
[2021-11-11 17:48] LABS: SARS Covid-2 Antigen Negative (Negative)
[2021-11-11] MEDS: insulin regular-human 100 units/1 mL 4 UNIT IVP (18:24)
[2021-11-11] MEDS: sodium bicarbonate 8.4% 1 mEq/mL 50mL Syr 50 MEQ IVP (18:24)
[2021-11-11] MEDS: dextrose 50% syringe 50 mL IVP (18:24)
[2021-11-11 18:45] VITALS: BP 202/84; O2SAT 94
--- NOTE | 2021-11-11 19:40 | PC.NURSE ---
1900 late entry report received patient on stretcher with even equal respirations. family called for update on patient. notified of admission.
[2021-11-11 20:40] VITALS: BMI 30.2
[2021-11-11 21:39] VITALS: BP 185/70; PULSE 104; RESP 17; TEMP 37.4; O2SAT 91
[2021-11-11 21:40] VITALS: PULSE 107
[2021-11-11 23:03] LABS: Add Urine Microscopic? YES; Bilirubin Urine Neg (Negative); Blood Urine Neg (Negative); Glucose Urine UA Norm (Normal); Ketones Urine Negative (Negative); Leukocyte Esterase Urine Negative (Negative); Nitrate Urine Negative (Negative); Protein Urine 3+ (Negative); Urine Appearance Clear (CLEAR); Urine Color Yellow (Yellow); Urobilinogen Urine Norm (Negative); pH Urine 6 (5-7)
[2021-11-11 23:05] LABS: Bacteria Urine 2+ /hpf; Mucus Urine 1+ /hpf; RBC Urine 0-4 /hpf (0-2); WBC Urine 15-25 /hpf (0-5)
[2021-11-11 23:06] LABS: Add Urine Culture? No; Hyaline Casts Urine 0-4 /lpf
[2021-11-11] MEDS: heparin 5,000 unit/mL INJ 1 mL 5000 UNIT SUBCUT (23:37)
[2021-11-12] VITALS (8 sets, daily range): BP systolic 169–193; BP diastolic 70–86; PULSE 93–104; RESP 16–17; TEMP 36.4–37.4; O2SAT 90
--- NOTE | 2021-11-12 00:48 | P.HP_ITS ---
Providers/Chief Complaint Admitting Physician: Ta Cardenas Primary Care Provider: Cindy Chavarria Chief Complaint: WEAKNESS; NAUSEA History of Present Illness Cindi Melissa is a 86 year old female with past medical history of ESRD on HD who presented to hospital after she missed her HD. She is on a //Sat schedule. Missed sat due to weather. Patient noted nausea and just overall feeling weak with poor po intake. Admitted to Hospital for HD in am. Nephrology consulted in ER. Review of Systems General: Reports: 10 or more systems reviewed and unremarkable except in HPI and below Medications/Allergies Home Medications Medication Instructions Recorded Confirmed Last Taken Type Lactobacillus acidophilus and 1 cap PO DAILY #0 05/03/20 11/11/21 11/11/21 History rhamnosus 15 billion cell capsule (Probiotic) acetaminophen 500 mg tablet 500 mg PO TID PRN 05/03/20 11/11/21 05/18/20 History (Tylenol Extra Strength) aspirin 81 mg tablet,delayed 81 mg PO DAILY 05/03/20 11/11/21 11/11/21 History release carbidopa 25 mg-levodopa 100 mg 1 tab PO TID 05/03/20 11/11/21 11/11/21 History tablet citalopram 10 mg tablet 10 mg PO BEDTIME 05/03/20 11/11/21 11/10/21 History cranberry 500 mg capsule 500 mg PO DAILY 05/03/20 11/11/21 11/11/21 History omega 3-vca-ljl-fish oil 1,200 mg 1 cap PO BEDTIME #0 05/03/20 11/11/21 11/10/21 History (144 mg-216 mg) capsule (Fish Oil) omeprazole 40 mg capsule,delayed 40 mg PO DAILY 05/03/20 11/11/21 11/11/21 History release rasagiline 1 mg tablet 1 mg PO DAILY 05/03/20 11/11/21 11/11/21 History levothyroxine 150 mcg tablet 175 mcg PO DAILY #0 tab 05/09/20 11/11/21 11/11/21 Rx fluticasone propionate 50 1 spray NASAL DAILY PRN 05/18/20 11/11/21 05/17/20 History mcg/actuation nasal spray,suspension (Flonase Allergy Relief) melatonin 10 mg tablet 10 mg PO BEDTIME 05/18/20 11/11/21 11/10/21 History amlodipine 10 mg tablet 10 mg PO DAILY 09/28/20 11/11/21 11/11/21 History ascorbate calcium (vitamin C) 500 1,000 mg PO DAILY tab 09/28/20 11/11/21 11/11/21 History mg tablet chlorthalidone 25 mg tablet 25 mg PO DAILY 09/28/20 11/11/21 11/11/21 History clonidine HCl 0.1 mg tablet 0.1 mg PO BID 09/28/20 11/11/21 11/11/21 History furosemide 40 mg tablet 40 mg PO BID tab 09/28/20 11/11/21 11/11/21 History garlic 500 mg capsule 500 mg PO DAILY 09/28/20 11/11/21 11/11/21 History hydralazine 50 mg tablet 75 mg PO TID 09/28/20 11/11/21 11/11/21 History isosorbide mononitrate 30 mg 30 mg PO BID 09/28/20 11/11/21 11/11/21 History tablet,extended release 24 hr quetiapine 25 mg tablet 200 mg PO BEDTIME PRN tab 09/28/20 11/11/21 Unknown History oxybutynin chloride 5 mg tablet 5 mg PO DAILY tab 12/14/20 11/11/21 11/11/21 History calcium acetate 667 mg tablet 667 mg PO TID 06/21/21 11/11/21 11/11/21 History cetirizine 10 mg tablet 10 mg PO DAILY PRN 06/21/21 11/11/21 Unknown History docusate sodium 250 mg capsule 250 mg PO DAILY 06/21/21 11/11/21 11/11/21 History mecobalamin (vitamin B12) 1,000 500 mcg PO DAILY tab 06/21/21 11/11/21 11/11/21 History mcg chewable tablet sevelamer carbonate 800 mg tablet 800 mg PO TID 06/21/21 11/11/21 11/11/21 History (Renvela) lidocaine 5 % topical patch 1 patch TOPICAL DAILY PRN 30 Days 11/02/21 11/11/21 Unknown Rx #30 ea menthol 5 % topical gel (Biofreeze 1 ea TOPICAL BID PRN 10 Days #1 11/02/21 11/11/21 Unknown Rx (menthol)) tube ondansetron HCl 4 mg tablet 4 mg PO Q6H PRN #10 tab 11/11/21 Unknown Rx (Zofran) vitamin B complex-vitamin C 100 1 tab PO DAILY 11/11/21 11/11/21 11/11/21 History mg-folic acid 1 mg tablet (Dialyvite) Allergies Allergy/AdvReac Type Severity Reaction Status Date / Time doxycycline Allergy diarrhea Verified 06/21/21 09:06 promethazine [From Phenergan] Allergy Unknown Verified 06/21/21 09:06 Sulfa (Sulfonamide Allergy Unknown Verified 06/21/21 09:06 Antibiotics) Ghlyfpp-YNT-EqB Reductase AdvReac Severe myopathy Verified 06/21/21 09:06 Inhibitor [Lkrnyml-Xgd-Ugp Reductase Inhibitor] PFSH Acute PFSH: Medical History Acute dyspnea Anemia Benign essential HTN CKD (chronic kidney disease) Dyslipidemia (high LDL; low HDL) ESRD (end stage renal disease) -recently started on HD History of cardiac arrhythmia Hypertension -BP improved after HD, continue to monitor vital signs -continue antihypertensives Parkinson disease -continue meds Type 2 diabetes mellitus Surgical History History of colonoscopy with polypectomy History of pacemaker History of permanent cardiac pacemaker placement History of tonsillectomy and adenoidectomy Hx laparoscopic cholecystectomy S/P hemodialysis catheter insertion (~04/2020) Removed on 12/04/2020 Status post left breast lumpectomy Status post right breast lumpectomy Family History Father CAD (coronary artery disease) Sister Cancer Anesthesia complication CAD (coronary artery disease) Dementia Diabetes Mother Stroke Brother CAD (coronary artery disease) Cancer Diabetes Lung disease Family/Other Suicide Denies family history of Clotting disorder Chronic kidney disease (CKD) Bleeding disorder Social History Smoking and tobacco status: current every day smoker Alcohol intake: never Vitals/I&O/Wt Last Vital Signs Temp 99.4 F 11/12/21 00:00 Pulse 97 02/28/22 03:13 Resp 17 11/12/21 00:00 BP 180/74 11/12/21 00:00 Pulse Ox 90 11/12/21 00:00 11/11/21 11/11/21 11/12/21 14:59 22:59 06:59 Output Total 70 / 70 Balance -70 / -70 Weight last 48 hrs Weight 77.564 kg Weight 77.564 kg Weight 78.018 kg Physical Exam Const: COMMON NORMALS: no acute distress GENERAL APPEARANCE: cooperative and comfortable HENMT: COMMON NORMALS: normocephalic Eye: COMMON NORMALS: Equal, round and reactive pupils present Neck/C-Spine: COMMON NORMALS: supple Chest: COMMONS NORMALS: normal inspection of the chest and normal palpation of entire chest wall Resp: COMMON NORMALS: normal respiratory effort and No retractions Cardio: COMMON NORMALS: no JVD, regular rate, S1 normal heart sound present and S2 normal heart sound present GI: COMMON NORMALS: Normal to inspection, nondistended, normoactive bowel sounds present, Soft to palpation and non-tender Psych: COMMON NORMALS: cooperative Data : 11/11/21 16:30 11/11/21 16:30 A&P Assessment and plan (1) ESRD (end stage renal disease) on dialysis: Nephrology consult Will need HD in am Status: Acute Plan Additional Medical Problems Coronary artery disease Diabetes Mellitus Hypertension Dyslipidemia Pulmonary HTN SSS s/p PPM DVT prophylaxis * Verify home meds and resume in am Attestations Medical Necessity Statement*: Anticipate < 2 midnight stay in hospital for eval and treatment Time Spent in Patient Care: Greater than 35 minutes (>than 50% of time spent in counselling and/or direct pt care on unit) . Coding Level of Care Code Acute Associate Product Manager for Chg Fwd Diagnoses ESRD (end stage renal disease) on dialysis N18.6; Z99.2
[2021-11-12] MEDS: hyDRALAzine 20 mg/mL INJ 1 mL 10 MG IVP (05:22)
[2021-11-12 05:27] LABS: Basophils # 0.1 10^3/uL (0.0-0.1); Basophils % 0.5 %; Eosinophils # 0.2 10^3/uL (0.0-0.8); Eosinophils % 1.6 %; Hematocrit 33.8 % (37.0-47.0); Hemoglobin 11.2 g/dL (11.5-15.3); Lymphocytes # 1.9 10^3/uL (0.8-4.8); Lymphocytes % 15.5 %; Mean Corpuscular HGB Conc 33.1 g/dL (30.0-36.0); Mean Corpuscular Hemoglobin 33.1 pg (28.0-34.0); Mean Platelet Volume 10.3 fL (7.4-10.4); Monocytes # 1.5 10^3/uL (0.2-0.9); Monocytes % 12.4 %; Neutrophils # 8.37 10^3/uL (1.8-7.7); Neutrophils % 69.6 %; Nucleated Red Blood Cells % 0 %; Platelet Count 296 10^3/cmm (130-400); Red Blood Count 3.38 10^6/uL (4.1-5.3); Red Cell Distribution Width 15.1 % (12.1-15.1)
[2021-11-12 06:05] LABS: Alanine Aminotransferase < 5 U/L (0-33); Albumin Level 3.8 g/dL (3.5-5.2); Alkaline Phosphatase 69 IU/L (35-105); Blood Urea Nitrogen 78 mg/dL (8-23); Carbon Dioxide 17 mmol/L (22-29); Chloride 104 mmol/L (98-107); Globulin 2.3 g/dL (1.3-4.6); Glucose 129 mg/dL (65-115); Osmolality Calculated 315 mOsm/kg (285-295); Sodium 140 mmol/L (136-145); Total Bilirubin 0.5 mg/dL (0.15-1.2); Total Protein 6.1 g/dL (6.6-8.7)
[2021-11-12 06:13] LABS: Slide Review Slide Review Perform
[2021-11-12 06:26] LABS: Anion Gap 24.5 (5-19); Aspartate Amino Transferase 33 U/L (0-32); Potassium 5.5 mmol/L (3.5-5.1)
[2021-11-12 06:35] LABS: Glucose Point of Care 132 mg/dL (70-110)
[2021-11-12] MEDS: hyDRALAzine 50 mg Tablet 75 MG PO (09:38)
[2021-11-12] MEDS: amlodipine 10 mg Tablet PO (09:38)
[2021-11-12] MEDS: levothyroxine 175 mcg Tablet PO (09:38)
[2021-11-12] MEDS: carbidopa-levodopa 25-100mg Tablet 1 EACH PO (09:38)
[2021-11-12] MEDS: cloNIDine 0.1 mg Tablet PO (09:39)
[2021-11-12] MEDS: isosorbide mononitrate ER 30 mg Tablet PO (09:39)
[2021-11-12] MEDS: aspirin 81 mg EC Tablet PO (09:39)
--- NOTE | 2021-11-12 11:04 | PM.CONSULT ---
Providers/Reason For Consult Consulting Physician/Specialty*: Nephro Reason for Consult*: ESRD mgmt Attending Physician: Darius Henderson Primary Care Provider: Cindy Chavarria History of Present Illness History of Present Illness Ms. Melissa presented to the hospital with weakness, nausea, feeling generally unwell. She is did miss her dialysis, secondary to very poor weather and could not get to dialysis unit. She is now seen and examined on hemodialysis today, currently tolerating the treatment well with no discernible side effects. Hemodynamics reviewed, dialysis parameters reviewed. Review of Systems Narrative: ROS - 12 point review of systems completed per HPI and subjective assessment, this includes Constitutional: Weakness, fatigue Respiratory: No SOB on exertion, comfortable at rest CardioVasc: No chest pain, palpitations Gastrointestinal: Nausea, no vomiting Neurological: No seizures, no AMS Derm: No new rashes, lesions or wounds Immunological: No seasonal and no food allergies Medications/Allergies Home Medications Medication Instructions Recorded Confirmed Last Taken Type Lactobacillus acidophilus and 1 cap PO DAILY #0 05/03/20 11/11/21 11/11/21 History rhamnosus 15 billion cell capsule (Probiotic) acetaminophen 500 mg tablet 500 mg PO TID PRN 05/03/20 11/11/21 05/18/20 History (Tylenol Extra Strength) aspirin 81 mg tablet,delayed 81 mg PO DAILY 05/03/20 11/11/21 11/11/21 History release carbidopa 25 mg-levodopa 100 mg 1 tab PO TID 05/03/20 11/11/21 11/11/21 History tablet citalopram 10 mg tablet 10 mg PO BEDTIME 05/03/20 11/11/21 11/10/21 History cranberry 500 mg capsule 500 mg PO DAILY 05/03/20 11/11/21 11/11/21 History omega 4-rcv-sap-fish oil 1,200 mg 1 cap PO BEDTIME #0 05/03/20 11/11/21 11/10/21 History (144 mg-216 mg) capsule (Fish Oil) omeprazole 40 mg capsule,delayed 40 mg PO DAILY 05/03/20 11/11/21 11/11/21 History release rasagiline 1 mg tablet 1 mg PO DAILY 05/03/20 11/11/21 11/11/21 History levothyroxine 150 mcg tablet 175 mcg PO DAILY #0 tab 05/09/20 11/11/21 11/11/21 Rx fluticasone propionate 50 1 spray NASAL DAILY PRN 05/18/20 11/11/21 05/17/20 History mcg/actuation nasal spray,suspension (Flonase Allergy Relief) melatonin 10 mg tablet 10 mg PO BEDTIME 05/18/20 11/11/21 11/10/21 History amlodipine 10 mg tablet 10 mg PO DAILY 09/28/20 11/11/21 11/11/21 History ascorbate calcium (vitamin C) 500 1,000 mg PO DAILY tab 09/28/20 11/11/21 11/11/21 History mg tablet chlorthalidone 25 mg tablet 25 mg PO DAILY 09/28/20 11/11/21 11/11/21 History clonidine HCl 0.1 mg tablet 0.1 mg PO BID 09/28/20 11/11/21 11/11/21 History furosemide 40 mg tablet 40 mg PO BID tab 09/28/20 11/11/21 11/11/21 History garlic 500 mg capsule 500 mg PO DAILY 09/28/20 11/11/21 11/11/21 History hydralazine 50 mg tablet 75 mg PO TID 09/28/20 11/11/21 11/11/21 History isosorbide mononitrate 30 mg 30 mg PO BID 09/28/20 11/11/21 11/11/21 History tablet,extended release 24 hr quetiapine 25 mg tablet 200 mg PO BEDTIME PRN tab 09/28/20 11/11/21 Unknown History oxybutynin chloride 5 mg tablet 5 mg PO DAILY tab 12/14/20 11/11/21 11/11/21 History calcium acetate 667 mg tablet 667 mg PO TID 06/21/21 11/11/21 11/11/21 History cetirizine 10 mg tablet 10 mg PO DAILY PRN 06/21/21 11/11/21 Unknown History docusate sodium 250 mg capsule 250 mg PO DAILY 06/21/21 11/11/21 11/11/21 History mecobalamin (vitamin B12) 1,000 500 mcg PO DAILY tab 06/21/21 11/11/21 11/11/21 History mcg chewable tablet sevelamer carbonate 800 mg tablet 800 mg PO TID 06/21/21 11/11/21 11/11/21 History (Renvela) lidocaine 5 % topical patch 1 patch TOPICAL DAILY PRN 30 Days 11/02/21 11/11/21 Unknown Rx #30 ea menthol 5 % topical gel (Biofreeze 1 ea TOPICAL BID PRN 10 Days #1 11/02/21 11/11/21 Unknown Rx (menthol)) tube ondansetron HCl 4 mg tablet 4 mg PO Q6H PRN #10 tab 11/11/21 Unknown Rx (Zofran) vitamin B complex-vitamin C 100 1 tab PO DAILY 11/11/21 11/11/21 11/11/21 History mg-folic acid 1 mg tablet (Dialyvite) Allergies Allergy/AdvReac Type Severity Reaction Status Date / Time doxycycline Allergy diarrhea Verified 06/21/21 09:06 promethazine [From Phenergan] Allergy Unknown Verified 06/21/21 09:06 Sulfa (Sulfonamide Allergy Unknown Verified 06/21/21 09:06 Antibiotics) Qcypzlt-[id number]-XiU Reductase AdvReac Severe myopathy Verified 06/21/21 09:06 Inhibitor [Vblcogg-Wxy-Jap Reductase Inhibitor] Current Medications Generic Name Dose Route Start Last Admin Trade Name Freq PRN Reason Stop Dose Admin Amlodipine Besylate 10 mg 11/12/21 09:00 11/12/21 09:38 Amlodipine 10 Mg Tablet PO 10 mg DAILY [facility] Administration Aspirin 81 mg 11/12/21 09:00 11/12/21 09:39 Aspirin 81 Mg Ec Tablet PO 81 mg DAILY [facility] Administration Carbidopa/Levodopa 1 each 11/12/21 09:00 11/12/21 09:38 Carbidopa-Levodopa 25-100mg Tablet PO 1 each TID [facility] Administration Clonidine HCl 0.1 mg 11/12/21 09:00 11/12/21 09:39 Clonidine 0.1 Mg Tablet PO 0.1 mg BID [facility] Administration Heparin Sodium (Porcine) 5,000 unit 11/11/21 23:15 11/11/21 23:37 Heparin 5,000 Unit/Ml Inj 1 Ml SUBCUT 5,000 unit Q12H [facility] Administration Hydralazine HCl 75 mg 11/12/21 09:00 11/12/21 09:38 Hydralazine 50 Mg Tablet PO 75 mg TID [facility] Administration Isosorbide Mononitrate 30 mg 11/12/21 09:00 11/12/21 09:39 Isosorbide Mononitrate Er 30 Mg Tablet PO 30 mg BID [facility] Administration Levothyroxine Sodium 175 mcg 11/12/21 09:00 11/12/21 09:38 Levothyroxine 175 Mcg Tablet PO 175 mcg DAILY [facility] Administration Sevelamer Carbonate 800 mg 11/12/21 09:00 11/12/21 09:46 Sevelamer 800 Mg Tablet PO Not Given TID [facility] PFSH Acute PFSH: Medical History Acute dyspnea Anemia Benign essential HTN CKD (chronic kidney disease) Dyslipidemia (high LDL; low HDL) ESRD (end stage renal disease) -recently started on HD History of cardiac arrhythmia Hypertension -BP improved after HD, continue to monitor vital signs -continue antihypertensives Parkinson disease -continue meds Type 2 diabetes mellitus Surgical History History of colonoscopy with polypectomy History of pacemaker History of permanent cardiac pacemaker placement History of tonsillectomy and adenoidectomy Hx laparoscopic cholecystectomy S/P hemodialysis catheter insertion (~04/2020) Removed on 12/04/2020 Status post left breast lumpectomy Status post right breast lumpectomy Family History Father CAD (coronary artery disease) Sister Cancer Anesthesia complication CAD (coronary artery disease) Dementia Diabetes Mother Stroke Brother CAD (coronary artery disease) Cancer Diabetes Lung disease Family/Other Suicide Denies family history of Clotting disorder Chronic kidney disease (CKD) Bleeding disorder Social History Smoking and tobacco status: current every day smoker Alcohol intake: never Vitals/I&O/Wt Last Vital Signs Temp 97.5 F L 11/12/21 08:00 Pulse 104 H 11/12/21 08:00 Resp 16 11/12/21 08:00 BP 187/86 11/12/21 09:39 Pulse Ox 90 11/12/21 04:00 11/11/21 11/12/21 11/12/21 22:59 06:59 14:59 Output Total 70 / 70 200 / 270 Balance -70 / -70 -200 / -270 Weight last 48 hrs Weight 77.564 kg Weight 77.564 kg Weight 78.018 kg Physical Exam Narrative: Constitutional: Awake, comfortable HEENT: Wet mucosa, no jvp, non icteric Lungs: Bilaterally clear without discernible wheeze, rales in all lung zones CVS: S1 S2, no murmurs Abdo: Soft, BS ok Ext 4: Minimal edema, peripheral perfusion with no cyanosis Neurological: Grossly non-focal Data : 11/12/21 04:39 11/12/21 04:39 A&P Assessment and plan (1) ESRD (end stage renal disease) on dialysis: Status: Acute Plan 1. ESRD Dialysis today, plan to do dialysis again tomorrow if she remains in the hospital, however, I anticipate that she will be discharged with plans for dialysis as an outpatient in her clinic. 2. Chemistry Minor noncritical aberration reflective of not having dialysis, this should correct with dialysis. 3. Hemodynamics Remains stable on dialysis 4. Chronic ESRD issues To be managed as an outpatient as part of standard monthly management. 5. Disposition Okay for discharge after dialysis today from my own perspective Talat Staples MD Nephrology [phone] Patient seen and examined via telemedicine, with the assistance of the bedside RN > 25 min spent in evaluation and mgmt of patient Consult Attestations Medical Necessity Statement: Eval for ESRD Coding Level of Care Code Acute Warehouse Sorter for g Fwd Diagnoses ESRD (end stage renal disease) on dialysis N18.6; Z99.2
--- NOTE | 2021-11-12 12:05 | PC.CHAP ---
Pastoral Care Encounter/Spiritual Assessment Type of Contact [] Declined leaf blender visit [] Patient/Family/Request visit [] Outpatient visit [] Follow-up visit [] Physician referral [] Code/Alert [x] Routine visit [] Staff referral [] Actively dying [] Patient sleeping [] Family support [] [x] Out of room [] Palliative care [] [] Receiving care in room [] Pre-surgical visit [] Trauma [] Long length of stay [] ICU visit [] Other: Relational/Emotional Strength [] Patient feels connected with others/family/visitors/staff [] Distress [] Loneliness/isolation [] Abandonment Spirituality of Patient [] Person of Annalise [] Attends Episcopalian of their Annalise [] Believes in Prayer [] Reads Bible or Orthodox materials [] There are Spiritual issues to be addressed Bath Tester Interventions [] Prayer [] Active listening [] Non-anxious presence [] Spiritual/emotional support [] Crisis/trauma care [] Spiritual counseling [] Bereavement support [] Provided bereavement packet [] Provided Bible/devotional materials [] Provided toy/stuffed animal, coloring book to patient or family member [] Provided Communion [] Anointing/[place] [] Salvation [] Completed spiritual assessment [] Other: Impact on Illness or Injury [] Angry [] Fearful [] Anxious [] Often cries [] Exhaustion [] Unable to work [] Unable to attend cheondoism [] Unable to walk/stand [] Unable to read [] Unable to drive [] Unable to eat/drink [] Unable to sleep [] Unable to be with family [] Patient intubated [] Other: Summary Time spent with patient
--- NOTE | 2021-11-12 12:47 | P.DS_ITS ---
Discharge Providers Date of Admission: 11/11/21 19:39 Date of Discharge: November 12, 2021 Attending Provider at Admission: Ta Cardenas Attending Provider at Discharge: Darius Henderson Primary Care Provider: Cindy Chavarria Diagnoses at Discharge Discharge Diagnosis (1) ESRD (end stage renal disease) on dialysis: Status: Acute Reason for Visit Reason for Visit: WEAKNESS; NAUSEA Hospital Course Hospital Course Pleasant 86-year-old lady to administer hemodialysis on Friday due to weather conditions was admitted due to malaise, nausea, vomiting, had also sustained a fall to her knee and hit her forehead outside her home. Images and assessment in ER did not reveal any acute fractures on knee x-ray, CT C-spine, CT head Abdominal x-ray without acute findings. On presentation with noted hyperkalemia, potassium 5.5, metabolic acidosis, bicarb 17 anion gap 24.5, creatinine 7.2, BUN 78. Undergoing hemodialysis today and is asked to resume outpatient hemodialysis. Blood pressures noted elevated on presentation, as high as 216/86. Suspected related to her malaise, doing better currently 169/70. Contaminated UA noted on presentation. Asked for repeat sample. Physical Exam Const: COMMON NORMALS: no acute distress, patient oriented x3 and alert GENERAL APPEARANCE: cooperative NUTRITIONAL APPEARANCE: overweight ORIENTATION/CONSCIOUSNESS: Yes awake HENMT: COMMON NORMALS: oropharynx normal Neck/C-Spine: COMMON NORMALS: no JVD Resp: COMMON NORMALS: normal respiratory effort and clear to auscultation bilaterally AUSCULTATION: clear to auscultation bilaterally Cardio: COMMON NORMALS: no JVD, regular rhythm, S1 normal heart sound present, S2 normal heart sound present and No murmurs present (Cardio) RHYTHM: regular rhythm HEART SOUNDS: S1 normal heart sound present and S2 normal heart sound present GI: COMMON NORMALS: Normal to inspection, nondistended, normoactive bowel sounds present, Soft to palpation and non-tender PALPATION: Yes Soft to palpation Extremity: COMMON NORMALS: no joint enlargement and no pedal edema Neuro: COMMON NORMALS: patient oriented x3 and moves all extremities SENSORIUM/ORIENTATION: Yes alert Skin: COMMON NORMALS: no rashes or lesions noted GENERAL SKIN EXAM: no rashes or lesions noted Discharge Data Studies Completed and Pending Completed Studies During Hospitalization Category Date Time Status CT cervical spin wo con* [id number] Urgent Cat Scan 11/11/21 16:[address] head wo con* [id number] Urgent Cat Scan 11/11/21 16:14 Completed XR abdomen 1V* [id number] Urgent Exams 11/11/21 16:14 Completed XR knee LT 4V [id number] Urgent Exams 11/11/21 16:12 Completed Pending at discharge Category Date Time Status UA w/Reflex to Microscope [Urinalysis] Routine Lab 11/12/21 12:45 Uncollected Radiology Impressions Knee X-Ray 11/11/21 16:12 IMPRESSION: 1. No acute bony abnormality. 2. Osteopenia and osteoarthritis. Abdomen X-Ray 11/11/21 16:14 IMPRESSION: 1. No acute findings. 2. Status post cholecystectomy. Head CT 11/11/21 16:14 IMPRESSION: No acute intracranial abnormality. Cervical Spine CT 11/11/21 16:32 IMPRESSION: No acute findings. Laboratory Results WBC 12.0 10^3/uL (4.0-10.0) H 11/12/21 04:39 RBC 3.38 10^6/uL (4.1-5.3) L 11/12/21 04:39 Hgb 11.2 g/dL (11.5-15.3) L 11/12/21 04:39 Hct 33.8 % (37.0-47.0) L 11/12/21 04:39 MCV 100.0 fl (81-99) H 11/12/21 04:39 MCH 33.1 pg (28.0-34.0) 11/12/21 04:39 MCHC 33.1 g/dL (30.0-36.0) 11/12/21 04:39 RDW 15.1 % (12.1-15.1) 11/12/21 04:39 Plt Count 296 10^3/cmm (130-400) 11/12/21 04:39 MPV 10.3 fL (7.4-10.4) 11/12/21 04:39 Neut % (Auto) 69.6 % 11/12/21 04:39 Lymph % (Auto) 15.5 % 11/12/21 04:39 [place] % (Auto) 12.4 % 11/12/21 04:39 Eos % (Auto) 1.6 % 11/12/21 04:39 Baso % (Auto) 0.5 % 11/12/21 04:39 Neut # (Auto) 8.37 10^3/uL (1.8-7.7) H 11/12/21 04:39 Lymph # (Auto) 1.9 10^3/uL (0.8-4.8) 11/12/21 04:39 [place] # (Auto) 1.5 10^3/uL (0.2-0.9) H 11/12/21 04:39 Eos # (Auto) 0.2 10^3/uL (0.0-0.8) 11/12/21 04:39 Baso # (Auto) 0.1 10^3/uL (0.0-0.1) 11/12/21 04:39 Nucleated RBC % (auto) 0 % 11/12/21 04:39 Nucleated RBCs # 0.0 /100WBC 11/12/21 04:39 Sodium 140 mmol/L (136-145) 11/12/21 04:39 Potassium 5.5 mmol/L (3.5-5.1) H 11/12/21 04:39 Chloride 104 mmol/L (98-107) 11/12/21 04:39 Carbon Dioxide 17 mmol/L (22-29) L 11/12/21 04:39 Anion Gap 24.5 (5-19) H 11/12/21 04:39 BUN 78 mg/dL (8-23) H 11/12/21 04:39 Creatinine 7.2 mg/dL (0.5-0.9) H* 11/12/21 04:39 GFR Calculation Not Reportable 11/12/21 04:39 Glucose 129 mg/dL (65-115) H 11/12/21 04:39 POC Glucose 132 mg/dL (70-110) H 11/12/21 06:32 Calculated Osmolality 315 mOsm/kg (285-295) H 11/12/21 04:39 Calcium 10.0 mg/dL (8.5-10.5) 11/12/21 04:39 Total Bilirubin 0.5 mg/dL (0.15-1.2) 11/12/21 04:39 AST 33 U/L (0-32) H 11/12/21 04:39 ALT < 5 U/L (0-33) 11/12/21 04:39 Alkaline Phosphatase 69 IU/L (35-105) 11/12/21 04:39 Total Protein 6.1 g/dL (6.6-8.7) L 11/12/21 04:39 Albumin 3.8 g/dL (3.5-5.2) 11/12/21 04:39 Globulin 2.3 g/dL (1.3-4.6) 11/12/21 04:39 Urine Color Yellow (Yellow) 11/11/21 22:15 Urine Appearance Clear (CLEAR) 11/11/21 22:15 Urine pH 6 (5-7) 11/11/21 22:15 Ur Specific [place] 1.010 (1.005-1.030) 11/11/21 22:15 Urine Protein 3+ (Negative) H 11/11/21 22:15 Urine Glucose (UA) Norm (Normal) 11/11/21 22:15 Urine Ketones Negative (Negative) 11/11/21 22:15 Urine Blood Neg (Negative) 11/11/21 22:15 Urine Nitrate Negative (Negative) 11/11/21 22:15 Urine Bilirubin Neg (Negative) 11/11/21 22:15 Urine Urobilinogen Norm mg/dL (Negative) 11/11/21 22:15 Ur Leukocyte Esterase Negative (Negative) 11/11/21 22:15 Urine RBC 0-4 /hpf (0-2) H 11/11/21 22:15 Urine WBC 15-25 /hpf (0-5) H 11/11/21 22:15 Ur Squamous Epith Cells 10-15 /hpf (0-5) H 11/11/21 22:15 Amorphous Sediment Not Reportable 11/11/21 22:15 Urine Bacteria 2+ /hpf (NONE) H 11/11/21 22:15 Hyaline Casts 0-4 /lpf H 11/11/21 22:15 Urine Mucus 1+ /hpf 11/11/21 22:15 SARS-CoV-2 Ag (Rapid) Negative (Negative) 11/11/21 17:11 Vitals Last Vital Signs Temp 97.6 F 11/12/21 11:58 Pulse 100 11/12/21 11:58 Resp 16 11/12/21 11:58 BP 169/70 11/12/21 11:58 Pulse Ox 90 11/12/21 11:58 Discharge Plan Discharge Patient Disposition: Home Condition: Stable Prescriptions: New Zofran 4 mg tablet 4 mg PO Q6H PRN (Reason: nausea and vomiting) Qty: 10 0RF Continued hydralazine 50 mg tablet 75 mg PO TID 0RF amlodipine 10 mg tablet 10 mg PO DAILY 0RF clonidine HCl 0.1 mg tablet 0.1 mg PO BID 0RF chlorthalidone 25 mg tablet 25 mg PO DAILY 0RF isosorbide mononitrate 30 mg tablet extended release 24 hr 30 mg PO BID 0RF garlic 500 mg capsule 500 mg PO DAILY 0RF ascorbate calcium (vitamin C) 500 mg tablet 1,000 mg PO DAILY 0RF docusate sodium 250 mg capsule 250 mg PO DAILY 0RF calcium acetate 667 mg tablet 667 mg PO TID 0RF sevelamer carbonate [Renvela] 800 mg tablet 800 mg PO TID 0RF Rx Instructions: must administer with a meal/food mecobalamin (vitamin B12) 1,000 mcg tablet,chewable 500 mcg PO DAILY 0RF cetirizine 10 mg tablet 10 mg PO DAILY PRN (Reason: Allergy Symptoms) 0RF lidocaine 5 % adhesive patch,medicated 1 patch topical DAILY PRN (Reason: pain) 30 Days Qty: 30 0RF Rx Instructions: leave on most painful area for up to 12 hrs Biofreeze (menthol) 5 % gel 1 ea topical BID PRN (Reason: pain) 10 Days Qty: 1 0RF citalopram 10 mg tablet 10 mg PO BEDTIME 0RF omeprazole 40 mg capsule,delayed release(DR/EC) 40 mg PO DAILY 0RF aspirin 81 mg Tablet,Delayed Release (Dr/Ec) 81 mg PO DAILY 0RF acetaminophen [Tylenol Extra Strength] 500 mg Tablet 500 mg PO TID PRN (Reason: Pain) 0RF carbidopa-levodopa 25-100 mg tablet 1 tab PO TID 0RF cranberry 500 mg Capsule 500 mg PO DAILY 0RF rasagiline 1 mg tablet 1 mg PO DAILY 0RF omega 6-cou-imn-fish oil [Fish Oil] 1,200 (144-216) mg Capsule 1 cap PO BEDTIME Qty: 0 0RF Probiotic 15 billion cell Capsule 1 cap PO DAILY Qty: 0 0RF levothyroxine 150 mcg tablet 175 mcg PO DAILY Qty: 0 0RF oxybutynin chloride 5 mg tablet 5 mg PO DAILY 0RF melatonin 10 mg Tablet 10 mg PO BEDTIME 0RF fluticasone propionate [Flonase Allergy Relief] 50 mcg/actuation spray,suspension 1 spray nasal DAILY PRN (Reason: Nasal Congestion) 0RF quetiapine 25 mg tablet 200 mg PO BEDTIME PRN (Reason: Sleep) 0RF furosemide 40 mg tablet 40 mg PO BID 0RF Dialyvite 100-1 mg Tablet 1 tab PO DAILY 0RF Discharge Orders: Discharge Order (Routine); Ordered 11/12/21 Ordered By: Darius Henderson Referrals: Cindy Chavarria PA [Primary Care Provider] - 4-7 days Discharge Activity: Increase activity as tolerated Patient Instructions: Concussion (ED), Hyperkalemia (ED), End Stage Kidney Disease (ED), Opioid Safety Activity Restrictions/Additional Instructions: Take your nightly medications when you get home. New medication as needed for nausea or vomiting. Return for worsening of symptoms, mental status, vomiting liquids or medications despite treatment, any other concerning symptoms. Call your dialysis clinic to resume dialysis. Discharge Attestations Time Spent in Discharge Care*: greater than 30 min Status at Discharge: Cognitive status at discharge: cognitively intact , Behavioral status at discharge: cooperative , Quality Metrics Clinical Quality Measures [ No reported AMI, CVA or VTE this stay] Coding Level of Care Code Acute Chg EDDIE FISHER note Exam Comprehensive Diagnoses ESRD (end stage renal disease) on dialysis N18.6; Z99.2
--- NOTE | 2021-11-12 15:28 | PC.NURSE ---
Bladder Scan showed [address] Brooks . Patient can discharge home
[2021-11-12 15:52] LABS: Urine Appearance SL Hazy (CLEAR); Urine Color Dark Yellow (Yellow); pH Urine 6.5 (5-7)
[2021-11-12 15:53] LABS: Add Urine Microscopic? YES; Bilirubin Urine 1+ (Negative); Blood Urine 2+ (Negative); Glucose Urine UA Norm (Normal); Ketones Urine 1+ (Negative); Leukocyte Esterase Urine Trace (Negative); Nitrate Urine Negative (Negative); Protein Urine 3+ (Negative); RBC Urine 0-4 /hpf (0-2); Squamous Epithelial Cell Urine 25-40 /hpf (0-5); Urobilinogen Urine Norm (Negative)
[2021-11-12 15:54] LABS: Add Urine Culture? No; Bacteria Urine 1+ /hpf
== END 2021-11-12 15:45 | disposition home or self-care (01) ==
LOC: ER 19:38 → MEDSURG 20:22
PROVIDERS: Family Medicine; Admitting Provider Hospitalist; Emergency Provider Emergency Medicine; PCP Physician Assistant; Visit Provider Internal Medicine
DX: E11.22 Type 2 diabetes mellitus with diabetic chronic kidney disease (principal); I12.0 Hypertensive chronic kidney disease with stage 5 chronic kidney disease or end stage renal disease; N18.6 End stage renal disease; Z99.2 Dependence on renal dialysis; Z91.81 History of falling; M85.80 Other specified disorders of bone density and structure, unspecified site; M19.90 Unspecified osteoarthritis, unspecified site; E78.5 Hyperlipidemia, unspecified; G20 Parkinson's disease; Z82.49 Family history of ischemic heart disease and other diseases of the circulatory system; F17.210 Nicotine dependence, cigarettes, uncomplicated
CPT/HCPCS: 36416; 70450; 72125; 73564; 74018; 80053; 81001; 82962; 85025; 87426; 96372; 96374; 96375; 96376; 99285; G0378; J0360; J1644; J1815; Q3014

== ENCOUNTER 2021-11-14 11:31 | Emergency (ER) | payer MEDICARE, BC, SELFPAY ==
--- NOTE | 2021-11-14 11:39 | CT_ITS ---
WS: [id number] CT HEAD TECHNIQUE: Noncontrast CT of the head obtained from the skullbase to the vertex. CLINICAL INFORMATION: head injury COMPARISON: CT November 11, 2021 DLP: 867.[address] scans at [facility] use at least one of these dose optimization techniques: automated e xposure control; mA and/or kV adjustment per patient size (includes targeted exams where dose is matc hed to clinical indication); or iterative reconstruction. FINDINGS: No evidence of intracranial hemorrhage or mass effect. Ventricular system and basal cisterns are tamayo nt. Moderate small vessel changes with moderate parenchymal volume loss. Intracranial vascular calcif ication. Chronic lacunar infarct LEFT caudate. No extra-axial fluid collections. No evidence of mass or mass effect. Paranasal sinuses and mastoid air cells are well aerated. .Normal visualized soft tissues. CT/CT head wo con* [id number] IMPRESSION: 1. No evidence of intracranial hemorrhage or mass effect. 2. Moderate small vessel changes. Moderate parenchymal volume loss. 3. Chronic lacunar infarcts LEFT caudate. 4. Intracranial vascular calcification. 5. No acute intracranial findings and no changes since November 11, 2021.
[2021-11-14 11:56] VITALS: BP 151/64; PULSE 90; RESP 19; TEMP 36.8; O2SAT 95; BMI 28.8
--- NOTE | 2021-11-14 12:53 | W.ED.FALL ---
HPI - Fall General: Chief Complaint: Fall Stated Complaint: Memory problems, recent fall Time Seen by Provider: 11/14/21 12:53 History of Present Illness: Ms Melissa is an 86-year-old lady with history of hypertension, hyperlipidemia, CAD, end-stage renal disease on hemodialysis who presents the emergency department due to confusion. She was hospitalized after a fall with head injury on 11/11 and discharged 11/12, during that hospitalization she required hemodialysis as she was unable to get it at her normal site due to weather cancellations and limited transport. She had had intermittent confusion since this event however was noticed to be markedly confused at dialysis today. She did not receive a complete run of dialysis. She endorses knowledge of being confused but does not have an explanation for symptoms. There were not reported focal neurologic deficits associated with this. She currently feels improved back to baseline with exception of only other symptom of decreased urine output and decreased p.o. intake. Typically she produces urine every 3-4 hours despite being on hemodialysis. Overall intensity symptoms when present is severe. Course waxes and wanes. No other specific exacerbating, or relieving factors that the patient identifies. She has not had falls since hospitalization. Onset (ago): day(s) Review of Systems General: Reports: 10 or more systems reviewed and unremarkable except in HPI and below PFSH ED PFSH: Medical History Acute dyspnea Anemia Benign essential HTN CKD (chronic kidney disease) Closed head injury Contusion of knee, left Dyslipidemia (high LDL; low HDL) ESRD (end stage renal disease) -recently started on HD ESRD (end stage renal disease) on dialysis Forehead contusion History of cardiac arrhythmia Hypertension -BP improved after HD, continue to monitor vital signs -continue antihypertensives Parkinson disease -continue meds Type 2 diabetes mellitus Surgical History History of colonoscopy with polypectomy History of pacemaker History of permanent cardiac pacemaker placement History of tonsillectomy and adenoidectomy Hx laparoscopic cholecystectomy S/P hemodialysis catheter insertion (~04/2020) Removed on 12/04/2020 Status post left breast lumpectomy Status post right breast lumpectomy Family History Father CAD (coronary artery disease) Sister Cancer Anesthesia complication CAD (coronary artery disease) Dementia Diabetes Mother Stroke Brother CAD (coronary artery disease) Cancer Diabetes Lung disease Family/Other Suicide Denies family history of Clotting disorder Chronic kidney disease (CKD) Bleeding disorder Social History Smoking and tobacco status: current every day smoker Alcohol intake: never Physical Exam Const: COMMON NORMALS: patient oriented x3 and alert GENERAL APPEARANCE: cooperative and well developed HENMT: COMMON NORMALS: normocephalic and atraumatic HEAD & SCALP: normocephalic and atraumatic THROAT: posterior oropharynx normal Eye: COMMON NORMALS: conjunctivae normal CONJUNCTIVA: Yes conjunctivae normal SCLERA: sclerae normal Neck/C-Spine: COMMON NORMALS: supple GENERAL: Yes trachea midline Resp: COMMON NORMALS: normal respiratory effort EFFORT & INSPECTION: Yes able to speak in complete sentences Cardio: COMMON NORMALS: regular rate and regular rhythm RATE: regular rate RHYTHM: regular rhythm GI: COMMON NORMALS: Soft to palpation PALPATION: Yes Soft to palpation and No Tenderness to palpation present (GI) PERCUSSION: normal to percussion Extremity: GENERAL: Yes normal exam except as noted and No edema Neuro: COMMON NORMALS: patient oriented x3, CN's II-XII intact bilaterally, moves all extremities, no focal motor deficits and no sensory deficits noted SENSORIUM/ORIENTATION: Yes alert and No Orientation impaired Psych: COMMON NORMALS: mental status grossly normal and Normal thought process present THOUGHT PROCESS: Normal thought process present Course ED course: - Patient was seen and evaluated by me at bedside - Patient placed on cardiac monitors, IV access obtained - Initial evaluation notable for exam as above, no focal neurologic deficits NIHSS 0 - Labs notable for no leukocytosis, normal hemoglobin. No acute metabolic derangement significant to explain patient's symptoms. Urinalysis not concerning for urinary tract infection. - Imaging notable for no acute finding on CT head. - Upon serial reexamination after treatment the patient was similar - Based on patient history, evaluation, labs, and imaging as interpreted the most likely cause of the patient's condition is unclear, possibly related to prior head injury. I did discuss the case with neurology, plan for outpatient EEG. - The results of ED evaluation were discussed with the patient including prescriptions and/or symptomatic cares (if applicable) including appropriate and responsible use, seizure precautions, followup plan, and return precautions. The patient verbalized understanding and felt safe for discharge. - Patient discharged in satisfactory condition. Note: Click bubbles or prepopulated blanton in note writing are used for assistance with data collection and billing and are inherently more limited than narrative and other text portions of this note. Please use narrative for additional clinical history and defer to narrative/free test for any case of contradictory information. If information appears in only free text or click bubble it should be considered present or absent as reported. Please contact note securities underwriter for clarifications of clinical information or contradictory information. MDM is a brief summary, contradictory or erroneous seeming information should be clarified and full note should be reviewed. Vital Signs: Vital signs: Vital Signs Temperature 98.4 F 11/14/21 17:47 Pulse Rate 97 11/14/21 17:47 Respiratory Rate 15 11/14/21 17:47 Blood Pressure 172/92 11/14/21 17:47 Pulse Oximetry 91 11/14/21 17:47 MDM - Fall Medical Decision Making 86-year-old lady with complex past medical history presenting with confusion and episodes of behavioral change. Patient does have a history of hospitalization for head injury though no recurrent trauma. No obvious cause found on ED evaluation, plan to have patient follow-up for EEG after discussion with neurology. Satisfactory for outpatient management. Medical Records I reviewed the patient's medical records. Lab Data I reviewed the patient's lab results. : 11/14/21 14:50 11/14/21 14:[address] 11/14/21 11:39 IMPRESSION: 1. No evidence of intracranial hemorrhage or mass effect. 2. Moderate small vessel changes. Moderate parenchymal volume loss. 3. Chronic lacunar infarcts LEFT caudate. 4. Intracranial vascular calcification. 5. No acute intracranial findings and no changes since November 11, 2021. Laboratory Results WBC 7.7 10^3/uL (4.0-10.0) 11/14/21 14:50 RBC 3.68 10^6/uL (4.1-5.3) L 11/14/21 14:50 Hgb 12.0 g/dL (11.5-15.3) 11/14/21 14:50 Hct 36.9 % (37.0-47.0) L 11/14/21 14:50 MCV 100.3 fl (81-99) H 11/14/21 14:50 MCH 32.6 pg (28.0-34.0) 11/14/21 14:50 MCHC 32.5 g/dL (30.0-36.0) 11/14/21 14:50 RDW 14.3 % (12.1-15.1) 11/14/21 14:50 Plt Count 335 10^3/cmm (130-400) 11/14/21 14:50 MPV 9.9 fL (7.4-10.4) 11/14/21 14:50 Neut % (Auto) 52.4 % 11/14/21 14:50 Lymph % (Auto) 26.4 % 11/14/21 14:50 [place] % (Auto) 14.2 % 11/14/21 14:50 Eos % (Auto) 5.7 % 11/14/21 14:50 Baso % (Auto) 1.0 % 11/14/21 14:50 Neut # (Auto) 4.04 10^3/uL (1.8-7.7) 11/14/21 14:50 Lymph # (Auto) 2.0 10^3/uL (0.8-4.8) 11/14/21 14:50 [place] # (Auto) 1.1 10^3/uL (0.2-0.9) H 11/14/21 14:50 Eos # (Auto) 0.4 10^3/uL (0.0-0.8) 11/14/21 14:50 Baso # (Auto) 0.1 10^3/uL (0.0-0.1) 11/14/21 14:50 Nucleated RBC % (auto) 0 % 11/14/21 14:50 Nucleated RBCs # 0.0 /100WBC 11/14/21 14:50 Sodium 140 mmol/L (136-145) 11/14/21 14:50 Potassium 3.8 mmol/L (3.5-5.1) 11/14/21 14:50 Chloride 97 mmol/L (98-107) L 11/14/21 14:50 Carbon Dioxide 28 mmol/L (22-29) 11/14/21 14:50 Anion Gap 18.8 (5-19) 11/14/21 14:50 BUN 27 mg/dL (8-23) H 11/14/21 14:50 Creatinine 3.7 mg/dL (0.5-0.9) H 11/14/21 14:50 GFR Calculation Not Reportable 11/14/21 14:50 Glucose 82 mg/dL (65-115) 11/14/21 14:50 Calculated Osmolality 294 mOsm/kg (285-295) 11/14/21 14:50 Calcium 9.0 mg/dL (8.5-10.5) 11/14/21 14:50 Total Bilirubin 0.4 mg/dL (0.15-1.2) 11/14/21 14:50 AST 28 U/L (0-32) 11/14/21 14:50 ALT 7 U/L (0-33) 11/14/21 14:50 Alkaline Phosphatase 76 IU/L (35-105) 11/14/21 14:50 Total Protein 6.9 g/dL (6.6-8.7) 11/14/21 14:50 Albumin 4.3 g/dL (3.5-5.2) 11/14/21 14:50 Globulin 2.6 g/dL (1.3-4.6) 11/14/21 14:50 TSH 1.21 uIU/mL (0.27-4.20) 11/14/21 14:50 Urine Color Yellow (Yellow) 11/14/21 15:00 Urine Appearance Clear (CLEAR) 11/14/21 15:00 Urine pH 8 (5-7) H 11/14/21 15:00 Ur Specific [place] 1.010 (1.005-1.030) 11/14/21 15:00 Urine Protein 2+ (Negative) H 11/14/21 15:00 Urine Glucose (UA) Norm (Normal) 11/14/21 15:00 Urine Ketones Negative (Negative) 11/14/21 15:00 Urine Blood Neg (Negative) 11/14/21 15:00 Urine Nitrate Negative (Negative) 11/14/21 15:00 Urine Bilirubin Neg (Negative) 11/14/21 15:00 Prot Sulfosalicylic Acd Positive (Negative) 11/14/21 15:00 Urine Urobilinogen Norm mg/dL (Negative) 11/14/21 15:00 Ur Leukocyte Esterase Negative (Negative) 11/14/21 15:00 Urine RBC Rare /hpf (0-2) 11/14/21 15:00 Urine WBC None /hpf (0-5) 11/14/21 15:00 Ur Squamous Epith Cells Rare /hpf (0-5) 11/14/21 15:00 Amorphous Sediment Not Reportable 11/14/21 15:00 Urine Bacteria Trace /hpf (NONE) 11/14/21 15:00 Discharge Plan Discharge Patient Disposition: Home Clinical Impression: Behavioral change, Acute alteration in mental status Condition: Stable Prescriptions: No Action hydralazine 50 mg tablet 75 mg PO TID 0RF amlodipine 10 mg tablet 10 mg PO DAILY 0RF clonidine HCl 0.1 mg tablet 0.1 mg PO BID 0RF chlorthalidone 25 mg tablet 25 mg PO DAILY 0RF isosorbide mononitrate 30 mg tablet extended release 24 hr 30 mg PO BID 0RF garlic 500 mg capsule 500 mg PO DAILY 0RF ascorbate calcium (vitamin C) 500 mg tablet 1,000 mg PO DAILY 0RF docusate sodium 250 mg capsule 250 mg PO DAILY 0RF calcium acetate 667 mg tablet 667 mg PO TID 0RF sevelamer carbonate [Renvela] 800 mg tablet 800 mg PO TID 0RF Rx Instructions: must administer with a meal/food mecobalamin (vitamin B12) 1,000 mcg tablet,chewable 500 mcg PO DAILY 0RF cetirizine 10 mg tablet 10 mg PO DAILY PRN (Reason: Allergy Symptoms) 0RF lidocaine 5 % adhesive patch,medicated 1 patch topical DAILY PRN (Reason: pain) 30 Days Qty: 30 0RF Rx Instructions: leave on most painful area for up to 12 hrs citalopram 10 mg tablet 10 mg PO BEDTIME 0RF omeprazole 40 mg capsule,delayed release(DR/EC) 40 mg PO DAILY 0RF aspirin 81 mg Tablet,Delayed Release (Dr/Ec) 81 mg PO DAILY 0RF acetaminophen [Tylenol Extra Strength] 500 mg Tablet 500 mg PO TID PRN (Reason: Pain) 0RF carbidopa-levodopa 25-100 mg tablet 1 tab PO TID 0RF cranberry 500 mg Capsule 500 mg PO DAILY 0RF rasagiline 1 mg tablet 1 mg PO DAILY 0RF omega 7-[id number]-fish oil [Fish Oil] 1,200 (144-216) mg Capsule 1 cap PO BEDTIME Qty: 0 0RF Probiotic 15 billion cell Capsule 1 cap PO DAILY Qty: 0 0RF levothyroxine 150 mcg tablet 175 mcg PO DAILY Qty: 0 0RF oxybutynin chloride 5 mg tablet 5 mg PO DAILY 0RF melatonin 10 mg Tablet 10 mg PO BEDTIME 0RF fluticasone propionate [Flonase Allergy Relief] 50 mcg/actuation spray,suspension 1 spray nasal DAILY PRN (Reason: Nasal Congestion) 0RF quetiapine 25 mg tablet 200 mg PO BEDTIME PRN (Reason: Sleep) 0RF furosemide 40 mg tablet 40 mg PO BID 0RF Dialyvite 100-1 mg Tablet 1 tab PO DAILY 0RF Zofran 4 mg tablet 4 mg PO Q6H PRN (Reason: nausea and vomiting) Qty: 10 0RF Discharge Orders: Discharge ED (Routine); Ordered 11/14/21 Ordered By: Ventura Hughes Referrals: Cindy Chavarria PA [Primary Care Provider] - Discharge Diet: Usual diet Discharge Activity: Resume usual activity Patient Instructions: Concussion (ED), Altered Mental Status (ED) Activity Restrictions/Additional Instructions: Thank you for visiting the emergency department. You were seen and evaluated for episodes of alteration in consciousness. The exact cause of the symptoms is unclear. I recommend continuing your aspirin and statin. I will message our corrections caseworker for assistance in scheduling an outpatient EEG. Please follow-up with your primary care provider. Please return to the emergency department for recurrence of symptoms, any new neurologic deficits, staring spells, seizure activity, or anything else that you are concerned about and feel needs emergency department evaluation. Please do not drive or perform other tasks that would put you at risk such as bathing in a tub unsupervised, swimming, cooking over open flame, climbing high objects, or anything else that would be risky if you were to have another episode. Coding Level of Care Code ED Financial Market Dealer for Alex Fwsukhjinder Exam Comprehensive
[2021-11-14 15:06] LABS: Basophils # 0.1 10^3/uL (0.0-0.1); Eosinophils # 0.4 10^3/uL (0.0-0.8); Eosinophils % 5.7 %; Hematocrit 36.9 % (37.0-47.0); Lymphocytes % 26.4 %; Mean Corpuscular HGB Conc 32.5 g/dL (30.0-36.0); Mean Corpuscular Hemoglobin 32.6 pg (28.0-34.0); Mean Corpuscular Volume 100.3 fl (81-99); Mean Platelet Volume 9.9 fL (7.4-10.4); Monocytes # 1.1 10^3/uL (0.2-0.9); Monocytes % 14.2 %; Neutrophils # 4.04 10^3/uL (1.8-7.7); Neutrophils % 52.4 %; Nucleated Red Blood Cells % 0 %; Platelet Count 335 10^3/cmm (130-400); Red Blood Count 3.68 10^6/uL (4.1-5.3); Red Cell Distribution Width 14.3 % (12.1-15.1); White Blood Count 7.7 10^3/uL (4.0-10.0)
[2021-11-14 15:34] LABS: Alanine Aminotransferase 7 U/L (0-33); Albumin Level 4.3 g/dL (3.5-5.2); Alkaline Phosphatase 76 IU/L (35-105); Aspartate Amino Transferase 28 U/L (0-32); Blood Urea Nitrogen 27 mg/dL (8-23); Carbon Dioxide 28 mmol/L (22-29); Chloride 97 mmol/L (98-107); Globulin 2.6 g/dL (1.3-4.6); Glucose 82 mg/dL (65-115); Osmolality Calculated 294 mOsm/kg (285-295); Sodium 140 mmol/L (136-145); Thyroid Stimulating Hormone 1.21 uIU/mL (0.27-4.20); Total Bilirubin 0.4 mg/dL (0.15-1.2); Total Protein 6.9 g/dL (6.6-8.7)
[2021-11-14 15:36] LABS: Anion Gap 18.8 (5-19); Potassium 3.8 mmol/L (3.5-5.1)
[2021-11-14 16:25] LABS: Add Urine Microscopic? YES; Bilirubin Urine Neg (Negative); Blood Urine Neg (Negative); Glucose Urine UA Norm (Normal); Ketones Urine Negative (Negative); Leukocyte Esterase Urine Negative (Negative); Nitrate Urine Negative (Negative); Protein Urine 2+ (Negative); Sulfosalicylic Acid Urine Positive (Negative); Urine Appearance Clear (CLEAR); Urine Color Yellow (Yellow); Urobilinogen Urine Norm (Negative); pH Urine 8 (5-7)
[2021-11-14 16:31] LABS: Bacteria Urine TRACE /hpf; RBC Urine RARE /hpf (0-2); Squamous Epithelial Cell Urine RARE /hpf (0-5)
[2021-11-14 16:43] VITALS: BP 174/81; PULSE 98; RESP 16; TEMP 36.6; O2SAT 91
[2021-11-14 17:47] VITALS: BP 172/92; PULSE 97; RESP 15; TEMP 36.9; O2SAT 91
--- NOTE | 2021-11-15 13:08 | DCPLANNER ---
Addendum entered by Dottie Wyman 01/31/22 10:24: Patient had a follow up appointment scheduled for 01.31.22 for an EEG - patient did attend appointment. Addendum entered by Dottie Wyman 12/13/21 06:54: Patient has an appointment scheduled for , January 31, 2022 at 9:30 for an EEG. Clinic will call patient with appointment information. Original Note: physician relations manager had message to schedule an outpatient EEG for patient. physician relations manager faxed signed order to centralized scheduling, who will call patient with appointment information.
== END 2021-11-14 20:55 | disposition home or self-care (01) ==
PROVIDERS: Emergency Provider Emergency Medicine; PCP Physician Assistant
DX: R41.82 Altered mental status, unspecified (principal); R46.89 Other symptoms and signs involving appearance and behavior; Z79.82 Long term (current) use of aspirin; I12.0 Hypertensive chronic kidney disease with stage 5 chronic kidney disease or end stage renal disease; E11.22 Type 2 diabetes mellitus with diabetic chronic kidney disease; N18.6 End stage renal disease; E78.5 Hyperlipidemia, unspecified; G20 Parkinson's disease; Z95.0 Presence of cardiac pacemaker; F17.210 Nicotine dependence, cigarettes, uncomplicated
CPT/HCPCS: 51701; 70450; 80053; 81001; 84443; 85025; 99283

== ENCOUNTER → 2021-12-25 11:31 | Outpatient (BNVA) | payer MEDICARE, BC, SELFPAY | PROVIDERS: PCP Physician Assistant; Visit Provider Internal Medicine Cardiovascular Disease | DX: I25.10 Atherosclerotic heart disease of native coronary artery without angina pectoris (principal); I12.0 Hypertensive chronic kidney disease with stage 5 chronic kidney disease or end stage renal disease; E78.5 Hyperlipidemia, unspecified; R01.1 Cardiac murmur, unspecified; E11.22 Type 2 diabetes mellitus with diabetic chronic kidney disease; N18.9 Chronic kidney disease, unspecified; Z95.0 Presence of cardiac pacemaker; F17.200 Nicotine dependence, unspecified, uncomplicated | CPT/HCPCS: 99214 ==

== ENCOUNTER 2022-01-22 09:58 | Outpatient (CLI) | payer MEDICARE, BC, SELFPAY ==
--- NOTE | 2022-01-22 10:27 | USCV_ITS ---
Cindi Melissa Age: 86 Gender: F : 1935 Exam Date: 01/22/2022 10:38 Ordering Phys: Cindy Chavarria Technologist: Exam Location: [facility] – [place] Indication: systolic murmur BP: 160 / 85 HR: 80 Rhythm: Sinus Technical Quality: Technically difficult study MEASUREMENTS (Male / Female) Normal Values 2D ECHO IVC Diameter 1.4 cm DOPPLER AV Peak Velocity 245.0 cm/s LVOT Peak Velocity 114.0 cm/s MV Area PHT 5.0 cm squared Mitral E to A Ratio 1.4 MV E' Velocity 98.0 cm/s TR Peak Velocity 328.3 cm/s TR Peak Gradient 43.1 mmHg TV Peak E Velocity 117.0 cm/s Right Atrial Pressure 3.0 mmHg Pulmonary Artery Systolic Pressu 46.1 mmHg PV Peak Velocity 111.0 cm/s FINDINGS Left Ventricle Possibly normal LV size ejection fraction. Segmental wall motion analysis difficult because of the poor ultrasonic window. Only subcostal views were obtained Right Ventricle Normal RV size and ejection fractioncatheter/pacemaker wire in the right ventricular cavity. Right Atrium Catheter/pacemaker wire in the right atrial cavity. Left Atrium The left atrium is normal in size. Mitral Valve Mild mitral valve regurgitation. Aortic Valve Could not be visualized well Tricuspid Valve No gross abnormalities noted Pulmonic Valve No gross abnormalities noted Pericardium No pericardial effusion. Aorta Aorta not well visualized. CONCLUSIONS Technically very limited study because of the poor ultrasonic window. Only subcostal views were obtained. Possibly normal LV size ejection fraction. Segmental wall motion analysis difficult because of the poor ultrasonic window. Mild mitral valve regurgitation. There is no pericardial effusion. There are no intracardiac masses. Comparison with the previous study is difficult because of the difference in the technical quality. Dr Isabel Arizmendi MD [facility] (Electronically Signed) Final Date: 22 Jan 2022 14:04 S
== END 2022-01-22 09:59 | disposition home or self-care (01) ==
LOC: RAD 10:02
PROVIDERS: PCP Physician Assistant; Visit Provider Physician Assistant
DX: R01.1 Cardiac murmur, unspecified (principal)
CPT/HCPCS: 93306

== ENCOUNTER → 2022-01-31 09:23 | Outpatient (BNVA) | payer MEDICARE, BC, SELFPAY | PROVIDERS: PCP Physician Assistant; Referring Provider Emergency Medicine; Visit Provider Specialist | DX: R56.9 Unspecified convulsions (principal); R41.82 Altered mental status, unspecified; S09.90XS Unspecified injury of head, sequela; Y93.9 Activity, unspecified | CPT/HCPCS: 95816 ==

== ENCOUNTER 2022-02-07 01:29 | Emergency (ER) | payer MEDICARE, BC, SELFPAY ==
[2022-02-07] VITALS (10 sets, daily range): BP systolic 94–164; BP diastolic 41–71; PULSE 63–89; RESP 16–18; TEMP 36.6; O2SAT 90–99; BMI 29.2
--- NOTE | 2022-02-07 01:35 | XRR_ITS ---
PROCEDURE INFORMATION: Exam: XR Chest Exam date and time: 02/07/2022 1:40 AM Age: 86 years old Clinical indication: Shortness of breath; Prior surgery; Surgery type: Pacemaker. Bilateral breast lumpectomy; Patient HX: C/O SOB. TECHNIQUE: Imaging protocol: XR of the chest. Views: 1 view. COMPARISON: CR XR chest 1V portable [id number] 11/02/2021 8:10 PM FINDINGS: Tubes, catheters and devices: There is a left pacemaker with leads in stable position. Lungs: Prominent interstitial markings are present with central perihilar predominance and interstitial haze suggestive of congestive heart failure or fluid overload. Pleural spaces: There is a small left pleural effusion. No pneumothorax. Heart/Mediastinum: Normal in size. Bones/joints: No acute fracture is identified. XR/XR chest 1V portable [id number] IMPRESSION: 1. Prominent interstitial markings with perihilar predominance suggestive of congestive heart failure or fluid overload. 2. A small left pleural effusion.
--- NOTE | 2022-02-07 01:35 | ECG_ITS ---
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 Measurements Intervals [place] Rate: 76 P: 55 HI: 175 QRS: -26 QRSD: 132 T: 113 QT: 454 QTc: 511 Interpretive Statements SINUS RHYTHM LEFT BUNDLE BRANCH BLOCK [120+ ms QRS DURATION, 80+ ms Q/S IN V1/V2, 85+ ms R IN I/aVL/V5/V6] Compared to ECG 05/04/2020 10:32:42 Left bundle-branch block now present Sinus arrhythmia no longer present Electronically Signed On 02-07-2022 22:25:29 CDT by Freddie Marrero M.D. [id number]
[2022-02-07 02:08] LABS: Basophils # 0.1 10^3/uL (0.0-0.1); Basophils % 1.3 %; Eosinophils # 0.3 10^3/uL (0.0-0.8); Eosinophils % 4.6 %; Hemoglobin 11.7 g/dL (11.5-15.3); Lymphocytes # 1.6 10^3/uL (0.8-4.8); Lymphocytes % 23.8 %; Mean Corpuscular HGB Conc 33.4 g/dL (30.0-36.0); Mean Corpuscular Hemoglobin 33.8 pg (28.0-34.0); Mean Corpuscular Volume 101.2 fl (81-99); Mean Platelet Volume 9.3 fL (7.4-10.4); Monocytes # 1.1 10^3/uL (0.2-0.9); Monocytes % 16.1 %; Neutrophils # 3.72 10^3/uL (1.8-7.7); Neutrophils % 53.9 %; Nucleated Red Blood Cells % 0 %; Platelet Count 269 10^3/cmm (130-400); Red Blood Count 3.46 10^6/uL (4.1-5.3); Red Cell Distribution Width 15.5 % (12.1-15.1); White Blood Count 6.9 10^3/uL (4.0-10.0)
[2022-02-07 02:31] LABS: Troponin(5th) Baseline 63 ng/L (0-10)
--- NOTE | 2022-02-07 02:34 | ED_ITS ---
HPI - SOB/Dyspnea General: Chief Complaint: Shortness of Breath/Dyspnea Stated Complaint: sob Time Seen by Provider: 02/07/22 01:31 Source: patient Mode of arrival: ambulatory Limitations: no limitations History of Present Illness: HPI Narrative: 86-year-old female who has a history of end-stage renal disease she gets dialysis Friday. She states that tonight she woke up and was feeling short of breath and slightly weak. She denies any fever denies any ches t pain denies any worsening improving factors denies any vomiting or diarrhea. Patient is able to talk in full sentences here and is in no distress not requiring any oxygen at this time. Associated symptoms: Deny abdominal pain, chest pain, fever(s), nausea or v omiting Review of Systems Const: Denies: fever(s), chills, body aches or change in appetite Eyes: Denies: blurry vision or eye discomfort ENMT: Denies: throat pain or dental pain Card: Denies: chest pain Resp: Reports: dyspnea GI: Denies: abdominal pain, nausea, vomiting or diarrhea : Denies: dysuria Musc: Denies: neck pain or back pain Skin/Breast: Denies: rash Neuro: Denies: headache(s) Psych: Denies: depression Hao/Lymph: Denies: easy bruising All/Imm: Denies: urticaria PFSH ED PFSH: Medical History Acute dyspnea Anemia Benign essential HTN CKD (chronic kidney disease) Closed head injury Contusion of knee, left Dyslipidemia (high LDL; low HDL) ESRD (end stage renal disease) -recently started on HD ESRD (end stage renal disease) on dialysis Forehead contusion History of cardiac arrhythmia Hypertension -BP improved after HD, continue to monitor vital signs -continue antihypertensives Parkinson disease -continue meds Type 2 diabetes mellitus Surgical History History of colonoscopy with polypectomy History of pacemaker History of permanent cardiac pacemaker placement History of tonsillectomy and adenoidectomy Hx laparoscopic cholecystectomy S/P hemodialysis catheter insertion (~04/2020) Removed on 12/04/2020 Status post left breast lumpectomy Status post right breast lumpectomy Family History Father CAD (coronary artery disease) Sister Cancer Anesthesia complication CAD (coronary artery disease) Dementia Diabetes Mother Stroke Brother CAD (coronary artery disease) Cancer Diabetes Lung disease Family/Other Suicide Denies family history of Clotting disorder Chronic kidney disease (CKD) Bleeding disorder Social History Smoking and tobacco status: current every day smoker Alcohol intake: never Physical Exam Const: COMMON NORMALS: no acute distress, patient oriented x3 and healthy appearing HENMT: COMMON NORMALS: normocephalic and atraumatic HEAD & SCALP: normocephalic and atraumatic Eye: COMMON NORMALS: Equal, round and reactive pupils present and EOMs intact bilaterally PUPIL: Yes Equal, round and reactive pupils present Neck/C-Spine: COMMON NORMALS: full ROM and supple Chest: COMMONS NORMALS: normal inspection of the chest and normal palpation of entire chest wall Resp: COMMON NORMALS: normal respiratory effort, No retractions, No use of accessory muscles and clear to auscultation bilaterally AUSCULTATION: clear to auscultation bilaterally Cardio: COMMON NORMALS: regular rate, regular rhythm and No murmurs present (Cardio) RATE: regular rate RHYTHM: regular rhythm GI: COMMON NORMALS: Normal to inspection, nondistended, normoactive bowel sounds present, Soft to palpation, non-tender and no masses PALPATION: Yes Soft to palpation Extremity: COMMON NORMALS: normal to inspection and full ROM Neuro: COMMON NORMALS: patient oriented x3, moves all extremities and no focal motor deficits Psych: COMMON NORMALS: mental status grossly normal, Normal thought process present and cooperative THOUGHT PROCESS: Normal thought process present Skin: COMMON NORMALS: no rashes or lesions noted and no wounds GENERAL SKIN EXAM: no rashes or lesions noted Course Vital Signs: Vital signs: Vital Signs Temperature 97.8 F 02/07/22 01:31 Pulse Rate 73 02/07/22 04:30 Respiratory Rate 18 02/07/22 04:30 Blood Pressure 138/50 02/07/22 04:30 Pulse Oximetry 93 02/07/22 04:30 MDM - SOB/Dyspnea Medical Decision Making Patient presents here with some shortness of breath she feels much improved here she is getting dialysis tomorrow she is stable for discharge she is to follow-up with her PCP and return if worsening x-ray shows no signs of pneumonia troponins here are normal. Lab Data : 02/07/22 01:55 02/07/22 01:55 Labs/Radiology: Radiology Impressions Chest X-Ray 02/07/22 01:35 IMPRESSION: 1. Prominent interstitial markings with perihilar predominance suggestive of congestive heart failure or fluid overload. 2. A small left pleural effusion. Laboratory Results WBC 6.9 10^3/uL (4.0-10.0) 02/07/22 01:55 RBC 3.46 10^6/uL (4.1-5.3) L 02/07/22 01:55 Hgb 11.7 g/dL (11.5-15.3) 02/07/22 01:55 Hct 35.0 % (37.0-47.0) L 02/07/22 01:55 MCV 101.2 fl (81-99) H 02/07/22 01:55 MCH 33.8 pg (28.0-34.0) 02/07/22 01:55 MCHC 33.4 g/dL (30.0-36.0) 02/07/22 01:55 RDW 15.5 % (12.1-15.1) H 02/07/22 01:55 Plt Count 269 10^3/cmm (130-400) 02/07/22 01:55 MPV 9.3 fL (7.4-10.4) 02/07/22 01:55 Neut % (Auto) 53.9 % 02/07/22 01:55 Lymph % (Auto) 23.8 % 02/07/22 01:55 [place] % (Auto) 16.1 % 02/07/22 01:55 Eos % (Auto) 4.6 % 02/07/22 01:55 Baso % (Auto) 1.3 % 02/07/22 01:55 Neut # (Auto) 3.72 10^3/uL (1.8-7.7) 02/07/22 01:55 Lymph # (Auto) 1.6 10^3/uL (0.8-4.8) 02/07/22 01:55 [place] # (Auto) 1.1 10^3/uL (0.2-0.9) H 02/07/22 01:55 Eos # (Auto) 0.3 10^3/uL (0.0-0.8) 02/07/22 01:55 Baso # (Auto) 0.1 10^3/uL (0.0-0.1) 02/07/22 01:55 Nucleated RBC % (auto) 0 % 02/07/22 01:55 Nucleated RBCs # 0.0 /100WBC 02/07/22 01:55 Sodium 140 mmol/L (136-145) 02/07/22 01:55 Potassium 4.0 mmol/L (3.5-5.1) 02/07/22 01:55 Chloride 98 mmol/L (98-107) 02/07/22 01:55 Carbon Dioxide 32 mmol/L (22-29) H 02/07/22 01:55 Anion Gap 14.0 (5-19) 02/07/22 01:55 BUN 19 mg/dL (8-23) 02/07/22 01:55 Creatinine 3.8 mg/dL (0.5-0.9) H 02/07/22 01:55 GFR Calculation Not Reportable 02/07/22 01:55 Glucose 148 mg/dL (65-115) H 02/07/22 01:55 Calculated Osmolality 295 mOsm/kg (285-295) 02/07/22 01:55 Calcium 9.2 mg/dL (8.5-10.5) 02/07/22 01:55 Total Bilirubin 0.4 mg/dL (0.15-1.2) 02/07/22 01:55 AST 19 U/L (0-32) 02/07/22 01:55 ALT < 5 U/L (0-33) 02/07/22 01:55 Alkaline Phosphatase 57 IU/L (35-105) 02/07/22 01:55 Troponin T Baseline 63 ng/L (0-10) H 02/07/22 01:55 Troponin T 120 Minute 61.92 ng/L (0-10) H 02/07/22 03:51 Delta Troponin T -1.08 ABS# (0-10) L 02/07/22 03:51 NT-Pro-B Natriuret Pep 7895 pg/mL (0-450) H 02/07/22 01:55 Total Protein 6.3 g/dL (6.6-8.7) L 02/07/22 01:55 Albumin 3.9 g/dL (3.5-5.2) 02/07/22 01:55 Globulin 2.4 g/dL (1.3-4.6) 02/07/22 01:55 EKG Data EKG 1: I personally reviewed and interpreted this EKG as follows: EKG Interpretation Date: 02/07/22 EKG interpretation time: 01:51 Interpretation: nsr hr [address] or t wave abnormalities qrs 132 qtc 484 EKG 2: I personally reviewed and interpreted this EKG as follows: EKG Interpretation Date: 02/07/22 EKG interpretation time: 03:15 Interpretation: nsr hr [address] elevation qrs 87 qtc 510 Discharge Plan Discharge Patient Disposition: Home Clinical Impression: Shortness of breath, CKD (chronic kidney disease) Condition: Stable Prescriptions: No Action cholecalciferol (vitamin D3) [Dialyvite Vitamin D] 125 mcg (5,000 unit) caps ule 125 mcg PO DAILY 0RF hydralazine 100 mg tablet 100 mg PO TID Qty: 270 3RF amlodipine 10 mg tablet 10 mg PO DAILY 0RF chlorthalidone 25 mg tablet 25 mg PO DAILY 0RF isosorbide mononitrate 30 mg tablet extended release 24 hr 30 mg PO BID 0RF garlic 500 mg capsule 500 mg PO DAILY 0RF ascorbate calcium (vitamin C) 500 mg tablet 1,000 mg PO DAILY 0RF docusate sodium 250 mg capsule 250 mg PO DAILY 0RF calcium acetate 667 mg tablet 667 mg PO TID 0RF sevelamer carbonate [Renvela] 800 mg tablet 800 mg PO TID 0RF Rx Instructions: must administer with a meal/food mecobalamin (vitamin B12) 1,000 mcg tablet,chewable 500 mcg PO DAILY 0RF cetirizine 10 mg tablet 10 mg PO DAILY PRN (Reason: Allergy Symptoms) 0RF carvedilol 25 mg tablet 25 mg PO BID Qty: 180 3RF Rx Instructions: must administer with a meal/food citalopram 10 mg tablet 10 mg PO BEDTIME 0RF omeprazole 40 mg capsule,delayed release(DR/EC) 40 mg PO DAILY 0RF aspirin 81 mg Tablet,Delayed Release (Dr/Ec) 81 mg PO DAILY 0RF acetaminophen [Tylenol Extra Strength] 500 mg Tablet 500 mg PO TID PRN (Reason: Pain) 0RF carbidopa-levodopa 25-100 mg tablet 1 tab PO TID 0RF cranberry 500 mg Capsule 500 mg PO DAILY 0RF omega 5-azh-htm-fish oil [Fish Oil] 1,200 (144-216) mg Capsule 1 cap PO BEDTIME Qty: 0 0RF Probiotic 15 billion cell Capsule 1 cap PO DAILY Qty: 0 0RF levothyroxine 150 mcg tablet 175 mcg PO DAILY Qty: 0 0RF oxybutynin chloride 5 mg tablet 5 mg PO DAILY 0RF melatonin 10 mg Tablet 10 mg PO BEDTIME 0RF fluticasone propionate [Flonase Allergy Relief] 50 mcg/actuation spray,suspension 1 spray nasal DAILY PRN (Reason: Nasal Congestion) 0RF quetiapine 25 mg tablet 200 mg PO BEDTIME PRN (Reason: Sleep) 0RF furosemide 40 mg tablet 40 mg PO BID 0RF Dialyvite 100-1 mg Tablet 1 tab PO DAILY 0RF Discharge Orders: Discharge ED (Routine); Ordered 02/07/22 Ordered By: Rashawn Munoz Referrals: Cindy Chavarria PA [Primary Care Provider] - 1-3 days Discharge Diet: Advance as tolerated Discharge Activity: Resume usual activity Coding Level of Care Code ED Hose Sprayer for Alex Fwd Exam Comprehensive
[2022-02-07 02:36] LABS: Alanine Aminotransferase < 5 U/L (0-33); Albumin Level 3.9 g/dL (3.5-5.2); Alkaline Phosphatase 57 IU/L (35-105); Aspartate Amino Transferase 19 U/L (0-32); Blood Urea Nitrogen 19 mg/dL (8-23); Calcium 9.2 mg/dL (8.5-10.5); Carbon Dioxide 32 mmol/L (22-29); Chloride 98 mmol/L (98-107); Globulin 2.4 g/dL (1.3-4.6); Glucose 148 mg/dL (65-115); NT Pro B Type Natriuretic Pept 7895 pg/mL (0-450); Osmolality Calculated 295 mOsm/kg (285-295); Sodium 140 mmol/L (136-145); Total Bilirubin 0.4 mg/dL (0.15-1.2); Total Protein 6.3 g/dL (6.6-8.7)
--- NOTE | 2022-02-07 03:35 | ECG_ITS ---
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 Measurements Intervals [place] Rate: 66 P: 46 [place]: 174 QRS: 5 QRSD: 87 T: 17 QT: 496 QTc: 523 Interpretive Statements SINUS RHYTHM MODERATE T-WAVE ABNORMALITY, CONSIDER ANTERIOR ISCHEMIA [-0.1+ mV T-WAVE IN V3/V4] Compared to ECG 02/07/2022 01:51:19 T-wave abnormality now present Possible ischemia now present Left bundle-branch block no longer present Electronically Signed On 02-07-2022 22:28:11 CDT by Freddie Marrero M.D. [id number]
[2022-02-07 04:19] LABS: Troponin 5 2HR 61.92 ng/L (0-10)
[2022-02-07 04:20] LABS: Troponin 5 2HR Delta -1.08 ABS# (0-10)
== END 2022-02-07 05:50 | disposition home or self-care (01) ==
PROVIDERS: Emergency Provider Emergency Medicine; PCP Physician Assistant
DX: R06.02 Shortness of breath (principal); I12.0 Hypertensive chronic kidney disease with stage 5 chronic kidney disease or end stage renal disease; E11.22 Type 2 diabetes mellitus with diabetic chronic kidney disease; N18.6 End stage renal disease; Z99.2 Dependence on renal dialysis; E78.5 Hyperlipidemia, unspecified
CPT/HCPCS: 71045; 80053; 83880; 84484; 85025; 93005; 99284

== ENCOUNTER → 2022-03-15 11:04 | Outpatient (BNVA) | payer MEDICARE, BC, SELFPAY | PROVIDERS: PCP Physician Assistant; Visit Provider Internal Medicine Cardiovascular Disease | DX: Z45.010 Encounter for checking and testing of cardiac pacemaker pulse generator [battery] (principal) | CPT/HCPCS: 93280 ==

== ENCOUNTER 2022-04-01 08:28 | Emergency (ER) | payer MEDICARE, BC, SELFPAY ==
--- NOTE | 2022-04-01 08:31 | ECG_ITS ---
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 Measurements Intervals [place] Rate: 77 P: 59 [place]: 195 QRS: 14 QRSD: 141 T: 115 QT: 427 QTc: 485 Interpretive Statements SINUS RHYTHM LEFT BUNDLE BRANCH BLOCK [120+ ms QRS DURATION, 80+ ms Q/S IN V1/V2, 85+ ms R IN I/aVL/V5/V6] Compared to ECG 02/07/2022 03:15:43 Left bundle-branch block now present T-wave abnormality no longer present Possible ischemia no longer present Electronically Signed On 04-01-2022 17:53:40 CDT by Freddie Marrero M.D. [id number]
--- NOTE | 2022-04-01 08:32 | XR_ITS ---
WS: [id number] XR chest 1V portable [id number] REASON FOR EXAM: chest pain FINDINGS: Previous examination of 02/07/2022 demonstrated presumed pulmonary edema and small right pleural effus ion with larger left pleural effusion. At this time the right lung remains clear. No significant right pleural fluid accumulation is identif ied. There continues to be left pleural fluid accumulation and/or pleural thickening with some consolidati on in the left lower lung which may be atelectasis. No other interval change or new finding is noted. Cardiac device over the left chest and the leads to the right atrium and right ventricular apex are u nchanged. XR/XR chest 1V portable [id number] IMPRESSION: Chronic findings in the left lower chest as above.
[2022-04-01 08:41] VITALS: BP 170/75; PULSE 95; RESP 18; TEMP 36.6; O2SAT 95; BMI 28.5
[2022-04-01 08:45] VITALS: BP 165/72; PULSE 77; RESP 13; O2SAT 100
--- NOTE | 2022-04-01 08:45 | ED_ITS ---
HPI - Chest Pain General: Chief Complaint: Chest Pain Stated Complaint: Chest pain Time Seen by Provider: 04/01/22 08:30 Source: patient Mode of arrival: EMS Limitations: no limitations History of Present Illness: 86-year-old female with end-stage renal disease was at dialysis today 1 hour into her dialysis run she began complaining of chest discomfort. She had some palpitations as well. Pain is worse with deep inspiration and with palpation is reproducible. She took 3 sublingual nitro at dialysis with no improvement. Patient chose to end her dialysis run and come to the emergency room for evaluation. Pain continues to be reproducible. She had not been having any episodes of chest pain prior to this. Patient has diabetes and hypertension has had a pacemaker placed due to symptomatic bradycardia in 2010. His chronic diastolic heart failure. Patient has known coronary disease previously to heart cath in 2018 that showed RCA with 40% stenosis. MD complaint: chest pain Pertinent past history: coronary artery disease Onset (ago): minute(s) Timing of current episode: episodic Prior episodes: No Onset: during rest Pain location: substernal and left chest Pain radiation: none Severity: mild Quality: sharp Relieving factors: nothing Exacerbating factors: inspiration and palpation Associated symptoms: Reports palpitations; Deny abdominal pain, diaphoresis, dyspnea, fever(s), leg edema, nausea, sense of impending doom, syncope or vomiting Treatment prior to arrival: none Risk Factors: Coronary artery disease risk factors: diabetes and hypertension Review of Systems Const: Denies: fever(s), chills, fatigue, malaise or diaphoresis ENMT: Denies: throat pain, ear or mastoid pain, nasal discharge or nasal congestion Card: Reports: chest pain and palpitations; Denies: syncope Resp: Denies: dyspnea, productive cough or non-productive cough GI: Denies: abdominal pain, nausea or vomiting : Denies: flank pain, difficulty voiding, dysuria, urinary frequency or urinary urgency Musc: Denies: neck pain or back pain Skin/Breast: Denies: rash or pruritus [facility] ED PFSH: Medical History Acute dyspnea Anemia Benign essential HTN CKD (chronic kidney disease) Closed head injury Contusion of knee, left Dyslipidemia (high LDL; low HDL) ESRD (end stage renal disease) -recently started on HD ESRD (end stage renal disease) on dialysis Forehead contusion History of cardiac arrhythmia Hypertension -BP improved after HD, continue to monitor vital signs -continue antihypertensives Parkinson disease -continue meds Type 2 diabetes mellitus Surgical History History of colonoscopy with polypectomy History of pacemaker History of permanent cardiac pacemaker placement History of tonsillectomy and adenoidectomy Hx laparoscopic cholecystectomy S/P hemodialysis catheter insertion (~04/2020) Removed on 12/04/2020 Status post left breast lumpectomy Status post right breast lumpectomy Family History Father CAD (coronary artery disease) Sister Cancer Anesthesia complication CAD (coronary artery disease) Dementia Diabetes Mother Stroke Brother CAD (coronary artery disease) Cancer Diabetes Lung disease Family/Other Suicide Denies family history of Clotting disorder Chronic kidney disease (CKD) Bleeding disorder Social History Smoking and tobacco status: current every day smoker Alcohol intake: never Physical Exam Const: GENERAL APPEARANCE: cooperative and comfortable ORIENTATIO N/CONSCIOUSNESS: Yes awake, Yes oriented to person, Yes oriented to place and Yes oriented to time HENMT: COMMON NORMALS: normocephalic, atraumatic and hearing grossly normal bilaterally HEAD & SCALP: normocephalic and atraumatic Neck/C-Spine: COMMON NORMALS: no JVD Chest: CHEST: Yes localized rib tenderness with anteroposterior compression and Yes tenderness Resp: COMMON NORMALS: normal respiratory effort, No retractions, No use of accessory muscles and clear to auscultation bilaterally AUSCULTATION: clear to auscultation bilaterally Cardio: COMMON NORMALS: no JVD, regular rate, regular rhythm and No murmurs present (Cardio) RATE: regular rate RHYTHM: regular rhythm GI: COMMON NORMALS: Soft to palpation and No hepatosplenomegaly present AUSCULTATION: Yes normoactive bowel sounds PALPATION: Yes Soft to palpation, No Tenderness to palpation present (GI), No Guarding due to palpation present (GI) and Yes No hepatosplenomegaly present Extremity: COMMON NORMALS: normal to inspection, capillary refill normal, no clubbing, cyanosis or edema, no calf tenderness and no pedal edema Neuro: SENSORIUM/ORIENTATION: Yes oriented to person, Yes oriented to place and Yes oriented to time Skin: COMMON NORMALS: no rashes or lesions noted GENERAL SKIN EXAM: no rashes or lesions noted Course Vital Signs: Vital signs: Vital Signs Temperature 98 F 04/01/22 08:41 Pulse Rate 68 04/01/22 14:07 Respiratory Rate 15 04/01/22 14:07 Blood Pressure 151/88 04/01/22 14:07 Pulse Oximetry 96 04/01/22 14:07 MDM - Chest Pain Medical Decision Making Chest pain remains reproducible with palpation. Cardiac enzymes did not have a significant delta. EKG unremarkable. At rest patient has no pain. Will discharge home did check with nephrology clinic she had completed 2 of 3 hours they did not feel she needed return for the extra hour and can follow-up at her next dialysis run currently scheduled. Medical Records I reviewed the patient's medical records. Lab Data I reviewed the patient's lab results. : 04/01/22 09:24 04/01/22 09:24 Radiology Impressions Chest X-Ray 04/01/22 08:32 IMPRESSION: Chronic findings in the left lower chest as above. Laboratory Results WBC 8.2 10^3/uL (4.0-10.0) 04/01/22 09:24 RBC 3.47 10^6/uL (4.1-5.3) L 04/01/22 09:24 Hgb 11.5 g/dL (11.5-15.3) 04/01/22 09:24 Hct 33.4 % (37.0-47.0) L 04/01/22 09:24 MCV 96.3 fl (81-99) 04/01/22 09:24 MCH 33.1 pg (28.0-34.0) 04/01/22 09:24 MCHC 34.4 g/dL (30.0-36.0) 04/01/22 09:24 RDW 16.5 % (12.1-15.1) H 04/01/22 09:24 Plt Count 284 10^3/cmm (130-400) 04/01/22 09:24 MPV 9.0 fL (7.4-10.4) 04/01/22 09:24 Neut % (Auto) 63.2 % 04/01/22 09:24 Lymph % (Auto) 18.8 % 04/01/22 09:24 [place] % (Auto) 12.1 % 04/01/22 09:24 Eos % (Auto) 4.7 % 04/01/22 09:24 Baso % (Auto) 0.7 % 04/01/22 09:24 Neut # (Auto) 5.16 10^3/uL (1.8-7.7) 04/01/22 09:24 Lymph # (Auto) 1.5 10^3/uL (0.8-4.8) 04/01/22 09:24 [place] # (Auto) 1.0 10^3/uL (0.2-0.9) H 04/01/22 09:24 Eos # (Auto) 0.4 10^3/uL (0.0-0.8) 04/01/22 09:24 Baso # (Auto) 0.1 10^3/uL (0.0-0.1) 04/01/22 09:24 Nucleated RBC % (auto) 0 % 04/01/22 09:24 Nucleated RBCs # 0.0 /100WBC 04/01/22 09:24 Sodium 137 mmol/L (136-145) 04/01/22 09:24 Potassium 4.3 mmol/L (3.5-5.1) 04/01/22 09:24 Chloride 96 mmol/L (98-107) L 04/01/22 09:24 Carbon Dioxide 28 mmol/L (22-29) 04/01/22 09:24 Anion Gap 17.3 (5-19) 04/01/22 09:24 BUN 19 mg/dL (8-23) 04/01/22 09:24 Creatinine 3.5 mg/dL (0.5-0.9) H 04/01/22 09:24 GFR Calculation Not Reportable 04/01/22 09:24 Glucose 108 mg/dL (65-115) 04/01/22 09:24 Calculated Osmolality 287 mOsm/kg (285-295) 04/01/22 09:24 Calcium 9.3 mg/dL (8.5-10.5) 04/01/22 09:24 Total Bilirubin 0.4 mg/dL (0.15-1.2) 04/01/22 09:24 AST 14 U/L (0-32) 04/01/22 09:24 ALT < 5 U/L (0-33) 04/01/22 09:24 Alkaline Phosphatase 57 IU/L (35-105) 04/01/22 09:24 Troponin T Baseline 47 ng/L (0-10) H 04/01/22 09:24 Troponin T 120 Minute 42.43 ng/L (0-10) H 04/01/22 11:31 Delta Troponin T -4.57 ABS# (0-10) L 04/01/22 11:31 Total Protein 7.3 g/dL (6.6-8.7) 04/01/22 09:24 Albumin 4.3 g/dL (3.5-5.2) 04/01/22 09:24 Globulin 3.0 g/dL (1.3-4.6) 04/01/22 09:24 Discharge Plan Discharge Patient Disposition: Home Clinical Impression: Anterior chest wall pain, End stage renal disease Condition: Stable Prescriptions: No Action hydralazine 100 mg tablet 100 mg PO TID Qty: 270 3RF chlorthalidone 25 mg tablet 25 mg PO DAILY 0RF garlic 500 mg capsule 500 mg PO DAILY 0RF ascorbate calcium (vitamin C) 500 mg tablet 1,000 mg PO DAILY 0RF docusate sodium 250 mg capsule 250 mg PO DAILY 0RF sevelamer carbonate [Renvela] 800 mg tablet 800 mg PO TID 0RF Rx Instructions: must administer with a meal/food mecobalamin (vitamin B12) 1,000 mcg tablet,chewable 2,500 mcg PO DAILY 0RF cetirizine 10 mg tablet 10 mg PO DAILY PRN (Reason: Allergy Symptoms) 0RF carvedilol 25 mg tablet 25 mg PO BID Qty: 180 3RF Rx Instructions: must administer with a meal/food citalopram 10 mg tablet 10 mg PO BEDTIME 0RF omeprazole 40 mg capsule,delayed release(DR/EC) 40 mg PO DAILY 0RF aspirin 81 mg Tablet,Delayed Release (Dr/Ec) 81 mg PO DAILY 0RF acetaminophen [Tylenol Extra Strength] 500 mg Tablet 500 mg PO TID PRN (Reason: Pain) 0RF carbidopa-levodopa 25-100 mg tablet 1 tab PO TID 0RF cranberry 500 mg Capsule 500 mg PO DAILY 0RF omega 5-kzt-elp-fish oil [Fish Oil] 1,200 (144-216) mg Capsule 1 cap PO BEDTIME Qty: 0 0RF Probiotic 15 billion cell Capsule 1 cap PO DAILY Qty: 0 0RF levothyroxine 150 mcg tablet 175 mcg PO DAILY Qty: 0 0RF oxybutynin chloride 5 mg tablet 5 mg PO DAILY 0RF melatonin 10 mg Tablet 10 mg PO BEDTIME 0RF fluticasone propionate [Flonase Allergy Relief] 50 mcg/actuation spray,suspension 1 spray nasal DAILY PRN (Reason: Nasal Congestion) 0RF quetiapine 25 mg tablet 200 mg PO BEDTIME PRN (Reason: Sleep) 0RF furosemide 40 mg tablet 40 mg PO BID 0RF Dialyvite 100-1 mg Tablet 1 tab PO DAILY 0RF isosorbide mononitrate 30 mg tablet extended release 24 hr 30 mg PO BID 0RF nifedipine 60 mg Tablet Extended Release 60 mg PO BID 0RF rasagiline 1 mg tablet 1 mg PO DAILY 0RF Prevagen 10 mg PO DAILY 0RF Discharge Orders: Discharge ED (Routine); Ordered 04/01/22 Ordered By: Alex Miranda Referrals: Cindy Chavarria PA [Primary Care Provider] - Discharge Diet: Usual diet Discharge Activity: Increase activity as tolerated Patient Instructions: Opioid Safety Coding Level of Care Code ED Milking Machine Technician for Alex Fwd Exam Comprehensive
--- NOTE | 2022-04-01 09:27 | PC.NURSE ---
PT PLACED ON CONTINUOUS NIBP, SPO2, AND CM
[2022-04-01 09:39] LABS: Basophils # 0.1 10^3/uL (0.0-0.1); Basophils % 0.7 %; Eosinophils # 0.4 10^3/uL (0.0-0.8); Eosinophils % 4.7 %; Hematocrit 33.4 % (37.0-47.0); Hemoglobin 11.5 g/dL (11.5-15.3); Lymphocytes # 1.5 10^3/uL (0.8-4.8); Lymphocytes % 18.8 %; Mean Corpuscular HGB Conc 34.4 g/dL (30.0-36.0); Mean Corpuscular Hemoglobin 33.1 pg (28.0-34.0); Mean Corpuscular Volume 96.3 fl (81-99); Monocytes % 12.1 %; Neutrophils # 5.16 10^3/uL (1.8-7.7); Neutrophils % 63.2 %; Nucleated Red Blood Cells % 0 %; Platelet Count 284 10^3/cmm (130-400); Red Blood Count 3.47 10^6/uL (4.1-5.3); Red Cell Distribution Width 16.5 % (12.1-15.1); White Blood Count 8.2 10^3/uL (4.0-10.0)
[2022-04-01 10:05] LABS: Alanine Aminotransferase < 5 U/L (0-33); Albumin Level 4.3 g/dL (3.5-5.2); Alkaline Phosphatase 57 IU/L (35-105); Blood Urea Nitrogen 19 mg/dL (8-23); Calcium 9.3 mg/dL (8.5-10.5); Carbon Dioxide 28 mmol/L (22-29); Chloride 96 mmol/L (98-107); Glucose 108 mg/dL (65-115); Osmolality Calculated 287 mOsm/kg (285-295); Sodium 137 mmol/L (136-145); Total Bilirubin 0.4 mg/dL (0.15-1.2); Total Protein 7.3 g/dL (6.6-8.7); Troponin(5th) Baseline 47 ng/L (0-10)
[2022-04-01 10:08] LABS: Anion Gap 17.3 (5-19); Aspartate Amino Transferase 14 U/L (0-32); Potassium 4.3 mmol/L (3.5-5.1)
[2022-04-01 10:15] VITALS: BP 203/86; PULSE 79; RESP 15
--- NOTE | 2022-04-01 10:31 | ECG_ITS ---
[facility] Test Date: 2022-04-01 Pat Name: Cindi Melissa Department: Room: Gender: Female Pool Attendant: : 1935 Requested By: Alex Laurent Order Number: [id number] Moses MD: Freddie Marrero M.D. Measurements Intervals [place] Rate: 78 P: 58 SD: 220 QRS: -8 QRSD: 129 T: 130 QT: 415 QTc: 475 Interpretive Statements SINUS RHYTHM WITH FIRST DEGREE AV BLOCK LEFT BUNDLE BRANCH BLOCK [120+ ms QRS DURATION, 80+ ms Q/S IN V1/V2, 85+ ms R IN I/aVL/V5/V6] Compared to ECG 04/01/2022 08:51:06 First degree AV block now present Electronically Signed On 04-01-2022 18:09:06 CDT by Freddie Marrero M.D. [email or web address]
[2022-04-01 11:15] VITALS: BP 186/111; PULSE 82; RESP 17; O2SAT 98
[2022-04-01 12:15] VITALS: BP 182/86; PULSE 74; RESP 23; O2SAT 91
[2022-04-01 12:23] LABS: Troponin 5 2HR 42.43 ng/L (0-10)
[2022-04-01 12:24] LABS: Troponin 5 2HR Delta -4.57 ABS# (0-10)
[2022-04-01 14:07] VITALS: BP 151/88; PULSE 68; RESP 15; O2SAT 96
== END 2022-04-01 14:09 | disposition home or self-care (01) ==
PROVIDERS: Emergency Provider Family Medicine; PCP Physician Assistant
DX: R07.89 Other chest pain (principal); I12.0 Hypertensive chronic kidney disease with stage 5 chronic kidney disease or end stage renal disease; E11.22 Type 2 diabetes mellitus with diabetic chronic kidney disease; N18.6 End stage renal disease; Z99.2 Dependence on renal dialysis; Z79.82 Long term (current) use of aspirin; E78.5 Hyperlipidemia, unspecified; G20 Parkinson's disease; Z95.0 Presence of cardiac pacemaker; F17.210 Nicotine dependence, cigarettes, uncomplicated
CPT/HCPCS: 36415; 71045; 80053; 84484; 85025; 93005; 99285

== ENCOUNTER → 2022-06-20 10:13 | Outpatient (BNVA) | payer MEDICARE, BC, SELFPAY | PROVIDERS: PCP Physician Assistant; Visit Provider Internal Medicine Cardiovascular Disease | DX: I25.10 Atherosclerotic heart disease of native coronary artery without angina pectoris (principal); Z95.0 Presence of cardiac pacemaker; I12.0 Hypertensive chronic kidney disease with stage 5 chronic kidney disease or end stage renal disease; N18.6 End stage renal disease; Z99.2 Dependence on renal dialysis; F17.200 Nicotine dependence, unspecified, uncomplicated; E78.5 Hyperlipidemia, unspecified; E11.22 Type 2 diabetes mellitus with diabetic chronic kidney disease | CPT/HCPCS: 99214 ==

== ENCOUNTER 2022-06-24 14:04 | Outpatient (CLI) | payer MEDICARE, BC, SELFPAY ==
--- NOTE | 2022-06-24 14:12 | MM_ITS ---
WS: [id number] BILATERAL 3D TOMOSYNTHESIS DIGITAL DIAGNOSTIC MAMMOGRAPHY WITH CAD CLINICAL INFORMATION: CHANGE OF SKIN OF BREAST COMPARISON: None. TECHNIQUE: Bilateral CC, MLO, and ML views. FINDINGS: Scattered fibroglandular densities bilaterally. Diffuse skin thickening bilaterally. Trabecular thick ening in the LEFT greater than RIGHT breast. Vascular calcification. Punctate and lucent centered clayton cifications. Cardiac pacer. Ultrasound LEFT breast described below ULTRASOUND BREAST LEFT TECHNIQUE: Ultrasound left breast focused area of concern. CLINICAL INFORMATION: CHANGE OF SKIN OF BREAST COMPARISON: None. FINDINGS: 4 quadrant ultrasound LEFT breast demonstrates diffuse skin thickening with subcutaneous edema. No fo clayton abscess or fluid collection. No focal mass or lesion to target for biopsy. MM/[id number] IMPRESSION: Diffuse skin thickening LEFT greater than RIGHT breast with trabecu lar thickening LEFT greater than RIGHT. Ultrasound LEFT breast demonstrates no focal mass to target for biopsy. Considering bilateral skin thickening findings may be due to renal failure/fluid overload. However, considering asymmetric enlargement of the LEFT breast with trabecular thickening, recommend punch biopsy LEFT breast to exclude inflammatory carcino ma. Recommend correlation with clinical history. BI-RADS: 4-Suspicious Finding-Biopsy Should Be Considered FOLLOW UP: See Report Consider skin punch biopsy LEFT breast to exclude inflammatory carcinoma
== END 2022-06-24 14:05 | disposition home or self-care (01) ==
LOC: RAD 14:07
PROVIDERS: PCP Physician Assistant; Visit Provider Physician Assistant
DX: R23.4 Changes in skin texture (principal)
CPT/HCPCS: 76642; 77062

== ENCOUNTER 2022-08-27 12:10 | Emergency (ER) | payer MEDICARE, BC, SELFPAY ==
[2022-08-27 12:10] VITALS: BP 115/65; PULSE 95; RESP 16; TEMP 36.8; O2SAT 93; BMI 27.4
[2022-08-27 12:16] VITALS: PULSE 88; RESP 16; O2SAT 98
--- NOTE | 2022-08-27 12:24 | ECG_ITS ---
[facility] Test Date: 2022-08-27 Pat Name: Cindi Melissa Department: Room: Gender: Female Container Washer: : 1935 Requested By: Ventura Hughes Order Number: [id number] Moses MD: Isabel Arizmendi M.D. Measurements Intervals [place] Rate: 67 P: 51 DC: 148 QRS: 71 QRSD: 105 T: 81 QT: 418 QTc: 443 Interpretive Statements SINUS RHYTHM Compared to ECG 04/01/2022 10:29:06 First degree AV block no longer present Left bundle-branch block no longer present Electronically Signed On 08-28-2022 0:03:23 FEDERAL AID COORDINATOR by Isabel Arizmendi M.D. [id number]
--- NOTE | 2022-08-27 12:24 | W.ED.GENADLT ---
HPI - General Adult General: Chief complaint: General Medical Stated complaint: LOW BP Time Seen by Provider: 08/27/22 12:24 History of Present Illness: Ms. Melissa is an 87-year-old lady with history of end-stage renal disease on dialysis, hypertension, hyperlipidemia, CAD who resides in a halfway presents due to questionable low blood pressure. Apparently she resides at [facility] and they reported her systolic blood pressure to be in the 80s. Upon EMS arrival systolic is been consistently above 100. Patient denies any symptoms or changes in health. She did have dialysis. Patient is quite somnolent with an unclear baseline. No other specific changes in health, exacerbating, or alleviating factors identified. Review of Systems General: Reports: 10 or more systems reviewed and unremarkable except in HPI and below PFSH ED PFSH: Medical History Acute dyspnea Anemia Benign essential HTN CKD (chronic kidney disease) Closed head injury Contusion of knee, left Dyslipidemia (high LDL; low HDL) ESRD (end stage renal disease) -recently started on HD ESRD (end stage renal disease) on dialysis Forehead contusion History of cardiac arrhythmia Hypertension -BP improved after HD, continue to monitor vital signs -continue antihypertensives Parkinson disease -continue meds Type 2 diabetes mellitus Surgical History History of colonoscopy with polypectomy History of pacemaker History of permanent cardiac pacemaker placement History of tonsillectomy and adenoidectomy Hx laparoscopic cholecystectomy S/P hemodialysis catheter insertion (~04/2020) Removed on 12/04/2020 Status post left breast lumpectomy Status post right breast lumpectomy Family History Father CAD (coronary artery disease) Sister Cancer Anesthesia complication CAD (coronary artery disease) Dementia Diabetes Mother Stroke Brother CAD (coronary artery disease) Cancer Diabetes Lung disease Family/Other Suicide Denies family history of Clotting disorder Chronic kidney disease (CKD) Bleeding disorder Social History Smoking and tobacco status: current every day smoker Alcohol intake: never Physical Exam Const: COMMON NORMALS: patient oriented x3 and alert GENERAL APPEARANCE: cooperative and well developed ORIENTATION/CONSCIOUSNESS: Yes Other orientation findings (Somnolent) HENMT: COMMON NORMALS: normocephalic and atraumatic HEAD & SCALP: normocephalic and atraumatic Eye: COMMON NORMALS: conjunctivae normal CONJUNCTIVA: Yes conjunctivae normal SCLERA: sclerae normal Neck/C-Spine: COMMON NORMALS: supple GENERAL: Yes trachea midline Resp: COMMON NORMALS: clear to auscultation bilaterally EFFORT & INSPECTION: Yes able to speak in complete sentences AUSCULTATION: clear to auscultation bilaterally Cardio: COMMON NORMALS: regular rate and regular rhythm RATE: regular rate RHYTHM: regular rhythm GI: COMMON NORMALS: Soft to palpation PALPATION: Yes Soft to palpation, Yes Tenderness to palpation present (GI), No Guarding due to palpation present (GI) and No Rigid due to palpation Extremity: GENERAL: Yes normal exam except as noted and No edema Neuro: COMMON NORMALS: patient oriented x3, CN's II-XII intact bilaterally, moves all extremities, no focal motor deficits and no sensory deficits noted SENSORIUM/ORIENTATION: Yes alert and No Orientation impaired Psych: COMMON NORMALS: mental status grossly normal and Normal thought process present THOUGHT PROCESS: Normal thought process present Course Vital Signs: Vital signs: Vital Signs Temperature 98.3 F 08/27/22 12:10 Pulse Rate 70 08/27/22 18:00 Respiratory Rate 19 H 08/27/22 16:45 Blood Pressure 156/56 08/27/22 18:00 Pulse Oximetry 95 08/27/22 18:00 Oxygen Delivery Me thod 08/27/22 18:00 Oxygen Flow Rate 1 08/27/22 14:26 [facility] - General Adult Medical Decision Making 87-year-old lady presenting with possible low blood pressure. The patient denies any symptoms herself. There were no focal neurologic deficits. EKG shows sinus rhythm, no STEMI. Labs with no leukocytosis, hemoglobin is decreased however he related to end-stage renal disease. Metabolic panel without acute need for dialysis. TSH low with normal free T4. CT head negative for acute intracranial pathology. Chest x-ray with no lobar consolidation or pneumothorax. CT abdomen pelvis with mild constipation without infectious etiology identified. Small fluid bolus ordered given history of end-stage renal disease and likely dehydration. Most likely etiology of patient symptoms is unclear, she has not been hypotensive at our facility. Mild dehydration is possible and should improve with IV fluids. The results of ED evaluation were discussed with the patient including prescriptions and/or symptomatic cares (if applicable) including appropriate and responsible use, followup plan, and return precautions. The patient verbalized understanding and felt safe for discharge. Medical Records I reviewed the patient's medical records. Lab Data I reviewed the patient's lab results. 08/27/22 13:50 08/27/22 13:50 Radiology Impressions Abdomen/Pelvis CT 08/27/22 12:33 IMPRESSION: 1. Small LEFT greater than RIGHT pleural effusions with compressive atelectasis in the LEFT lower lobe. Small pericardial effusion. 2. Prior cholecystectomy. 3. Mild sigmoid and rectosigmoid constipation. Mild fecal retention in the transverse colon. 4. Small esophageal hiatal hernia. 5. No other acute findings. Chest X-Ray 08/27/22 12:33 Impression: 1. No change in left lower lobe opacity probably representing loculated effusion and atelectasis. 2. Permanent pacemaker and atherosclerosis. Head CT 08/27/22 12:33 IMPRESSION: 1. No evidence of intracranial hemorrhage or mass effect. 2. Moderate small vessel changes. Moderate parenchymal volume loss. 3. No acute intracranial findings. Laboratory Results WBC 6.9 10^3/uL (4.0-10.0) 08/27/22 13:50 RBC 2.71 10^6/uL (4.1-5.3) L 08/27/22 13:50 Hgb 8.7 g/dL (11.5-15.3) L 08/27/22 13:50 Hct 27.1 % (37.0-47.0) L 08/27/22 13:50 MCV 100.0 fl (81-99) H 08/27/22 13:50 MCH 32.1 pg (28.0-34.0) 08/27/22 13:50 MCHC 32.1 g/dL (30.0-36.0) 08/27/22 13:50 RDW 14.1 % (12.1-15.1) 08/27/22 13:50 Plt Count 252 10^3/cmm (130-400) 08/27/22 13:50 MPV 10.3 fL (7.4-10.4) 08/27/22 13:50 Neut % (Auto) 49.2 % 08/27/22 13:50 Lymph % (Auto) 30.8 % 08/27/22 13:50 [place] % (Auto) 14.7 % 08/27/22 13:50 Eos % (Auto) 4.0 % 08/27/22 13:50 Baso % (Auto) 1.0 % 08/27/22 13:50 Neut # (Auto) 3.41 10^3/uL (1.8-7.7) 08/27/22 13:50 Lymph # (Auto) 2.1 10^3/uL (0.8-4.8) 08/27/22 13:50 [place] # (Auto) 1.0 10^3/uL (0.2-0.9) H 08/27/22 13:50 Eos # (Auto) 0.3 10^3/uL (0.0-0.8) 08/27/22 13:50 Baso # (Auto) 0.1 10^3/uL (0.0-0.1) 08/27/22 13:50 Nucleated RBC % (auto) 0 % 08/27/22 13:50 Nucleated RBCs # 0.0 /100WBC 08/27/22 13:50 Sodium 140 mmol/L (136-145) 08/27/22 13:50 Potassium 4.8 mmol/L (3.5-5.1) 08/27/22 13:50 Chloride 100 mmol/L (98-107) 08/27/22 13:50 Carbon Dioxide 29 mmol/L (22-29) 08/27/22 13:50 Anion Gap 15.8 (5-19) 08/27/22 13:50 BUN 37 mg/dL (8-23) H 08/27/22 13:50 Creatinine 4.9 mg/dL (0.5-0.9) H 08/27/22 13:50 GFR Calculation Not Reportable 08/27/22 13:50 Glucose 89 mg/dL (65-115) 08/27/22 13:50 Calculated Osmolality 298 mOsm/kg (285-295) H 08/27/22 13:50 Calcium 9.7 mg/dL (8.5-10.5) 08/27/22 13:50 Total Bilirubin 0.3 mg/dL (0.15-1.2) 08/27/22 13:50 AST 9 U/L (0-32) 08/27/22 13:50 ALT < 5 U/L (0-33) 08/27/22 13:50 Alkaline Phosphatase 66 U/L (35-105) 08/27/22 13:50 Total Protein 6.6 g/dL (6.6-8.7) 08/27/22 13:50 Albumin 4.0 g/dL (3.5-5.2) 08/27/22 13:50 Globulin 2.6 g/dL (1.3-4.6) 08/27/22 13:50 TSH 0.06 uIU/mL (0.27-4.20) L 08/27/22 13:50 Free T4 1.17 ng/dL (0.82-1.77) 08/27/22 13:50 Discharge Plan Discharge Patient Disposition: Home Clinical Impression: Hypotension, Anemia, Constipation Condition: Stable Prescriptions: No Action hydralazine 100 mg tablet 100 mg PO TID Qty: 270 3RF chlorthalidone 25 mg tablet 25 mg PO DAILY ascorbate calcium (vitamin C) 500 mg tablet 1,000 mg PO DAILY sevelamer carbonate [Renvela] 800 mg tablet 800 mg PO TID Rx Instructions: must administer with a meal/food mecobalamin (vitamin B12) 1,000 mcg tablet,chewable 2,500 mcg PO DAILY carvedilol 25 mg tablet 25 mg PO BID Qty: 180 3RF Rx Instructions: must administer with a meal/food citalopram 10 mg tablet 10 mg PO BEDTIME omeprazole 40 mg capsule,delayed release(DR/EC) 40 mg PO DAILY aspirin 81 mg Tablet,Delayed Release (Dr/Ec) 81 mg PO DAILY carbidopa-levodopa 25-100 mg tablet 1 tab PO TID cranberry 500 mg Capsule 500 mg PO DAILY omega [id number]-okg-noe-fish oil [Fish Oil] 1,200 (144-216) mg Capsule 1 cap PO BEDTIME Qty: 0 levothyroxine 150 mcg tablet 175 mcg PO DAILY Qty: 0 0RF oxybutynin chloride 5 mg tablet 5 mg PO DAILY melatonin 10 mg Tablet 10 mg PO BEDTIME fluticasone propionate [Flonase Allergy Relief] 50 mcg/actuation spray,suspension 1 spray nasal DAILY PRN (Reason: Nasal Congestion) quetiapine 25 mg tablet 200 mg PO BEDTIME PRN (Reason: Sleep) furosemide 40 mg tablet 40 mg PO BID isosorbide mononitrate 30 mg tablet extended release 24 hr 30 mg PO BID rasagiline 1 mg tablet 1 mg PO DAILY multivitamin Tablet 1 tab PO DAILY hydralazine 10 mg Tablet 10 mg PO Q8H PRN (Reason: Blood Pressure) ferrous sulfate 325 mg (65 mg iron) Tablet 325 mg PO BID sodium zirconium cyclosilicate 10 gram Powder In Packet 10 g PO DAILY clonidine HCl 0.1 mg Tablet 0.1 mg PO TID acetaminophen 325 mg Tablet 650 mg PO Q4H PRN (Reason: Pain) Senna-S 8.6-50 mg Tablet 2 tab-cap PO BEDTIME Milk of Magnesia 400 mg/5 mL Suspension 30 ml PO Q3D PRN (Reason: Constipation) amlodipine 10 mg Tablet 10 mg PO DAILY Dulcolax (bisacodyl) 10 mg Suppository 10 mg OR DAILY PRN (Reason: Constipation) magnesium citrate Solution 300 ml PO DAILY PRN (Reason: Constipation) Dulcolax (bisacodyl) 5 mg Tablet,Delayed Release (Dr/Ec) 20 mg PO DAILY PRN (Reason: Constipation) Mylanta 200-200-20 mg/5 mL Suspension 30 ml PO Q2H PRN (Reason: Indigestion) Rx Instructions: administer between meals Discharge Orders: Discharge ED (Routine); Ordered 08/27/22 Ordered By: Ventura Hughes Referrals: Cindy Chavarria PA [Primary Care Provider] - Discharge Diet: Usual diet Discharge Activity: Increase activity as tolerated Patient Instructions: Constipation (ED), Hypotension (ED), Anemia (ED) Activity Restrictions/Additional Instructions: Thank you for visiting the emergency department. You were seen and evaluated for possible hypotension, it is unclear if this was a miscellaneous reading or actual low blood pressure as your blood pressure has been normal for EMS and here in the emergency department. When you are on dialysis you are at higher risk for blood pressure changes. Please continue your medication regimen including Dulcolax as you were found to have some constipation. Please ensure that you are following instructions regarding fluid and diet intake. Please follow-up with your primary care provider within the next 1 to 3 days. Return to the emergency department for recurrent symptoms, changes in mental status, strokelike symptoms, or anything else that you are concerned about a feel needs emergency department evaluation. Coding Level of Care Code ED [employer] for [employer] Exam Comprehensive
--- NOTE | 2022-08-27 12:33 | CT_ITS ---
WS: [id number] CT ABDOMEN PELVIS TECHNIQUE: Noncontrast CT of the abdomen and pelvis with coronal and sagittal reformatted images. CLINICAL INFORMATION: ams, abd pain COMPARISON: CT May 18, 2020 DLP: 780.[address] scans at [facility] use at least one of these dose optimization techniques: automated e xposure control; mA and/or kV adjustment per patient size (includes targeted exams where dose is matc hed to clinical indication); or iterative reconstruction. FINDINGS: Small LEFT greater than RIGHT pleural effusions. Compressive atelectasis in the LEFT greater than RIG HT lower lobes. Fluid along the LEFT fissure. Tiny pericardial effusion. Mild diffuse body wall anasa rca. Noncontrast liver is normal. Prior cholecystectomy. Small esophageal hiatal hernia. Adrenal glands ar e normal. Fatty atrophy of the pancreas. Mild rectosigmoid constipation. Mild fecal retention in the transverse colon. Normal appendix in the RIGHT lower quadrant. Noncontrast spleen is normal. Adrenal glands are normal. Bilateral renal cortic al atrophy. No hydronephrosis in either kidney. Pelvic phleboliths. RIGHT renal cortical cyst measuri ng 15 mm. Smaller RIGHT increased attenuation renal cysts. A few tiny LEFT renal cysts. Slight cordelia listhesis L4 on L5 CT/CT abdomen pelvis wo con [id number] IMPRESSION: 1. Small LEFT greater than RIGHT pleural effusions with compressive atelectasi s in the LEFT lower lobe. Small pericardial effusion. 2. Prior cholecystectomy. 3. Mild sigmoid and rectosigmoid constipation. Mild fecal retention in the tra nsverse colon. 4. Small esophageal hiatal hernia. 5. No other acute findings.
--- NOTE | 2022-08-27 12:33 | XR_ITS ---
WS: [id number] Portable AP upright chest, 08/27/2022 Clinical Data: ams Comparison: Portable chest, 04/01/2022 Findings: No nodules or masses are seen. There is a left lower lobe opacity which is probably combina tion of effusion and atelectasis. Pneumonia is possible but there is been no change. The heart is normal. The pulmonary vascularity is not increased. No pneumonia or pneumothorax is seen. The 2-lead pacemaker remains in the same positio n. The aortic arch and descending thoracic aorta show calcification. There is probably a calcified mi tral valve. There is an artifact with multiple small radiopaque items around the neck which could rep resent a necklace. XR/XR chest 1V portable [id number] Impression: 1. No change in left lower lobe opacity probably representing loculated effusio n and atelectasis. 2. Permanent pacemaker and atherosclerosis.
--- NOTE | 2022-08-27 12:33 | CT_ITS ---
WS: [id number] CT HEAD TECHNIQUE: Noncontrast CT of the head obtained from the skullbase to the vertex. CLINICAL INFORMATION: ams, COMPARISON: None. DLP: 1072.[address] scans at [facility] use at least one of these dose optimization techniques: automated e xposure control; mA and/or kV adjustment per patient size (includes targeted exams where dose is matc hed to clinical indication); or iterative reconstruction. FINDINGS: No evidence of intracranial hemorrhage or mass effect. Ventricular system and basal cisterns are tamayo nt. Moderate small vessel changes with moderate parenchymal volume loss. Vascular calcification. No e xtra-axial fluid collections. No evidence of mass or mass effect. Small chronic lacunar infarcts LEFT caudate is unchanged. Intracranial vascular calcification. Paranasal sinuses and mastoid air cells are well aerated. .Normal visualized soft tissues. CT/CT head wo con* [id number] IMPRESSION: 1. No evidence of intracranial hemorrhage or mass effect. 2. Moderate small vessel changes. Moderate parenchymal volume loss. 3. No acute intracranial findings.
[2022-08-27 14:13] LABS: Basophils # 0.1 10^3/uL (0.0-0.1); Eosinophils # 0.3 10^3/uL (0.0-0.8); Hematocrit 27.1 % (37.0-47.0); Hemoglobin 8.7 g/dL (11.5-15.3); Lymphocytes # 2.1 10^3/uL (0.8-4.8); Lymphocytes % 30.8 %; Mean Corpuscular HGB Conc 32.1 g/dL (30.0-36.0); Mean Corpuscular Hemoglobin 32.1 pg (28.0-34.0); Mean Platelet Volume 10.3 fL (7.4-10.4); Monocytes % 14.7 %; Neutrophils # 3.41 10^3/uL (1.8-7.7); Neutrophils % 49.2 %; Nucleated Red Blood Cells % 0 %; Platelet Count 252 10^3/cmm (130-400); Red Blood Count 2.71 10^6/uL (4.1-5.3); Red Cell Distribution Width 14.1 % (12.1-15.1); White Blood Count 6.9 10^3/uL (4.0-10.0)
[2022-08-27 14:26] VITALS: BP 114/47; PULSE 70; O2SAT 95
[2022-08-27 14:40] LABS: Alanine Aminotransferase < 5 U/L (0-33); Alkaline Phosphatase 66 U/L (35-105); Anion Gap 15.8 (5-19); Aspartate Amino Transferase 9 U/L (0-32); Blood Urea Nitrogen 37 mg/dL (8-23); Calcium 9.7 mg/dL (8.5-10.5); Carbon Dioxide 29 mmol/L (22-29); Chloride 100 mmol/L (98-107); Globulin 2.6 g/dL (1.3-4.6); Glucose 89 mg/dL (65-115); Osmolality Calculated 298 mOsm/kg (285-295); Potassium 4.8 mmol/L (3.5-5.1); Sodium 140 mmol/L (136-145); Thyroid Stimulating Hormone 0.06 uIU/mL (0.27-4.20); Total Bilirubin 0.3 mg/dL (0.15-1.2); Total Protein 6.6 g/dL (6.6-8.7)
[2022-08-27 15:19] LABS: Free T4 Free Thyroxine 1.17 ng/dL (0.82-1.77)
[2022-08-27] MEDS: sodium chloride 0.9% 500 ML 999 ML IV (16:43)
[2022-08-27 16:45] VITALS: BP 150/51; PULSE 69; RESP 19; O2SAT 96
[2022-08-27 18:00] VITALS: BP 156/56; PULSE 70; O2SAT 95
== END 2022-08-27 18:15 | disposition home or self-care (01) ==
PROVIDERS: Emergency Provider Emergency Medicine; PCP Physician Assistant
DX: I95.9 Hypotension, unspecified (principal); D64.9 Anemia, unspecified; K59.00 Constipation, unspecified; Z79.82 Long term (current) use of aspirin; F17.210 Nicotine dependence, cigarettes, uncomplicated; I12.0 Hypertensive chronic kidney disease with stage 5 chronic kidney disease or end stage renal disease; E11.22 Type 2 diabetes mellitus with diabetic chronic kidney disease; N18.6 End stage renal disease; E78.5 Hyperlipidemia, unspecified; G20 Parkinson's disease; Z95.0 Presence of cardiac pacemaker
CPT/HCPCS: 70450; 71045; 74176; 80053; 84439; 84443; 85025; 93005; 96360; 99285; J7040